=== PATIENT | female | born 1945 | race Caucasian/White ===

== ENCOUNTER → 2017-02-12 | Outpatient (CLI) | payer OTHER ==
[~2017-02-12] MED LIST: ACET-6 PO; AMLO5TAB2 PO; CLOP75TA28 PO; LISI-646 PO; MOME0.05 TOP
[2017-02-12 09:46] LABS: Basophils # (auto) 0.1 uL; Basophils % (auto) 1.1 % (0.0-2.0); Eosinophils # (auto) 0.2 uL; Eosinophils % (auto) 2.8 % (0.0-7.0); Hematocrit 50.8 % (36.0-46.0); Hemoglobin 16.6 g/dL (12.2-16.2); Lymphocytes # (auto) 3.7 uL; Lymphocytes % (auto) 41.5 % (10.0-50.0); Mean Corpuscular Hemoglobin 31.9 pg (28.0-32.0); Mean Corpuscular Hgb Conc. 32.7 g/dL (32.0-36.0); Mean Corpuscular Volume 97.4 fL (80.0-100.0); Mean Platelet Volume 9.5 fL (7.4-10.4); Monocytes # (auto) 0.8 uL; Monocytes % (auto) 9.5 % (0.0-12.0); Neutrophils % (auto) 45.1 % (37.0-80.0); Platelet Count (auto) 279 10^3/uL (140-450); Red Cell Distribution Width 13.1 % (11.6-16.0); White Blood Cell 8.9 10^3/uL (4.4-10.8)
[2017-02-12 09:52] LABS: Albumin 4.2 g/dL (3.4-5.0); Bilirubin, Total 0.5 mg/dL (0.2-1.0); Calcium 9.3 mg/dL (8.5-10.1); Potassium 4.3 mmol/L (3.5-5.1); Total Protein 8.4 g/dL (6.4-8.2)
== END | disposition home or self-care (01) ==
LOC: LAB 08:31
PROVIDERS: ATTEND Internal Medicine
DX: E78.2 Mixed hyperlipidemia (principal); I10 Essential (primary) hypertension; N39.0 Urinary tract infection, site not specified; E55.9 Vitamin D deficiency, unspecified
CPT/HCPCS: 36415; 80053; 80061; 82306; 84443; 85025

== ENCOUNTER → 2018-05-15 | Outpatient (CLI) | payer OTHER ==
[~2018-05-15] MED LIST changes: -ACET-6 PO; -MOME0.05 TOP
[2018-05-15 10:08] LABS: Basophils # (auto) 0.1 uL; Basophils % (auto) 1.1 % (0.0-2.0); Eosinophils # (auto) 0.2 uL; Lymphocytes # (auto) 4.3 uL; Nucleated Red Blood Cells % 0.1 %
[2018-05-15 10:10] LABS: Hematocrit 53.4 % (36.0-46.0); Hemoglobin 17.9 g/dL (12.2-16.2); Lymphocytes % (auto) 46.3 % (10.0-50.0); Mean Corpuscular Hemoglobin 32.6 pg (28.0-32.0); Mean Corpuscular Hgb Conc. 33.4 g/dL (32.0-36.0); Mean Corpuscular Volume 97.4 fL (80.0-100.0); Monocytes # (auto) 0.9 uL; Neutrophils # (auto) 3.7 uL; Neutrophils % (auto) 40.6 % (37.0-80.0); Platelet Count (auto) 257 10^3/uL (140-450); Red Blood Cells 5.48 10^6/uL (4.0-5.20); Red Cell Distribution Width 13.9 % (11.8-14.3); White Blood Cell 9.2 10^3/uL (4.4-10.8)
[2018-05-15 10:37] LABS: Albumin 4.3 g/dL (3.4-5.0); BUN/Creatinine Ratio 12.4; Bilirubin, Total 0.5 mg/dL (0.2-1.0); Calcium 9.2 mg/dL (8.5-10.1); Potassium 4.5 mmol/L (3.5-5.1); Total Protein 8.5 g/dL (6.4-8.2)
== END | disposition home or self-care (01) ==
LOC: LAB 09:50
PROVIDERS: ATTEND Physician Assistant
DX: I10 Essential (primary) hypertension (principal); I65.21 Occlusion and stenosis of right carotid artery; E78.2 Mixed hyperlipidemia; E55.9 Vitamin D deficiency, unspecified; Z79.899 Other long term (current) drug therapy
CPT/HCPCS: 36415; 80053; 80061; 82306; 85025

== ENCOUNTER → 2018-11-05 | Outpatient (CLI) | payer OTHER ==
[~2018-11-05] MED LIST changes: +AMLO5TAB13 PO; -AMLO5TAB2 PO
== END | disposition home or self-care (01) ==
LOC: LAB 11:57
PROVIDERS: ATTEND Physician Assistant
DX: C44.92 Squamous cell carcinoma of skin, unspecified (principal)

== ENCOUNTER → 2018-12-03 | Outpatient (CLI) | payer OTHER ==
[2018-12-03 09:05] LABS: Basophils # (auto) 0.1 uL; Eosinophils # (auto) 0.2 uL; Lymphocytes # (auto) 3.9 uL; Neutrophils # (auto) 5.3 uL; Nucleated Red Blood Cells % 0.2 %; White Blood Cell 10.2 10^3/uL (4.4-10.8)
[2018-12-03 09:06] LABS: Basophils % (auto) 1.1 % (0.0-2.0); Eosinophils % (auto) 1.8 % (0.0-7.0); Hemoglobin 18.9 g/dL (12.2-16.2); Lymphocytes % (auto) 38.3 % (10.0-50.0); Mean Corpuscular Hemoglobin 32.9 pg (28.0-32.0); Mean Corpuscular Hgb Conc. 34.4 g/dL (32.0-36.0); Mean Corpuscular Volume 95.5 fL (80.0-100.0); Monocytes # (auto) 0.7 uL; Neutrophils % (auto) 51.8 % (37.0-80.0); Platelet Count (auto) 267 10^3/uL (140-450); Red Blood Cells 5.76 10^6/uL (4.0-5.20); Red Cell Distribution Width 13.8 % (11.8-14.3)
[2018-12-03 09:53] LABS: Albumin 4.7 g/dL (3.4-5.0); Anion Gap 6 (5-15); Aspartate Aminotransferase 27 U/L (15-37); Calcium 9.6 mg/dL (8.5-10.1); Carbon Dioxide 27 mmol/L (21-32); Chloride 105 mmol/L (98-107); Potassium 4.7 mmol/L (3.5-5.1); Sodium 138 mmol/L (136-145)
[2018-12-03 09:59] LABS: Alanine Aminotransferase 43 U/L (13-56); Alkaline Phosphatase 87 U/L (45-117); BUN/Creatinine Ratio 19.5; Bilirubin, Total 0.3 mg/dL (0.2-1.0); Blood Urea Nitrogen 16 mg/dL (7-18); CRP High Sensitivity 0.13 mg/dL (< 0.3); Cholesterol 216 mg/dL (< 200); Free T4 (Free Thyroxine) 1.11 ng/dL (0.89-1.76); GFR African American > 60 mL/min; GFR Non-African American > 60 mL/min; Glucose 126 mg/dL (74-106); HDL Cholesterol 61 mg/dL (40-59); LDL Cholesterol 126 mg/dL (< 100); T3 Total 1.13 ng/mL (0.60-1.81); Total Protein 9.1 g/dL (6.4-8.2); Triglycerides 175 mg/dL (< 150)
== END | disposition home or self-care (01) ==
LOC: LAB 08:29
PROVIDERS: ATTEND Internal Medicine
DX: I10 Essential (primary) hypertension (principal); E78.2 Mixed hyperlipidemia; E55.9 Vitamin D deficiency, unspecified; E78.1 Pure hyperglyceridemia
CPT/HCPCS: 36415; 80053; 80061; 82306; 82607; 83036; 84439; 84443; 84480; 85025; 86141

== ENCOUNTER → 2019-01-01 | Outpatient (CLI) | payer OTHER | END | disposition home or self-care (01) | LOC: XY 07:59 | PROVIDERS: ATTEND Internal Medicine | DX: I65.23 Occlusion and stenosis of bilateral carotid arteries (principal); I77.1 Stricture of artery | CPT/HCPCS: 93886; 93925 ==

== ENCOUNTER → 2019-01-08 | Outpatient (CLI) | payer OTHER | END | disposition home or self-care (01) | LOC: XY 09:56 | PROVIDERS: ATTEND Internal Medicine | DX: I10 Essential (primary) hypertension (principal) | CPT/HCPCS: 93306 ==

== ENCOUNTER → 2019-02-27 | Outpatient (CLI) | payer OTHER ==
[~2019-02-27] MED LIST changes: +ROSU20TA14 PO
[2019-02-27 11:12] LABS: Basophils # (auto) 0.1 uL; Hemoglobin 17.8 g/dL (12.2-16.2)
[2019-02-27 11:14] LABS: Basophils % (auto) 0.8 % (0.0-2.0); Eosinophils # (auto) 0.2 uL; Eosinophils % (auto) 2.4 % (0.0-7.0); Hematocrit 54.4 % (36.0-46.0); Lymphocytes # (auto) 4.3 uL; Lymphocytes % (auto) 44.1 % (10.0-50.0); Mean Corpuscular Hemoglobin 31.9 pg (28.0-32.0); Mean Corpuscular Hgb Conc. 32.8 g/dL (32.0-36.0); Mean Corpuscular Volume 97.2 fL (80.0-100.0); Monocytes # (auto) 0.8 uL; Monocytes % (auto) 8.1 % (0.0-12.0); Neutrophils # (auto) 4.3 uL; Neutrophils % (auto) 44.6 % (37.0-80.0); Platelet Count (auto) 229 10^3/uL (140-450); Red Cell Distribution Width 14.2 % (11.8-14.3); White Blood Cell 9.7 10^3/uL (4.4-10.8)
[2019-02-27 11:26] LABS: INR 1.07 (0.9-1.15); Partial Thromboplastin Time 33.4 sec (23.78-33.04); Prothrombin Time 11.4 sec (9.27-12.13)
[2019-02-27 11:34] LABS: Potassium 4.6 mmol/L (3.5-5.1)
[2019-02-27 11:37] LABS: Albumin 4.7 g/dL (3.4-5.0); Calcium 9.6 mg/dL (8.5-10.1)
[2019-02-27 11:42] LABS: BUN/Creatinine Ratio 14.9; Bilirubin, Total 0.3 mg/dL (0.2-1.0); Total Protein 8.4 g/dL (6.4-8.2)
== END | disposition home or self-care (01) ==
LOC: LAB 10:52
PROVIDERS: ATTEND Internal Medicine
DX: Z01.812 Encounter for preprocedural laboratory examination (principal); I10 Essential (primary) hypertension
CPT/HCPCS: 36415; 80053; 85025; 85610; 85730

== ENCOUNTER 2019-04-17 08:46 | Inpatient (IN) | payer OTHER ==
[2019-04-15 09:53] LABS: Basophils # (auto) 0.1 uL; Eosinophils # (auto) 0.3 uL; Eosinophils % (auto) 2.6 % (0.0-7.0); Hematocrit 50.8 % (36.0-46.0); Hemoglobin 16.9 g/dL (12.2-16.2); Lymphocytes % (auto) 40.6 % (10.0-50.0); Mean Corpuscular Hemoglobin 32.6 pg (28.0-32.0); Mean Corpuscular Hgb Conc. 33.4 g/dL (32.0-36.0); Mean Corpuscular Volume 97.8 fL (80.0-100.0); Monocytes # (auto) 0.8 uL; Monocytes % (auto) 8.3 % (0.0-12.0); Neutrophils # (auto) 4.6 uL; Neutrophils % (auto) 47.5 % (37.0-80.0); Nucleated Red Blood Cells % 0.1 %; Platelet Count (auto) 221 10^3/uL (140-450); Red Cell Distribution Width 14.2 % (11.8-14.3); White Blood Cell 9.7 10^3/uL (4.4-10.8)
[2019-04-15 10:05] LABS: INR 0.98 (0.9-1.15); Partial Thromboplastin Time 29.6 sec (23.64-32.05)
[2019-04-15 10:20] LABS: Albumin 4.2 g/dL (3.4-5.0); Calcium 9.4 mg/dL (8.5-10.1); Potassium 4.4 mmol/L (3.5-5.1)
[2019-04-15 10:23] LABS: BUN/Creatinine Ratio 26.7; Bilirubin, Total 0.3 mg/dL (0.2-1.0); Total Protein 8.3 g/dL (6.4-8.2)
[~2019-04-17] VITALS: Ht 167.6 cm; Wt 62.8 kg
[~2019-04-17 08:46] MED LIST changes: -AMLO5TAB13 PO; +AMLO5TAB15 PO; +ASPI-404 PO
[2019-04-17] MEDS ORDERED: IOHEXOL 350 MG/ML 100ML IJ ONE ×3 (09:49→11:51)
[2019-04-17] MEDS ORDERED: LIDOCAINE 2%HCL (LOCAL ANESTH.) INJ 20ML MDV ONE (09:49)
[2019-04-17] MEDS ORDERED: fentaNYL CITRATE 100 MCG/2 ML VL ONE (09:51)
[2019-04-17] MEDS ORDERED: ANGIOMAX 250 MG VIAL IV ONE ×2 (09:51→12:24)
[2019-04-17] MEDS ORDERED: SODIUM CHL 0.9% 50 ML ONE ×2 (09:51→12:24)
[2019-04-17] MEDS ORDERED: MIDAZOLAM HCL 1MG/1ML-2 ML VIAL ONE (09:51)
[2019-04-17] MEDS ORDERED: VERAPAMIL 2.5MG/ML INJ 2ML VIAL IV ONE ×2 (11:14→11:27)
[2019-04-17] MEDS ORDERED: ACETAMINOPHEN 500 MG TAB PO PRN (13:30)
[2019-04-17] MEDS ORDERED: NITROGLYCERIN 0.4 MG SL TAB SL PRN (13:30)
[2019-04-17] MEDS ORDERED: ONDANSETRON HCL 4 MG/2 ML VIAL IV PRN (13:30)
[2019-04-17] MEDS ORDERED: MORPHINE SULF INJ 2 MG/ML SYRINGE 1ML IV PRN (13:30)
--- NOTE | 2019-04-17 14:30 | NUR ---
PT ADMITTED TO FLOOR VIA GURNEY FROM P[facility]PERATOR. PT ORIENTED TO UNIT AND CALL LIGHT. PT DENIES PAIN AT THIS TIME. LEFT GROIN INCISION IS CLEAN, DRY, AND INTACT. SLIGHT ECCHYMOSIS NOTED AT SITE. SITE IS SOFT AND PALPABLE. BILATERAL PEDAL PULSES PRESENT, PLUS 2 AND REGULAR. VITALS: 140/67, HR 83, 02 92, RR 18, T 98.6.
[2019-04-17] MEDS: SODIUM CHLOR 0.9% PF (SALINE LOCK) 10ML VIAL/SYR IV SCH ×2 (15:34→22:12)
[2019-04-17 17:34] VITALS: BP 118/54
[2019-04-17 22:00] VITALS: BP 153/108
[2019-04-17] MEDS: HYDROcodone-ACET 5/325MG TAB PO PRN (22:14)
[2019-04-18] MEDS: HYDROcodone-ACET 5/325MG TAB PO PRN ×2 (02:54→12:20)
[2019-04-18 04:49] VITALS: BP 103/55
[2019-04-18] MEDS: SODIUM CHLOR 0.9% PF (SALINE LOCK) 10ML VIAL/SYR IV SCH ×2 (05:50→13:33)
--- NOTE | 2019-04-18 07:20 | NUR ---
Opening Shift Note Assumed care of patient, awake and alert. No S/S of distress/SOB or pain. Instructed on POC and to call for assist PRN, will continue to monitor for changes Q1hr and PRN. Ecchymosis noted around left groin.
[2019-04-18 08:00] VITALS: BP 101/37
[2019-04-18 09:00] VITALS: BP 101/37
[2019-04-18] MEDS ORDERED: ASPirin-EC 81 mg tab PO SCH (10:00)
[2019-04-18] MEDS ORDERED: LISINOPRIL 20 MG TAB PO SCH (10:00)
[2019-04-18] MEDS ORDERED: amLODIPine BESYLATE 5 MG TAB PO SCH (10:00)
[2019-04-18] MEDS ORDERED: CLOPIDOGREL BISULFATE 75 MG TAB PO SCH (10:00)
--- NOTE | 2019-04-18 10:50 | NUR ---
MD Irma SEBASTIAN network professional for Dr. Juan cifuentes regarding plan of care.
--- NOTE | 2019-04-18 11:30 | NUR ---
Spoke with Dr. Dutch Mays with him for DC
[2019-04-18 13:21] VITALS: BP 107/51
--- NOTE | 2019-04-18 14:45 | NUR ---
Received call from Dr. Juan SEBATSIAN reported patient can be discharged.
--- NOTE | 2019-04-18 15:58 | NUR ---
Discharge from Med Surg Discharge instructions given as ordered. Encourage to follow up with PMD as instructed. All questions and concerns addressed. Patient verbalized understanding. IV removed with catheter intact, pressure dressing applied. Patient taken to vehicle via wheelchair with all personal belongings, accompanied by staff and family member. No distress noted at time of departure.
== END 2019-04-18 15:56 | disposition home or self-care (01) | DRG 272 ==
LOC: CATH 08:46 → WEST WING 14:40
PROVIDERS: ADMIT Internal Medicine; ATTEND Internal Medicine
PROC: 047C3DZ Dilation of Right Common Iliac Artery with Intraluminal Device, Percutaneous Approach (ICD-10-PCS; principal; 2019-04-17)
PROC: 04CK3ZZ Extirpation of Matter from Right Femoral Artery, Percutaneous Approach (ICD-10-PCS; 2019-04-17)
PROC: 047K3Z1 Dilation of Right Femoral Artery using Drug-Coated Balloon, Percutaneous Approach (ICD-10-PCS; 2019-04-17)
PROC: 047M3Z1 Dilation of Right Popliteal Artery using Drug-Coated Balloon, Percutaneous Approach (ICD-10-PCS; 2019-04-17)
PROC: 047R3Z1 Dilation of Right Posterior Tibial Artery using Drug-Coated Balloon, Percutaneous Approach (ICD-10-PCS; 2019-04-17)
PROC: 04CM3ZZ Extirpation of Matter from Right Popliteal Artery, Percutaneous Approach (ICD-10-PCS; 2019-04-17)
PROC: 04CR3ZZ Extirpation of Matter from Right Posterior Tibial Artery, Percutaneous Approach (ICD-10-PCS; 2019-04-17)
PROC: B41G1ZZ Fluoroscopy of Left Lower Extremity Arteries using Low Osmolar Contrast (ICD-10-PCS; 2019-04-17)
PROC: B41F1ZZ Fluoroscopy of Right Lower Extremity Arteries using Low Osmolar Contrast (ICD-10-PCS; 2019-04-17)
DX: I70.201 Unspecified atherosclerosis of native arteries of extremities, right leg (principal); I10 Essential (primary) hypertension; E78.5 Hyperlipidemia, unspecified; F17.210 Nicotine dependence, cigarettes, uncomplicated; Z82.0 Family history of epilepsy and other diseases of the nervous system; Z82.3 Family history of stroke; Z82.49 Family history of ischemic heart disease and other diseases of the circulatory system; Z83.3 Family history of diabetes mellitus; Z90.710 Acquired absence of both cervix and uterus; Z98.61 Coronary angioplasty status
CPT/HCPCS: 36415; 37221; 37224; 37229; 75716; 80053; 82565; 85025; 85610; 85730; 99152; C1725; G0378; J2250

== ENCOUNTER → 2019-12-29 | Outpatient (CLI) | payer OTHER ==
[2019-12-29 09:39] LABS: Basophils # (auto) 0.1 uL; Eosinophils # (auto) 0.2 uL; Hemoglobin 17.8 g/dL (12.2-16.2); Monocytes # (auto) 0.8 uL; Monocytes % (auto) 14.6 % (0.0-12.0); White Blood Cell 5.7 10^3/uL (4.4-10.8)
[2019-12-29 09:41] LABS: Basophils % (auto) 1.1 % (0.0-2.0); Eosinophils % (auto) 3.6 % (0.0-7.0); Hematocrit 53.5 % (36.0-46.0); Lymphocytes # (auto) 2.2 uL; Lymphocytes % (auto) 37.7 % (10.0-50.0); Mean Corpuscular Hemoglobin 31.4 pg (28.0-32.0); Mean Corpuscular Hgb Conc. 33.2 g/dL (32.0-36.0); Mean Corpuscular Volume 94.7 fL (80.0-100.0); Neutrophils # (auto) 2.5 uL; Nucleated Red Blood Cells % 0.3 %; Platelet Count (auto) 164 10^3/uL (140-450); Red Blood Cells 5.65 10^6/uL (4.0-5.20); Red Cell Distribution Width 14.9 % (11.8-14.3)
[2019-12-29 09:56] LABS: Potassium 4.5 mmol/L (3.5-5.1)
[2019-12-29 10:07] LABS: Albumin 3.7 g/dL (3.4-5.0); Bilirubin, Total 0.3 mg/dL (0.2-1.0); Calcium 8.6 mg/dL (8.5-10.1); Total Protein 7.7 g/dL (6.4-8.2)
== END | disposition home or self-care (01) ==
LOC: LAB 08:31
PROVIDERS: ATTEND Physician Assistant
DX: J44.9 Chronic obstructive pulmonary disease, unspecified (principal); E78.5 Hyperlipidemia, unspecified; E78.1 Pure hyperglyceridemia; I73.9 Peripheral vascular disease, unspecified; I10 Essential (primary) hypertension
CPT/HCPCS: 36415; 80053; 80061; 85025

== ENCOUNTER → 2020-09-29 | Outpatient (CLI) | payer OTHER ==
[~2020-09-29] MED LIST changes: -ASPI-404 PO; +ASPI-543 PO
== END | disposition home or self-care (01) ==
LOC: XY 16:05
PROVIDERS: ATTEND Internal Medicine
DX: I73.9 Peripheral vascular disease, unspecified (principal)
CPT/HCPCS: 93925

== ENCOUNTER → 2021-02-20 | Outpatient (CLI) | payer OTHER ==
[~2021-02-20] MED LIST changes: +AMLO-489 PO; -AMLO5TAB15 PO
[2021-02-20 09:11] LABS: Basophils # (auto) 0.1 10 ^3/uL (0-0.2); Eosinophils # (auto) 0.4 10 ^3/uL (0-0.8); Lymphocytes # (auto) 3.5 10 ^3/uL (0.4-5.4); Monocytes # (auto) 0.8 10 ^3/uL (0-1.3); Neutrophils # (auto) 3.7 10 ^3/uL (1.6-8.6)
[2021-02-20 09:12] LABS: Basophils % (auto) 1.4 % (0.0-2.0); Eosinophils % (auto) 4.7 % (0.0-7.0); Hematocrit 52.5 % (36.0-46.0); Hemoglobin 17.9 g/dL (12.2-16.2); Lymphocytes % (auto) 41.1 % (10.0-50.0); Mean Corpuscular Hemoglobin 32.8 pg (28.0-32.0); Mean Corpuscular Hgb Conc. 34.2 g/dL (32.0-36.0); Mean Corpuscular Volume 95.9 fL (80.0-100.0); Monocytes % (auto) 9.6 % (0.0-12.0); Neutrophils % (auto) 43.2 % (37.0-80.0); Nucleated Red Blood Cells % 0.1 %; Platelet Count (auto) 192 10^3/uL (140-450); Red Blood Cells 5.47 10^6/uL (4.0-5.20); Red Cell Distribution Width 13.7 % (11.8-14.3); White Blood Cell 8.6 10^3/uL (4.4-10.8)
[2021-02-20 09:52] LABS: Potassium 4.2 mmol/L (3.5-5.1)
[2021-02-20 10:19] LABS: BUN/Creatinine Ratio 32.1; Bilirubin, Total 0.4 mg/dL (0.2-1.0); Calcium 10.2 mg/dL (8.5-10.1); Total Protein 7.6 g/dL (6.4-8.2)
== END | disposition home or self-care (01) ==
LOC: LAB 07:50
PROVIDERS: ATTEND Physician Assistant
DX: I10 Essential (primary) hypertension (principal); E78.5 Hyperlipidemia, unspecified; E78.1 Pure hyperglyceridemia; I73.9 Peripheral vascular disease, unspecified; D45 Polycythemia vera
CPT/HCPCS: 36415; 80053; 80061; 85025

== ENCOUNTER → 2022-02-12 | Outpatient (CLI) | payer OTHER ==
[~2022-02-12] MED LIST changes: -LISI-646 PO; +LISI20TA28 PO
[2022-02-12 09:34] LABS: Basophils # (auto) 0.1 10 ^3/uL (0-0.2); Eosinophils # (auto) 0.4 10 ^3/uL (0-0.8); Eosinophils % (auto) 4.9 % (0.0-7.0); Hematocrit 45.6 % (36.0-46.0); Hemoglobin 15.6 g/dL (12.2-16.2); Lymphocytes # (auto) 4.3 10 ^3/uL (0.4-5.4); Lymphocytes % (auto) 46.9 % (10.0-50.0); Mean Corpuscular Hemoglobin 31.8 pg (28.0-32.0); Mean Corpuscular Hgb Conc. 34.3 g/dL (32.0-36.0); Mean Corpuscular Volume 92.7 fL (80.0-100.0); Monocytes # (auto) 0.9 10 ^3/uL (0-1.3); Monocytes % (auto) 9.8 % (0.0-12.0); Neutrophils # (auto) 3.4 10 ^3/uL (1.6-8.6); Neutrophils % (auto) 37.4 % (37.0-80.0); Nucleated Red Blood Cells % 0.1 %; Red Blood Cells 4.91 10^6/uL (4.0-5.20); Red Cell Distribution Width 13.6 % (11.8-14.3); White Blood Cell 9.1 10^3/uL (4.4-10.8)
[2022-02-12 10:06] LABS: Potassium 4.2 mmol/L (3.5-5.1)
[2022-02-12 10:16] LABS: Albumin 3.9 g/dL (3.4-5.0); BUN/Creatinine Ratio 21.9; Bilirubin, Total 0.2 mg/dL (0.2-1.0); Total Protein 7.7 g/dL (6.4-8.2)
== END | disposition home or self-care (01) ==
LOC: LAB 09:08
PROVIDERS: ATTEND Nurse Practitioner Family
DX: Z00.00 Encounter for general adult medical examination without abnormal findings (principal); J44.9 Chronic obstructive pulmonary disease, unspecified; E78.5 Hyperlipidemia, unspecified; I10 Essential (primary) hypertension; D45 Polycythemia vera
CPT/HCPCS: 36415; 80053; 80061; 82306; 85025

== ENCOUNTER → 2022-03-05 | Outpatient (CLI) | payer OTHER ==
[2022-03-05 10:30] LABS: Albumin 4.1 g/dL (3.4-5.0); Calcium 9.5 mg/dL (8.5-10.1); Potassium 5.5 mmol/L (3.5-5.1)
[2022-03-05 10:34] LABS: BUN/Creatinine Ratio 12.6; Bilirubin, Total 0.3 mg/dL (0.2-1.0)
== END | disposition home or self-care (01) ==
LOC: LAB 09:08
PROVIDERS: ATTEND Nurse Practitioner Family
DX: N18.32 Chronic kidney disease, stage 3b (principal)
CPT/HCPCS: 36415; 80053

== ENCOUNTER → 2022-04-30 | Outpatient (CLI) | payer OTHER ==
[2022-04-30 09:14] LABS: Basophils # (auto) 0.1 10 ^3/uL (0-0.2); Basophils % (auto) 1.3 % (0.0-2.0); Eosinophils # (auto) 0.3 10 ^3/uL (0-0.8); Eosinophils % (auto) 3.6 % (0.0-7.0); Hematocrit 49.4 % (36.0-46.0); Lymphocytes # (auto) 3.4 10 ^3/uL (0.4-5.4); Lymphocytes % (auto) 35.5 % (10.0-50.0); Mean Corpuscular Hemoglobin 32.2 pg (28.0-32.0); Mean Corpuscular Hgb Conc. 34.4 g/dL (32.0-36.0); Mean Corpuscular Volume 93.8 fL (80.0-100.0); Monocytes # (auto) 0.9 10 ^3/uL (0-1.3); Monocytes % (auto) 9.7 % (0.0-12.0); Neutrophils # (auto) 4.7 10 ^3/uL (1.6-8.6); Neutrophils % (auto) 49.9 % (37.0-80.0); Nucleated Red Blood Cells % 0.1 %; Red Blood Cells 5.27 10^6/uL (4.0-5.20); Red Cell Distribution Width 14.5 % (11.8-14.3); White Blood Cell 9.5 10^3/uL (4.4-10.8)
[2022-04-30 09:28] LABS: Urine Bacteria MOD /hpf (None Seen); Urine Blood Negative /uL (Negative); Urine Mucus FEW (None Seen); Urine Specific Gravity 1.013 (1.001-1.035); Urine WBC 18 /hpf (0 - 5)
[2022-04-30 09:55] LABS: Albumin 4.3 g/dL (3.4-5.0); Calcium 8.9 mg/dL (8.5-10.1); Potassium 3.7 mmol/L (3.5-5.1)
[2022-04-30 09:59] LABS: BUN/Creatinine Ratio 15.8; Bilirubin, Total 0.4 mg/dL (0.2-1.0); Protein, Urine 14.8 mg/dL (0.0-11.9); Total Protein 8.3 g/dL (6.4-8.2)
== END | disposition home or self-care (01) ==
LOC: LAB 08:57
PROVIDERS: ATTEND Internal Medicine Nephrology
DX: I10 Essential (primary) hypertension (principal)
CPT/HCPCS: 36415; 80053; 81001; 82570; 83036; 84156; 85025

== ENCOUNTER → 2023-02-25 | Outpatient (CLI) | payer OTHER ==
[2023-02-25 08:27] LABS: Basophils # (auto) 0.1 10 ^3/uL (0-0.2); Basophils % (auto) 0.9 % (0.0-2.0); Hemoglobin 19.4 g/dL (12.2-16.2); White Blood Cell 7.2 10^3/uL (4.4-10.8)
[2023-02-25 08:28] LABS: Eosinophils # (auto) 0.3 10 ^3/uL (0-0.8); Eosinophils % (auto) 3.8 % (0.0-7.0); Lymphocytes # (auto) 2.7 10 ^3/uL (0.4-5.4); Lymphocytes % (auto) 36.9 % (10.0-50.0); Mean Corpuscular Hemoglobin 32.1 pg (28.0-32.0); Mean Corpuscular Hgb Conc. 34.6 g/dL (32.0-36.0); Mean Corpuscular Volume 92.8 fL (80.0-100.0); Monocytes # (auto) 0.7 10 ^3/uL (0-1.3); Monocytes % (auto) 10.1 % (0.0-12.0); Neutrophils # (auto) 3.5 10 ^3/uL (1.6-8.6); Neutrophils % (auto) 48.3 % (37.0-80.0); Nucleated Red Blood Cells % 0.4 %; Red Blood Cells 6.03 10^6/uL (4.0-5.20); Red Cell Distribution Width 14.4 % (11.8-14.3)
[2023-02-25 09:38] LABS: Bilirubin, Total 0.7 mg/dL (0.2-1.0); Calcium 9.5 mg/dL (8.5-10.1); Total Protein 8.4 g/dL (6.4-8.2)
== END | disposition home or self-care (01) ==
LOC: LAB 08:04
PROVIDERS: ATTEND Nurse Practitioner Family
DX: I12.9 Hypertensive chronic kidney disease with stage 1 through stage 4 chronic kidney disease, or unspecified chronic kidney disease (principal); E11.22 Type 2 diabetes mellitus with diabetic chronic kidney disease; N18.9 Chronic kidney disease, unspecified; E55.9 Vitamin D deficiency, unspecified; J44.9 Chronic obstructive pulmonary disease, unspecified
CPT/HCPCS: 36415; 80053; 80061; 82043; 82306; 83036; 84439; 84443; 85025

== ENCOUNTER 2025-01-13 17:06 | Inpatient (IN) | payer OTHER ==
[2025-01-13] VITALS (8 sets, daily range): BP systolic 117–119; BP diastolic 57–99; PULSE 94–101; RESP 18–22; TEMP 98.1–98.3; O2SAT 86–93
[~2025-01-13] VITALS: Ht 167.6 cm; Wt 55.6 kg
[~2025-01-13 17:06] MED LIST changes: -AMLO-489 PO; +AMLO1TAB22 PO; -LISI20TA28 PO; +LISI20TA56 PO
--- NOTE | 2025-01-13 17:42 | DVHHPRES ---
History of Present Illness Resident Creating Document: CHRISTOPHER HERRERA RESIDENT History of Present Illness Kaylie Mao is a 79-year-old female patient with past medical history of COPD not on home oxygen, solitary pulmonary nodules, left PAD status post PTCA of left superficial femoral artery and popliteal artery. placed by Dr. Martinez 2019, hypertension, diabetes mellitus type 2, internal and external hemorrhoids, colonic polyp, diverticulosis who was sent to the ER from [facility] with a chief complaint of shortness of breaths and generalized weakness for 1 day. She lives with her son who is the caregiver. Per son who is present at bedside, patient developed generalized weakness and shortness of breaths on waking up and she could not transfer herself from the bed to wheelchair. Patient uses albuterol and Breztri inhaler but did not increase the consumption recently, she has chronic cough but the cough did not worsened recently. She smokes half a pack a day for the past 50 years, quit 1 week back. No recent immobilization/hospitalization or surgery history. She denies chest pain, palpitations, nausea, vomiting, diaphoresis, back pain, constipation or diarrhea. Vitals on arrival were pulse 99, blood pressure 123/60 mmHg, saturating 89% on 9 L Oxymizer Past medical/surgical history: see above Home medications: Aspirin 81 mg, atorvastatin 20 mg HS, albuterol inhaler,breztri inhaler, amlodipine PCP: Dr. Ng Wood Bucker: Dr. Martinez, but patient does not follow up with the him anymore Allergic history: Denies Social history: Lives with son, has a daughter in [place], smokes half a pack a day for more than 50 years, quit 1 week back, denies drinking or illicit drug use. Patient seen and examined at the bedside. Reports feeling fine. ABG completed on 7 L Oxymizer shows PO2 57, pH and pCO2 WNL. CT angio and lower extremity Doppler ordered. Past Medical History COPD not on home oxygen, solitary pulmonary nodules, left PAD status post PTCA of left superficial femoral artery and popliteal artery. placed by Dr. Martinez 2019, hypertension, diabetes mellitus type 2, internal and external hemorrhoids, colonic polyp, diverticulosis Past Surgical History left PAD status post PTCA of left superficial femoral artery and popliteal artery Smoke: <1 pack per day ALCOHOL: none Drugs: None Lives: with Family Review of Systems Constitutional: Yes: Weakness Respiratory: Cough, Shortness of breath, SOB with excertion Allergies: Coded Allergies: NO KNOWN ALLERGIES (Unverified , 04/15/19) Exam Exam Elderly female patient lying comfortably in bed, in no acute distress, she is well conversational General: Cachectic-appearing, afebrile, palor, mucosae are moist Cardiovascular: Tachycardic but regular S1 and S2. No murmurs, gallops or rubs. No JVD elevation. No pedal edema Respiratory: Bilateral crackles heard on auscultation, right more than left, saturating 89 on 9 L Oxymizer Abdomen: Soft, nontender, nondistended, normoactive bowel sounds, no rebound tenderness, no organomegaly, no masses Genitourinary: Deferred MSK/skin: Mobilizes 4 limbs. Skin is dry and warm Neurological: No motor, no sensitive deficits, normal speech. Pupils are isocoric and reactive. Psych/Mental Status: A/Ox4 Assessment/Plan Assessment/Plan Acute on chronic COPD exacerbation Sepsis secondary to Pneumonia, Gram-positive and negative Acute hypoxic respiratory failure secondary to above Solitary pulmonary nodules Rule out pulmonary embolism Ordered blood culture, sputum culture with induction Patient is saturating 89 % on 9 L Oxymizer (goal saturation 88-92%) Started IV NS, IV ceftriaxone and IV azithromycin 3/5 Lactic acid pending Follow up with CT angio, lower extremity Doppler CT chest 2023 showed Stable bilateral pulmonary nodules measuring up to 7mm. Likely new onset heart failure-NYHA class 4 NSTEMI, type 1 versus type 2 Bilateral PAD status post PTCA of bilateral superficial femoral artery and popliteal artery. by Dr. Martinez 2018 Hypertension Troponin 405, BNP 307 EKG ordered, Echocardiogram pending Cardiology consulted Continue home medication aspirin 81 mg daily and atorvastatin 40 mg HS Holding off antihypertensives at this moment Secondary erythropoiesis, likely secondary to COPD Secondary hypercoagulable state Thrombocytopenia Monitor Type 2 diabetes mellitus-hemoglobin A1c pending On mild ISS History of Colonic polyps Diverticulosis Internal external hemorrhoids Monitor H&H Hyponatremia Hypokalemia Supplemented Nicotine dependence Counseled regarding cessation for more than 28 minute Lovenox 40 mg sc daily Cardiac diet Follow up with CT angio, lower extremity Doppler Plan discussed with patient, son present at the bedside in which all questions have been answered Goals of care discussed with patient for more than 20 minutes, full code status Case discussed with Dr. Chavez Plan discussed with: Patient, Son (At the bedside) My Orders Orders - CHRISTOPHER HERRERA Procedure Category Date Status Time Admit ADMIT 01/13/25 Transmitted 17:38 Chest Xray 1 View XY 01/13/25 Logged 17:38 Troponin-I Hs LAB 01/13/25 Transmitted 17:38 B-Type Natriuretic LAB 01/13/25 Transmitted Peptide 17:[address] 01/13/25 Logged 17:38 Drug Screen LAB 01/13/25 Transmitted 17:38 Magnesium LAB 01/13/25 Transmitted 17:38 Thyroid Stimulating LAB 01/13/25 Transmitted Hormone 17:38 Urinalysis LAB 01/13/25 Transmitted 17:38 Complete Blood Count LAB 01/13/25 Transmitted 17:41 Comprehensive LAB 01/13/25 Transmitted Metabolic Panel 17:41 Date of Service: Jan 13, 2025 Billing Provider: JUSTINE CHAVEZ MD Common Visit Codes: [id number] INP/OBS CARE (HIGH) CHRISTOPHER HERRERA RESIDENT Jan 13, 2025 17:42 JUSTINE CHAVEZ MD Jan 14, 2025 17:51
[2025-01-13] MEDS ORDERED: IPRATROPIUM BROM 0.5 MG/2.5ML INH SOL NEB PRN (17:45)
[2025-01-13] MEDS ORDERED: HYDROcodone-ACET 5/325MG TAB PO PRN (17:45)
[2025-01-13] MEDS ORDERED: DEXTROSE (50%) 50ML SYRG IV PRN (17:45)
[2025-01-13] MEDS ORDERED: ALBUTEROL SULF 2.5 MG/0.5ML(0.5%) NEB SOLN NEB SCH (18:00)
[2025-01-13] MEDS ORDERED: ALBU108A5 IN (18:20)
[2025-01-13] MEDS ORDERED: BUDE1AER6 IN (18:20)
[2025-01-13] MEDS ORDERED: HYDR12.59 PO (18:20)
[2025-01-13 18:22] LABS: Basophils # (auto) 0 10 ^3/uL (0-0.2); Eosinophils # (auto) 0 10 ^3/uL (0-0.8); Hemoglobin 18.2 g/dL (12.2-16.2)
[2025-01-13 18:24] LABS: Basophils % (auto) 0.1 % (0.0-2.0); Hematocrit 52.4 % (36.0-46.0); Lymphocytes # (auto) 0.7 10 ^3/uL (0.4-5.4); Lymphocytes % (auto) 6.3 % (10.0-50.0); Mean Corpuscular Hgb Conc. 34.8 g/dL (32.0-36.0); Mean Corpuscular Volume 97.7 fL (80.0-100.0); Monocytes # (auto) 0.6 10 ^3/uL (0-1.3); Monocytes % (auto) 5.4 % (0.0-12.0); Neutrophils # (auto) 9.6 10 ^3/uL (1.6-8.6); Neutrophils % (auto) 88.2 % (37.0-80.0); Nucleated Red Blood Cells % 0.1 %; Platelet Count (auto) 136 10^3/uL (140-450); Red Blood Cells 5.36 10^6/uL (4.0-5.20); Red Cell Distribution Width 14.5 % (11.8-14.3); White Blood Cell 10.9 10^3/uL (4.4-10.8)
[2025-01-13 18:42] LABS: Alanine Aminotransferase 27 U/L (7-40); Alkaline Phosphatase 53 U/L (46-116); Anion Gap 10 (5-15); BUN/Creatinine Ratio 26.3 (10.0-20.0); Calcium 9.4 mg/dL (8.7-10.4); Carbon Dioxide 27 mmol/L (20-31)
[2025-01-13 18:43] LABS: Albumin 4.5 g/dL (3.2-4.8); Aspartate Aminotransferase 34 U/L (13-40); Bilirubin, Total 0.5 mg/dL (0.2-1.0)
[2025-01-13 18:48] LABS: Blood Urea Nitrogen 25 mg/dL (9-23); Chloride 91 mmol/L (98-107); Glucose 189 mg/dL (74-106); Potassium 3.3 mmol/L (3.5-5.1); Sodium 128 mmol/L (136-145)
[2025-01-13 19:21] LABS: Base Excess 1.2 mmol/L (-2.0-3.0)
[2025-01-13 19:26] LABS: Urine Bacteria MANY /hpf (None Seen); Urine Blood TRACE /uL (Negative); Urine Clarity Clear (Clear); Urine Color Yellow (Yellow); Urine Mucus FEW (None Seen); Urine Protein, UAD 1+ (Negative); Urine Specific Gravity 1.018 (1.001-1.035); Urine Squamous Epithelial Cell FEW /hpf (<5); Urine Urobilinogen Normal (Negative); Urine WBC 6 /HPF (0-5); Urine pH 5.5 (5.0-9.0)
[2025-01-13 19:37] LABS: Opiate Scree,Urine Neg (NEGATIVE); Phencyclidine Screen, Urine Neg (NEGATIVE)
[2025-01-13 19:39] LABS: Amphetamine Screen, Urine Neg (NEGATIVE); Barbiturate Scree,Urine Neg (NEGATIVE); Benzodiazephine Screen, Urine Neg (NEGATIVE); Cannabinoid Screen, Urine Neg (NEGATIVE); Cocaine Screen, Urine Neg (NEGATIVE)
[2025-01-13] MEDS: ALBUTEROL SULF 2.5 MG/0.5ML(0.5%) NEB SOLN NEB SCH (19:53)
[2025-01-13] MEDS: IPRATROPIUM BROM 0.5 MG/2.5ML INH SOL NEB SCH (19:53)
[2025-01-13 19:56] LABS: INR 1.13 (0.9-1.15); Partial Thromboplastin Time 32.1 SEC (24.5-34.5); Prothrombin Time 11.8 sec (9.3-11.8)
--- NOTE | 2025-01-13 20:35 | DVH ---
Bilateral lower extremity venous duplex Clinical History: DVT Comparison: None Technique: Duplex Doppler evaluation of the deep venous systems of both lower extremities from the common femora l veins to the popliteal veins including color Doppler and spectral/pulsed waveform analysis was perf ormed. Findings: RIGHT SIDE: The common femoral vein demonstrates appropriate compressibility and waveform variability. There is compressibility/patency of the great saphenous vein at the proximal thigh. The femoral vein demonstrates appropriate compressibility and waveform variability. The deep femoral vein demonstrates appropriate compressibility and waveform variability. The popliteal vein demonstrates appropriate compressibility and waveform variability. There is normal compressibility at the tibioperoneal trunk. LEFT SIDE: The common femoral vein demonstrates appropriate compressibility and waveform variability. There is compressibility/patency of the great saphenous vein at the proximal thigh. The femoral vein demonstrates appropriate compressibility and waveform variability. The deep femoral vein demonstrates appropriate compressibility and waveform variability. The popliteal vein demonstrates appropriate compressibility and waveform variability. There is normal compressibility at the tibioperoneal trunk. Impression: No right or left femoropopliteal venous thrombosis.
[2025-01-13] MEDS: AZITHROMYCIN 500MG/ 250ML 250 ML IV ONE (21:16)
[2025-01-13] MEDS: SODIUM CHLORIDE 0.9% 1,000 ML IV ONE (21:33)
[2025-01-13] MEDS: cefTRIAXone 1GM/50ML D5W 50 ML IV ONE (21:33)
[2025-01-13] MEDS: POTASSIUM CHL 20MEQ/100ML 100 ML IV SCH (21:53)
[2025-01-13] MEDS: MAGNESIUM SULFATE 1GM/100ML 100 ML IV ONE (22:51)
[2025-01-13] MEDS: ATORVASTATIN 20 MG TAB PO SCH (22:57)
[2025-01-13] MEDS: ENOXAPARIN SOD 40 MG/0.4 ML SYRINGE SC ONE (22:57)
[2025-01-13] MEDS: ACCU-CHEK COMFORT CURVE STRIP VI SCH (22:58)
[2025-01-13] MEDS: ASPirin-EC 81 mg tab PO ONE (23:28)
[2025-01-13] MEDS: InsuLIN REG 1unit/0.01ml Soln (100units/ml) SC SCH (23:46)
[2025-01-14] VITALS (27 sets, daily range): BP systolic 104–124; BP diastolic 43–61; PULSE 71–109; RESP 15–23; TEMP 98–99.5; O2SAT 83–97
[2025-01-14 06:58] LABS: Potassium 3.6 mmol/L (3.5-5.1)
[2025-01-14 06:59] LABS: Anion Gap 6 (5-15); Calcium 9.1 mg/dL (8.7-10.4); Carbon Dioxide 29 mmol/L (20-31)
[2025-01-14 07:00] LABS: Chloride 97 mmol/L (98-107); Sodium 132 mmol/L (136-145)
[2025-01-14 07:04] LABS: BUN/Creatinine Ratio 25.3 (10.0-20.0); Blood Urea Nitrogen 21 mg/dL (9-23)
[2025-01-14 07:08] LABS: Glucose 142 mg/dL (74-106)
[2025-01-14 07:17] LABS: Basophils # (auto) 0 10 ^3/uL (0-0.2); Eosinophils # (auto) 0 10 ^3/uL (0-0.8); Monocytes # (auto) 1.2 10 ^3/uL (0-1.3); Neutrophils # (auto) 10.2 10 ^3/uL (1.6-8.6); Platelet Count (auto) 141 10^3/uL (140-450); Red Blood Cells 5.08 10^6/uL (4.0-5.20)
[2025-01-14 07:19] LABS: Basophils % (auto) 0.2 % (0.0-2.0); Hematocrit 49.7 % (36.0-46.0); Hemoglobin 17.3 g/dL (12.2-16.2); Lymphocytes # (auto) 0.8 10 ^3/uL (0.4-5.4); Lymphocytes % (auto) 6.9 % (10.0-50.0); Mean Corpuscular Hgb Conc. 34.8 g/dL (32.0-36.0); Mean Corpuscular Volume 97.8 fL (80.0-100.0); Monocytes % (auto) 9.6 % (0.0-12.0); Neutrophils % (auto) 83.3 % (37.0-80.0); Nucleated Red Blood Cells % 0.2 %; Red Cell Distribution Width 14.5 % (11.8-14.3); White Blood Cell 12.2 10^3/uL (4.4-10.8)
--- NOTE | 2025-01-14 08:38 | ECG ---
[facility] Test Date: 2025-01-13 Test Time: 19:06:47 Pat Name: REBEL CHADWICK Department: Respiratoy Room: 0263D Gender: F [employer]otive [employer] Specialist: KDLVN : [id number] Requested By: CHRISTOPHER HERRERA Order Number: [id number] Reading MD: Evelio Martinez Measurements Intervals Purchase Rate: 96 P: 79 NV: 120 QRS: 58 QRSD: 115 T: 78 QT: 377 QTc: 477 Interpretive Statements Sinus rhythm Biatrial enlargement Nonspecific intraventricular conduction delay Low voltage, extremity leads ST depr, consider ischemia, inferior leads Minimal ST elevation, anterior leads Electronically Signed On 01-15-2025 13:38:07 PST by Evelio Martinez Please click the below link to view image of tracing.
[2025-01-14 09:02] LABS: Free T4 (Free Thyroxine) 1.02 ng/dL (0.89-1.76)
[2025-01-14 09:03] LABS: T3 Total 0.64 ng/mL (0.60-1.81)
--- NOTE | 2025-01-14 09:04 | DVH ---
CT CT ANGIO CHEST CONTRAST INDICATION: R/O PE EXAM DATE: 01/14/2025 08:19 AM COMPARISON: None RADIATION DOSE: CTDIvol: 20.7 mGy, DLP: 728.08 mGy*cm PROCEDURE: Helical CT angiographic images were obtained of the chest with intravenous contrast. Sagi ttal and coronal reconstructions as well as MIPS are provided. Maximum intensity projections performe d (MIPs) were performed for CTA. ADDITIONAL IMAGES / REFORMATS: None All CT scans at this medical facility are performed using dose modulation techniques as appropriate t o a performed exam including the following: Automated exposure control was utilized; adjustment of th e MA and/or KV according to patient size; and use of iterative reconstruction technique. FINDINGS: Bones: Scattered degenerative changes are noted in the visualized osseous structures. Visualized Abdomen: Normal. Chest Wall: Normal. Soft tissues: Normal. Mediastinum: Normal. Heart: Normal. Vessels: No filling defects in the visualized pulmonary arteries including the segmental and subsegme ntal pulmonary arteries. Lymph Nodes: Prominent mediastinal and right perihilar lymph nodes. Pleura: Normal. Airways: Normal. Lung: Multifocal and bibasilar consolidation is most likely atelectasis. Other: None IMPRESSION: No pulmonary embolism in the visualized pulmonary arteries including the segmental and subsegmental p ulmonary arteries. Multifocal and bibasilar consolidation is most likely atelectasis.
--- NOTE | 2025-01-14 09:24 | DVHPNRES ---
Progress Note Objective vital signs Vital Sign Date Time Temp Pulse Resp B/P (MAP) Pulse Ox O2 Delivery O2 Flow Rate FiO2 01/14/25 09:00 98.4 96 20 117/50 (72) 90 98.4 01/14/25 06:53 Oxymizer 10 N/A Total Intake and Output 01/13/25 01/13/25 01/14/25 15:00 23:00 07:00 Intake Total 470 ml 890 ml Output Total 550 ml Balance 470 ml 340 ml medications Current Medications Medications Dose Ordered Sig/Jake Route Start Time Stop Time Status Last Admin Dose Admin Ceftriaxone Sodium 50 ml @ 100 mls/hr DAILY@09 IV 01/14/25 09:00 Azithromycin 250 ml @ 125 mls/hr DAILY IV 01/14/25 10:00 Acetaminophen 500 mg Q4HPRN PRN PO 01/13/25 17:45 Acetaminophen/ Hydrocodone Bitart 1 tab Q4HPRN PRN PO 01/13/25 17:45 Diagnostic Test (Pha) 1 strip IQ4HR 01/13/25 20:00 01/14/25 04:38 1 STRIP Insulin Human Regular IQ4HR SC 01/13/25 20:00 01/14/25 04:38 3 UNITS Dextrose 50 ml UD PRN IV 01/13/25 17:45 Albuterol 1.25 mg Q4HR NEB 01/13/25 18:00 01/14/25 06:50 1.25 MG Ipratropium [place] 0.5 mg Q4HR NEB 01/13/25 18:00 01/14/25 06:50 0.5 MG Aspirin 81 mg DAILY PO 01/14/25 10:00 Atorvastatin Calcium 40 mg HS PO 01/13/25 22:00 01/13/25 22:57 40 MG Enoxaparin Sodium 40 mg DAILY SC 01/14/25 10:00 laboratory and microbiology Laboratory Tests 01/14/25 05:11 Test 01/14/25 05:11 Range/Units Serum Glucose 142 H 74-106 mg/dL My Orders My Orders Orders - CHRISTOPHER HERRERA RESIDENT Procedure Category Date Status Time Admit ADMIT 01/13/25 Transmitted 17:38 Respiratory Culture PAM 01/13/25 Uncollected W/ Gs 17:41 Ceftriaxone 1gm/50ml PHA 01/14/25 In Process D5w (Rocephin) 09:00 Azithromycin 500mg/ PHA 01/14/25 In Process 250ml (Zithromax 50 10:00 Mrsa Screen PAM 01/13/25 In Process 17:43 Acetaminophen Tab Or PHA 01/13/25 In Process Cap (Tylenol Tablet 17:45 Hydrocodone-Acet PHA 01/13/25 In Process 5/325mg Tab ([place] 17:45 Glucose Blood PHA 01/13/25 In Process (Accu-Chek Comfort 20:00 Insulin R (Human) PHA 01/13/25 In Process (Insulin R) 20:00 Dextrose 50% Syringe PHA 01/13/25 In Process 17:45 Albuterol Medneb PHA 01/13/25 In Process (Ventolin Medneb) 18:00 Ipratropium Medneb PHA 01/13/25 In Process (Atrovent Medneb) 18:00 Blood Culture PAM 01/13/25 In Process 17:46 Cardiac DIET 01/13/25 Transmitted Diet-2gna,Lofat,Lochol Dinner Abg W/ Co-Ox RT 01/13/25 Logged 19:03 Covid19 Antigen Serena LAB 01/13/25 Logged Chief Guard ORDERS 01/13/25 Transmitted 19:08 Transfer Orders XFER 01/13/25 Transmitted 19:20 Bilat Lower Dvt US 01/13/25 Resulted 19:25 Aspirin Enteric PHA 01/14/25 In Process Coated Tablet 10:00 Atorvastatin (Lipitor) PHA 01/13/25 In Process 22:00 Enoxaparin Sodium PHA 01/14/25 In Process (Lovenox) 10:00 * Cardiology Consult CONS 01/13/25 Transmitted 19:54 * Wound Consult CONS 01/13/25 Transmitted * Dietary Consult CONS 01/13/25 Transmitted 19:57 Code Status CODE 01/13/25 Transmitted 19:59 Rapid Influenza A&B LAB 01/14/25 Logged 07:20 Abg W/ Co-Ox RT 01/14/25 Logged 07:20 Communication Order ORDERS 01/14/25 Transmitted 07:[address] 01/14/25 Resulted Contrast 07:00 CHRISTOPHER HERRERA RESIDENT Jan 14, 2025 09:24
[2025-01-14 09:52] LABS: Base Excess 4.6 mmol/L (-2.0-3.0)
[2025-01-14] MEDS: POTASSIUM EFFERVESENT TAB 25 MEQ PO ONE (09:57)
[2025-01-14] MEDS: ENOXAPARIN SOD 40 MG/0.4 ML SYRINGE SC SCH (09:58)
[2025-01-14] MEDS: ASPirin-EC 81 mg tab PO SCH (09:58)
[2025-01-14] MEDS: cefTRIAXone 1GM/50ML D5W 50 ML IV SCH (09:58)
[2025-01-14] MEDS: AZITHROMYCIN 500MG/ 250ML 250 ML IV SCH (10:00)
[2025-01-14] MEDS: InsuLIN REG 1unit/0.01ml Soln (100units/ml) SC SCH (12:00)
--- NOTE | 2025-01-14 12:03 | DVHPN2 ---
Subjective Patient is seen and examined at bedside, patient is currently on 10 L nasal Oxymizer. Patient's son also present at bedside. Patient has a significant smoking history for over 60 years. Patient reports she smoked on average half a pack a day. Patient's son also present at bedside. We will start Solu-Medrol and Lasix echocardiogram. No chest pain at this time. Discussed goals of care patient would like to be DNR DNI. Changes from previous H/P or p: No Changes Respiratory: Cough, Shortness of breath, SOB with excertion Objective Vitals Vital Signs Date Time Temp Pulse Resp B/P (MAP) Pulse Ox O2 Delivery O2 Flow Rate FiO2 01/14/25 10:23 94 20 90 01/14/25 09:00 98.4 117/50 (72) 98.4 01/14/25 06:53 Oxymizer 10 N/A Intake/Output Intake and Output 01/14/25 07:00 Intake Total 1360 ml Output Total 550 ml Balance 810 ml Intake Oral 760 ml IV Total 600 ml Output Urine Total 550 ml Exam Gen: in bed mild distress Cvs: N S1/S2, RRR Resp: Diminished b/l Abd: Soft, NT [place]: AAO x 4 Medications Current Medications Medications Dose Ordered Sig/Jake Route Start Time Stop Time Status Last Admin Dose Admin Ceftriaxone Sodium 50 ml @ 100 mls/hr DAILY@09 IV 01/14/25 09:00 01/14/25 09:58 100 MLS/HR Azithromycin 250 ml @ 125 mls/hr DAILY IV 01/14/25 10:00 01/14/25 10:00 125 MLS/HR Acetaminophen 500 mg Q4HPRN PRN PO 01/13/25 17:45 Acetaminophen/ Hydrocodone Bitart 1 tab Q4HPRN PRN PO 01/13/25 17:45 Diagnostic Test (Pha) 1 strip IQ4HR 01/13/25 20:00 01/14/25 04:38 1 STRIP Insulin Human Regular IQ4HR SC 01/13/25 20:00 01/14/25 04:38 3 UNITS Dextrose 50 ml UD PRN IV 01/13/25 17:45 Albuterol 1.25 mg Q4HR NEB 01/13/25 18:00 01/14/25 10:12 1.25 MG Ipratropium [place] 0.5 mg Q4HR NEB 01/13/25 18:00 01/14/25 10:12 0.5 MG Aspirin 81 mg DAILY PO 01/14/25 10:00 01/14/25 09:58 81 MG Atorvastatin Calcium 40 mg HS PO 01/13/25 22:00 01/13/25 22:57 40 MG Enoxaparin Sodium 40 mg DAILY SC 01/14/25 10:00 01/14/25 09:58 40 MG Laboratory Results Laboratory Tests 01/14/25 05:11 Chemistry Test 01/13/25 17:56 01/14/25 05:11 Albumin 4.5 g/dL (3.2-4.8) Calcium Level 9.4 mg/dL (8.7-10.4) 9.1 mg/dL (8.7-10.4) Magnesium Level 1.8 mg/dL (1.6-2.6) Total Protein 7.0 g/dL (5.7-8.2) Coagulation Test 01/13/25 17:56 Prothrombin Time 11.8 sec (9.3-11.8) Prothrombin Time INR 1.13 (0.9-1.15) Activated Partial Thromboplast Time 32.1 SEC (24.5-34.5) D-Dimer, Quantitative 0.71 mg/L FEU (0.0-0.49) H Cardiac Markers Test 01/13/25 17:56 B-Type Natriuretic Peptide 307.09 pg/mL (0-100) LFT Test 01/13/25 17:56 Alanine Aminotransferase (ALT) 27 U/L (7-40) Alkaline Phosphatase 53 U/L (46-116) Aspartate Amino Transferase (AST) 34 U/L (13-40) Total Bilirubin 0.5 mg/dL (0.2-1.0) HgA1c, TSH Test 01/13/25 17:56 Thyroid Stimulating Hormone (TSH) 0.51 uIU/mL (0.55-4.78) L Urinalysis Test 01/13/25 18:45 Urine Color Yellow (Yellow) Urine Clarity Clear (Clear) Urine pH 5.5 (5.0-9.0) Urine Specific [place] 1.018 (1.001-1.035) Urine Protein 1+ (Negative) H Urine Ketones Trace (Negative) Urine Blood Trace /uL (Negative) H Urine Nitrite Negative (Negative) Urine Bilirubin Negative (Negative) Urine Urobilinogen Normal mg/dL (Negative) Urine Leukocyte Esterase Trace /uL (Negative) Urine RBC 1 /hpf (0 - 4) Urine Microscopic WBC 6 /HPF (0-5) H Urine Squamous Epithelial Cells Few /hpf (<5) Urine Bacteria Many /hpf (None Seen) H Urine Mucus Few (None Seen) Urine Glucose Normal mg/dL (Normal) Blood Gas Results Test 01/13/25 19:12 01/14/25 09:43 Arterial Blood pH 7.436 (7.350-7.450) 7.433 (7.350-7.450) FiO2 % 58.0 21.0 Assessment/Plan Assessment/Plan Acute on chronic COPD exacerbation- Solumedrol Sepsis secondary to Pneumonia, Gram-positive and negative- Abx, sputum cultures Acute hypoxic respiratory failure secondary to above- Titrate oxygen down Solitary pulmonary nodules- Outpatient followup NSTEMI-II- Cardio Cx Goals of care- DNR/DNI Critical care time 90 mins Plan discussed with: Patient, Son My Orders Orders - JUSTINE MILES MD Procedure Category Date Status Time Sputum Induction RT 01/13/25 Logged 18:38 Respiratory Culture PAM 01/13/25 Logged W/ Gs 18:38 Hemoglobin A1c LAB 01/14/25 Transmitted 11:55 Methylprednisolone PHA 01/14/25 Transmitted Sod Succ (Solu Medrol 14:00 Furosemide Injection PHA 01/14/25 Transmitted (Lasix Injection) 12:00 Furosemide Injection PHA 01/14/25 Transmitted (Lasix Injection) 18:00 Cefepime 1 Gm PHA 01/14/25 Transmitted 14:00 Incentive Spirometry ORDERS 01/14/25 Transmitted Q 1hr 11:55 Code Status CODE 01/14/25 Transmitted 11:55 DNR VLADIMIR 01/14/25 Transmitted 11:55 Basic Metabolic Panel LAB 01/15/25 Verified 04:00 Complete Blood Count LAB 01/15/25 Verified 04:00 B-Type Natriuretic LAB 01/15/25 Verified Peptide 04:00 Magnesium LAB 01/15/25 Verified 04:00 Thyroid Stimulating LAB 01/15/25 Verified Hormone 04:00 Date of Service: Jan 14, 2025 Billing Provider: JUSTINE MILES MD Common Visit Codes: [id number] CARE 30-74 MIN, [id number] CARE-EACH +30MIN JUSTINE MILES MD Jan 14, 2025 12:03
--- NOTE | 2025-01-14 12:36 | DVHINCON2 ---
Date Seen: Jan 14, 2025 Referring Physician MD Kathy Reason for Consultation NSTEMI History of Present Illness This is a 79-year-old female patient who presents to the emergency room with chief complaint of worsening shortness of breath for one day. The patient's family called emergency medical services and the patient was initially taken to [facility] and was then transferred to this facility due to insurance reasons. Cardiology is now being consulted at this time for elevated troponin level. The patient denies any chest pain. Initial twelve lead electrocardiogram done at this facility reveals normal sinus rhythm with ST segment depression seen to inferior leads. Initial troponin level of 405ng/L with flat trend thereafter. Significant past medical history includes hypertension, dyslipidemia, peripheral arterial disease status post PTCA and stenting to right and left lower extremity (On Plavix and ASA), COPD, type 2 diabetes mellitus, and tobacco use. The patient denies following up with a roguer in the outpatient setting. Past Medical History Past medical history reviewed. No other significant than mentioned above. Past Surgical History JUV[employer] LIAISON and angioplasty/stenting of the left SFA and popliteal artery on 03/04/2019 Successful arthrectomy of entire superficial femoral artery, popliteal and tibioperoneal trunk. Angioplasty and stenting of the iliac artery on the right side on 04/17/2019 Family History: Alcoholism G8 SISTER, Onset:15's - 20 Cancer G8 MOTHER, Onset:50's - 60 Chronic obstructive pulmonary disease Family history: Cardiovascular disease G8 FATHER, Onset:60 years & older G8 BROTHER G8 SISTER Family history: Diabetes mellitus G8 FATHER, Onset:60 years & older G8 BROTHER, Onset:50's - 60 G8 SISTER, Onset:30's - 40 Family history: Hypertension G8 FATHER, Onset:50's - 60 Seizure disorder (situation) G8 SISTER, Onset:30's - 40 Stroke G8 FATHER, Onset:60 years & older Family History Family history reviewed. Social History Patient has a 30 pack-year history, quit smoking last week Denies any alcohol use Denies any illicit drug use Allergies: Coded Allergies: NO KNOWN ALLERGIES (Unverified , 04/15/19) Home Meds Reported Medications Kapixbjier-Ccnevjqveeogsj-Btck (Breztri Aerosphere 160-9-4.8 Mcg/Act) 1 Aer Aer, 1 AER IN BID, AER 01/13/25 Albuterol Sulfate (Albuterol Sulfate Hfa) 108 Mcg/Act Aer, 90 MCG IN QIDPRN, AER 01/13/25 Hydrochlorothiazide (Hydrochlorothiazide) 12.5 Mg Cap, 12.5 MG PO DAILY for 30 Days, MG 01/13/25 Aspirin (Aspir-Low) 81 Mg Tab, 81 MG PO DAILY for 30 Days, MG 04/15/19 Clopidogrel Bisulfate (Plavix) 75 Mg Tab, 1 TAB PO DAILY, #90 TAB 1 Refill 07/01/15 Amlodipine Besylate (Amlodipine Besylate) 5 Mg Tab, 10 MG PO DAILY for 30 Days, MG 07/01/15 Discontinued Reported Medications Rosuvastatin Calcium (Crestor) 20 Mg Tab, 1 TAB PO DAILY, #30 TAB 5 Refills 02/27/19 Lisinopril (Lisinopril) 20 Mg Tab, 1 TAB PO DAILY, #30 TAB 5 Refills 07/01/15 Home Meds Home medications reviewed. Current Medications Current Medications Medications (Trade) Dose Ordered Sig/Jake Route PRN Reason Start Time Stop Time Status Last Admin Ceftriaxone Sodium 50 ml @ 100 mls/hr DAILY@09 IV 01/14/25 09:00 01/14/25 12:00 DC 01/14/25 09:58 Azithromycin 250 ml @ 125 mls/hr DAILY IV 01/14/25 10:00 01/14/25 10:00 Albuterol (Ventolin Medneb) 1.25 mg Q4HR NEB 01/13/25 18:00 01/13/25 17:48 DC Ipratropium [place] (Atrovent Medneb) 0.5 mg Q4HPRN PRN NEB SHORTNESS OF BREATH 01/13/25 17:45 01/13/25 17:48 DC Acetaminophen (Tylenol Tablet Or Capsule) 500 mg Q4HPRN PRN PO MILD PAIN (1-3 PAIN SCALE) 01/13/25 17:45 Acetaminophen/ Hydrocodone Bitart ([place] 5/325MG Tab) 1 tab Q4HPRN PRN PO MODERATE PAIN (4-6 PAIN SCALE) 01/13/25 17:45 Acetaminophen/ Hydrocodone Bitart ([place] 5/325MG Tab) 1 tab Q4HPRN PRN PO SEVERE PAIN (7-10 PAIN SCALE) 01/13/25 17:45 01/13/25 19:22 DC Diagnostic Test (Pha) (Accu-Chek Comfort Curve T) 1 strip IQ4HR 01/13/25 20:00 01/14/25 12:05 DC 01/14/25 04:38 Insulin Human Regular (InsuLIN R) IQ4HR SC 01/13/25 20:00 01/14/25 12:05 DC 01/14/25 04:38 Dextrose 50 ml UD PRN IV Blood Sugar LESS THAN 60 01/13/25 17:45 Albuterol (Ventolin Medneb) 1.25 mg Q4HR NEB 01/13/25 18:00 01/14/25 10:12 Ipratropium [place] (Atrovent Medneb) 0.5 mg Q4HR NEB 01/13/25 18:00 01/14/25 10:12 Potassium Chloride 100 ml @ 50 mls/hr Q2H IV 01/13/25 19:15 01/13/25 23:14 DC 01/13/25 23:29 Aspirin (Ecotrin Enteric Coated Tablet) 81 mg DAILY PO 01/14/25 10:00 01/14/25 09:58 Atorvastatin Calcium (Lipitor) 40 mg HS PO 01/13/25 22:00 01/13/25 22:57 Enoxaparin Sodium (Lovenox) 40 mg DAILY SC 01/14/25 10:00 01/14/25 09:58 Methylprednisolone Sodium Succinate (Solu Medrol) 40 mg Q8HR IV 01/14/25 14:00 Furosemide (Lasix Injection) 20 mg BIDD IV 01/14/25 18:00 Cefepime HCl 50 ml @ 12.5 mls/hr Q8HR IV 01/14/25 14:00 UNV Diagnostic Test (Pha) (Accu-Chek Comfort Curve T) 1 strip ACHS 01/14/25 17:00 Insulin Human Regular (InsuLIN R) ACHS SC 01/14/25 17:00 Review of Systems Constitutional: No symptom reported Ears, Nose, & Throat: No symptom reported Eyes: No symptom reported Neurological: No symptoms reported Pulmonary/Respiratory: Shortness of breath Cardiovascular: No symptom reported Gastrointestinal: No symptom reported Genitourinary: No symptom reported Musculoskeletal: No symptom reported Skin: No symptom reported Psychiatric: No symptom reported Endocrine: No symptom reported Hematologic/Lymphatic: No symptom reported Vital Signs Vital Signs Date Time Temp Pulse Resp B/P (MAP) Pulse Ox O2 Delivery O2 Flow Rate FiO2 01/14/25 10:23 94 20 90 01/14/25 09:00 98.4 117/50 (72) 98.4 01/14/25 06:53 Oxymizer 10 N/A Physical Exam General Appearance: Cooperative. Well-developed. Well-nourished. No acute distress. Pulmonary/Respiratory: Clear, bilateral breaths sounds. Cardiovascular/Chest: Regular rate and rhythm. Peripheral Pulses: 2+ Radial (R). 2+ Radial (L). 2+ Pedal (R). 2+ Pedal (L) Abdominal Exam: Normal bowel sounds. Ankle Exam: Negative ankle edema Lower extremities: Negative lower extremity edema Neuro/Mental Status: A/OX4, coherent. Thoughts/Psych: Normal thought pattern. Appropriate mood and affect. Good judgment and insight. Appearance: No acute distress. Skin Exam: Normal inspection. Normal color. Warm and dry. Labs/Diagnostic Data Labs Test 01/14/25 11:57 01/14/25 09:43 01/14/25 05:11 01/13/25 21:55 Range/Units POC Glucose 187 H 70-106 mg/dl Blood Gas Specimen Type Arterial Blood Gas Sample Site Left brachial Blood Gas Patient Temperature 37.0 Arterial Blood Date Drawn Arterial Blood pH 7.433 7.350-7.450 Arterial Blood Partial Pressure CO2 45.7 H 32.0-45.0 mmHg Arterial Blood Partial Pressure O2 < 36.5 *L 83.0-108.0 mmHg Arterial Blood HCO3 29.9 H 21.0-28.0 mmol/L Arterial Blood Oxygen Saturation 64.9 *L 94.0-98.0 % Arterial Blood Base Excess 4.6 H -2.0-3.0 mmol/L Arterial Blood Oxyhemoglobin 64.0 L 94.0-98.0 % Arterial Blood Carboxyhemoglobin 1.1 0.5-1.5 % Arterial Blood Methemoglobin 0.3 0.0-1.5 % Timothy Test N/a Blood Gas Total Hemoglobin 17.90 H 12.0-16.0 g/dL Blood Gas Modality Room air FiO2 % 21.0 Blood Gas Critical Value Read Back Yes Blood Gas Notified Whom denice Galdamez md. Blood Gas Notified Time [id number] Blood Gas Notified By ananya Gutiérrez rt. White Blood Count 12.2 H 4.4-10.8 10^3/uL Red Blood Count 5.08 4.0-5.20 10^6/uL Hemoglobin 17.3 H 12.2-16.2 g/dL Hematocrit 49.7 H 36.0-46.0 % Mean Corpuscular Volume 97.8 80.0-100.0 fL Mean Corpuscular Hemoglobin 34.0 H 28.0-32.0 pg Mean Corpuscular Hemoglobin Concent 34.8 32.0-36.0 g/dL Red Cell Distribution Width 14.5 H 11.8-14.3 % Platelet Count 141 140-450 10^3/uL Mean Platelet Volume 8.5 6.9-10.8 fL Neutrophils (%) (Auto) 83.3 H 37.0-80.0 % Lymphocytes (%) (Auto) 6.9 L 10.0-50.0 % Monocytes (%) (Auto) 9.6 0.0-12.0 % Eosinophils (%) (Auto) 0.0 0.0-7.0 % Basophils (%) (Auto) 0.2 0.0-2.0 % Neutrophils # (Auto) 10.2 H 1.6-8.6 10 ^3/uL Lymphocytes # (Auto) 0.8 0.4-5.4 10 ^3/uL Monocytes # (Auto) 1.2 0-1.3 10 ^3/uL Eosinophils # (Auto) 0 0-0.8 10 ^3/uL Basophils # (Auto) 0 0-0.2 10 ^3/uL Nucleated Red Blood Cells 0.2 % Sodium Level 132 L 136-145 mmol/L Potassium Level 3.6 3.5-5.1 mmol/L Chloride Level 97 L 98-107 mmol/L Carbon Dioxide Level 29 20-31 mmol/L Anion Gap 6 5-15 Blood Urea Nitrogen 21 9-23 mg/dL Creatinine 0.83 0.550-1.02 mg/dL Glomerular Filtration Rate Calc 72 >90 mL/min BUN/Creatinine Ratio 25.3 H 10.0-20.0 Serum Glucose 142 H 74-106 mg/dL Hemoglobin A1c 6.3 H <5.7 % A1C Calcium Level 9.1 8.7-10.4 mg/dL Free Thyroxine (T4) Calculated 1.02 0.89-1.76 ng/dL Total Triiodothyronine (TT3) 0.64 0.60-1.81 ng/mL Troponin I High Sensitivity 350 *H </=34 ng/L Test 01/13/25 19:12 01/13/25 18:45 01/13/25 18:35 01/13/25 17:56 Range/Units Blood Gas Liter Flow 7.00 Urine Color Yellow Yellow Urine Clarity Clear Clear Urine pH 5.5 5.0-9.0 Urine Specific [place] 1.018 1.001-1.035 Urine Protein 1+ H Negative Urine Ketones Trace Negative Urine Blood Trace H Negative /uL Urine Nitrite Negative Negative Urine Bilirubin Negative Negative Urine Urobilinogen Normal Negative mg/dL Urine Leukocyte Esterase Trace Negative /uL Urine RBC 1 0 - 4 /hpf Urine Microscopic WBC 6 H 0-5 /HPF Urine Squamous Epithelial Cells Few <5 /hpf Urine Bacteria Many H None Seen /hpf Urine Mucus Few None Seen Urine Glucose Normal Normal mg/dL Urine Opiates Screen Neg NEGATIVE Urine Fentanyl Screen Neg NEGATIVE Urine Barbiturates Screen Neg NEGATIVE Urine Phencyclidine Screen Neg NEGATIVE Urine Amphetamines Screen Neg NEGATIVE Urine Benzodiazepines Screen Neg NEGATIVE Urine Cocaine Screen Neg NEGATIVE Urine Cannabinoids Screen Neg NEGATIVE Lactic Acid Level 1.5 0.4-2.0 mmol/L Prothrombin Time 11.8 9.3-11.8 sec Prothrombin Time INR 1.13 0.9-1.15 Activated Partial Thromboplast Time 32.1 24.5-34.5 SEC D-Dimer, Quantitative 0.71 H 0.0-0.49 mg/L FEU Magnesium Level 1.8 1.6-2.6 mg/dL Total Bilirubin 0.5 0.2-1.0 mg/dL Aspartate Amino Transferase (AST) 34 13-40 U/L Alanine Aminotransferase (ALT) 27 7-40 U/L Alkaline Phosphatase 53 46-116 U/L B-Type Natriuretic Peptide 307.09 0-100 pg/mL Total Protein 7.0 5.7-8.2 g/dL Albumin 4.5 3.2-4.8 g/dL Thyroid Stimulating Hormone (TSH) 0.51 L 0.55-4.78 uIU/mL Assessment NSTEMI, rule out coronary artery disease Hypertension Dyslipidemia Peripheral arterial disease status post PTCA X2 JONES to R&L lower extremities (on Plavix and ASA) COPD with exacerbation Acute hypoxic respiratory failure secondary to pneumonia Type 2 diabetes mellitus Tobacco use Plan/Recommendation We will continue with the following plan/recommendations (Dr. Contreras): Patient seen and examined at bedside with . Transthoracic echocardiogram reveals an EF of 55%. Given the patient's elevated troponin level, comorbidities, and twelve lead electrocardiogram changes, the patient may benefit from a coronary angiogram with left heart catheterization. At this time, there is no urgent need for the patient to undergo the procedure. The patient is on high oxygen requirement. We will consider taking the patient for coronary angiogram with improvement in respiratory status. Initially, the patient was on 10 L Oxymizer and within a couple of hours, the patient is now on 15 L non-rebreather. Plan discussed with the patient and her son who was at bedside. Patient and son are agreeable for the plan. We will tentatively schedule the patient for coronary angiogram on 01/18/25 with improvement in respiratory status and with hemodynamic stability. Continue with dual antiplatelet therapy and lipid-lowering agent. Further recommendations per clinical course and progression. Thank you for allowing us to care for this patient. Please call with any questions or concerns. Critical care time spent: 40 minutes This medical document was created using an electronic medical record system with voice recognition software and computerized dictation system. Although this document has been carefully reviewed, there might still be some phonetic and typographical errors. Occasional wrong-word or ``sound-alike substitutions may have occurred due to the inherent limitations of voice recognition software. These areas are purely typographical due to imperfections of the software pro grams and do not reflect any compromise in the patient's medical care. Please read the chart carefully and recognize, using context, where these substitutions have occurred. Plan discussed with: Patient, Son NYHA Physical activity limitations: NA Date of Service: Jan 14, 2025 Billing Provider: JULIO CESAR GALLEGOS Cardiology Common Codes: [id number] INP/OBS CARE (High) Cardiology Consultation Codes: [id number] CONSULT <45MIN JULIO CESAR GALLEGOS Jan 14, 2025 12:36
--- NOTE | 2025-01-14 13:08 | DVHSR ---
APPROVED REPORT EXAM: Two-dimensional and M-mode echocardiogram with Doppler and color Doppler. Blood Pressure: 109/46 mmHg INDICATION Heart Failure RISK FACTORS Height: 5'6", Weight: 139 DIMENSIONS LVDd4.8 (3.8-5.7cm)LA (2D)4.3 (1.9-4.0cm)Aortic Root1.8 (2.0-3.7cm) LVDs2.7 (2.5-4.0cm)LA (MM) (1.9-4.0cm)Aortic Cusp Exc1.7 (1.5-2.0cm) EF (%) 75.0 (55-70%)Rt. Atrium5.0 (1.9-4.0cm)Asc. Aorta cm Mitral Valve MitralMitral Stenosis E wavem/sMV Mean GR.4mmHg A wavem/sMV Peak GR.9mmHg E/A ratio0.02D MVAcm2 Tricuspid Valve TR Velocity2.96m/s [id number] Other Information Quality : Technically LimitedRhythm : Technically limited study due to body habitus and smoking. Conclusion lvef 55 % byvisual estimate mild LVH normal rv function mild enlarged left atrium enlarged no severe valve abnormalities noted moderate MAC
[2025-01-14] MEDS: methylPREDNISolone SOD SUCC 40 MG/ML VL IV SCH (13:39)
[2025-01-14] MEDS: CEFEPIME 2GM/50ML NS 50 ML IV SCH (13:39)
[2025-01-14] MEDS: FUROSEMIDE 40 MG/4 ML VIAL IV ONE (13:39)
[2025-01-14] MEDS ORDERED: CEFEPIME 1GM/ 50ML 50 ML IV SCH (14:00)
[2025-01-14] MEDS: ACCU-CHEK COMFORT CURVE STRIP VI SCH (17:00)
[2025-01-14 17:06] LABS: Base Excess 5.7 mmol/L (-2.0-3.0)
[2025-01-14] MEDS ORDERED: FUROSEMIDE 20 MG/2 ML VIAL IV SCH (18:00)
[2025-01-14 18:30] LABS: COVID19 ANTIGEN SOFIA FIA NEGATIVE (NEGATIVE)
[2025-01-14] MEDS: BUMETANIDE 2.5mg/10ml (0.25 mg/ml) INJ IV SCH (18:31)
--- NOTE | 2025-01-14 18:37 | DVH ---
INDICATION: sob TECHNIQUE: Frontal view of the chest. COMPARISON: None FINDINGS: . The heart and mediastinal contours are grossly unremarkable. There is no evidence of pleural disea se. The lungs are clear. The bony structures of the chest are intact without fracture. IMPRESSION: 1. No evidence of acute disease.
[2025-01-14 19:01] LABS: Rapid Influenza A Negative (Negative); Rapid Influenza B Negative (Negative)
[2025-01-15] VITALS (63 sets, daily range): BP systolic 106–135; BP diastolic 44–87; PULSE 76–107; RESP 11–28; TEMP 97.9–100.1; O2SAT 86–100
[2025-01-15 00:04] LABS: Base Excess 2.6 mmol/L (-2.0-3.0)
[2025-01-15 05:29] LABS: Basophils # (auto) 0 10 ^3/uL (0-0.2); Basophils % (auto) 0.1 % (0.0-2.0); Eosinophils # (auto) 0 10 ^3/uL (0-0.8); Hemoglobin 18.1 g/dL (12.2-16.2); Mean Corpuscular Hemoglobin 33.7 pg (28.0-32.0); Monocytes # (auto) 0.4 10 ^3/uL (0-1.3); Red Blood Cells 5.37 10^6/uL (4.0-5.20)
[2025-01-15 05:32] LABS: Hematocrit 52.6 % (36.0-46.0); Lymphocytes # (auto) 0.5 10 ^3/uL (0.4-5.4); Lymphocytes % (auto) 6.4 % (10.0-50.0); Mean Corpuscular Hgb Conc. 34.5 g/dL (32.0-36.0); Mean Corpuscular Volume 97.9 fL (80.0-100.0); Monocytes % (auto) 5.3 % (0.0-12.0); Neutrophils % (auto) 88.2 % (37.0-80.0); Nucleated Red Blood Cells % 0.2 %; Platelet Count (auto) 155 10^3/uL (140-450); Red Cell Distribution Width 14.6 % (11.8-14.3); White Blood Cell 7.9 10^3/uL (4.4-10.8)
[2025-01-15 05:46] LABS: Anion Gap 6 (5-15); Chloride 100 mmol/L (98-107); Potassium 3.8 mmol/L (3.5-5.1); Sodium 139 mmol/L (136-145)
[2025-01-15 05:47] LABS: Calcium 9.4 mg/dL (8.7-10.4)
[2025-01-15 05:50] LABS: Carbon Dioxide 33 mmol/L (20-31)
[2025-01-15 05:52] LABS: BUN/Creatinine Ratio 29.3 (10.0-20.0)
[2025-01-15 06:02] LABS: Blood Urea Nitrogen 24 mg/dL (9-23); Glucose 166 mg/dL (74-106)
[2025-01-15 06:23] LABS: Urine Bacteria None Seen /hpf (None Seen)
[2025-01-15 06:38] LABS: Urine Blood TRACE /uL (Negative); Urine Clarity Clear (Clear); Urine Color Light-Yellow (Yellow); Urine Protein, UAD TRACE (Negative); Urine Specific Gravity 1.016 (1.001-1.035); Urine Squamous Epithelial Cell FEW /hpf (<5); Urine Urobilinogen Normal (Negative); Urine WBC 3 /HPF (0-5)
[2025-01-15] MEDS: CLOPIDOGREL BISULFATE 75 MG TAB PO SCH (09:46)
--- NOTE | 2025-01-15 13:11 | DVHPN2 ---
Subjective Patient is seen and examined at bedside, patient is currently on 40L 65% Oxygen in the NEVIN. Son at bedside. Cont present tx. Encouraged Incentive Spirometer Changes from previous H/P or p: No Changes Respiratory: Shortness of breath Objective Vitals Vital Signs Date Time Temp Pulse Resp B/P (MAP) Pulse Ox O2 Delivery O2 Flow Rate FiO2 01/15/25 12:09 14 100 Hi-Flow Heated NC+ 40 65 65 01/15/25 12:00 97 01/15/25 11:00 126/50 (75) 01/15/25 04:00 98.3 98.3 Intake/Output Intake and Output 01/15/25 07:00 Intake Total 1905.0 ml Output Total 3000 ml Balance -1095.0 ml Intake Oral 1500 ml IV Total 405.0 ml Output Urine Total 3000 ml Exam Gen: in bed mild distress Cvs: N S1/S2, RRR Resp: Diminished b/l Abd: Soft, NT Planner Intern: AAO x 4 Medications Current Medications Medications Dose Ordered Sig/Jake Route Start Time Stop Time Status Last Admin Dose Admin Azithromycin 250 ml @ 125 mls/hr DAILY IV 01/14/25 10:00 01/15/25 09:51 125 MLS/HR Acetaminophen 500 mg Q4HPRN PRN PO 01/13/25 17:45 Acetaminophen/ Hydrocodone Bitart 1 tab Q4HPRN PRN PO 01/13/25 17:45 Dextrose 50 ml UD PRN IV 01/13/25 17:45 Albuterol 1.25 mg Q4HR NEB 01/13/25 18:00 01/15/25 09:16 1.25 MG Ipratropium [place] 0.5 mg Q4HR NEB 01/13/25 18:00 01/15/25 09:16 0.5 MG Aspirin 81 mg DAILY PO 01/14/25 10:00 01/15/25 09:47 81 MG Atorvastatin Calcium 40 mg HS PO 01/13/25 22:00 01/14/25 21:40 40 MG Enoxaparin Sodium 40 mg DAILY SC 01/14/25 10:00 01/15/25 09:48 40 MG Methylprednisolone Sodium Succinate 40 mg Q8HR IV 01/14/25 14:00 01/15/25 05:51 40 MG Cefepime HCl 50 ml @ 12.5 mls/hr Q8HR IV 01/14/25 14:00 UNV Diagnostic Test (Pha) 1 strip ACHS 01/14/25 17:00 01/15/25 11:57 1 STRIP Insulin Human Regular ACHS SC 01/14/25 12:00 01/15/25 11:58 6 UNITS Cefepime HCl 50 ml @ 12.5 mls/hr Q12HR IV 01/14/25 12:58 01/15/25 09:51 12.5 MLS/HR Clopidogrel Bisulfate 75 mg DAILY PO 01/15/25 10:00 01/15/25 09:46 75 MG Bumetanide 2.5 mg BIDD IV 01/14/25 18:00 01/15/25 05:52 2.5 MG Laboratory Results Laboratory Tests 01/15/25 04:45 Chemistry Test 01/15/25 04:45 Calcium Level 9.4 mg/dL (8.7-10.4) Magnesium Level 2.0 mg/dL (1.6-2.6) Cardiac Markers Test 01/15/25 04:45 B-Type Natriuretic Peptide 198.55 pg/mL (0-100) HgA1c, TSH Test 01/15/25 04:45 Thyroid Stimulating Hormone (TSH) 0.47 uIU/mL (0.55-4.78) L Urinalysis Test 01/13/25 18:45 01/15/25 06:11 Urine Mucus Few (None Seen) Urine Color Light-yellow (Yellow) Urine Clarity Clear (Clear) Urine pH 6.0 (5.0-9.0) Urine Specific [place] 1.016 (1.001-1.035) Urine Protein Trace (Negative) H Urine Ketones Negative (Negative) Urine Blood Trace /uL (Negative) H Urine Nitrite Negative (Negative) Urine Bilirubin Negative (Negative) Urine Urobilinogen Normal mg/dL (Negative) Urine Leukocyte Esterase Negative /uL (Negative) Urine RBC 2 /hpf (0 - 4) Urine Microscopic WBC 3 /HPF (0-5) Urine Squamous Epithelial Cells Few /hpf (<5) Urine Bacteria None seen /hpf (None Seen) Urine Glucose Normal mg/dL (Normal) Blood Gas Results Test 01/14/25 16:58 01/14/25 23:57 Arterial Blood pH 7.393 (7.350-7.450) 7.425 (7.350-7.450) FiO2 % 100.0 60.0 Microbiology Microbiology Date/Time Source Procedure Growth Status 01/13/25 18:45 Nose MRSA Screen - Final Complete 01/13/25 18:35 Blood Blood Culture - Preliminary NO GROWTH AFTER 24 HOURS OF INCUBATION. Resulted Assessment/Plan Assessment/Plan Acute on chronic COPD exacerbation- Solumedrol Sepsis secondary to Pneumonia, Gram-positive and negative- Abx, sputum cultures Acute hypoxic respiratory failure secondary to above- Titrate oxygen down Solitary pulmonary nodules- Outpatient followup NSTEMI-II- Cardio Cx Goals of care- DNR/DNI Critical care time 62 mins Plan discussed with: Patient, Son My Orders Orders - JUSTINE MILES MD Procedure Category Date Status Time Chest Portable XY 01/14/25 Resulted 16:45 Abg W/ Co-Ox RT 01/14/25 Logged 16:45 Bumetanide Injection PHA 01/14/25 In Process (Bumex Injection) 18:00 Transfer Orders XFER 01/14/25 Transmitted 18:09 Date of Service: Jan 15, 2025 Billing Provider: JUSTINE MILES MD Common Visit Codes: [id number] CARE 30-74 MIN JUSTINE MILES MD Jan 15, 2025 13:11
--- NOTE | 2025-01-15 15:05 | DVHPN2 ---
Progress Note Objective vital signs Vital Sign Date Time Temp Pulse Resp B/P (MAP) Pulse Ox O2 Delivery O2 Flow Rate FiO2 01/15/25 14:41 95 18 91 40.0 60 01/15/25 14:15 01/15/25 14:09 Hi-Flow Heated NC+ 01/15/25 12:00 97.9 97.9 Total Intake and Output 01/14/25 01/14/25 01/15/25 15:00 23:00 07:00 Intake Total 300 ml 767.5 ml 837.5 ml Output Total 2000 ml 1000 ml Balance 300 ml -1232.5 ml -162.5 ml medications Current Medications Medications Dose Ordered Sig/Jake Route Start Time Stop Time Status Last Admin Dose Admin Azithromycin 250 ml @ 125 mls/hr DAILY IV 01/14/25 10:00 01/15/25 09:51 125 MLS/HR Acetaminophen 500 mg Q4HPRN PRN PO 01/13/25 17:45 Acetaminophen/ Hydrocodone Bitart 1 tab Q4HPRN PRN PO 01/13/25 17:45 Dextrose 50 ml UD PRN IV 01/13/25 17:45 Albuterol 1.25 mg Q4HR NEB 01/13/25 18:00 01/15/25 14:41 1.25 MG Ipratropium [place] 0.5 mg Q4HR NEB 01/13/25 18:00 01/15/25 14:40 0.5 MG Aspirin 81 mg DAILY PO 01/14/25 10:00 01/15/25 09:47 81 MG Atorvastatin Calcium 40 mg HS PO 01/13/25 22:00 01/14/25 21:40 40 MG Enoxaparin Sodium 40 mg DAILY SC 01/14/25 10:00 01/15/25 09:48 40 MG Methylprednisolone Sodium Succinate 40 mg Q8HR IV 01/14/25 14:00 01/15/25 13:39 40 MG Cefepime HCl 50 ml @ 12.5 mls/hr Q8HR IV 01/14/25 14:00 UNV Diagnostic Test (Pha) 1 strip ACHS 01/14/25 17:00 01/15/25 11:57 1 STRIP Insulin Human Regular ACHS SC 01/14/25 12:00 01/15/25 11:58 6 UNITS Cefepime HCl 50 ml @ 12.5 mls/hr Q12HR IV 01/14/25 12:58 01/15/25 09:51 12.5 MLS/HR Clopidogrel Bisulfate 75 mg DAILY PO 01/15/25 10:00 01/15/25 09:46 75 MG Bumetanide 2.5 mg BIDD IV 01/14/25 18:00 01/15/25 05:52 2.5 MG Pantoprazole Sodium 40 mg DAILY@0600 PO 01/16/25 06:00 laboratory and microbiology Laboratory Tests 01/15/25 04:45 Test 01/15/25 04:45 Range/Units Serum Glucose 166 H 74-106 mg/dL Microbiology Date/Time Source Procedure Growth Status 01/13/25 18:45 Nose MRSA Screen - Final Complete 01/13/25 18:35 Blood Blood Culture - Preliminary NO GROWTH AFTER 24 HOURS OF INCUBATION. Resulted Dietary Evaluation Review Comments: Recommend CCHO-60 with 2 GNa Low fat Low Cholesterol Cardiac diet. Expected Outcomes/Goals: Tight DM control, Wt management DAMARIS JESSICA MD Jan 15, 2025 15:05
[2025-01-15] MEDS: PANTOPRAZOLE 40 MG TAB PO ONE (17:15)
[2025-01-16] VITALS (72 sets, daily range): BP systolic 79–140; BP diastolic 43–58; PULSE 73–112; RESP 12–32; TEMP 97.8–98.3; O2SAT 82–100
[2025-01-16] MEDS: PANTOPRAZOLE 40 MG TAB PO SCH (05:15)
[2025-01-16 05:41] LABS: Basophils # (auto) 0 10 ^3/uL (0-0.2); Eosinophils # (auto) 0 10 ^3/uL (0-0.8); Hemoglobin 18.7 g/dL (12.2-16.2); Lymphocytes # (auto) 0.8 10 ^3/uL (0.4-5.4); Lymphocytes % (auto) 8.4 % (10.0-50.0); Mean Corpuscular Hemoglobin 32.8 pg (28.0-32.0); Mean Corpuscular Hgb Conc. 33.2 g/dL (32.0-36.0); Mean Corpuscular Volume 98.8 fL (80.0-100.0); Monocytes # (auto) 0.6 10 ^3/uL (0-1.3); Monocytes % (auto) 6.6 % (0.0-12.0); Nucleated Red Blood Cells % 0.1 %; Platelet Count (auto) 169 10^3/uL (140-450); Red Blood Cells 5.69 10^6/uL (4.0-5.20); Red Cell Distribution Width 14.3 % (11.8-14.3); White Blood Cell 9.4 10^3/uL (4.4-10.8)
[2025-01-16 05:44] LABS: Hematocrit 56.3 % (36.0-46.0)
[2025-01-16 06:07] LABS: Anion Gap 7 (5-15); Calcium 9.3 mg/dL (8.7-10.4)
[2025-01-16 06:12] LABS: BUN/Creatinine Ratio 26.9 (10.0-20.0)
[2025-01-16 06:29] LABS: Blood Urea Nitrogen 25 mg/dL (9-23); Carbon Dioxide 32 mmol/L (20-31); Chloride 96 mmol/L (98-107); Glucose 201 mg/dL (74-106); Potassium 3.5 mmol/L (3.5-5.1); Sodium 135 mmol/L (136-145)
[2025-01-16] MEDS: IOHEXOL 350 MG/ML 100ML IJ ONE ×2 (12:09)
[2025-01-16] MEDS ORDERED: DEXTROSE (50%) 50ML SYRG IV PRN (12:15)
--- NOTE | 2025-01-16 14:45 | DVHPN2 ---
Progress Note Date Seen: Jan 16, 2025 Medical Necessity Reason Pt with a Central, PICC or Fol: No Subjective Other Systems: on high flow o2 Objective vital signs Vital Sign Date Time Temp Pulse Resp B/P (MAP) Pulse Ox O2 Delivery O2 Flow Rate FiO2 01/16/25 12:45 98 22 89 01/16/25 12:00 98.3 98.3 01/16/25 12:00 Hi-Flow Heated NC+ 40 55 55 Total Intake and Output 01/15/25 01/15/25 01/16/25 15:00 23:00 07:00 Intake Total 1540.0 ml 662.5 ml 837.5 ml Output Total 1950 ml 850 ml Balance 1540.0 ml -1287.5 ml -12.5 ml medications Current Medications Medications Dose Ordered Sig/Jake Route Start Time Stop Time Status Last Admin Dose Admin Azithromycin 250 ml @ 125 mls/hr DAILY IV 01/14/25 10:00 01/16/25 08:59 125 MLS/HR Acetaminophen 500 mg Q4HPRN PRN PO 01/13/25 17:45 Acetaminophen/ Hydrocodone Bitart 1 tab Q4HPRN PRN PO 01/13/25 17:45 Albuterol 1.25 mg Q4HR NEB 01/13/25 18:00 01/16/25 10:05 1.25 MG Ipratropium [place] 0.5 mg Q4HR NEB 01/13/25 18:00 01/16/25 10:06 0.5 MG Aspirin 81 mg DAILY PO 01/14/25 10:00 01/16/25 08:59 81 MG Atorvastatin Calcium 40 mg HS PO 01/13/25 22:00 01/15/25 21:59 40 MG Enoxaparin Sodium 40 mg DAILY SC 01/14/25 10:00 01/16/25 08:58 40 MG Methylprednisolone Sodium Succinate 40 mg Q8HR IV 01/14/25 14:00 01/16/25 13:09 40 MG Cefepime HCl 50 ml @ 12.5 mls/hr Q8HR IV 01/14/25 14:00 UNV Cefepime HCl 50 ml @ 12.5 mls/hr Q12HR IV 01/14/25 12:58 01/16/25 09:00 12.5 MLS/HR Clopidogrel Bisulfate 75 mg DAILY PO 01/15/25 10:00 01/16/25 08:59 75 MG Bumetanide 2.5 mg BIDD IV 01/14/25 18:00 01/16/25 05:15 2.5 MG Pantoprazole Sodium 40 mg DAILY@0600 PO 01/16/25 06:00 01/16/25 05:15 40 MG Diagnostic Test (Pha) 1 strip IQ4HR 01/16/25 16:00 Insulin Human Regular IQ4HR SC 01/16/25 16:00 Dextrose 50 ml UD PRN IV 01/16/25 12:15 Insulin Glargine 15 units DAILY@1000 SC 01/17/25 10:00 Examination: GENERAL:Abnormal, HEENT:Abnormal, LUNGS:Abnormal, CVS:Abnormal, ABDOMEN:Abnormal laboratory and microbiology Laboratory Tests 01/16/25 05:00 Test 01/16/25 05:00 Range/Units Serum Glucose 201 H 74-106 mg/dL Microbiology Date/Time Source Procedure Growth Status 01/13/25 18:45 Nose MRSA Screen - Final Complete 01/13/25 18:35 Blood Blood Culture - Preliminary NO GROWTH AFTER 48 HOURS OF INCUBATION. 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 Expected Outcomes/Goals: Tight DM control, Wt management Date of Service: Jan 16, 2025 Billing Provider: DAMARIS JESSICA MD Common Visit Codes: NOT BILLABLE DAMARIS JESSICA MD Jan 16, 2025 14:45
--- NOTE | 2025-01-16 15:08 | DVH ---
INDICATION: fu TECHNIQUE: Frontal view of the chest. COMPARISON: XY CHEST PORTABLE on DOS: 01/14/25 FINDINGS: . The heart and mediastinal contours are grossly unremarkable. There is no evidence of pleural disea se. The lungs are clear. The bony structures of the chest are intact without fracture. IMPRESSION: Mild pulmonary edema.
[2025-01-16] MEDS: ACCU-CHEK COMFORT CURVE STRIP VI SCH (16:41)
[2025-01-16] MEDS: InsuLIN REG 1unit/0.01ml Soln (100units/ml) SC SCH (16:44)
--- NOTE | 2025-01-16 17:13 | DVHPN2 ---
Subjective Feels better Reviewed: Care Plan, H&P, Labs, Medications, Previous Orders, Radiology, Other (Consultants) Changes from previous H/P or p: No Changes Respiratory: Shortness of breath Objective Vitals Vital Signs Date Time Temp Pulse Resp B/P (MAP) Pulse Ox O2 Delivery O2 Flow Rate FiO2 01/16/25 16:46 97.9 97.9 01/16/25 16:15 89 19 90 01/16/25 16:00 Hi-Flow Heated NC+ 40 55 55 Intake/Output Intake and Output 01/16/25 06:59 Intake Total 3040.0 ml Output Total 2800 ml Balance 240.0 ml Intake Oral 1690 ml IV Total 1350.0 ml Output Urine Total 2800 ml # Bowel Movements 1 General Appearance: Alert, Oriented X3, Cooperative, No acute distress (With some tachypnea) HEENT: Atraumatic Lungs: Other (Crackles bilateral lungs with decreased air entry) Cardiovascular: Regular rate (Borderline tachycardia) Abdomen: Normal bowel sounds, Soft, No tenderness Extremities: No edema Medications Current Medications Medications Dose Ordered Sig/Jake Route Start Time Stop Time Status Last Admin Dose Admin Azithromycin 250 ml @ 125 mls/hr DAILY IV 01/14/25 10:00 01/16/25 08:59 125 MLS/HR Acetaminophen 500 mg Q4HPRN PRN PO 01/13/25 17:45 Acetaminophen/ Hydrocodone Bitart 1 tab Q4HPRN PRN PO 01/13/25 17:45 Albuterol 1.25 mg Q4HR NEB 01/13/25 18:00 01/16/25 14:42 1.25 MG Ipratropium [place] 0.5 mg Q4HR NEB 01/13/25 18:00 01/16/25 14:42 0.5 MG Aspirin 81 mg DAILY PO 01/14/25 10:00 01/16/25 08:59 81 MG Atorvastatin Calcium 40 mg HS PO 01/13/25 22:00 01/15/25 21:59 40 MG Enoxaparin Sodium 40 mg DAILY SC 01/14/25 10:00 01/16/25 08:58 40 MG Methylprednisolone Sodium Succinate 40 mg Q8HR IV 01/14/25 14:00 01/16/25 13:09 40 MG Cefepime HCl 50 ml @ 12.5 mls/hr Q8HR IV 01/14/25 14:00 UNV Cefepime HCl 50 ml @ 12.5 mls/hr Q12HR IV 01/14/25 12:58 01/16/25 09:00 12.5 MLS/HR Clopidogrel Bisulfate 75 mg DAILY PO 01/15/25 10:00 01/16/25 08:59 75 MG Bumetanide 2.5 mg BIDD IV 01/14/25 18:00 01/16/25 05:15 2.5 MG Pantoprazole Sodium 40 mg DAILY@0600 PO 01/16/25 06:00 01/16/25 05:15 40 MG Diagnostic Test (Pha) 1 strip IQ4HR 01/16/25 16:00 01/16/25 16:41 1 STRIP Insulin Human Regular IQ4HR SC 01/16/25 16:00 01/16/25 16:44 4 UNITS Dextrose 50 ml UD PRN IV 01/16/25 12:15 Insulin Glargine 15 units DAILY@1000 SC 01/17/25 10:00 Laboratory Results Laboratory Tests 01/16/25 05:00 Chemistry Test 01/16/25 05:00 Calcium Level 9.3 mg/dL (8.7-10.4) Cardiac Markers Test 01/16/25 05:00 B-Type Natriuretic Peptide 214.60 pg/mL (0-100) Urinalysis Test 01/13/25 18:45 01/15/25 06:11 Urine Mucus Few (None Seen) Urine Color Light-yellow (Yellow) Urine Clarity Clear (Clear) Urine pH 6.0 (5.0-9.0) Urine Specific [place] 1.016 (1.001-1.035) Urine Protein Trace (Negative) H Urine Ketones Negative (Negative) Urine Blood Trace /uL (Negative) H Urine Nitrite Negative (Negative) Urine Bilirubin Negative (Negative) Urine Urobilinogen Normal mg/dL (Negative) Urine Leukocyte Esterase Negative /uL (Negative) Urine RBC 2 /hpf (0 - 4) Urine Microscopic WBC 3 /HPF (0-5) Urine Squamous Epithelial Cells Few /hpf (<5) Urine Bacteria None seen /hpf (None Seen) Urine Glucose Normal mg/dL (Normal) Microbiology Microbiology Date/Time Source Procedure Growth Status 01/13/25 18:45 Nose MRSA Screen - Final Complete 01/13/25 18:35 Blood Blood Culture - Preliminary NO GROWTH AFTER 48 HOURS OF INCUBATION. Resulted Assessment/Plan Assessment/Plan COPD exacerbation acute on chronic respiratory failure with pneumonia sepsis Non-STEMI / heart failure Disease Peripheral artery disease Diabetes/uncontrolled with hyperglycemia Dyslipidemia Plan: Continue current plan of care. Chest x-ray Start insulin Lantus because of the hyperglycemia Canceled left heart catheterization due to the lung condition and poor prognosis. Further plan per orders. Total critical care time 40 minutes Plan discussed with: Patient, Son My Orders Orders - TOMÁS RODAS MD Procedure Category Date Status Time Glucose Blood PHA 01/16/25 In Process (Accu-Chek Comfort 16:00 Insulin R (Human) PHA 01/16/25 In Process (Insulin R) 16:00 Dextrose 50% Syringe PHA 01/16/25 In Process 12:15 Insulin Lantus PHA 01/17/25 In Process (Glargine) (Lantus) 10:00 Chest Portable XY 01/16/25 Resulted 13:47 Date of Service: Jan 16, 2025 Billing Provider: TOMÁS RODAS MD Common Visit Codes: [id number] CARE 30-74 MIN TOMÁS RODAS MD Jan 16, 2025 17:13
--- NOTE | 2025-01-16 21:36 | DVHINCON2 ---
Date of service: Jan 16, [address] Austin Galdamez Reason for Consultation Acute hypoxic respiratory failure, COPD exacerbation. History of Present Illness COVERING ICU/NEVIN A 79-year-old woman with past medical history of COPD, pulmonary nodule, left PAD s/p PTCA of left SFA and popliteal artery, hypertension, DM type 2, hemorrhoids, colonic polyp and diverticulosis who presented to ED on 01/13/25 from [facility] with a chief complaint of shortness of breath and generalized weakness for 1 day. Patient lives with her son, who is the caregiver. Per son, patient developed generalized weakness and shortness of breath on waking up and she could not transfer herself from the bed to wheelchair. Patient uses albuterol and Breztri inhaler, but no increased use recently. She has chronic cough, but the cough has not worsened recently. Vitals on arrival were pulse 99, blood pressure 123/60 mmHg, saturating 89% on 9 L Oxymizer. Patient was admitted for further care, and pulmonary consultation is requested for evaluation and management of acute hypoxic respiratory failure and COPD exacerbation. Review of Systems: 14-point review of systems negative unless otherwise noted above. Past Medical History: COPD not on home oxygen, solitary pulmonary nodules, left PAD status post PTCA of left superficial femoral artery and popliteal artery by Dr. Martinez in 2019, h ypertension, diabetes mellitus type 2, internal and external hemorrhoids, colonic polyp, diverticulosis Past Surgical History: Left PAD, status post PTCA of left superficial femoral artery and popliteal artery. Medications: Reviewed. Allergies: No known drug allergies. Family History: Alcoholism Cancer Chronic obstructive pulmonary disease Cardiovascular disease Diabetes mellitus Hypertension Seizure disorder Stroke. Social History: Former smoker. Smoked half pack a day for the past 50 years, quit 1 week ago. No alcohol or illicit drug use. Family History: Alcoholism G8 SISTER, Onset:15's - 20 Cancer G8 MOTHER, Onset:50's - 60 Chronic obstructive pulmonary disease Family history: Cardiovascular disease G8 FATHER, Onset:60 years & older G8 BROTHER G8 SISTER Family history: Diabetes mellitus G8 FATHER, Onset:60 years & older G8 BROTHER, Onset:50's - 60 G8 SISTER, Onset:30's - 40 Family history: Hypertension G8 FATHER, Onset:50's - 60 Seizure disorder (situation) G8 SISTER, Onset:30's - 40 Stroke G8 FATHER, Onset:60 years & older Allergies: Coded Allergies: NO KNOWN ALLERGIES (Unverified , 04/15/19) Home Meds Reported Medications Vwwbbvorwm-Kwynplwmdbpjwp-Bags (Breztri Aerosphere 160-9-4.8 Mcg/Act) 1 Aer Aer, 1 AER IN BID, AER 01/13/25 Albuterol Sulfate (Albuterol Sulfate Hfa) 108 Mcg/Act Aer, 90 MCG IN QIDPRN, AER 01/13/25 Hydrochlorothiazide (Hydrochlorothiazide) 12.5 Mg Cap, 12.5 MG PO DAILY for 30 Days, MG 01/13/25 Aspirin (Aspir-Low) 81 Mg Tab, 81 MG PO DAILY for 30 Days, MG 04/15/19 Clopidogrel Bisulfate (Plavix) 75 Mg Tab, 1 TAB PO DAILY, #90 TAB 1 Refill 07/01/15 Amlodipine Besylate (Amlodipine Besylate) 5 Mg Tab, 10 MG PO DAILY for 30 Days, MG 07/01/15 Discontinued Reported Medications Rosuvastatin Calcium (Crestor) 20 Mg Tab, 1 TAB PO DAILY, #30 TAB 5 Refills 02/27/19 Lisinopril (Lisinopril) 20 Mg Tab, 1 TAB PO DAILY, #30 TAB 5 Refills 07/01/15 Current Medications Current Medications Medications (Trade) Dose Ordered Sig/Jake Route PRN Reason Start Time Stop Time Status Last Admin Pantoprazole Sodium (Protonix Tablet) 40 mg DAILY@0600 PO 01/16/25 06:00 01/16/25 05:15 Diagnostic Test (Pha) (Accu-Chek Comfort Curve T) 1 strip IQ4HR 01/16/25 16:00 01/16/25 20:34 Insulin Human Regular (InsuLIN R) IQ4HR SC 01/16/25 16:00 01/16/25 20:31 Dextrose 50 ml UD PRN IV Blood Sugar LESS THAN 60 01/16/25 12:15 Insulin Glargine (Lantus) 15 units DAILY@1000 SC 01/17/25 10:00 Vital Signs Vital Signs Date Time Temp Pulse Resp B/P (MAP) Pulse Ox O2 Delivery O2 Flow Rate FiO2 01/16/25 19:45 84 16 88 01/16/25 18:20 40.0 55 01/16/25 18:00 Hi-Flow Heated NC+ 01/16/25 16:46 97.9 97.9 Physical Exam Gen.: Patient lying in bed in no apparent distress. On supplemental oxygen. Head: Normocephalic, atraumatic. Eyes: EOMI/PERRLA. Ears: Normal hearing. Normal anatomy. Neck/trachea: Trachea midline, supple. Nose: Normal external anatomy. Mouth: Moist mucous membranes. Chest: Decreased air entry bilaterally. No wheezing or rhonchi. Cardiovascular: Positive S1, positive S2. Regular rate and rhythm. Abdomen: Positive bowel sounds in all 4 quadrants. Soft, non-tender, non- distended. : Deferred. Rectal: Deferred. Skin: Warm, dry. Intact. Extremities: 2+ radial pulses bilaterally. No lower extremity edema. Neuro: Awake, alert, oriented x3. No gross motor or sensory deficits. Cranial nerves II through XII intact. Gait not assessed. Labs/Diagnostic Data Labs Test 01/16/25 20:04 01/16/25 05:00 01/15/25 06:11 01/15/25 04:45 Range/Units POC Glucose 384 H 70-106 mg/dl White Blood Count 9.4 4.4-10.8 10^3/uL Red Blood Count 5.69 H 4.0-5.20 10^6/uL Hemoglobin 18.7 H 12.2-16.2 g/dL Hematocrit 56.3 H 36.0-46.0 % Mean Corpuscular Volume 98.8 80.0-100.0 fL Mean Corpuscular Hemoglobin 32.8 H 28.0-32.0 pg Mean Corpuscular Hemoglobin Concent 33.2 32.0-36.0 g/dL Red Cell Distribution Width 14.3 11.8-14.3 % Platelet Count 169 140-450 10^3/uL Mean Platelet Volume 8.5 6.9-10.8 fL Neutrophils (%) (Auto) 85.0 H 37.0-80.0 % Lymphocytes (%) (Auto) 8.4 L 10.0-50.0 % Monocytes (%) (Auto) 6.6 0.0-12.0 % Eosinophils (%) (Auto) 0.0 0.0-7.0 % Basophils (%) (Auto) 0.0 0.0-2.0 % Neutrophils # (Auto) 8.0 1.6-8.6 10 ^3/uL Lymphocytes # (Auto) 0.8 0.4-5.4 10 ^3/uL Monocytes # (Auto) 0.6 0-1.3 10 ^3/uL Eosinophils # (Auto) 0 0-0.8 10 ^3/uL Basophils # (Auto) 0 0-0.2 10 ^3/uL Nucleated Red Blood Cells 0.1 % Sodium Level 135 L 136-145 mmol/L Potassium Level 3.5 3.5-5.1 mmol/L Chloride Level 96 L 98-107 mmol/L Carbon Dioxide Level 32 H 20-31 mmol/L Anion Gap 7 5-15 Blood Urea Nitrogen 25 H 9-23 mg/dL Creatinine 0.93 0.550-1.02 mg/dL Glomerular Filtration Rate Calc 63 >90 mL/min BUN/Creatinine Ratio 26.9 H 10.0-20.0 Serum Glucose 201 H 74-106 mg/dL Calcium Level 9.3 8.7-10.4 mg/dL B-Type Natriuretic Peptide 214.60 0-100 pg/mL Urine Color Light-yellow Yellow Urine Clarity Clear Clear Urine pH 6.0 5.0-9.0 Urine Specific [place] 1.016 1.001-1.035 Urine Protein Trace H Negative Urine Ketones Negative Negative Urine Blood Trace H Negative /uL Urine Nitrite Negative Negative Urine Bilirubin Negative Negative Urine Urobilinogen Normal Negative mg/dL Urine Leukocyte Esterase Negative Negative /uL Urine RBC 2 0 - 4 /hpf Urine Microscopic WBC 3 0-5 /HPF Urine Squamous Epithelial Cells Few <5 /hpf Urine Bacteria None seen None Seen /hpf Urine Glucose Normal Normal mg/dL Magnesium Level 2.0 1.6-2.6 mg/dL Thyroid Stimulating Hormone (TSH) 0.47 L 0.55-4.78 uIU/mL Test 01/14/25 23:57 01/14/25 15:55 01/14/25 05:11 01/13/25 21:55 Range/Units Blood Gas Specimen Type Arterial Blood Gas Sample Site Right radial Blood Gas Patient Temperature 37.0 Arterial Blood Date Drawn [id number] Arterial Blood pH 7.425 7.350-7.450 Arterial Blood Partial Pressure CO2 42.7 32.0-45.0 mmHg Arterial Blood Partial Pressure O2 70.5 L 83.0-108.0 mmHg Arterial Blood HCO3 27.4 21.0-28.0 mmol/L Arterial Blood Oxygen Saturation 94.0 94.0-98.0 % Arterial Blood Base Excess 2.6 -2.0-3.0 mmol/L Arterial Blood Oxyhemoglobin 93.2 L 94.0-98.0 % Arterial Blood Carboxyhemoglobin 0.3 L 0.5-1.5 % Arterial Blood Methemoglobin 0.5 0.0-1.5 % Timothy Test Yes Blood Gas Total Hemoglobin 18.30 *H 12.0-16.0 g/dL Blood Gas Liter Flow 40.00 Blood Gas Modality High flow FiO2 % 60.0 Blood Gas Critical Value Read Back Yes Blood Gas Notified Whom Esise light md Blood Gas Notified Time [id number] Blood Gas Notified By Pearl carrera rrt Influenza Type A Antigen Negative Negative Influenza Type B Antigen Negative Negative SARS-CoV-2 Antigen (Rapid) Negative NEGATIVE Hemoglobin A1c 6.3 H <5.7 % A1C Free Thyroxine (T4) Calculated 1.02 0.89-1.76 ng/dL Total Triiodothyronine (TT3) 0.64 0.60-1.81 ng/mL Troponin I High Sensitivity 350 *H </=34 ng/L Test 01/13/25 18:45 01/13/25 18:35 01/13/25 17:56 Range/Units Urine Mucus Few None Seen Urine Opiates Screen Neg NEGATIVE Urine Fentanyl Screen Neg NEGATIVE Urine Barbiturates Screen Neg NEGATIVE Urine Phencyclidine Screen Neg NEGATIVE Urine Amphetamines Screen Neg NEGATIVE Urine Benzodiazepines Screen Neg NEGATIVE Urine Cocaine Screen Neg NEGATIVE Urine Cannabinoids Screen Neg NEGATIVE Lactic Acid Level 1.5 0.4-2.0 mmol/L Prothrombin Time 11.8 9.3-11.8 sec Prothrombin Time INR 1.13 0.9-1.15 Activated Partial Thromboplast Time 32.1 24.5-34.5 SEC D-Dimer, Quantitative 0.71 H 0.0-0.49 mg/L FEU Total Bilirubin 0.5 0.2-1.0 mg/dL Aspartate Amino Transferase (AST) 34 13-40 U/L Alanine Aminotransferase (ALT) 27 7-40 U/L Alkaline Phosphatase 53 46-116 U/L Total Protein 7.0 5.7-8.2 g/dL Albumin 4.5 3.2-4.8 g/dL Microbiology Date/Time Source Procedure Growth Status 01/13/25 18:45 Nose MRSA Screen - Final Complete 01/13/25 18:35 Blood Blood Culture - Preliminary NO GROWTH AFTER 72 HOURS OF INCUBATION. Resulted Assessment Impression: Acute hypoxic respiratory failure Dependence on supplemental oxygen Acute exacerbation of COPD CHF exacerbation Nicotine dependence (0.5 PPD x50 years, quit 1 week ago) Plan: On high flow supplemental oxygen at 40 LPM, FiO2 55% Titrate to keep O2 sats above 92%. Taper FiO2 as tolerated. CXR reviewed, demonstrates hyperinflation. Continue bronchodilators. Continue antibiotics Continue steroids Incentive spirometry Awaiting cardiac catheterization Follow up Cardiology recs. Diurese as tolerated w/ Bumex Monitor renal function. Monitor electrolytes. Supplement as necessary. Monitor ins and outs. DVT prophylaxis. Prognosis: Poor given patient's multiple co-morbidities. Rest of plan per hospitalist and other consultants. A total of 76 minutes of clinical care time was spent reviewing the patient record, examining the patient, making a diagnostic and therapeutic plan, discussing this plan with the medical personnel, following up on diagnostic studies and following the patient for clinical stability excluding any and all procedures. At least 50% of this time was spent in direct, [id number] contact. Thank you, Dr. Galdamez, for allowing me to participate in this patient's care. Further recommendations will depend on the patient's clinical course. Please do not hesitate to contact me if you have any questions or concerns. This medical document was created using an electronic medical record system with [employer] dictation system. Although these documentations are being carefully reviewed, there may still be some phonetic and typographical changes. The errors are purely typographical, due to imperfection on the software program, and do not reflect any compromise in the patient's medical care. Plan discussed with: Patient, Other (RN/Dr. Galdamez) BETINA RUBIO MD Jan 16, 2025 21:36
[2025-01-17] VITALS (42 sets, daily range): BP systolic 117–149; BP diastolic 45–115; PULSE 75–103; RESP 13–30; TEMP 97.6–98.4; O2SAT 84–97
[2025-01-17 05:44] LABS: Basophils # (auto) 0 10 ^3/uL (0-0.2); Eosinophils # (auto) 0 10 ^3/uL (0-0.8); Hemoglobin 19.7 g/dL (12.2-16.2); Mean Corpuscular Hemoglobin 33.6 pg (28.0-32.0); Mean Corpuscular Hgb Conc. 34.6 g/dL (32.0-36.0); Mean Corpuscular Volume 97.1 fL (80.0-100.0); Monocytes % (auto) 9.6 % (0.0-12.0); Neutrophils # (auto) 8.1 10 ^3/uL (1.6-8.6); Neutrophils % (auto) 80.4 % (37.0-80.0); Nucleated Red Blood Cells % 0.1 %; Platelet Count (auto) 192 10^3/uL (140-450); Red Blood Cells 5.87 10^6/uL (4.0-5.20); Red Cell Distribution Width 14.3 % (11.8-14.3); White Blood Cell 10.1 10^3/uL (4.4-10.8)
[2025-01-17 06:19] LABS: Albumin 4.2 g/dL (3.2-4.8); Alkaline Phosphatase 55 U/L (46-116); Anion Gap 9 (5-15); BUN/Creatinine Ratio 33.7 (10.0-20.0); Sodium 136 mmol/L (136-145); Total Protein 6.8 g/dL (5.7-8.2)
[2025-01-17 06:20] LABS: Bilirubin, Total 0.8 mg/dL (0.2-1.0)
--- NOTE | 2025-01-17 06:25 | DVH ---
CHEST RADIOGRAPH Indication: fu Technique: Single frontal view of the chest was obtained Comparison: XY CHEST PORTABLE on DOS: 01/16/25, XY CHEST PORTABLE on DOS: 01/14/25 IMPRESSION: Heart appears normal in size. The lungs appear clear without focal airspace opacity, effusion, or pn eumothorax
[2025-01-17 06:34] LABS: Potassium 3.3 mmol/L (3.5-5.1)
[2025-01-17 06:35] LABS: Alanine Aminotransferase 162 U/L (7-40); Aspartate Aminotransferase 98 U/L (13-40); Blood Urea Nitrogen 30 mg/dL (9-23); Carbon Dioxide 38 mmol/L (20-31); Chloride 89 mmol/L (98-107); Glucose 187 mg/dL (74-106)
[2025-01-17] MEDS: INSULIN LANTUS (GLARGINE) 1 /0.01ml (100units/ml) SC SCH (08:21)
--- NOTE | 2025-01-17 09:43 | DVHPN2 ---
Progress Note Date Seen: Jan 17, 2025 Medical Necessity Reason Pt with a Central, PICC or Fol: No Subjective Patient reports: Feels better Other Systems: sinus tach with arrhythmia on tele K is 3.3 given orders to replete Objective vital signs Vital Sign Date Time Temp Pulse Resp B/P (MAP) Pulse Ox O2 Delivery O2 Flow Rate FiO2 01/17/25 09:00 98 16 85 01/17/25 08:00 97.8 97.8 01/17/25 07:47 Hi-Flow Heated NC+ 40 50 50 Total Intake and Output 01/16/25 01/16/25 01/17/25 15:00 23:00 07:00 Intake Total 647.5 ml 462.5 ml 317.5 ml Output Total 2750 ml 1500 ml Balance 647.5 ml -2287.5 ml -1182.5 ml medications Current Medications Medications Dose Ordered Sig/Jake Route Start Time Stop Time Status Last Admin Dose Admin Azithromycin 250 ml @ 125 mls/hr DAILY IV 01/14/25 10:00 01/17/25 08:20 125 MLS/HR Acetaminophen 500 mg Q4HPRN PRN PO 01/13/25 17:45 Acetaminophen/ Hydrocodone Bitart 1 tab Q4HPRN PRN PO 01/13/25 17:45 Albuterol 1.25 mg Q4HR NEB 01/13/25 18:00 01/17/25 06:20 1.25 MG Ipratropium [place] 0.5 mg Q4HR NEB 01/13/25 18:00 01/17/25 06:20 0.5 MG Aspirin 81 mg DAILY PO 01/14/25 10:00 01/17/25 08:20 81 MG Atorvastatin Calcium 40 mg HS PO 01/13/25 22:00 01/16/25 21:57 40 MG Enoxaparin Sodium 40 mg DAILY SC 01/14/25 10:00 01/17/25 08:21 40 MG Methylprednisolone Sodium Succinate 40 mg Q8HR IV 01/14/25 14:00 01/17/25 05:20 40 MG Cefepime HCl 50 ml @ 12.5 mls/hr Q8HR IV 01/14/25 14:00 UNV Cefepime HCl 50 ml @ 12.5 mls/hr Q12HR IV 01/14/25 12:58 01/17/25 08:21 12.5 MLS/HR Clopidogrel Bisulfate 75 mg DAILY PO 01/15/25 10:00 01/17/25 08:20 75 MG Bumetanide 2.5 mg BIDD IV 01/14/25 18:00 01/17/25 05:21 2.5 MG Pantoprazole Sodium 40 mg DAILY@0600 PO 01/16/25 06:00 01/17/25 05:20 40 MG Diagnostic Test (Pha) 1 strip IQ4HR 01/16/25 16:00 01/17/25 08:20 1 STRIP Insulin Human Regular IQ4HR SC 01/16/25 16:00 01/17/25 08:22 8 UNITS Dextrose 50 ml UD PRN IV 01/16/25 12:15 Insulin Glargine 15 units DAILY@1000 SC 01/17/25 10:00 01/17/25 08:21 15 UNITS Examination: GENERAL:Abnormal, HEENT:Abnormal, LUNGS:Abnormal, CVS:Abnormal, ABDOMEN:Abnormal laboratory and microbiology Laboratory Tests 01/17/25 05:05 Test 01/17/25 05:05 Range/Units Serum Glucose 187 H 74-106 mg/dL Microbiology Date/Time Source Procedure Growth Status 01/13/25 18:45 Nose MRSA Screen - Final Complete 01/13/25 18:35 Blood Blood Culture - Preliminary NO GROWTH AFTER 72 HOURS OF INCUBATION. 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 Expected Outcomes/Goals: Tight DM control, Wt management Date of Service: Jan 17, 2025 Billing Provider: DAMARIS JESSICA MD Common Visit Codes: NOT BILLABLE DAMARIS JESSICA MD Jan 17, 2025 09:43
[2025-01-17] MEDS: POTASSIUM EFFERVESENT TAB 25 MEQ PO ONE (10:39)
[2025-01-17] MEDS: ACETAMINOPHEN 500 MG TAB or CAP PO PRN (13:18)
--- NOTE | 2025-01-17 14:32 | DVHPN2 ---
Subjective Feels okay Reviewed: Care Plan, H&P, Labs, Medications, Previous Orders, Radiology, Other (Consultants) Changes from previous H/P or p: No Changes Respiratory: Shortness of breath Objective Vitals Vital Signs Date Time Temp Pulse Resp B/P (MAP) Pulse Ox O2 Delivery O2 Flow Rate FiO2 01/17/25 14:10 92 22 92 40.0 50 01/17/25 13:31 Hi-Flow Heated NC+ 01/17/25 12:00 97.9 134/64 (87) 97.9 Intake/Output Intake and Output 01/17/25 07:00 Intake Total 1427.5 ml Output Total 4250 ml Balance -2822.5 ml Intake Oral 1090 ml IV Total 337.5 ml Output Urine Total 4250 ml # Bowel Movements 3 General Appearance: Alert, Oriented X3, Cooperative, No acute distress (With some tachypnea) HEENT: Atraumatic Lungs: Other (Crackles bilateral lungs with decreased air entry) Cardiovascular: Regular rate (Borderline tachycardia) Abdomen: Normal bowel sounds, Soft, No tenderness Extremities: No edema Medications Current Medications Medications Dose Ordered Sig/Jake Route Start Time Stop Time Status Last Admin Dose Admin Azithromycin 250 ml @ 125 mls/hr DAILY IV 01/14/25 10:00 01/17/25 08:20 125 MLS/HR Acetaminophen 500 mg Q4HPRN PRN PO 01/13/25 17:45 01/17/25 13:18 500 MG Acetaminophen/ Hydrocodone Bitart 1 tab Q4HPRN PRN PO 01/13/25 17:45 Albuterol 1.25 mg Q4HR NEB 01/13/25 18:00 01/17/25 14:10 1.25 MG Ipratropium [place] 0.5 mg Q4HR NEB 01/13/25 18:00 01/17/25 14:10 0.5 MG Aspirin 81 mg DAILY PO 01/14/25 10:00 01/17/25 08:20 81 MG Atorvastatin Calcium 40 mg HS PO 01/13/25 22:00 01/16/25 21:57 40 MG Enoxaparin Sodium 40 mg DAILY SC 01/14/25 10:00 01/17/25 08:21 40 MG Methylprednisolone Sodium Succinate 40 mg Q8HR IV 01/14/25 14:00 01/17/25 13:15 40 MG Cefepime HCl 50 ml @ 12.5 mls/hr Q8HR IV 01/14/25 14:00 UNV Cefepime HCl 50 ml @ 12.5 mls/hr Q12HR IV 01/14/25 12:58 01/17/25 08:21 12.5 MLS/HR Clopidogrel Bisulfate 75 mg DAILY PO 01/15/25 10:00 01/17/25 08:20 75 MG Bumetanide 2.5 mg BIDD IV 01/14/25 18:00 01/17/25 05:21 2.5 MG Pantoprazole Sodium 40 mg DAILY@0600 PO 01/16/25 06:00 01/17/25 05:20 40 MG Diagnostic Test (Pha) 1 strip IQ4HR 01/16/25 16:00 01/17/25 12:15 1 STRIP Insulin Human Regular IQ4HR SC 01/16/25 16:00 01/17/25 12:16 10 UNITS Dextrose 50 ml UD PRN IV 01/16/25 12:15 Insulin Glargine 15 units DAILY@1000 SC 01/17/25 10:00 01/17/25 08:21 15 UNITS Laboratory Results Laboratory Tests 01/17/25 05:05 Chemistry Test 01/17/25 05:05 Albumin 4.2 g/dL (3.2-4.8) Calcium Level 10.0 mg/dL (8.7-10.4) Total Protein 6.8 g/dL (5.7-8.2) Cardiac Markers Test 01/17/25 05:05 B-Type Natriuretic Peptide 168.24 pg/mL (0-100) LFT Test 01/17/25 05:05 Alanine Aminotransferase (ALT) 162 U/L (7-40) H Alkaline Phosphatase 55 U/L (46-116) Aspartate Amino Transferase (AST) 98 U/L (13-40) H Total Bilirubin 0.8 mg/dL (0.2-1.0) Urinalysis Test 01/13/25 18:45 01/15/25 06:11 Urine Mucus Few (None Seen) Urine Color Light-yellow (Yellow) Urine Clarity Clear (Clear) Urine pH 6.0 (5.0-9.0) Urine Specific [place] 1.016 (1.001-1.035) Urine Protein Trace (Negative) H Urine Ketones Negative (Negative) Urine Blood Trace /uL (Negative) H Urine Nitrite Negative (Negative) Urine Bilirubin Negative (Negative) Urine Urobilinogen Normal mg/dL (Negative) Urine Leukocyte Esterase Negative /uL (Negative) Urine RBC 2 /hpf (0 - 4) Urine Microscopic WBC 3 /HPF (0-5) Urine Squamous Epithelial Cells Few /hpf (<5) Urine Bacteria None seen /hpf (None Seen) Urine Glucose Normal mg/dL (Normal) Microbiology Microbiology Date/Time Source Procedure Growth Status 01/13/25 18:45 Nose MRSA Screen - Final Complete 01/13/25 18:35 Blood Blood Culture - Preliminary NO GROWTH AFTER 72 HOURS OF INCUBATION. Resulted Assessment/Plan Assessment/Plan COPD exacerbation acute on chronic respiratory failure with pneumonia sepsis Non-STEMI / heart failure Disease Peripheral artery disease Diabetes/uncontrolled with hyperglycemia Dyslipidemia Elevated liver function tests Plan: . Acetaminophen and atorvastatin because of the elevated liver function tests. Mild overall improvement. Continue with current regimen. Further plan per orders Plan discussed with: Patient My Orders Orders - TOMÁS RODAS MD Procedure Category Date Status Time Chest Portable XY 01/17/25 Resulted 06:00 Potassium Effervesent PHA 01/18/25 Verified Tab (Klor-Con/Ef) 10:00 Date of Service: Jan 17, 2025 Billing Provider: TOMÁS RODAS MD Common Visit Codes: [id number] INP/OBS CARE(HIGH) TOMÁS RODAS MD Jan 17, 2025 14:32
--- NOTE | 2025-01-17 23:38 | DVHPN2 ---
Progress Note - Dictate Date Seen: Jan 17, 2025 Medical Necessity Reason Pt with a Central, PICC or Fol: Yes The following are medically ne: Hughes Catheter Reason for hughes catheter: Strict I&O Subjective Patient seen and examined at bedside. Remains on supplemental oxygen Overnight events reviewed. vital signs Vital Sign Date Time Temp Pulse Resp B/P (MAP) Pulse Ox O2 Delivery O2 Flow Rate FiO2 01/17/25 22:02 86 17 97 40.0 50 01/17/25 22:00 Hi-Flow Heated NC+ 01/17/25 20:00 97.6 117/45 (69) 97.6 Total Intake and Output 01/16/25 01/16/25 01/17/25 15:00 23:00 07:00 Intake Total 647.5 ml 462.5 ml 317.5 ml Output Total 2750 ml 1500 ml Balance 647.5 ml -2287.5 ml -1182.5 ml medications Current Medications Medications Dose Ordered Sig/Jake Route Start Time Stop Time Status Last Admin Dose Admin Azithromycin 250 ml @ 125 mls/hr DAILY IV 01/14/25 10:00 01/17/25 08:20 125 MLS/HR Acetaminophen/ Hydrocodone Bitart 1 tab Q4HPRN PRN PO 01/13/25 17:45 Albuterol 1.25 mg Q4HR NEB 01/13/25 18:00 01/17/25 22:05 1.25 MG Ipratropium [place] 0.5 mg Q4HR NEB 01/13/25 18:00 01/17/25 22:05 0.5 MG Aspirin 81 mg DAILY PO 01/14/25 10:00 01/17/25 08:20 81 MG Enoxaparin Sodium 40 mg DAILY SC 01/14/25 10:00 01/17/25 08:21 40 MG Methylprednisolone Sodium Succinate 40 mg Q8HR IV 01/14/25 14:00 01/17/25 21:47 40 MG Cefepime HCl 50 ml @ 12.5 mls/hr Q8HR IV 01/14/25 14:00 UNV Cefepime HCl 50 ml @ 12.5 mls/hr Q12HR IV 01/14/25 12:58 01/17/25 21:47 12.5 MLS/HR Clopidogrel Bisulfate 75 mg DAILY PO 01/15/25 10:00 01/17/25 08:20 75 MG Bumetanide 2.5 mg BIDD IV 01/14/25 18:00 01/17/25 17:41 2.5 MG Pantoprazole Sodium 40 mg DAILY@0600 PO 01/16/25 06:00 01/17/25 05:20 40 MG Diagnostic Test (Pha) 1 strip IQ4HR 01/16/25 16:00 01/17/25 19:49 1 STRIP Insulin Human Regular IQ4HR SC 01/16/25 16:00 01/17/25 19:48 8 UNITS Dextrose 50 ml UD PRN IV 01/16/25 12:15 Insulin Glargine 15 units DAILY@1000 SC 01/17/25 10:00 01/17/25 08:21 15 UNITS Potassium Bicarbonate 25 meq DAILY PO 01/18/25 10:00 objective Gen.: Patient lying in bed in no apparent distress. On supplemental oxygen. Head: Normocephalic, atraumatic. Eyes: EOMI/PERRLA. Ears: Normal hearing. Normal anatomy. Neck/trachea: Trachea midline, supple. Nose: Normal external anatomy. Mouth: Moist mucous membranes. Chest: Decreased air entry bilaterally. No wheezing or rhonchi. Cardiovascular: Positive S1, positive S2. Regular rate and rhythm. Abdomen: Positive bowel sounds in all 4 quadrants. Soft, non-tender, non- distended. : Deferred. Rectal: Deferred. Skin: Warm, dry. Intact. Extremities: 2+ radial pulses bilaterally. No lower extremity edema. Neuro: Awake, alert, oriented x3. No gross motor or sensory deficits. Cranial nerves II through XII intact. Gait not assessed. laboratory and microbiology Laboratory Tests 01/17/25 05:05 Test 01/17/25 05:05 Range/Units Serum Glucose 187 H 74-106 mg/dL Assessment/Plan Impression: Acute hypoxic respiratory failure Dependence on supplemental oxygen Acute exacerbation of COPD CHF exacerbation Nicotine dependence (0.5 PPD x50 years, quit 1 week ago) Events: On high flow supplemental oxygen at 40 LPM, FiO2 50% Taper FiO2 as tolerated CXR reviewed, lungs appear clear without focal airspace opacity, effusion, or pneumothorax Continue bronchodilators Continue IV steroids Continue antibiotics Diurese as tolerated w/ Bumex Monitor renal function. Monitor electrolytes. Supplement as necessary. Cardiology recs appreciated. Labs and imaging reviewed. Rest of plan as noted below. Plan: Continue supplemental oxygen Titrate to keep O2 sats above 92%. Continue bronchodilators. Continue antibiotics Continue steroids Incentive spirometry Diurese as tolerated w/ Bumex Monitor renal function. Monitor electrolytes. Supplement as necessary. Monitor ins and outs. DVT prophylaxis. Prognosis: Poor given patient's multiple co-morbidities. Rest of plan per hospitalist and other consultants. A total of 51 minutes of clinical care time was spent reviewing the patient record, examining the patient, making a diagnostic and therapeutic plan, discussing this plan with the medical personnel, following up on diagnostic studies and following the patient for clinical stability excluding any and all procedures. At least 50% of this time was spent in direct, [id number] contact. Thank you, Dr. Galdamez, for allowing me to participate in this patient's care. Further recommendations will depend on the patient's clinical course. Please do not hesitate to contact me if you have any questions or concerns. This medical document was created using an electronic medical record system with [employer] dictation system. Although these documentations are being carefully reviewed, there may still be some phonetic and typographical changes. The errors are purely typographical, due to imperfection on the software program, and do not reflect any compromise in the patient's medical care. Dietary Evaluation Review Comments: Recommend CCHO-60 with 2 GNa Low fat Low Cholesterol Cardiac diet. Expected Outcomes/Goals: Tight DM control, Wt management Plan discussed with: Patient, Other (SULEIMAN Vásquez) BETINA RUBIO MD Jan 17, 2025 23:38
[2025-01-18] VITALS (31 sets, daily range): BP systolic 115–142; BP diastolic 47–115; PULSE 73–100; RESP 16–43; TEMP 97.3–98.2; O2SAT 91–99
[2025-01-18 05:46] LABS: Basophils # (auto) 0 10 ^3/uL (0-0.2); Eosinophils # (auto) 0 10 ^3/uL (0-0.8); Eosinophils % (auto) 0.1 % (0.0-7.0)
[2025-01-18 05:49] LABS: Basophils % (auto) 0.1 % (0.0-2.0); Hemoglobin 19.8 g/dL (12.2-16.2); Lymphocytes # (auto) 1.2 10 ^3/uL (0.4-5.4); Lymphocytes % (auto) 9.7 % (10.0-50.0); Mean Corpuscular Hemoglobin 32.6 pg (28.0-32.0); Mean Corpuscular Hgb Conc. 33.6 g/dL (32.0-36.0); Mean Corpuscular Volume 97.2 fL (80.0-100.0); Neutrophils # (auto) 9.9 10 ^3/uL (1.6-8.6); Neutrophils % (auto) 82.1 % (37.0-80.0); Nucleated Red Blood Cells % 0.2 %; Platelet Count (auto) 189 10^3/uL (140-450); Red Blood Cells 6.08 10^6/uL (4.0-5.20); Red Cell Distribution Width 14.6 % (11.8-14.3)
[2025-01-18 05:50] LABS: Hematocrit 59.1 % (36.0-46.0)
--- NOTE | 2025-01-18 06:10 | DVH ---
EXAM: XR Chest, 1 View CLINICAL INDICATION: RESPIRATORY FAILURE TECHNIQUE: Frontal view of the chest. COMPARISON: XY CHEST PORTABLE on DOS: 01/17/25, XY CHEST PORTABLE on DOS: 01/16/25, XY CHEST PORTABLE o n DOS: 01/14/25 FINDINGS: LUNGS AND PLEURAL SPACES: Mild pulmonary congestion. No consolidation. No pneumothorax. HEART: Unremarkable. No cardiomegaly. MEDIASTINUM: Unremarkable. Normal mediastinal contour. BONES/JOINTS: Unremarkable. No acute fracture. OTHER FINDINGS: . IMPRESSION: Mild pulmonary congestion.
[2025-01-18 06:12] LABS: Albumin 4.2 g/dL (3.2-4.8); Alkaline Phosphatase 56 U/L (46-116); Anion Gap 7 (5-15); BUN/Creatinine Ratio 26.9 (10.0-20.0); Bilirubin, Total 0.9 mg/dL (0.2-1.0); Calcium 9.6 mg/dL (8.7-10.4); Potassium 3.6 mmol/L (3.5-5.1); Total Protein 6.7 g/dL (5.7-8.2)
[2025-01-18 06:16] LABS: Alanine Aminotransferase 149 U/L (7-40); Aspartate Aminotransferase 62 U/L (13-40); Blood Urea Nitrogen 28 mg/dL (9-23); Carbon Dioxide 37 mmol/L (20-31); Chloride 90 mmol/L (98-107); Glucose 208 mg/dL (74-106); Sodium 134 mmol/L (136-145)
[2025-01-18 06:58] LABS: Magnesium 1.8 mg/dL (1.6-2.6)
[2025-01-18] MEDS: POTASSIUM EFFERVESENT TAB 25 MEQ PO SCH (08:01)
--- NOTE | 2025-01-18 17:37 | DVHPNRES ---
Progress Note Date Seen: Jan 18, 2025 Resident Creating Document: SHEA SCHMITZ RESIDENT Medical Necessity Reason Pt with a Central, PICC or Fol: Yes The following are medically ne: Hughes Catheter Reason for hughes catheter: Strict I&O Subjective Review of Systems Patient was seen and examined at bedside. Son was bedside. She stated feeling better than admission. She remained on high-flow oxygen at 50% FiO2 and 40 L. We are going to titrate down the oxygen. Goal is to be between 88-92%. Objective vital signs Vital Sign Date Time Temp Pulse Resp B/P (MAP) Pulse Ox O2 Delivery O2 Flow Rate FiO2 01/18/25 16:00 97.8 89 29 142/58 (86) 95 97.8 01/18/25 15:32 Oxymizer 7 N/A Total Intake and Output 01/17/25 01/17/25 01/18/25 15:00 23:00 07:00 Intake Total 525.0 ml 325.0 ml Output Total 1600 ml 1525 ml Balance -1075.0 ml -1200.0 ml medications Current Medications Medications Dose Ordered Sig/Jake Route Start Time Stop Time Status Last Admin Dose Admin Azithromycin 250 ml @ 125 mls/hr DAILY IV 01/14/25 10:00 01/18/25 09:08 125 MLS/HR Acetaminophen/ Hydrocodone Bitart 1 tab Q4HPRN PRN PO 01/13/25 17:45 Albuterol 1.25 mg Q4HR NEB 01/13/25 18:00 01/18/25 13:39 1.25 MG Ipratropium [place] 0.5 mg Q4HR NEB 01/13/25 18:00 01/18/25 13:39 0.5 MG Aspirin 81 mg DAILY PO 01/14/25 10:00 01/18/25 08:00 81 MG Enoxaparin Sodium 40 mg DAILY SC 01/14/25 10:00 01/18/25 08:01 40 MG Methylprednisolone Sodium Succinate 40 mg Q8HR IV 01/14/25 14:00 01/18/25 13:37 40 MG Cefepime HCl 50 ml @ 12.5 mls/hr Q8HR IV 01/14/25 14:00 UNV Cefepime HCl 50 ml @ 12.5 mls/hr Q12HR IV 01/14/25 12:58 01/18/25 08:00 12.5 MLS/HR Clopidogrel Bisulfate 75 mg DAILY PO 01/15/25 10:00 01/18/25 08:00 75 MG Pantoprazole Sodium 40 mg DAILY@0600 PO 01/16/25 06:00 01/18/25 05:28 40 MG Diagnostic Test (Pha) 1 strip IQ4HR 01/16/25 16:00 01/18/25 15:42 1 STRIP Insulin Human Regular IQ4HR SC 01/16/25 16:00 01/18/25 15:46 6 UNITS Dextrose 50 ml UD PRN IV 01/16/25 12:15 Insulin Glargine 15 units DAILY@1000 SC 01/17/25 10:00 01/18/25 08:08 15 UNITS Potassium Bicarbonate 25 meq DAILY PO 01/18/25 10:00 01/18/25 08:01 25 MEQ Bumetanide 2 mg DAILY IV 01/19/25 10:00 Examination General: Awake, alert, comfortable appearing, in no acute distress. HEENT: Head is normocephalic and atraumatic. Pupils are equal, round, and reactive to light. Extraocular muscles are intact. No nasal discharge. No facial trauma. Intraoral exam shows moist mucous membranes with no tonsillar enlargement or exudate. Neck: Supple with no cervical lymphadenopathy No meningismus. No goiter. Heart: Regular rate without murmur, rub, or gallop. Lungs: Diminished breath sounds, mild bilateral crackles Abdomen: No external sign of injury. Bowel sounds are present. Abdomen is soft, nontender. No rebound, no guarding, no rigidity. There are no palpable masses. There is no flank pain on exam. Extremities: Strong peripheral pulses. There is no clubbing, no cyanosis, and no edema. Skin: No rash. Neurologic: Cranial nerves II-XII intact without motor, sensory, or cerebellar deficit, no asterixis. laboratory and microbiology Laboratory Tests 01/18/25 05:17 Test 01/18/25 05:17 Range/Units Serum Glucose 208 H 74-106 mg/dL Microbiology Date/Time Source Procedure Growth Status 01/13/25 18:45 Nose MRSA Screen - Final Complete 01/13/25 18:35 Blood Blood Culture - Preliminary NO GROWTH AFTER 72 HOURS OF INCUBATION. Resulted Labs and/or images reviewed: Labs reviewed by me, Image(s) reviewed by me Problem List/Assessment/Plan Problem List/Assessment/Plan COPD exacerbation Acute hypoxic hypercapnic respiratory failure Sepsis due to pneumonia, Gram-positive versus Gram-negative NSTEMI likely type 2 due to above Peripheral artery disease Diabetes mellitus type 2; uncontrolled with hyperglycemia Dyslipidemia Transaminitis Plan: Maintain oxygen saturation between 88-92%, came down to Oxymizer; was on high- flow nasal cannula Bumex 2 mg IV q.d. Continued DAPT Continue broad-spectrum antibiotics with cefepime and azithromycin Continue DuoNebs q.4 Solu-Medrol 40 mg IV t.i.d. 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 Muñoz Plan discussed with: Patient, Son, Other (RN) My Orders My Orders Orders - SHEA SCHMITZ RESIDENT Procedure Category Date Status Time Bumetanide Injection PHA 01/19/25 In Process (Bumex Injection) 10:00 Dietary Evaluation Review Comments: Recommend CCHO-60 with 2 GNa Low fat Low Cholesterol Cardiac diet. Expected Outcomes/Goals: Tight DM control, Wt management Addendum Addendum Addendum I was physically present for the angela portions of the service provided to patient by THE RESIDENT. I have reviewed the documentation, discussed the case with resident and agree with the resident's documentation except as noted. Also the patient's clinical case was discussed with the patient's nurse. This medical document was created using an electronic medical record system with computerized dictation system. Although this document has been carefully reviewed, there might still be some phonetic and typographical errors. These areas are purely typographical due to imperfections of the software programs, and do not reflect any compromise in the patient's medical care. Late signature. Date of Service: Jan 18, 2025 Billing Provider: JIGAR MUÑOZ MD Common Visit Codes: [id number] CARE 30-74 MIN (99 minutes), [id number] CARE-EACH +30MIN Secondary Visit Codes: [id number] CARE PLAN 30 MINUTES (22 minutes) SHEA SCHMITZ RESIDENT Jan 18, 2025 17:37 JIGAR MUÑOZ MD Jan 19, 2025 08:02
[2025-01-19] VITALS (59 sets, daily range): BP systolic 105–146; BP diastolic 43–70; PULSE 60–102; RESP 14–42; TEMP 97–98.5; O2SAT 87–100
[2025-01-19 05:40] LABS: Albumin 4.1 g/dL (3.2-4.8); Alkaline Phosphatase 53 U/L (46-116); Anion Gap 9 (5-15); Aspartate Aminotransferase 40 U/L (13-40); BUN/Creatinine Ratio 37.3 (10.0-20.0); Bilirubin, Total 1.1 mg/dL (0.2-1.0); Magnesium 2.1 mg/dL (1.6-2.6); Potassium 3.7 mmol/L (3.5-5.1); Total Protein 6.7 g/dL (5.7-8.2)
[2025-01-19 05:42] LABS: Alanine Aminotransferase 116 U/L (7-40); Blood Urea Nitrogen 28 mg/dL (9-23); Carbon Dioxide 33 mmol/L (20-31); Chloride 88 mmol/L (98-107); Glucose 163 mg/dL (74-106); Sodium 130 mmol/L (136-145)
[2025-01-19 07:20] LABS: Basophils # (auto) 0 10 ^3/uL (0-0.2); Basophils % (auto) 0.1 % (0.0-2.0); Eosinophils # (auto) 0 10 ^3/uL (0-0.8); Eosinophils % (auto) 0.1 % (0.0-7.0); Monocytes # (auto) 1.2 10 ^3/uL (0-1.3); Red Cell Distribution Width 14.2 % (11.8-14.3)
[2025-01-19 07:22] LABS: Hemoglobin 19.8 g/dL (12.2-16.2); Lymphocytes # (auto) 0.7 10 ^3/uL (0.4-5.4); Lymphocytes % (auto) 4.7 % (10.0-50.0); Mean Corpuscular Hemoglobin 33.3 pg (28.0-32.0); Mean Corpuscular Hgb Conc. 34.2 g/dL (32.0-36.0); Mean Corpuscular Volume 97.3 fL (80.0-100.0); Monocytes % (auto) 7.8 % (0.0-12.0); Neutrophils # (auto) 13.9 10 ^3/uL (1.6-8.6); Neutrophils % (auto) 87.3 % (37.0-80.0); Nucleated Red Blood Cells % 0.1 %; Platelet Count (auto) 201 10^3/uL (140-450); Red Blood Cells 5.93 10^6/uL (4.0-5.20); White Blood Cell 15.9 10^3/uL (4.4-10.8)
[2025-01-19 07:34] LABS: Hematocrit 57.7 % (36.0-46.0)
[2025-01-19] MEDS: BUMETANIDE 2.5mg/10ml (0.25 mg/ml) INJ IV SCH (10:57)
--- NOTE | 2025-01-19 11:28 | DVHPNRES ---
Progress Note Date Seen: Jan 19, 2025 Resident Creating Document: SHEA SCHMITZ RESIDENT Medical Necessity Reason Pt with a Central, PICC or Fol: Yes The following are medically ne: Hughes Catheter Reason for hughes catheter: Strict I&O Subjective Review of Systems Patient was seen and examined at bedside. Son was bedside. She stated feeling better than admission. 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 We are going to titrate down the oxygen. Goal is to be between 88-92%. Objective vital signs Vital Sign Date Time Temp Pulse Resp B/P (MAP) Pulse Ox O2 Delivery O2 Flow Rate FiO2 01/19/25 10:57 124/45 01/19/25 10:13 90 Oxymizer 10 N/A 01/19/25 09:43 95 20 01/19/25 04:30 98.2 98.2 Total Intake and Output 01/18/25 01/18/25 01/19/25 15:00 23:00 07:00 Intake Total 287.5 ml 400 ml 250 ml Output Total 1675 ml 650 ml Balance 287.5 ml -1275 ml -400 ml medications Current Medications Medications Dose Ordered Sig/Jake Route Start Time Stop Time Status Last Admin Dose Admin Azithromycin 250 ml @ 125 mls/hr DAILY IV 01/14/25 10:00 01/19/25 10:58 125 MLS/HR Acetaminophen/ Hydrocodone Bitart 1 tab Q4HPRN PRN PO 01/13/25 17:45 Albuterol 1.25 mg Q4HR NEB 01/13/25 18:00 01/19/25 09:37 1.25 MG Ipratropium [place] 0.5 mg Q4HR NEB 01/13/25 18:00 01/19/25 09:37 0.5 MG Aspirin 81 mg DAILY PO 01/14/25 10:00 01/19/25 10:58 81 MG Enoxaparin Sodium 40 mg DAILY SC 01/14/25 10:00 01/19/25 10:59 40 MG Methylprednisolone Sodium Succinate 40 mg Q8HR IV 01/14/25 14:00 01/19/25 06:00 40 MG Cefepime HCl 50 ml @ 12.5 mls/hr Q8HR IV 01/14/25 14:00 UNV Cefepime HCl 50 ml @ 12.5 mls/hr Q12HR IV 01/14/25 12:58 01/19/25 10:57 12.5 MLS/HR Clopidogrel Bisulfate 75 mg DAILY PO 01/15/25 10:00 01/19/25 10:59 75 MG Pantoprazole Sodium 40 mg DAILY@0600 PO 01/16/25 06:00 01/19/25 06:00 40 MG Diagnostic Test (Pha) 1 strip IQ4HR 01/16/25 16:00 01/19/25 08:00 1 STRIP Insulin Human Regular IQ4HR SC 01/16/25 16:00 01/19/25 10:02 3 UNITS Dextrose 50 ml UD PRN IV 01/16/25 12:15 Insulin Glargine 15 units DAILY@1000 SC 01/17/25 10:00 01/19/25 10:03 15 UNITS Potassium Bicarbonate 25 meq DAILY PO 01/18/25 10:00 01/19/25 10:59 25 MEQ Bumetanide 2 mg DAILY IV 01/19/25 10:00 01/19/25 10:57 2 MG Examination General: Awake, alert, comfortable appearing, in no acute distress. HEENT: Head is normocephalic and atraumatic. Pupils are equal, round, and reactive to light. Extraocular muscles are intact. No nasal discharge. No facial trauma. Intraoral exam shows moist mucous membranes with no tonsillar enlargement or exudate. Neck: Supple with no cervical lymphadenopathy No meningismus. No goiter. Heart: Regular rate without murmur, rub, or gallop. Lungs: Diminished breath sounds, mild bilateral crackles, scattered wheezing Abdomen: No external sign of injury. Bowel sounds are present. Abdomen is soft, nontender. No rebound, no guarding, no rigidity. There are no palpable masses. There is no flank pain on exam. Extremities: Strong peripheral pulses. There is no clubbing, no cyanosis, and no edema. Skin: No rash. Neurologic: Cranial nerves II-XII intact without motor, sensory, or cerebellar deficit, no asterixis. laboratory and microbiology Laboratory Tests 01/19/25 05:09 Test 01/19/25 05:09 Range/Units Serum Glucose 163 H 74-106 mg/dL Microbiology Date/Time Source Procedure Growth Status 01/13/25 18:45 Nose MRSA Screen - Final Complete 01/13/25 18:35 Blood Blood Culture - Final NO GROWTH AFTER 5 DAYS OF INCUBATION. Complete Labs and/or images reviewed: Labs reviewed by me, Image(s) reviewed by me Problem List/Assessment/Plan Problem List/Assessment/Plan COPD exacerbation acute hypoxic respiratory failure Pulmonary hypertension, likely class 3 Secondary erythrocytosis Sepsis due to pneumonia, Gram-positive versus Gram-negative NSTEMI likely type 2 due to above Peripheral artery disease Diabetes/uncontrolled with hyperglycemia Dyslipidemia Transaminitis Contraction metabolic alkalosis Plan: Maintain oxygen saturation between 88-92%, came down to Oxymizer Bumex 2 mg IV q.d. Diamox 500mg iv once and K+ rider due to contraction alkalosis Continued DAPT Discontinue broad-spectrum antibiotics with cefepime (04/17) and azithromycin(completed) Start Zosyn IV Continue DuoNebs q.4 Solu-Medrol 40 mg IV t.i.d. Metal Burnisher following Started revatio 20mg po tid serial phlebotomy due to secondary erythrocytosis PT request Case was discussed with Dr. Chavez Plan discussed with: Patient, Son, Other (RN) My Orders My Orders Orders - SHEA SCHMITZ RESIDENT Procedure Category Date Status Time Bumetanide Injection PHA 01/19/25 In Process (Bumex Injection) 10:00 Cardiac DIET 01/19/25 Transmitted Diet-2gna,Lofat,Lochol Lunch Chest Portable XY 01/19/25 Taken 10:51 Dietary Evaluation Review Comments: Recommend CCHO-60 with 2 GNa Low fat Low Cholesterol Cardiac diet. Expected Outcomes/Goals: Tight DM control, Wt management Date of Service: Jan 19, 2025 Billing Provider: JUSTINE CHAVEZ MD Common Visit Codes: [id number] CARE 30-74 MIN SHEA SCHMITZ RESIDENT Jan 19, 2025 11:28 JUSTINE CHAVEZ MD Jan 19, 2025 18:59
--- NOTE | 2025-01-19 12:15 | DVH ---
CHEST RADIOGRAPH Indication: sob Technique: Single frontal view of the chest was obtained COMPARISON: XY CHEST PORTABLE on DOS: 01/18/25, XY CHEST PORTABLE on DOS: 01/17/25, XY CHEST PORTABLE on DOS: 01/16/25, XY CHEST PORTABLE on DOS: 01/14/25 FINDINGS: Lines and Tubes: None Lungs: Mild congestion Pleura: No effusion. No pneumothorax. Cardiomediastinal contours: Unremarkable Bones: Unremarkable IMPRESSION: Unchanged mild pulmonary vascular congestion.
[2025-01-19] MEDS ORDERED: POTASSIUM CHL 20MEQ/100ML 100 ML IV ONE (12:30)
[2025-01-19] MEDS: acetaZOLAMIDE SODIUM 500 MG VL IV ONE (14:51)
[2025-01-19] MEDS: POTASSIUM CHLORIDE 20 MEQ, LIDOCAINE 1% (LOCAL ANESTH.) 2 ML in SODIUM CHL 0.9% 100 ML IV ONE (17:24)
[2025-01-19] MEDS: ACETAMINOPHEN 325 MG TAB PO ONE (17:27)
[2025-01-19] MEDS: SILDENAFIL CITRATE 20 MG TAB PO SCH (21:14)
[2025-01-19] MEDS: PIPERACILLIN-TAZOB 3.375GM 100 ML IV SCH (21:26)
[2025-01-20] VITALS (45 sets, daily range): BP systolic 101–126; BP diastolic 29–57; PULSE 74–107; RESP 14–30; TEMP 96.8–98.3; O2SAT 79–100
[2025-01-20 05:45] LABS: Alkaline Phosphatase 50 U/L (46-116); Anion Gap 9 (5-15); BUN/Creatinine Ratio 39.6 (10.0-20.0); Calcium 9.9 mg/dL (8.7-10.4); Magnesium 2.2 mg/dL (1.6-2.6); Potassium 3.8 mmol/L (3.5-5.1); Total Protein 6.3 g/dL (5.7-8.2)
[2025-01-20 05:46] LABS: Aspartate Aminotransferase 26 U/L (13-40)
[2025-01-20 05:47] LABS: Bilirubin, Total 1.1 mg/dL (0.2-1.0)
[2025-01-20 06:05] LABS: Carbon Dioxide 34 mmol/L (20-31); Chloride 87 mmol/L (98-107); Sodium 130 mmol/L (136-145)
[2025-01-20 06:06] LABS: Alanine Aminotransferase 92 U/L (7-40); Blood Urea Nitrogen 40 mg/dL (9-23); Glucose 190 mg/dL (74-106)
[2025-01-20 06:25] LABS: Hematocrit 59.1 % (36.0-46.0); Hemoglobin 19.8 g/dL (12.2-16.2); Mean Corpuscular Hemoglobin 32.6 pg (28.0-32.0); Mean Corpuscular Hgb Conc. 33.4 g/dL (32.0-36.0); Mean Corpuscular Volume 97.4 fL (80.0-100.0); Platelet Count (auto) 192 10^3/uL (140-450); Red Blood Cells 6.07 10^6/uL (4.0-5.20); Red Cell Distribution Width 14.3 % (11.8-14.3); White Blood Cell 13.8 10^3/uL (4.4-10.8)
[2025-01-20 06:27] LABS: Band Neutrophils % (manual) 0; Basophils % (manual) 0 (0.0-2.0); Eosinophils % (manual) 0 (0-7); Myelocytes % 0; Promyelocytes % 0; Reactive Lymphocytes 0
[2025-01-20 06:45] LABS: Platelet Estimate Adequate
--- NOTE | 2025-01-20 07:49 | DVHPNRES ---
Progress Note Date Seen: Jan 20, 2025 Resident Creating Document: SHEA SCHMITZ RESIDENT Medical Necessity Reason Pt with a Central, PICC or Fol: Yes The following are medically ne: Hughes Catheter Reason for hughes catheter: Strict I&O Subjective Review of Systems Patient was seen and examined at bedside. Son was bedside. She stated feeling better than admission. She is currently on simple mask at 6 L. Goal is to be between 88-92%. High-resolution CT scan chest for today. Started on sildenafil 20 mg p.o. t.i.d. Objective vital signs Vital Sign Date Time Temp Pulse Resp B/P (MAP) Pulse Ox O2 Delivery O2 Flow Rate FiO2 01/20/25 06:46 93 16 100 01/20/25 06:36 Mask 6.0 01/20/25 06:36 50 01/20/25 04:00 97.5 117/46 (69) 97.5 Total Intake and Output 01/19/25 01/19/25 01/20/25 15:00 23:00 07:00 Intake Total 360 ml 1095 ml 225 ml Output Total 1825 ml 550 ml Balance 360 ml -730 ml -325 ml medications Current Medications Medications Dose Ordered Sig/Jake Route Start Time Stop Time Status Last Admin Dose Admin Acetaminophen/ Hydrocodone Bitart 1 tab Q4HPRN PRN PO 01/13/25 17:45 Albuterol 1.25 mg Q4HR NEB 01/13/25 18:00 01/20/25 06:36 1.25 MG Ipratropium [place] 0.5 mg Q4HR NEB 01/13/25 18:00 01/20/25 06:36 0.5 MG Aspirin 81 mg DAILY PO 01/14/25 10:00 01/19/25 10:58 81 MG Enoxaparin Sodium 40 mg DAILY SC 01/14/25 10:00 01/19/25 10:59 40 MG Methylprednisolone Sodium Succinate 40 mg Q8HR IV 01/14/25 14:00 01/20/25 05:51 40 MG Cefepime HCl 50 ml @ 12.5 mls/hr Q8HR IV 01/14/25 14:00 UNV Clopidogrel Bisulfate 75 mg DAILY PO 01/15/25 10:00 01/19/25 10:59 75 MG Pantoprazole Sodium 40 mg DAILY@0600 PO 01/16/25 06:00 01/20/25 05:52 40 MG Diagnostic Test (Pha) 1 strip IQ4HR 01/16/25 16:00 01/20/25 04:47 1 STRIP Insulin Human Regular IQ4HR SC 01/16/25 16:00 01/20/25 04:58 3 UNITS Dextrose 50 ml UD PRN IV 01/16/25 12:15 Potassium Bicarbonate 25 meq DAILY PO 01/18/25 10:00 01/19/25 10:59 25 MEQ Bumetanide 2 mg DAILY IV 01/19/25 10:00 01/19/25 10:57 2 MG Acetaminophen 650 mg Q8HP PRN PO 01/19/25 15:15 Sildenafil Citrate 20 mg TID@08,14,20 PO 01/19/25 20:00 01/19/25 21:14 20 MG Piperacillin Sod/ Tazobactam Sod 100 ml @ 25 mls/hr Q8HR IV 01/19/25 22:00 01/20/25 05:47 25 MLS/HR Insulin Glargine 20 units DAILY@1000 SC 01/20/25 10:00 Examination General: Awake, alert, comfortable appearing, in no acute distress. HEENT: Head is normocephalic and atraumatic. Pupils are equal, round, and reactive to light. Extraocular muscles are intact. No nasal discharge. No facial trauma. Intraoral exam shows moist mucous membranes with no tonsillar enlargement or exudate. Neck: Supple with no cervical lymphadenopathy No meningismus. No goiter. Heart: Regular rate without murmur, rub, or gallop. Lungs: Diminished breath sounds, mild bilateral crackles, scattered wheezing Abdomen: No external sign of injury. Bowel sounds are present. Abdomen is soft, nontender. No rebound, no guarding, no rigidity. There are no palpable masses. There is no flank pain on exam. Extremities: Strong peripheral pulses. There is no clubbing, no cyanosis, and no edema. Skin: No rash. Neurologic: Cranial nerves II-XII intact without motor, sensory, or cerebellar deficit, no asterixis. laboratory and microbiology Laboratory Tests 01/20/25 04:55 Test 01/20/25 04:55 Range/Units Serum Glucose 190 H 74-106 mg/dL Microbiology Date/Time Source Procedure Growth Status 01/13/25 18:45 Nose MRSA Screen - Final Complete 01/13/25 18:35 Blood Blood Culture - Final NO GROWTH AFTER 5 DAYS OF INCUBATION. Complete Labs and/or images reviewed: Labs reviewed by me, Image(s) reviewed by me Problem List/Assessment/Plan Problem List/Assessment/Plan COPD exacerbation acute hypoxic respiratory failure Pulmonary hypertension, likely class 3 Secondary erythrocytosis Sepsis due to pneumonia, Gram-positive versus Gram-negative NSTEMI likely type 2 due to above Peripheral artery disease Diabetes/uncontrolled with hyperglycemia Dyslipidemia Transaminitis Contraction metabolic alkalosis Plan: Maintain oxygen saturation between 88-92%, came down to simple mask Pending high-resolution CT chest Bumex 2 mg IV q.d. Continued DAPT Continue Zosyn IV (11/17) Continue DuoNebs q.4 Solu-Medrol 40 mg IV t.i.d. 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 Chavez Plan discussed with: Patient, Son, Other (RN) My Orders My Orders Orders - SHEA SCHMITZ RESIDENT Procedure Category Date Status Time Cardiac DIET 01/19/25 Transmitted Diet-2gna,Lofat,Lochol Lunch Chest Portable XY 01/19/25 Resulted 10:51 Abg W/ Co-Ox RT 01/19/25 Logged 11:23 Acetaminophen Tablet PHA 01/19/25 In Process (Tylenol Tablet) 15:15 Sildenafil Citrate PHA 01/19/25 In Process (Revatio) 20:00 Piperacillin-Tazob PHA 01/19/25 In Process 3.375gm (Zosyn 3.375g 22:00 Therapeutic ORDERS 01/19/25 Transmitted Phlebotomy Dv 15:55 Insulin Lantus PHA 01/20/25 In Process (Glargine) (Lantus) 10:00 Pt Request For Service PT 01/19/25 Logged 18:38 Hi-Resolution Chest Ct CT 01/20/25 Logged 06:50 Dietary Evaluation Review Comments: Recommend CCHO-60 with 2 GNa Low fat Low Cholesterol Cardiac diet. Expected Outcomes/Goals: Tight DM control, Wt management Date of Service: Jan 20, 2025 Billing Provider: JUSTINE CHAVEZ MD Common Visit Codes: [id number] CARE 30-74 MIN SHEA SCHMITZ RESIDENT Jan 20, 2025 07:49 JUSTINE CHAVEZ MD Jan 20, 2025 17:51
[2025-01-20] MEDS: INSULIN LANTUS (GLARGINE) 1 /0.01ml (100units/ml) SC SCH (09:56)
[2025-01-20 11:17] LABS: % Iron Saturation 77.5 % (15-50)
[2025-01-20] MEDS ORDERED: DEXTROSE (50%) 50ML SYRG IV PRN (11:30)
[2025-01-20] MEDS: InsuLIN REG 1unit/0.01ml Soln (100units/ml) SC ONE (11:30)
[2025-01-20] MEDS: InsuLIN REG 1unit/0.01ml Soln (100units/ml) ONE (11:56)
[2025-01-20] MEDS: ACCU-CHEK COMFORT CURVE STRIP VI SCH (12:00)
[2025-01-20] MEDS: InsuLIN REG 1unit/0.01ml Soln (100units/ml) SC SCH (12:00)
[2025-01-20 12:01] LABS: Lymphocytes % (manual) 11 (10.0-50.0); Metamyelocytes % 3; Monocytes % (manual) 10 (0-12)
[2025-01-20] MEDS: SALINE 0.65 % NASAL SPRAY 45ML BOTTLE EACHNOSTRI SCH ×2 (13:03→18:00)
[2025-01-20] MEDS: SALINE 0.65 % NASAL SPRAY 45ML BOTTLE EACHNOSTRI ONE (15:40)
--- NOTE | 2025-01-20 17:12 | DVH ---
EXAM: CT HI-RESOLUTION CHEST CT History: sob, r/o ILD Comparison Study: None available TECHNIQUE: Multidetector CT of the chest was performed. Imaging was performed without IV contrast dur ing full inhalation and exhalation. Axial, coronal, and sagittal multiplanar reformats were obtained from the axial data set by the technologist. Radiation Dose : CTDI vol 7.45 mGy, DLP 466.33 mGy*cm. Findings: Lungs: Mild upper lobe predominant centrilobular emphysema. No evidence of fibrotic changes. Dependen t atelectasis. Pleura: Unremarkable Heart/Great vessels: No cardiomegaly or pericardial effusion. Severe coronary atherosclerosis versus stents. Mediastinum: Unremarkable Soft tissues/Bones: Mild multilevel degenerative changes of the thoracic spine. The partially visualized upper abdomen is within normal limits. Impression: 1. Mild upper lobe predominant centrilobular emphysema with dependent atelectasis. 2. No fibrotic changes.
--- NOTE | 2025-01-20 17:24 | ECG ---
[facility] Test Date: 2025-01-13 Test Time: 19:05:49 Pat Name: REBEL CHADWICK Department: Respiratoy Room: 0263D A Gender: F Binder Roller: KDLVN : 1945 Requested By: CHRISTOPHER HERRERA Order Number: [id number] Reading MD: Evelio Martinez Measurements Intervals [place] Rate: 95 P: 73 AK: 137 QRS: 66 QRSD: 94 T: 83 QT: 372 QTc: 468 Interpretive Statements Sinus rhythm Consider right atrial enlargement Low voltage, extremity leads Nonspecific repol abnormality, diffuse leads Baseline wander in lead(s) I Electronically Signed On 01-23-2025 18:09:48 PDT by Evelio Martinez Please click the below link to view image of tracing.
[2025-01-20] MEDS: SODIUM CHLORIDE 0.9% 150 ML IV ONE (18:00)
--- NOTE | 2025-01-20 19:59 | DVHNC2 ---
Other Procedure Procedure Therapeutic phlebotomy Indication Secondary erythrocytosis Anesthetic None Prep Chlorhexidine and alcohol swabs Success No complications noted. Informed consent obtained: Yes Risks, benefits, and alternati: Yes Notes Cleanse the area with antiseptic (e.g., chlorhexidine or alcohol swab). Apply a tourniquet approximately 3-4 inches above the selected site. Inserted a large-bore needle (16 gauge). Connected to a male to male IV tubing, into negative pressure bottle for drainage. Remove the prescribed volume of blood (150 mL]) at a steady pace. Released the tourniquet and remove the needle carefully. Applied firm pressure to the site with sterile gauze for at least 5 minutes. Applied a bandage and instruct the patient to keep the site clean and dry. Provided replacement with 150 mL of normal saline as a bolus. Procedure was supervised by Dr. Quintanilla PGY3 Date of Service: Jan 20, 2025 Billing Provider: JUSTINE MILES MD Common Visit Codes: PROCEDURE ONLY Secondary Visit Codes: [id number] E&M SERVICE SHEA SCHMITZ RESIDENT Jan 20, 2025 19:59 JUSTINE MILES MD Jan 21, 2025 11:24
[2025-01-21] VITALS (34 sets, daily range): BP systolic 98–132; BP diastolic 39–60; PULSE 70–109; RESP 13–32; TEMP 97.4–98.5; O2SAT 85–97
[2025-01-21 05:27] LABS: Hematocrit 57.4 % (36.0-46.0); Mean Corpuscular Hemoglobin 32.3 pg (28.0-32.0); Red Cell Distribution Width 14.1 % (11.8-14.3)
[2025-01-21 05:34] LABS: Mean Corpuscular Hgb Conc. 33.1 g/dL (32.0-36.0); Mean Corpuscular Volume 97.5 fL (80.0-100.0); Platelet Count (auto) 206 10^3/uL (140-450); Red Blood Cells 5.89 10^6/uL (4.0-5.20); White Blood Cell 18.1 10^3/uL (4.4-10.8)
[2025-01-21 05:38] LABS: Anion Gap 7 (5-15)
[2025-01-21 05:39] LABS: Basophils % (manual) 0 (0.0-2.0); Blast Cells 0; Calcium 9.8 mg/dL (8.7-10.4); Eosinophils % (manual) 0 (0-7); Metamyelocytes % 0; Myelocytes % 0; Promyelocytes % 0; Reactive Lymphocytes 0
[2025-01-21 05:44] LABS: BUN/Creatinine Ratio 48.4 (10.0-20.0)
[2025-01-21 05:47] LABS: Blood Urea Nitrogen 45 mg/dL (9-23); Carbon Dioxide 33 mmol/L (20-31); Chloride 90 mmol/L (98-107); Glucose 138 mg/dL (74-106); Potassium 3.5 mmol/L (3.5-5.1); Sodium 130 mmol/L (136-145)
--- NOTE | 2025-01-21 06:43 | DVHPNRES ---
Progress Note Date Seen: Jan 21, 2025 Resident Creating Document: SHEA SCHMITZ RESIDENT Medical Necessity Reason Pt with a Central, PICC or Fol: Yes The following are medically ne: Hughes Catheter Reason for hughes catheter: Strict I&O Subjective Review of Systems Patient was seen and examined at bedside. Son was bedside. She was on simple mask at 6 L/NC 3lts. Goal is to be between 88-92%. However in the evenning patient desaturated after eating, possible aspiration, abg shows metabolic alkalosis with resp alk. she was placed back on high-aamir, she's is improving Objective vital signs Vital Sign Date Time Temp Pulse Resp B/P (MAP) Pulse Ox O2 Delivery O2 Flow Rate FiO2 01/21/25 06:20 85 18 93 01/21/25 06:14 Nasal Cannula* 3 32 01/21/25 00:00 101/39 (59) 01/20/25 20:01 96.8 96.8 Total Intake and Output 01/20/25 01/20/25 01/21/25 15:00 23:00 07:00 Intake Total 700 ml Output Total 1250 ml Balance -550 ml medications Current Medications Medications Dose Ordered Sig/Jake Route Start Time Stop Time Status Last Admin Dose Admin Acetaminophen/ Hydrocodone Bitart 1 tab Q4HPRN PRN PO 01/13/25 17:45 Albuterol 1.25 mg Q4HR NEB 01/13/25 18:00 01/21/25 06:13 1.25 MG Ipratropium [place] 0.5 mg Q4HR NEB 01/13/25 18:00 01/21/25 06:14 0.5 MG Aspirin 81 mg DAILY PO 01/14/25 10:00 01/20/25 09:59 81 MG Enoxaparin Sodium 40 mg DAILY SC 01/14/25 10:00 01/20/25 10:00 40 MG Methylprednisolone Sodium Succinate 40 mg Q8HR IV 01/14/25 14:00 01/20/25 22:01 40 MG Cefepime HCl 50 ml @ 12.5 mls/hr Q8HR IV 01/14/25 14:00 UNV Clopidogrel Bisulfate 75 mg DAILY PO 01/15/25 10:00 01/20/25 10:00 75 MG Pantoprazole Sodium 40 mg DAILY@0600 PO 01/16/25 06:00 01/20/25 05:52 40 MG Potassium Bicarbonate 25 meq DAILY PO 01/18/25 10:00 01/20/25 09:59 25 MEQ Bumetanide 2 mg DAILY IV 01/19/25 10:00 01/20/25 09:58 2 MG Acetaminophen 650 mg Q8HP PRN PO 01/19/25 15:15 Sildenafil Citrate 20 mg TID@08,14,20 PO 01/19/25 20:00 01/20/25 22:01 20 MG Piperacillin Sod/ Tazobactam Sod 100 ml @ 25 mls/hr Q8HR IV 01/19/25 22:00 01/20/25 22:04 25 MLS/HR Insulin Glargine 20 units DAILY@1000 SC 01/20/25 10:00 01/20/25 09:56 20 UNITS Diagnostic Test (Pha) 1 strip IQ4HR 01/20/25 12:00 01/21/25 04:52 1 STRIP Insulin Human Regular IQ4HR SC 01/20/25 12:00 01/21/25 04:51 3 UNITS Dextrose 50 ml UD PRN IV 01/20/25 11:30 Sodium Chloride 1 spr QID EACHNOSTRI 01/20/25 18:00 01/20/25 21:59 1 SPR Examination General: Awake, alert, comfortable appearing, in no acute distress. HEENT: Head is normocephalic and atraumatic. Pupils are equal, round, and reactive to light. Extraocular muscles are intact. No nasal discharge. No facial trauma. Intraoral exam shows moist mucous membranes with no tonsillar enlargement or exudate. Neck: Supple with no cervical lymphadenopathy No meningismus. No goiter. Heart: Regular rate without murmur, rub, or gallop. Lungs: Diminished breath sounds, mild bilateral crackles, scattered wheezing Abdomen: No external sign of injury. Bowel sounds are present. Abdomen is soft, nontender. No rebound, no guarding, no rigidity. There are no palpable masses. There is no flank pain on exam. Extremities: Strong peripheral pulses. There is no clubbing, no cyanosis, and no edema. Skin: No rash. Neurologic: Cranial nerves II-XII intact without motor, sensory, or cerebellar deficit, no asterixis. laboratory and microbiology Laboratory Tests 01/21/25 04:55 Test 01/21/25 04:55 Range/Units Serum Glucose 138 H 74-106 mg/dL Microbiology Date/Time Source Procedure Growth Status 01/13/25 18:45 Nose MRSA Screen - Final Complete 01/13/25 18:35 Blood Blood Culture - Final NO GROWTH AFTER 5 DAYS OF INCUBATION. 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 Continued DAPT Continue Zosyn IV Continue DuoNebs q.4 Budesonide .5mg bid Solu-Medrol 40 mg IV t.i.d. Chief Science Officer following continue Revatio 20mg po tid PT request, up to chair continue incentive spirometry diamox 500mg iv once Case was discussed with Dr. Chavez Plan discussed with: Patient, Other (RN) My Orders My Orders Orders - SHEA SCHMITZ RESIDENT Procedure Category Date Status Time Hi-Resolution Chest Ct CT 01/20/25 Resulted 06:50 Glucose Blood PHA 01/20/25 In Process (Accu-Chek Comfort 12:00 Insulin R (Human) PHA 01/20/25 In Process (Insulin R) 12:00 Dextrose 50% Syringe PHA 01/20/25 In Process 11:30 [place]ine ([place] Nasal PHA 01/20/25 In Process [place]) 18:00 Complete Blood Count LAB 01/21/25 In Process 04:00 Manual Differential LAB 01/21/25 In Process 04:55 Dietary Evaluation Review Comments: Recommend CCHO-60 with 2 GNa Low fat Low Cholesterol Cardiac diet. Expected Outcomes/Goals: Tight DM control, Wt management Date of Service: Jan 21, 2025 Billing Provider: JUSTINE CHAVEZ MD Common Visit Codes: [id number] INP/OBS CARE(HIGH) SHEA SCMHITZ RESIDENT Jan 21, 2025 06:43 JUSTINE CHAVEZ MD Jan 22, 2025 12:01
[2025-01-21 06:47] LABS: Band Neutrophils % (manual) 1; Lymphocytes % (manual) 5 (10.0-50.0); Monocytes % (manual) 12 (0-12)
[2025-01-21 06:48] LABS: Platelet Estimate Adequate
--- NOTE | 2025-01-21 09:43 | CONS ---
Pharmacy Clinical Information: From Heart Failure Fallout Report on CQM Application, Kaylie Mao is a 79 year old female with PMH of COPD, HTN, T2DM, PAD. Her home medications include atorvastatin. Patient was started on atorvastatin 40 mg po qhs while inpatient but then discontinued due to elevated LFTs. Consider resume statin therapy when LFTs normalize. JESSICA LIRA PHARMACIST Jan 21, 2025 09:43
[2025-01-21 17:53] LABS: Base Excess 9.3 mmol/L (-2.0-3.0)
[2025-01-21] MEDS: MAGNESIUM SULFATE 1GM/100ML 100 ML IV ONE (21:05)
--- NOTE | 2025-01-21 21:24 | DVH ---
EXAM: XY CHEST PORTABLE TECHNIQUE: Single frontal chest radiograph CLINICAL HISTORY: sob COMPARISON: XY CHEST PORTABLE on DOS: 01/19/25, XY CHEST PORTABLE on DOS: 01/18/25, XY CHEST PORTABLE o n DOS: 01/17/25 Findings/Impression: Frontal chest radiograph demonstrates no acute osseous or superficial soft tissue abnormalities. The trachea is midline. The cardiac silhouette and mediastinum are within normal limits. No pneumothorax, pleural effusions, or consolidations.
[2025-01-21] MEDS: acetaZOLAMIDE SODIUM 500 MG VL IV ONE (21:31)
[2025-01-21] MEDS: BUDESONIDE (INHALATION) 0.5 MG/2 ML NEB NEB SCH (22:06)
[2025-01-22] VITALS (41 sets, daily range): BP systolic 121–154; BP diastolic 46–68; PULSE 68–95; RESP 10–31; TEMP 97.5–98.5; O2SAT 60–98
[2025-01-22 05:07] LABS: Mean Corpuscular Hemoglobin 32.5 pg (28.0-32.0); Red Cell Distribution Width 13.8 % (11.8-14.3)
[2025-01-22 05:10] LABS: Hematocrit 54.1 % (36.0-46.0); Hemoglobin 18.1 g/dL (12.2-16.2); Mean Corpuscular Hgb Conc. 33.5 g/dL (32.0-36.0); Mean Corpuscular Volume 97.2 fL (80.0-100.0); Platelet Count (auto) 196 10^3/uL (140-450); Red Blood Cells 5.57 10^6/uL (4.0-5.20); White Blood Cell 19.3 10^3/uL (4.4-10.8)
[2025-01-22 05:13] LABS: Band Neutrophils % (manual) 0; Basophils % (manual) 0 (0.0-2.0); Blast Cells 0; Eosinophils % (manual) 0 (0-7); Metamyelocytes % 0; Myelocytes % 0; Promyelocytes % 0; Reactive Lymphocytes 0
[2025-01-22 05:32] LABS: Albumin 3.6 g/dL (3.2-4.8); Alkaline Phosphatase 49 U/L (46-116); Anion Gap 9 (5-15); Aspartate Aminotransferase 32 U/L (13-40); BUN/Creatinine Ratio 43.2 (10.0-20.0); Bilirubin, Total 0.8 mg/dL (0.2-1.0); Calcium 9.4 mg/dL (8.7-10.4); Carbon Dioxide 28 mmol/L (20-31); Magnesium 2.5 mg/dL (1.6-2.6); Total Protein 5.8 g/dL (5.7-8.2)
[2025-01-22 05:34] LABS: Alanine Aminotransferase 81 U/L (7-40); Blood Urea Nitrogen 41 mg/dL (9-23); Chloride 91 mmol/L (98-107); Glucose 149 mg/dL (74-106); Potassium 3.5 mmol/L (3.5-5.1); Sodium 128 mmol/L (136-145)
--- NOTE | 2025-01-22 05:53 | DVH ---
EXAM: XR Chest, 1 View CLINICAL INDICATION: sob TECHNIQUE: Frontal view of the chest. COMPARISON: XY CHEST PORTABLE on DOS: 01/21/25, XY CHEST PORTABLE on DOS: 01/19/25, XY CHEST PORTABLE on DOS: 01/18/25, XY CHEST PORTABLE on DOS: 01/17/25, XY CHEST PORTABLE on DOS: 01/16/25 FINDINGS: LUNGS AND PLEURAL SPACES: Bibasilar atelectasis or pneumonia. No pneumothorax. HEART: Unremarkable. No cardiomegaly. MEDIASTINUM: Unremarkable. Normal mediastinal contour. BONES/JOINTS: Unremarkable. No acute fracture. OTHER FINDINGS: . IMPRESSION: Bibasilar atelectasis or pneumonia.
[2025-01-22] MEDS: ACETAMINOPHEN 325 MG TAB PO PRN (05:58)
[2025-01-22] MEDS: POTASSIUM EFFERVESENT TAB 25 MEQ GT ONE (06:17)
[2025-01-22 06:24] LABS: Lymphocytes % (manual) 10 (10.0-50.0); Monocytes % (manual) 6 (0-12); Platelet Estimate Adequate
--- NOTE | 2025-01-22 06:34 | DVHPNRES ---
Progress Note Date Seen: Jan 22, 2025 Resident Creating Document: SHEA SCHMITZ RESIDENT Medical Necessity Reason Pt with a Central, PICC or Fol: Yes The following are medically ne: Hughes Catheter Reason for hughes catheter: Strict I&O Subjective Review of Systems Patient was seen and examined at bedside. She is on high-flow 55%. She states feeling better than yesterday. CXR shows atelectasis. Goal is to have a saturation of 88-92%. Objective vital signs Vital Sign Date Time Temp Pulse Resp B/P (MAP) Pulse Ox O2 Delivery O2 Flow Rate FiO2 01/22/25 06:29 79 20 95 01/22/25 06:20 55.0 80 01/22/25 05:00 98.2 127/54 (78) 98.2 01/22/25 04:00 Hi-Flow NC Total Intake and Output 01/21/25 01/21/25 01/22/25 15:00 23:00 07:00 Intake Total 100 ml 600 ml 100 ml Output Total 1650 ml Balance 100 ml -1050 ml 100 ml medications Current Medications Medications Dose Ordered Sig/Jake Route Start Time Stop Time Status Last Admin Dose Admin Acetaminophen/ Hydrocodone Bitart 1 tab Q4HPRN PRN PO 01/13/25 17:45 Albuterol 1.25 mg Q4HR NEB 01/13/25 18:00 01/22/25 06:20 1.25 MG Ipratropium [place] 0.5 mg Q4HR NEB 01/13/25 18:00 01/22/25 06:20 0.5 MG Aspirin 81 mg DAILY PO 01/14/25 10:00 01/21/25 10:26 81 MG Enoxaparin Sodium 40 mg DAILY SC 01/14/25 10:00 01/21/25 10:29 40 MG Methylprednisolone Sodium Succinate 40 mg Q8HR IV 01/14/25 14:00 01/22/25 05:26 40 MG Cefepime HCl 50 ml @ 12.5 mls/hr Q8HR IV 01/14/25 14:00 UNV Clopidogrel Bisulfate 75 mg DAILY PO 01/15/25 10:00 01/21/25 10:26 75 MG Pantoprazole Sodium 40 mg DAILY@0600 PO 01/16/25 06:00 01/22/25 05:26 40 MG Potassium Bicarbonate 25 meq DAILY PO 01/18/25 10:00 01/21/25 10:26 25 MEQ Acetaminophen 650 mg Q8HP PRN PO 01/19/25 15:15 01/22/25 05:58 650 MG Sildenafil Citrate 20 mg TID@08,14,20 PO 01/19/25 20:00 01/21/25 21:05 20 MG Piperacillin Sod/ Tazobactam Sod 100 ml @ 25 mls/hr Q8HR IV 01/19/25 22:00 01/22/25 05:26 25 MLS/HR Insulin Glargine 20 units DAILY@1000 SC 01/20/25 10:00 01/21/25 10:32 20 UNITS Diagnostic Test (Pha) 1 strip IQ4HR 01/20/25 12:00 01/22/25 05:25 1 STRIP Insulin Human Regular IQ4HR SC 01/20/25 12:00 01/22/25 05:26 3 UNITS Dextrose 50 ml UD PRN IV 01/20/25 11:30 Sodium Chloride 1 spr QID EACHNOSTRI 01/20/25 18:00 01/22/25 00:32 1 SPR Budesonide 0.5 mg BID NEB 01/21/25 22:00 01/22/25 06:21 0.5 MG Atorvastatin Calcium 40 mg HS PO 01/22/25 22:00 UNV Examination General: Awake, alert, comfortable appearing, in no acute distress. HEENT: Head is normocephalic and atraumatic. Pupils are equal, round, and reactive to light. Extraocular muscles are intact. No nasal discharge. No facial trauma. Intraoral exam shows moist mucous membranes with no tonsillar enlargement or exudate. Neck: Supple with no cervical lymphadenopathy No meningismus. No goiter. Heart: Regular rate without murmur, rub, or gallop. Lungs: Diminished breath sounds, mild bilateral crackles, scattered wheezing Abdomen: No external sign of injury. Bowel sounds are present. Abdomen is soft, nontender. No rebound, no guarding, no rigidity. There are no palpable masses. There is no flank pain on exam. Extremities: Strong peripheral pulses. There is no clubbing, no cyanosis, and no edema. Skin: No rash. Neurologic: Cranial nerves II-XII intact without motor, sensory, or cerebellar deficit, no asterixis. laboratory and microbiology Laboratory Tests 01/22/25 04:44 Test 01/22/25 04:44 Range/Units Serum Glucose 149 H 74-106 mg/dL Microbiology Date/Time Source Procedure Growth Status 01/13/25 18:45 Nose MRSA Screen - Final Complete 01/13/25 18:35 Blood Blood Culture - Final NO GROWTH AFTER 5 DAYS OF INCUBATION. 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 Continued DAPT Continue Zosyn IV Continue DuoNebs q.4 Budesonide .5mg bid Solu-Medrol 40 mg IV t.i.d. continue Revatio 20mg po tid PT request, up to chair tid continue incentive spirometry [id number] Case was discussed with Dr. Chavez Plan discussed with: Patient, Other My Orders My Orders Orders - SHAE SCHMITZ RESIDENT Procedure Category Date Status Time Communication Order ORDERS 01/21/25 Transmitted 13:57 Chest Portable XY 01/21/25 Resulted 17:27 Abg W/ Co-Ox RT 01/21/25 Logged 17:27 Budesonide PHA 01/21/25 In Process (Inhalation) 22:00 Chest Portable XY 01/22/25 Resulted 04:00 Atorvastatin (Lipitor) PHA 01/22/25 Logged 22:00 Dietary Evaluation Review Comments: Recommend CCHO-60 with 2 GNa Low fat Low Cholesterol Cardiac diet. Expected Outcomes/Goals: Tight DM control, Wt management Date of Service: Jan 22, 2025 Billing Provider: JUSTINE CHAVEZ MD Common Visit Codes: [id number] CARE 30-74 MIN SHEA SCHMITZ RESIDENT Jan 22, 2025 06:34 JUSTINE CHAVEZ MD Jan 22, 2025 17:16
[2025-01-22 12:23] LABS: Urine Bacteria None Seen /hpf (None Seen)
[2025-01-22 12:35] LABS: Urine Blood Negative /uL (Negative); Urine Budding Yeast OCCASIONAL /hpf (None Seen); Urine Clarity Clear (Clear); Urine Color Colorless (Yellow); Urine Protein, UAD Negative (Negative); Urine Specific Gravity 1.011 (1.001-1.035); Urine Squamous Epithelial Cell None Seen /hpf (<5); Urine Urobilinogen Normal (Negative); Urine WBC < 1 /HPF (0-5); Urine pH 7.5 (5.0-9.0)
[2025-01-22] MEDS: HYDROcodone-ACET 5/325MG TAB PO PRN (14:37)
[2025-01-22] MEDS: ATORVASTATIN 20 MG TAB PO SCH (20:39)
[2025-01-23] VITALS (38 sets, daily range): BP systolic 105–161; BP diastolic 38–90; PULSE 75–108; RESP 10–27; TEMP 97.6–98.5; O2SAT 83–95
[2025-01-23] MEDS: HYDROcodone-ACET 5/325MG TAB PO ONE (03:18)
[2025-01-23 06:14] LABS: Hematocrit 55.4 % (36.0-46.0); Mean Corpuscular Hemoglobin 33.5 pg (28.0-32.0); Mean Corpuscular Hgb Conc. 34.3 g/dL (32.0-36.0); Mean Corpuscular Volume 97.6 fL (80.0-100.0); Platelet Count (auto) 203 10^3/uL (140-450); Red Blood Cells 5.68 10^6/uL (4.0-5.20); Red Cell Distribution Width 14.2 % (11.8-14.3); White Blood Cell 21.8 10^3/uL (4.4-10.8)
[2025-01-23 06:19] LABS: Basophils % (manual) 0 (0.0-2.0); Blast Cells 0; Eosinophils % (manual) 0 (0-7); Metamyelocytes % 0; Myelocytes % 0; Promyelocytes % 0
[2025-01-23 06:29] LABS: Potassium 4.1 mmol/L (3.5-5.1)
[2025-01-23 06:30] LABS: Anion Gap 5 (5-15); Calcium 9.8 mg/dL (8.7-10.4); Carbon Dioxide 30 mmol/L (20-31)
[2025-01-23 06:35] LABS: BUN/Creatinine Ratio 42.4 (10.0-20.0); Magnesium 2.3 mg/dL (1.6-2.6)
[2025-01-23 06:54] LABS: Blood Urea Nitrogen 28 mg/dL (9-23); Chloride 97 mmol/L (98-107); Glucose 144 mg/dL (74-106); Sodium 132 mmol/L (136-145)
[2025-01-23] MEDS ORDERED: DEXTROSE (50%) 50ML SYRG IV PRN (08:30)
[2025-01-23 09:03] LABS: Band Neutrophils % (manual) 2; Lymphocytes % (manual) 9 (10.0-50.0); Monocytes % (manual) 12 (0-12); Platelet Estimate Adequate; Reactive Lymphocytes 3
[2025-01-23] MEDS: hydroCHLOROthiazide 25 MG TAB PO SCH (10:38)
--- NOTE | 2025-01-23 10:38 | DVHPNRES ---
Progress Note Date Seen: Jan 23, 2025 Resident Creating Document: SHEA SCHMITZ RESIDENT Medical Necessity Reason Pt with a Central, PICC or Fol: Yes The following are medically ne: Hughes Catheter Reason for hughes catheter: Strict I&O Subjective Review of Systems Patient was seen and examined at bedside. She is on high-flow 50%. She states feeling better than yesterday. We will titrate down to simple mask or Oxymizer. Goal is to have a saturation of 88-92%. Objective vital signs Vital Sign Date Time Temp Pulse Resp B/P (MAP) Pulse Ox O2 Delivery O2 Flow Rate FiO2 01/23/25 10:00 89 21 149/38 (75) 88 01/23/25 09:31 50.0 50 01/23/25 08:00 97.6 97.6 01/23/25 06:00 Hi-Flow Heated NC+ Total Intake and Output 01/22/25 01/22/25 01/23/25 15:00 23:00 07:00 Intake Total 12.5 ml 1025 ml 800 ml Output Total 1800 ml 1050 ml Balance 12.5 ml -775 ml -250 ml medications Current Medications Medications Dose Ordered Sig/Jake Route Start Time Stop Time Status Last Admin Dose Admin Albuterol 1.25 mg Q4HR NEB 01/13/25 18:00 01/23/25 09:31 1.25 MG Ipratropium [place] 0.5 mg Q4HR NEB 01/13/25 18:00 01/23/25 09:31 0.5 MG Aspirin 81 mg DAILY PO 01/14/25 10:00 01/22/25 09:38 81 MG Enoxaparin Sodium 40 mg DAILY SC 01/14/25 10:00 01/22/25 09:39 40 MG Cefepime HCl 50 ml @ 12.5 mls/hr Q8HR IV 01/14/25 14:00 UNV Clopidogrel Bisulfate 75 mg DAILY PO 01/15/25 10:00 01/22/25 09:38 75 MG Pantoprazole Sodium 40 mg DAILY@0600 PO 01/16/25 06:00 01/23/25 06:51 40 MG Potassium Bicarbonate 25 meq DAILY PO 01/18/25 10:00 01/22/25 09:38 25 MEQ Acetaminophen 650 mg Q8HP PRN PO 01/19/25 15:15 01/23/25 02:10 650 MG Sildenafil Citrate 20 mg TID@08,14,20 PO 01/19/25 20:00 01/23/25 08:48 20 MG Piperacillin Sod/ Tazobactam Sod 100 ml @ 25 mls/hr Q8HR IV 01/19/25 22:00 01/23/25 06:51 25 MLS/HR Sodium Chloride 1 spr QID EACHNOSTRI 01/20/25 18:00 01/22/25 18:21 1 SPR Budesonide 0.5 mg BID NEB 01/21/25 22:00 01/23/25 05:47 0.5 MG Atorvastatin Calcium 40 mg HS PO 01/22/25 22:00 01/22/25 20:39 40 MG Amlodipine Besylate 10 mg DAILY PO 01/23/25 10:00 Hydrochlorothiazide 12.5 mg DAILY PO 01/23/25 10:00 Insulin Glargine 25 units DAILY@1000 SC 01/23/25 10:00 Methylprednisolone Sodium Succinate 40 mg BID IV 01/23/25 22:00 Diagnostic Test (Pha) 1 strip IQ4HR 01/23/25 12:00 Insulin Human Regular IQ4HR SC 01/23/25 12:00 Dextrose 50 ml UD PRN IV 01/23/25 08:30 Examination General: Awake, alert, comfortable appearing, in no acute distress. HEENT: Head is normocephalic and atraumatic. Pupils are equal, round, and reactive to light. Extraocular muscles are intact. No nasal discharge. No facial trauma. Intraoral exam shows moist mucous membranes with no tonsillar enlargement or exudate. Neck: Supple with no cervical lymphadenopathy No meningismus. No goiter. Heart: Regular rate without murmur, rub, or gallop. Lungs: Diminished breath sounds, mild bilateral crackles, scattered wheezing Abdomen: No external sign of injury. Bowel sounds are present. Abdomen is soft, nontender. No rebound, no guarding, no rigidity. There are no palpable masses. There is no flank pain on exam. Extremities: Strong peripheral pulses. There is no clubbing, no cyanosis, and no edema. Skin: No rash. Neurologic: Cranial nerves II-XII intact without motor, sensory, or cerebellar deficit, no asterixis. laboratory and microbiology Laboratory Tests 01/23/25 05:31 Test 01/23/25 05:31 Range/Units Serum Glucose 144 H 74-106 mg/dL Microbiology Date/Time Source Procedure Growth Status 01/13/25 18:45 Nose MRSA Screen - Final Complete 01/13/25 18:35 Blood Blood Culture - Final NO GROWTH AFTER 5 DAYS OF INCUBATION. 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 continue Revatio 20mg po tid Insulin a.c. hs aggressive Lantus 25 units q.a.m. PT request, up to chair tid continue incentive spirometry [id number] Case was discussed with Dr. Chavez Plan discussed with: Patient, Other (RN) My Orders My Orders Orders - SHEA SCHMITZ Procedure Category Date Status Time Blood Culture PAM 01/22/25 In Process 13:57 Insulin Lantus PHA 01/23/25 In Process (Glargine) (Lantus) 10:00 Methylprednisolone PHA 01/23/25 In Process Sod Succ (Solu Medrol 22:00 Glucose Blood PHA 01/23/25 In Process (Accu-Chek Comfort 12:00 Insulin R (Human) PHA 01/23/25 In Process (Insulin R) 12:00 Dextrose 50% Syringe PHA 01/23/25 In Process 08:30 Complete Blood Count LAB 01/24/25 Verified 04:00 Basic Metabolic Panel LAB 01/24/25 Verified 04:00 Dietary Evaluation Review Comments: Recommend CCHO-60 with 2 GNa Low fat Low Cholesterol Cardiac diet. Expected Outcomes/Goals: Tight DM control, Wt management Date of Service: Jan 23, 2025 Billing Provider: JUSTINE CHAVEZ MD Common Visit Codes: [id number] INP/OBS CARE(HIGH) SHEA SCHMITZ RESIDENT Jan 23, 2025 10:38 JUSTINE CHAVEZ MD Jan 23, 2025 16:56
[2025-01-23] MEDS: amLODIPine BESYLATE 5 MG TAB PO SCH (10:40)
[2025-01-23] MEDS: INSULIN LANTUS (GLARGINE) 1 /0.01ml (100units/ml) SC SCH (12:04)
[2025-01-23] MEDS: ACCU-CHEK COMFORT CURVE STRIP VI SCH (12:05)
[2025-01-23] MEDS: InsuLIN REG 1unit/0.01ml Soln (100units/ml) SC SCH (13:44)
--- NOTE | 2025-01-23 16:16 | DVHPN2 ---
Progress Note - Dictate Date Seen: Jan 23, 2025 Medical Necessity Reason Pt with a Central, PICC or Fol: Yes The following are medically ne: Hughes Catheter Reason for hughes catheter: Strict I&O Subjective *Perl Developer rounds* Patient seen and examined Overnight events reviewed vital signs Vital Sign Date Time Temp Pulse Resp B/P (MAP) Pulse Ox O2 Delivery O2 Flow Rate FiO2 01/23/25 14:11 90 Oxymizer 8 N/A 01/23/25 13:41 105 22 01/23/25 12:00 97.6 145/55 (85) 97.6 Total Intake and Output 01/22/25 01/22/25 01/23/25 15:00 23:00 07:00 Intake Total 12.5 ml 1025 ml 800 ml Output Total 1800 ml 1050 ml Balance 12.5 ml -775 ml -250 ml medications Current Medications Medications Dose Ordered Sig/Jake Route Start Time Stop Time Status Last Admin Dose Admin Albuterol 1.25 mg Q4HR NEB 01/13/25 18:00 01/23/25 13:41 1.25 MG Ipratropium [place] 0.5 mg Q4HR NEB 01/13/25 18:00 01/23/25 13:41 0.5 MG Aspirin 81 mg DAILY PO 01/14/25 10:00 01/23/25 10:35 81 MG Enoxaparin Sodium 40 mg DAILY SC 01/14/25 10:00 01/23/25 10:40 40 MG Cefepime HCl 50 ml @ 12.5 mls/hr Q8HR IV 01/14/25 14:00 UNV Clopidogrel Bisulfate 75 mg DAILY PO 01/15/25 10:00 01/23/25 10:35 75 MG Pantoprazole Sodium 40 mg DAILY@0600 PO 01/16/25 06:00 01/23/25 06:51 40 MG Potassium Bicarbonate 25 meq DAILY PO 01/18/25 10:00 01/23/25 10:40 25 MEQ Acetaminophen 650 mg Q8HP PRN PO 01/19/25 15:15 01/23/25 02:10 650 MG Sildenafil Citrate 20 mg TID@08,14,20 PO 01/19/25 20:00 01/23/25 14:34 20 MG Piperacillin Sod/ Tazobactam Sod 100 ml @ 25 mls/hr Q8HR IV 01/19/25 22:00 01/23/25 14:34 25 MLS/HR Sodium Chloride 1 spr QID EACHNOSTRI 01/20/25 18:00 01/23/25 12:05 1 SPR Budesonide 0.5 mg BID NEB 01/21/25 22:00 01/23/25 05:47 0.5 MG Atorvastatin Calcium 40 mg HS PO 01/22/25 22:00 01/22/25 20:39 40 MG Amlodipine Besylate 10 mg DAILY PO 01/23/25 10:00 01/23/25 10:40 10 MG Hydrochlorothiazide 12.5 mg DAILY PO 01/23/25 10:00 01/23/25 10:38 12.5 MG Insulin Glargine 25 units DAILY@1000 SC 01/23/25 10:00 01/23/25 12:04 25 UNITS Methylprednisolone Sodium Succinate 40 mg BID IV 01/23/25 22:00 Diagnostic Test (Pha) 1 strip IQ4HR 01/23/25 12:00 01/23/25 12:05 1 STRIP Insulin Human Regular IQ4HR SC 01/23/25 12:00 01/23/25 13:44 16 UNITS Dextrose 50 ml UD PRN IV 01/23/25 08:30 laboratory and microbiology Laboratory Tests 01/23/25 05:31 Test 01/23/25 05:31 Range/Units Serum Glucose 144 H 74-106 mg/dL Assessment/Plan Impression Acute hypoxemic respiratory failure Pulmonary hypertension Acute COPD exacerbation Pneumonia Patient seen and examined in NEVIN Events Improving oxygen requirements Previously on high flow, transitioned to 2 liters nasal cannula No distress Labs and imaging reviewed Management Supplemental oxygen Titrate to maintain sats 90% or above Incentive spirometry Prn bipap Continue antibiotics F/u cultures Bronchodilators Monitor renal function Monitor electrolytes Supplement as needed Echo report reviewed F/u cardiology DVT prophylaxis Critical care time 35 minutes Dietary Evaluation Review Comments: Recommend CCHO-60 with 2 GNa Low fat Low Cholesterol Cardiac diet. Expected Outcomes/Goals: Tight DM control, Wt management Plan discussed with: Patient SAUNDRA GUILLAUME MD Jan 23, 2025 16:16
[2025-01-23] MEDS: methylPREDNISolone SOD SUCC 40 MG/ML VL IV SCH (21:01)
[2025-01-24] VITALS (39 sets, daily range): BP systolic 103–134; BP diastolic 42–93; PULSE 77–104; RESP 12–30; TEMP 97.5–98.4; O2SAT 86–96
[2025-01-24 06:14] LABS: Anion Gap 6 (5-15); Calcium 9.6 mg/dL (8.7-10.4); Carbon Dioxide 31 mmol/L (20-31); Potassium 3.9 mmol/L (3.5-5.1)
[2025-01-24 06:20] LABS: BUN/Creatinine Ratio 39.2 (10.0-20.0)
[2025-01-24 06:35] LABS: Blood Urea Nitrogen 31 mg/dL (9-23); Chloride 97 mmol/L (98-107); Glucose 206 mg/dL (74-106); Sodium 134 mmol/L (136-145)
[2025-01-24 06:43] LABS: Hematocrit 53.5 % (36.0-46.0); Hemoglobin 18.1 g/dL (12.2-16.2); Mean Corpuscular Hemoglobin 32.9 pg (28.0-32.0); Mean Corpuscular Hgb Conc. 33.9 g/dL (32.0-36.0); Mean Corpuscular Volume 97.1 fL (80.0-100.0); Platelet Count (auto) 189 10^3/uL (140-450); Red Blood Cells 5.51 10^6/uL (4.0-5.20); Red Cell Distribution Width 14.1 % (11.8-14.3); White Blood Cell 17.8 10^3/uL (4.4-10.8)
[2025-01-24 06:45] LABS: Band Neutrophils % (manual) 0; Basophils % (manual) 0 (0.0-2.0); Blast Cells 0; Eosinophils % (manual) 0 (0-7); Metamyelocytes % 0; Myelocytes % 0; Promyelocytes % 0; Reactive Lymphocytes 0
--- NOTE | 2025-01-24 08:01 | DVHPNRES ---
Progress Note Date Seen: Jan 24, 2025 Resident Creating Document: SHEA SCHMITZ RESIDENT Medical Necessity Reason Pt with a Central, PICC or Fol: Yes The following are medically ne: Hughes Catheter Reason for hughes catheter: Strict I&O Subjective Review of Systems Patient was seen and examined at bedside. She is on high-flow 50%. Respiratory rate is between 15-22. We will try to titrate down to simple mask or Oxymizer. Goal is to have a saturation of 88-92%. On reassessment it was noted that the patient had significant work of breathing, an ABG was ordered, it was started in respiratory alkalosis, hypoxemia, we went up from high-flow to 75% FiO2, patient was then saturating between 88-92%. IV magnesium was also given. Objective vital signs Vital Sign Date Time Temp Pulse Resp B/P (MAP) Pulse Ox O2 Delivery O2 Flow Rate FiO2 01/24/25 07:03 86 14 91 50.0 55 01/24/25 06:00 113/43 (66) 01/24/25 05:45 Hi-Flow Heated NC+ Oxymizer 01/24/25 04:00 97.5 97.5 Total Intake and Output 01/23/25 01/23/25 01/24/25 15:00 23:00 07:00 Intake Total 100 ml 900 ml 700 ml Output Total 950 ml 450 ml Balance 100 ml -50 ml 250 ml medications Current Medications Medications Dose Ordered Sig/Jake Route Start Time Stop Time Status Last Admin Dose Admin Albuterol 1.25 mg Q4HR NEB 01/13/25 18:00 01/24/25 07:03 1.25 MG Ipratropium [place] 0.5 mg Q4HR NEB 01/13/25 18:00 01/24/25 07:03 0.5 MG Aspirin 81 mg DAILY PO 01/14/25 10:00 01/23/25 10:35 81 MG Enoxaparin Sodium 40 mg DAILY SC 01/14/25 10:00 01/23/25 10:40 40 MG Cefepime HCl 50 ml @ 12.5 mls/hr Q8HR IV 01/14/25 14:00 UNV Clopidogrel Bisulfate 75 mg DAILY PO 01/15/25 10:00 01/23/25 10:35 75 MG Pantoprazole Sodium 40 mg DAILY@0600 PO 01/16/25 06:00 01/24/25 05:18 40 MG Potassium Bicarbonate 25 meq DAILY PO 01/18/25 10:00 01/23/25 10:40 25 MEQ Acetaminophen 650 mg Q8HP PRN PO 01/19/25 15:15 01/24/25 05:37 650 MG Sildenafil Citrate 20 mg TID@08,14,20 PO 01/19/25 20:00 01/23/25 21:00 20 MG Piperacillin Sod/ Tazobactam Sod 100 ml @ 25 mls/hr Q8HR IV 01/19/25 22:00 01/24/25 05:18 25 MLS/HR Sodium Chloride 1 spr QID EACHNOSTRI 01/20/25 18:00 01/24/25 05:20 1 SPR Budesonide 0.5 mg BID NEB 01/21/25 22:00 01/24/25 07:03 0.5 MG Atorvastatin Calcium 40 mg HS PO 01/22/25 22:00 01/23/25 21:00 40 MG Amlodipine Besylate 10 mg DAILY PO 01/23/25 10:00 01/23/25 10:40 10 MG Hydrochlorothiazide 12.5 mg DAILY PO 01/23/25 10:00 01/23/25 10:38 12.5 MG Insulin Glargine 25 units DAILY@1000 SC 01/23/25 10:00 01/23/25 12:04 25 UNITS Methylprednisolone Sodium Succinate 40 mg BID IV 01/23/25 22:00 01/23/25 21:01 40 MG Diagnostic Test (Pha) 1 strip IQ4HR 01/23/25 12:00 01/24/25 07:58 1 STRIP Insulin Human Regular IQ4HR SC 01/23/25 12:00 01/24/25 05:19 8 UNITS Dextrose 50 ml UD PRN IV 01/23/25 08:30 Examination General: Awake, alert, moderate distress due to shortness of breath HEENT: Head is normocephalic and atraumatic. Pupils are equal, round, and reactive to light. Extraocular muscles are intact. No nasal discharge. No facial trauma. Intraoral exam shows moist mucous membranes with no tonsillar enlargement or exudate. Neck: Supple with no cervical lymphadenopathy No meningismus. No goiter. Heart: Regular rate without murmur, rub, or gallop. Lungs: Diminished breath sounds, mild bilateral crackles, scattered wheezing Abdomen: No external sign of injury. Bowel sounds are present. Abdomen is soft, nontender. No rebound, no guarding, no rigidity. There are no palpable masses. There is no flank pain on exam. Extremities: Strong peripheral pulses. There is no clubbing, no cyanosis, and no edema. Skin: No rash. Neurologic: Cranial nerves II-XII intact without motor, sensory, or cerebellar deficit, no asterixis. laboratory and microbiology Laboratory Tests 01/24/25 05:14 Test 01/24/25 05:14 Range/Units Serum Glucose 206 H 74-106 mg/dL Microbiology Date/Time Source Procedure Growth Status 01/22/25 14:28 Blood Blood Culture - Preliminary NO GROWTH AFTER 24 HOURS OF INCUBATION. Resulted 01/13/25 18:45 Nose MRSA Screen - Final Complete Labs and/or images reviewed: Labs reviewed by me, Image(s) reviewed by me Problem List/Assessment/Plan Problem List/Assessment/Plan COPD exacerbation acute hypoxic respiratory failure atelectasis Pulmonary hypertension, likely class 3 Secondary erythrocytosis likely due to hypoxia Sepsis due to pneumonia, Gram-positive versus Gram-negative NSTEMI likely type 2 due to above Peripheral artery disease Diabetes/uncontrolled with hyperglycemia Dyslipidemia Transaminitis Contraction metabolic alkalosis Plan: Maintain oxygen saturation between 88-92%, on high-flow, we will try to downgrade to simple mask or Oxymizer high-resolution CT chest shows emphysema, atelectase, no ILD Continued DAPT Continue Zosyn IV Continue DuoNebs q.4 Budesonide .5mg bid Solu-Medrol 40 mg IV b.i.d. continue Revatio 20mg po tid Insulin a.c. hs aggressive Lantus 25 units q.a.m. PT request, up to chair tid continue incentive spirometry [id number] Magnesium 2 g IV once Flonase 100 mcg intranasal once, then 50 mcg intranasal b.i.d. Case was discussed with Dr. Chavez Plan discussed with: Patient, Other (RN) My Orders My Orders Orders - SHEA SCHMITZ RESIDENT Procedure Category Date Status Time Insulin Lantus PHA 01/23/25 In Process (Glargine) (Lantus) 10:00 Methylprednisolone PHA 01/23/25 In Process Sod Succ (Solu Medrol 22:00 Glucose Blood PHA 01/23/25 In Process (Accu-Chek Comfort 12:00 Insulin R (Human) PHA 01/23/25 In Process (Insulin R) 12:00 Dextrose 50% Syringe PHA 01/23/25 In Process 08:30 Complete Blood Count LAB 01/24/25 In Process 04:00 Manual Differential LAB 01/24/25 In Process 05:14 Dietary Evaluation Review Comments: Recommend CCHO-60 with 2 GNa Low fat Low Cholesterol Cardiac diet. Expected Outcomes/Goals: Tight DM control, Wt management Date of Service: Jan 24, 2025 Billing Provider: JUSTINE CHAVEZ MD Common Visit Codes: [id number] CARE 30-74 MIN SHEA SCHMITZ RESIDENT Jan 24, 2025 08:01 JUSTINE CHAVEZ MD Jan 24, 2025 14:48
[2025-01-24 08:38] LABS: Lymphocytes % (manual) 9 (10.0-50.0); Monocytes % (manual) 7 (0-12); Platelet Estimate Adequate
[2025-01-24 09:38] LABS: Base Excess 4.3 mmol/L (-2.0-3.0)
--- NOTE | 2025-01-24 10:13 | DVH ---
XY CHEST PORTABLE, HISTORY: SOB COMPARISON: XY CHEST PORTABLE on DOS: 01/22/25, XY CHEST PORTABLE on DOS: 01/21/25, XY CHEST PORTABLE o n DOS: 01/19/25 XY CHEST PORTABLE on DOS: 01/22/25, XY CHEST PORTABLE on DOS: 01/21/25, XY CHEST PORTABLE on DOS: TECHNICAL DATA: 1 view of the chest was obtained. FINDINGS: Lines and tubes: None Cardiomediastinal silhouette: normal Pulmonary vasculature: normal Lung expansion: normal Lung airspace: normal Lung interstitium: normal Pleura: normal Pneumothorax: no Bones: Unremarkable Other: no IMPRESSION: No acute intrathoracic abnormality.
[2025-01-24] MEDS: MAGNESIUM SULFATE 1GM/100ML 100 ML IV SCH (10:15)
[2025-01-24] MEDS: FLUTICASONE PROP NASAL SPR 0.05 % (50MCG) 16GM EACHNOSTRI ONE (10:24)
[2025-01-24] MEDS: Glucerna Carbsteady SHAKE Stawberry 8oz PO SCH (11:33)
[2025-01-24] MEDS: FUROSEMIDE 40 MG/4 ML VIAL IV ONE (12:35)
--- NOTE | 2025-01-24 13:14 | DVHPN2 ---
Progress Note - Dictate Date Seen: Jan 24, 2025 Medical Necessity Reason Pt with a Central, PICC or Fol: Yes The following are medically ne: Hughes Catheter Reason for hughes catheter: Strict I&O Subjective *Adult Literacy Teacher rounds* Patient seen and examined Overnight events reviewed vital signs Vital Sign Date Time Temp Pulse Resp B/P (MAP) Pulse Ox O2 Delivery O2 Flow Rate FiO2 01/24/25 13:00 101 24 116/45 (68) 87 01/24/25 12:00 98.1 98.1 01/24/25 11:43 Hi-Flow Heated NC+ 55 75 Oxymizer 75 Total Intake and Output 01/23/25 01/23/25 01/24/25 15:00 23:00 07:00 Intake Total 100 ml 900 ml 700 ml Output Total 950 ml 450 ml Balance 100 ml -50 ml 250 ml medications Current Medications Medications Dose Ordered Sig/Jake Route Start Time Stop Time Status Last Admin Dose Admin Albuterol 1.25 mg Q4HR NEB 01/13/25 18:00 01/24/25 09:46 1.25 MG Ipratropium [place] 0.5 mg Q4HR NEB 01/13/25 18:00 01/24/25 07:03 0.5 MG Aspirin 81 mg DAILY PO 01/14/25 10:00 01/24/25 08:13 81 MG Enoxaparin Sodium 40 mg DAILY SC 01/14/25 10:00 01/24/25 08:12 40 MG Cefepime HCl 50 ml @ 12.5 mls/hr Q8HR IV 01/14/25 14:00 UNV Clopidogrel Bisulfate 75 mg DAILY PO 01/15/25 10:00 01/24/25 08:13 75 MG Pantoprazole Sodium 40 mg DAILY@0600 PO 01/16/25 06:00 01/24/25 05:18 40 MG Potassium Bicarbonate 25 meq DAILY PO 01/18/25 10:00 01/24/25 08:12 25 MEQ Acetaminophen 650 mg Q8HP PRN PO 01/19/25 15:15 01/24/25 05:37 650 MG Sildenafil Citrate 20 mg TID@08,14,20 PO 01/19/25 20:00 01/24/25 12:35 20 MG Piperacillin Sod/ Tazobactam Sod 100 ml @ 25 mls/hr Q8HR IV 01/19/25 22:00 01/24/25 12:35 25 MLS/HR Sodium Chloride 1 spr QID EACHNOSTRI 01/20/25 18:00 01/24/25 10:20 1 SPR Budesonide 0.5 mg BID NEB 01/21/25 22:00 01/24/25 07:03 0.5 MG Atorvastatin Calcium 40 mg HS PO 01/22/25 22:00 01/23/25 21:00 40 MG Amlodipine Besylate 10 mg DAILY PO 01/23/25 10:00 01/24/25 08:15 10 MG Hydrochlorothiazide 12.5 mg DAILY PO 01/23/25 10:00 01/24/25 08:15 12.5 MG Insulin Glargine 25 units DAILY@1000 SC 01/23/25 10:00 01/24/25 09:05 25 UNITS Methylprednisolone Sodium Succinate 40 mg BID IV 01/23/25 22:00 01/24/25 08:12 40 MG Diagnostic Test (Pha) 1 strip IQ4HR 01/23/25 12:00 01/24/25 11:39 1 STRIP Insulin Human Regular IQ4HR SC 01/23/25 12:00 01/24/25 11:45 4 UNITS Dextrose 50 ml UD PRN IV 01/23/25 08:30 Fluticasone Propionate 50 mcg Q12HR EACHNOSTRI 01/24/25 22:00 Enteral Nutritional Formula 240 ml TIDWM PO 01/24/25 12:00 01/24/25 11:33 240 ML laboratory and microbiology Laboratory Tests 01/24/25 05:14 Test 01/24/25 05:14 Range/Units Serum Glucose 206 H 74-106 mg/dL Assessment/Plan Impression Acute hypoxemic respiratory failure Pulmonary hypertension Acute COPD exacerbation Pneumonia Patient seen and examined in [facility]EVIN Events on HFO 70% pt desatted this morning CXR hyperinflated lungs congestion will add lasix continue COPD management Management Supplemental oxygen Titrate to maintain sats 90% or above Incentive spirometry Prn bipap Continue antibiotics F/u cultures Bronchodilators Monitor renal function Monitor electrolytes Supplement as needed Echo report reviewed F/u cardiology DVT prophylaxis Critical care time 35 minutes Dietary Evaluation Review Comments: Recommend CCHO-60 with 2 GNa Low fat Low Cholesterol Cardiac diet. Expected Outcomes/Goals: Tight DM control, Wt management Plan discussed with: Other (rn) SAUNDRA GUILLAUME MD Jan 24, 2025 13:14
[2025-01-24] MEDS ORDERED: LIDOCAINE 2% TOPICAL JELLY 5 ML URJT TOP PRN (22:00)
[2025-01-24] MEDS: FLUTICASONE PROP NASAL SPR 0.05 % (50MCG) 16GM EACHNOSTRI SCH (22:00)
[2025-01-24] MEDS: hydrOXYzine 25 MG TAB or CAP PO ONE (22:59)
[2025-01-25] VITALS (71 sets, daily range): BP systolic 60–157; BP diastolic 39–103; PULSE 87–109; RESP 14–30; TEMP 98–99; O2SAT 88–97
[2025-01-25 05:33] LABS: Basophils # (auto) 0 10 ^3/uL (0-0.2); Basophils % (auto) 0.2 % (0.0-2.0); Eosinophils # (auto) 0 10 ^3/uL (0-0.8); Eosinophils % (auto) 0.1 % (0.0-7.0); Lymphocytes # (auto) 0.8 10 ^3/uL (0.4-5.4); Neutrophils # (auto) 17.3 10 ^3/uL (1.6-8.6)
[2025-01-25 05:36] LABS: Hematocrit 52.6 % (36.0-46.0); Lymphocytes % (auto) 4.3 % (10.0-50.0); Mean Corpuscular Hemoglobin 33.4 pg (28.0-32.0); Mean Corpuscular Hgb Conc. 34.3 g/dL (32.0-36.0); Mean Corpuscular Volume 97.5 fL (80.0-100.0); Monocytes # (auto) 1.2 10 ^3/uL (0-1.3); Neutrophils % (auto) 89.4 % (37.0-80.0); Platelet Count (auto) 203 10^3/uL (140-450); Red Blood Cells 5.39 10^6/uL (4.0-5.20); Red Cell Distribution Width 14.3 % (11.8-14.3); White Blood Cell 19.3 10^3/uL (4.4-10.8)
[2025-01-25 05:42] LABS: Potassium 3.5 mmol/L (3.5-5.1)
[2025-01-25 05:43] LABS: Anion Gap 6 (5-15)
[2025-01-25 05:44] LABS: Calcium 9.8 mg/dL (8.7-10.4)
[2025-01-25 05:48] LABS: BUN/Creatinine Ratio 44.8 (10.0-20.0)
[2025-01-25 05:49] LABS: Blood Urea Nitrogen 43 mg/dL (9-23); Carbon Dioxide 33 mmol/L (20-31); Chloride 96 mmol/L (98-107); Glucose 229 mg/dL (74-106); Magnesium 2.6 mg/dL (1.6-2.6); Sodium 135 mmol/L (136-145)
[2025-01-25] MEDS: POTASSIUM CHL 20MEQ/50ML 50 ML IV SCH (06:45)
--- NOTE | 2025-01-25 07:05 | DVHPNRES ---
Progress Note Date Seen: Jan 25, 2025 Resident Creating Document: SHEA SCHMITZ RESIDENT Medical Necessity Reason Pt with a Central, PICC or Fol: Yes The following are medically ne: Hughes Catheter Reason for hughes catheter: Strict I&O Subjective Review of Systems Patient was seen and examined at bedside. She is on bipap 60%. Respiratory rate is between 20-30. Code status is now modified. Patient later decided to be full code. We spoke to her about being intubated so we will perform bronchoscopy, her family and the patient agreed. Patient was successfully intubated, a central line was placed as well as an arterial line without any complication. Objective vital signs Vital Sign Date Time Temp Pulse Resp B/P (MAP) Pulse Ox O2 Delivery O2 Flow Rate FiO2 01/25/25 05:38 104 113/50 94 Facial BiPAP Mask 60 01/25/25 04:00 15 12 01/25/25 01:00 98.0 98.0 Total Intake and Output 01/24/25 01/24/25 01/25/25 15:00 23:00 07:00 Intake Total 75 ml 525 ml 100 ml Output Total 1250 ml Balance 75 ml -725 ml 100 ml medications Current Medications Medications Dose Ordered Sig/Jake Route Start Time Stop Time Status Last Admin Dose Admin Albuterol 1.25 mg Q4HR NEB 01/13/25 18:00 01/25/25 05:38 1.25 MG Ipratropium [place] 0.5 mg Q4HR NEB 01/13/25 18:00 01/25/25 05:38 0.5 MG Aspirin 81 mg DAILY PO 01/14/25 10:00 01/24/25 08:13 81 MG Enoxaparin Sodium 40 mg DAILY SC 01/14/25 10:00 01/24/25 08:12 40 MG Cefepime HCl 50 ml @ 12.5 mls/hr Q8HR IV 01/14/25 14:00 UNV Clopidogrel Bisulfate 75 mg DAILY PO 01/15/25 10:00 01/24/25 08:13 75 MG Pantoprazole Sodium 40 mg DAILY@0600 PO 01/16/25 06:00 01/24/25 05:18 40 MG Potassium Bicarbonate 25 meq DAILY PO 01/18/25 10:00 01/24/25 08:12 25 MEQ Acetaminophen 650 mg Q8HP PRN PO 01/19/25 15:15 01/25/25 03:25 650 MG Sildenafil Citrate 20 mg TID@08,14,20 PO 01/19/25 20:00 01/24/25 22:59 20 MG Piperacillin Sod/ Tazobactam Sod 100 ml @ 25 mls/hr Q8HR IV 01/19/25 22:00 01/25/25 04:37 25 MLS/HR Sodium Chloride 1 spr QID EACHNOSTRI 01/20/25 18:00 01/24/25 15:42 1 SPR Budesonide 0.5 mg BID NEB 01/21/25 22:00 01/25/25 05:38 0.5 MG Atorvastatin Calcium 40 mg HS PO 01/22/25 22:00 01/24/25 22:59 40 MG Amlodipine Besylate 10 mg DAILY PO 01/23/25 10:00 01/24/25 08:15 10 MG Hydrochlorothiazide 12.5 mg DAILY PO 01/23/25 10:00 01/24/25 08:15 12.5 MG Insulin Glargine 25 units DAILY@1000 SC 01/23/25 10:00 01/24/25 09:05 25 UNITS Methylprednisolone Sodium Succinate 40 mg BID IV 01/23/25 22:00 01/24/25 22:58 40 MG Diagnostic Test (Pha) 1 strip IQ4HR 01/23/25 12:00 01/25/25 04:35 1 STRIP Insulin Human Regular IQ4HR SC 01/23/25 12:00 01/25/25 04:35 8 UNITS Dextrose 50 ml UD PRN IV 01/23/25 08:30 Fluticasone Propionate 50 mcg Q12HR EACHNOSTRI 01/24/25 22:00 Enteral Nutritional Formula 240 ml TIDWM PO 01/24/25 12:00 01/24/25 17:31 240 ML Lidocaine HCl 5 ml Q8HPRN PRN TOP 01/24/25 22:00 Potassium Chloride 50 ml @ 25 mls/hr Q2H IV 01/25/25 06:45 01/25/25 10:44 Examination General: Awake, alert, moderate distress due to shortness of breath HEENT: Head is normocephalic and atraumatic. Pupils are equal, round, and reactive to light. Extraocular muscles are intact. No nasal discharge. No facial trauma. Intraoral exam shows moist mucous membranes with no tonsillar enlargement or exudate. Neck: Supple with no cervical lymphadenopathy No meningismus. No goiter. Heart: Regular rate without murmur, rub, or gallop. Lungs: Diminished breath sounds, mild bilateral crackles, scattered wheezing Abdomen: No external sign of injury. Bowel sounds are present. Abdomen is soft, nontender. No rebound, no guarding, no rigidity. There are no palpable masses. There is no flank pain on exam. Extremities: Strong peripheral pulses. There is no clubbing, no cyanosis, and no edema. Skin: No rash. Neurologic: Cranial nerves II-XII intact without motor, sensory, or cerebellar deficit, no asterixis. laboratory and microbiology Laboratory Tests 01/25/25 04:55 Test 01/25/25 04:55 Range/Units Serum Glucose 229 H 74-106 mg/dL Microbiology Date/Time Source Procedure Growth Status 01/22/25 14:28 Blood Blood Culture - Preliminary NO GROWTH AFTER 48 HOURS OF INCUBATION. Resulted 01/13/25 18:45 Nose MRSA Screen - Final Complete Labs and/or images reviewed: Labs reviewed by me, Image(s) reviewed by me Problem List/Assessment/Plan Problem List/Assessment/Plan COPD exacerbation acute hypoxic respiratory failure , on mechanical ventilator atelectasis Pulmonary hypertension, likely class 3 Secondary erythrocytosis likely due to hypoxia Sepsis due to pneumonia, Gram-positive versus Gram-negative NSTEMI likely type 2 due to above Peripheral artery disease Diabetes/uncontrolled with hyperglycemia Dyslipidemia Transaminitis Contraction metabolic alkalosis Plan: On mechanical ventilator. FiO2 60%, tidal volume 400, respiratory rate 22, peep of eight high-resolution CT chest shows emphysema, atelectase, no ILD Continued DAPT Continue Zosyn IV Continue DuoNebs q.4 Budesonide .5mg bid Solu-Medrol 40 mg IV b.i.d. Discontinue Revatio 20mg po tid Insulin a.c. hs aggressive Lantus 25 units q.a.m. Patient has a chronic otoscopy which demonstrated significant mucus plug. Left internal jugular triple-lumen catheter was placed successfully. Left arterial line was placed successfully. Patient was successfully intubated, 4.8 cm from deepika. Cardiology was reconsulted, patient is scheduled to have a left heart catheterization on Saturday. Goals of care were discussed for over 30 mins, full code Case was discussed with Dr. Chavez Plan discussed with: Patient, Other (RN) My Orders My Orders Orders - SHEA SCHMITZ RESIDENT Procedure Category Date Status Time Abg W/ Co-Ox RT 01/24/25 Logged 09:16 Chest Portable XY 01/24/25 Resulted 09:16 Nutritional PHA 01/24/25 In Process Supplements (Glucerna 12:00 Fluticasone Nasal PHA 01/24/25 In Process [place] (Flonase [place]) 22:00 Chest Portable XY 01/25/25 Transmitted 06:58 Dietary Evaluation Review Comments: Recommend CCHO-60 with 2 GNa Low fat Low Cholesterol Cardiac diet. Expected Outcomes/Goals: Tight DM control, Wt management Date of Service: Jan 25, 2025 Billing Provider: JUSTINE CHAVEZ MD Common Visit Codes: [id number] CARE 30-74 MIN SHEA SCHMITZ RESIDENT Jan 25, 2025 07:05 JUSTINE CHAVEZ MD Jan 26, 2025 17:29
[2025-01-25 07:17] LABS: Base Excess 9.1 mmol/L (-2.0-3.0)
[2025-01-25] MEDS: PROPOFOL 100 ML IV SCH (09:15)
[2025-01-25] MEDS: NOREPINEPHRINE 8 MG/250ML KIT 250 ML IV SCH (09:15)
--- NOTE | 2025-01-25 09:49 | DVH ---
CHEST RADIOGRAPH Indication: sob Technique: Single frontal view of the chest was obtained COMPARISON: XY CHEST PORTABLE on DOS: 01/24/25, XY CHEST PORTABLE on DOS: 01/22/25, XY CHEST PORTABLE o n DOS: 01/21/25, XY CHEST PORTABLE on DOS: 01/19/25, XY CHEST PORTABLE on DOS: 01/18/25 FINDINGS: Lines and Tubes: None Lungs: Increased interstitial prominence. Pleura: No effusion. No pneumothorax. Cardiomediastinal contours: Unremarkable Bones: Unremarkable IMPRESSION: Possible pulmonary vascular congestion or viral pneumonia
[2025-01-25 10:08] LABS: INR 1.05 (0.9-1.15); Partial Thromboplastin Time 30.4 SEC (24.5-34.5); Prothrombin Time 11.1 sec (9.3-11.8)
[2025-01-25] MEDS: ROCURONIUM 10MG/ML 10ML VIAL IV ONE (11:02)
--- NOTE | 2025-01-25 11:35 | DVHNC2 ---
BETINA QUINTANILLA RESIDENT 01/25/25 1135: Procedure - Bronchoscopy procedure note: Indications: Atelectasis, Possible mucous plugging. Physician: Dr Mike Quintanilla PGY3 Attending: Dr Ruiz Medicines: See INTELLECTUAL PROPERTY MANAGER notes. Complications: None Procedure: Patient medications and allergies reviewed. The risks and benefits of the procedure and the sedation options and risk were discussed with the patient's healthcare proxy and patient. All questions were answered and informed consent was obtained. Patient identification and proposed procedure were verified prior to the procedure by the physician, and a nurse, and the respiratory therapist in ICU room. The heart rate, respiratory rate, oxygen saturations, blood pressure, adequacy of pulmonary ventilation, and response to care were monitored throughout the procedure. The physical status of the patient was reassessed after the procedure. After obtaining informed consent, the bronchoscope was introduced through the endotracheal tube and advanced into the trachea bronchial tree of both lungs. The procedure was accomplished without difficulty. The patient tolerated the procedure well. Findings: The trachea is in normal caliber. The deepika is sharp. The tracheobronchial tree of the right lung was examined to at least the first subsegmental level. The bronchial mucosa and anatomy in the right lung are normal. There are no endobronchial lesions. There was copious whitish frothy secretions from right main stem bronchus onward throughout R1-R10. The left upper lobe, lingula, and left lower lobe were examined to at least the first subsegmental level. Bronchial mucosa and anatomy in the left upper lobe and lingula are normal. There were no endobronchial lesions. There was copious whitish secretions from left main stem bronchus onward throughout L1-L10. Mucous plugging removed from L1-L10. Lingular Bronchoalveolar lavage (BAL) obtained. Lingular BAL sent for gram stain and culture, viral culture, fungal culture, and AFB smear and culture. There was no active bleeding at the completion of the procedure. Estimated blood loss: Less than 5 mL. Impression: Left upper, lingular and lower lobe atelectasis due to mucous plugging Mucous plugging from L1-L10 Lingular BAL performed Recommendation: Follow-up Lingular BAL results. Procedure codes: 02617, bronchoscopy, rigid and flexible, including fluoroscopic guidance, one performed; with bronchial endobronchial broncho-alveolar lavage, single or multiple sites GAUTAM RUIZ MD 01/31/25 1151: Date of Service: Jan 25, 2025 Billing Provider: GAUTAM RUIZ MD Common Visit Codes: PROCEDURE ONLY Procedure Codes: [id number] BETINA QUINTANILLA Jan 25, 2025 11:35 GAUTAM RUIZ MD Jan 31, 2025 11:51
[2025-01-25] MEDS: InsuLIN REG 1unit/0.01ml Soln (100units/ml) SC SCH (12:00)
--- NOTE | 2025-01-25 13:11 | DVH ---
CHEST RADIOGRAPH Indication: intubation/ cental line placement/ OGT Technique: Single frontal view of the chest was obtained COMPARISON: XY CHEST PORTABLE on DOS: 01/25/25, XY CHEST PORTABLE on DOS: 01/24/25, XY CHEST PORTABLE o n DOS: 01/22/25, XY CHEST PORTABLE on DOS: 01/21/25, XY CHEST PORTABLE on DOS: 01/19/25 FINDINGS: Lines and Tubes: Endotracheal tube, enteric catheter and left central venous catheter in satisfactory position. Lungs: Bibasilar subsegmental atelectasis. Pleura: No effusion. No pneumothorax. Cardiomediastinal contours: Unremarkable Bones: Unremarkable IMPRESSION: Lines and tubes in satisfactory position.
[2025-01-25] MEDS: ETOMIDATE (2MG/ML) 20ML VIAL IV ONE (13:53)
[2025-01-25] MEDS: ACCU-CHEK COMFORT CURVE STRIP VI SCH (13:53)
[2025-01-25] MEDS: fentaNYL Drip 2500mCg/250mlNS 250 ML IV SCH (13:56)
[2025-01-25] MEDS: FUROSEMIDE 40 MG/4 ML VIAL IV SCH (14:05)
--- NOTE | 2025-01-25 14:16 | DVHPN2 ---
Consult Progress Note Date Seen: Jan 25, 2025 Subjective Other Systems: Primary care team requesting follow-up on ischemic work-up Objective vital signs Vital Sign Date Time Temp Pulse Resp B/P (MAP) Pulse Ox O2 Delivery O2 Flow Rate FiO2 01/25/25 14:10 98/40 01/25/25 13:45 99.0 97 18 97 99.0 01/25/25 12:00 100 01/25/25 12:00 Mechanical Ventilator+ 01/25/25 10:00 10 Total Intake and Output 01/24/25 01/24/25 01/25/25 15:00 23:00 07:00 Intake Total 75 ml 525 ml 300 ml Output Total 1250 ml 400 ml Balance 75 ml -725 ml -100 ml medications Current Medications Medications Dose Ordered Sig/Jake Route Start Time Stop Time Status Last Admin Dose Admin Albuterol 1.25 mg Q4HR NEB 01/13/25 18:00 01/25/25 13:40 1.25 MG Ipratropium [place] 0.5 mg Q4HR NEB 01/13/25 18:00 01/25/25 13:40 0.5 MG Aspirin 81 mg DAILY PO 01/14/25 10:00 01/24/25 08:13 81 MG Cefepime HCl 50 ml @ 12.5 mls/hr Q8HR IV 01/14/25 14:00 UNV Clopidogrel Bisulfate 75 mg DAILY PO 01/15/25 10:00 01/24/25 08:13 75 MG Pantoprazole Sodium 40 mg DAILY@0600 PO 01/16/25 06:00 01/24/25 05:18 40 MG Potassium Bicarbonate 25 meq DAILY PO 01/18/25 10:00 01/24/25 08:12 25 MEQ Acetaminophen 650 mg Q8HP PRN PO 01/19/25 15:15 01/25/25 03:25 650 MG Sildenafil Citrate 20 mg TID@08,14,20 PO 01/19/25 20:00 01/25/25 14:05 20 MG Piperacillin Sod/ Tazobactam Sod 100 ml @ 25 mls/hr Q8HR IV 01/19/25 22:00 01/25/25 14:05 25 MLS/HR Sodium Chloride 1 spr QID EACHNOSTRI 01/20/25 18:00 01/24/25 15:42 1 SPR Budesonide 0.5 mg BID NEB 01/21/25 22:00 01/25/25 05:38 0.5 MG Atorvastatin Calcium 40 mg HS PO 01/22/25 22:00 01/24/25 22:59 40 MG Amlodipine Besylate 10 mg DAILY PO 01/23/25 10:00 01/24/25 08:15 10 MG Hydrochlorothiazide 12.5 mg DAILY PO 01/23/25 10:00 01/24/25 08:15 12.5 MG Insulin Glargine 25 units DAILY@1000 SC 01/23/25 10:00 01/25/25 08:32 25 UNITS Methylprednisolone Sodium Succinate 40 mg BID IV 01/23/25 22:00 01/25/25 08:30 40 MG Dextrose 50 ml UD PRN IV 01/23/25 08:30 Fluticasone Propionate 50 mcg Q12HR EACHNOSTRI 01/24/25 22:00 Enteral Nutritional Formula 240 ml TIDWM PO 01/24/25 12:00 01/24/25 17:31 240 ML Lidocaine HCl 5 ml Q8HPRN PRN TOP 01/24/25 22:00 Norepinephrine Bitartrate 250 ml @ 3.75 mls/hr Q24H IV 01/25/25 09:15 01/25/25 14:10 3.75 MLS/HR Propofol 100 ml @ 1.89 mls/hr Q24H IV 01/25/25 09:15 01/25/25 14:09 1.89 MLS/HR Fentanyl Citrate 250 ml @ 2.5 mls/hr Q24H IV 01/25/25 09:15 01/25/25 13:56 2.5 MLS/HR Furosemide 40 mg DAILY IV 01/25/25 10:00 01/25/25 14:05 40 MG Insulin Human Regular Q6HR SC 01/25/25 12:00 Diagnostic Test (Pha) 1 strip Q6HR 01/25/25 12:00 01/25/25 13:53 1 STRIP Examination: GENERAL:Abnormal, LUNGS:Abnormal (Recently endotracheally intubated with 100% FiO2), CVS:Abnormal (Sinus tachycardia), NEURO:Abnormal (Chemically sedated) laboratory and microbiology Laboratory Tests 01/25/25 04:55 Test 01/25/25 04:55 Range/Units Serum Glucose 229 H 74-106 mg/dL Problem List/Assessment/Plan Problem List/Assessment/Plan NSTEMI rule out coronary artery disease Peripheral arterial disease 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 Martinez) Transthoracic echocardiogram revealed an LVEF of 55%. Given the patient's elevated troponin level, comorbidities, twelve-lead electrocardiogram changes, and strong family history for CAD the patient may benefit from a coronary angiogram with left heart catheterization. She is tentatively scheduled for 01/27/[address] Martinez. Plan discussed with son Ian Mao who discussed with eldest sister Connor Melendez. They agreed to proceed with intervention, all questions answered. Continue with dual antiplatelet therapy and lipid-lowering agent. Given Pre-procedural Omar Score High for ALEXANDRO recommend discontinuation of Lasix therapy. Reinitiate DVT/VTE prophylaxis, hold day of procedure. Further recommendations per clinical course and progression. Thank you for allowing us to care for this patient. Please call with any questions or concerns. Critical care time spent: 30 minutes. This medical document was created using an electronic medical record system with voice recognition software and computerized dictation system. Although this document has been carefully reviewed, there might still be some phonetic and typographical errors. Occasional wrong-word or ``sound-alike substitutions may have occurred due to the inherent limitations of voice recognition software. These areas are purely typographical due to imperfections of the software programs and do not reflect any compromise in the patient's medical care. Please read the chart carefully and recognize, using context, where these substitutions have occurred. Plan discussed with: Son, Other Dietary Evaluation Review Comments: Recommend CCHO-60 with 2 GNa Low fat Low Cholesterol Cardiac diet. Expected Outcomes/Goals: Tight DM control, Wt management Date of Service: Jan 25, 2025 Billing Provider: BINA CRAIG Cardiology Common Codes: [id number] CARE 30-74 MIN BINA CRAIG Jan 25, 2025 14:16
[2025-01-25 14:43] LABS: Base Excess 4.4 mmol/L (-2.0-3.0)
[2025-01-25] MEDS ORDERED: POTASSIUM CHL 20MEQ/100ML 100 ML IV SCH (16:15)
[2025-01-25] MEDS: POTASSIUM CHL 20MEQ/100ML 100 ML IV SCH (16:35)
--- NOTE | 2025-01-25 19:06 | DVHNC2 ---
Intubation Indication: Respiratory Insufficiency Prep: Preoxygenation Pretreated with: Analgesia, Sedation Medicated with: Other (Etomidate and rocuronium) Intubation Approach: Orotracheal Intubation size: cm (8) Informed consent obtained: Yes Risks/benefits/alt described: Yes Notes perfored by dr. jett supervised by dr. lara pgy-3 Date of Service: Jan 25, 2025 Billing Provider: JUSTINE MILES MD Common Visit Codes: PROCEDURE ONLY Procedure Codes: [id number] SHEA SCHMITZ RESIDENT Jan 25, 2025 19:06 JUSTINE MILES MD Jan 26, 2025 17:29
--- NOTE | 2025-01-25 19:08 | DVHNC2 ---
Central Line Recorder of insertion practice: Gold Blower (Dr. 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) Room prepared for procedure: Yes Gold Blower performed hand hygien: Yes Maximal sterile barrier precau: Mask/Eye shield, Sterile gown, Cap, Sterlie gloves, Large sterlie drape Skin Preparation: Chlorhexidine gluconate, Providine iodine Skin preparation completely dr: Yes Insertion site: Left, Internal jugular Central line catheter type: [id number] dialysis Number of lumens: 3 Central line exchanged over a: No Antiseptic ointment applied to: Yes Post Assessment: Chest X-Ray, Proper placement, No Pneumothorax Informed consent obtained: Yes Risks/benefits/alt described: Yes Notes supervised by dr. lara pgy-3 Date of Service: Jan 25, 2025 Billing Provider: SHEA SCHMITZ Common Visit Codes: PROCEDURE ONLY Procedure Codes: [id number] NON-TUNNEL CV CATH SHEA SCHMITZ Jan 25, 2025 19:08 JUSTINE MILES MD Jan 26, 2025 17:29
--- NOTE | 2025-01-25 19:09 | DVHNC2 ---
Arterial Puncture Indication: Assess ventilatory status, Assess acid-base status Procedure: Sterile Preparation, Arterial Punct Obtained Location: Left Radial Informed consent obtained: Yes Risks/benefits/alt described: Yes Notes performed by dr. jett supervised by dr. lara pgy-3 Date of Service: Jan 25, 2025 Billing Provider: JUSTINE MILES MD Common Visit Codes: PROCEDURE ONLY Procedure Codes: [id number] LINE SHEA SCHMITZ RESIDENT Jan 25, 2025 19:09 JUSTINE MILES MD Jan 26, 2025 17:30
[2025-01-25 19:10] LABS: Base Excess 5.1 mmol/L (-2.0-3.0)
[2025-01-26] VITALS (108 sets, daily range): BP systolic 58–146; BP diastolic 35–102; PULSE 75–107; RESP 17–24; TEMP 66.9–100; O2SAT 85–100
--- NOTE | 2025-01-26 05:15 | DVH ---
Exam: US US GUIDED VASCULAR ACCESS Date: 01/25/2025 10:53 AM Clinical History: central line placement Comparison: None Findings: Targeted sonographic evaluation of the RIGHT IJ was obtained utilizing grayscale and color Doppler im aging. IMPRESSION: Sonographic assistance for central line placement. Please refer to procedural report for detailed fin dings.
[2025-01-26 05:26] LABS: Red Cell Distribution Width 14.3 % (11.8-14.3)
--- NOTE | 2025-01-26 05:27 | DVH ---
EXAM: XR Chest, 1 View CLINICAL INDICATION: SOB TECHNIQUE: Frontal view of the chest. COMPARISON: XY CHEST PORTABLE on DOS: 01/25/25, XY CHEST PORTABLE on DOS: 01/25/25, XY CHEST PORTABLE on DOS: 01/24/25, XY CHEST PORTABLE on DOS: 01/22/25, XY CHEST PORTABLE on DOS: 01/21/25 FINDINGS: LUNGS AND PLEURAL SPACES: Bibasilar atelectasis or pneumonia. No pneumothorax. HEART: Unremarkable. No cardiomegaly. MEDIASTINUM: Unremarkable. Normal mediastinal contour. BONES/JOINTS: Unremarkable. No acute fracture. TUBES, LINES AND DEVICES: The endotracheal tube (ETT) is in satisfactory position. Left internal j ugular central venous catheter tip in the superior vena cava. Enteric tube tip cannot be seen but is below the diaphragm. OTHER FINDINGS: . IMPRESSION: Bibasilar atelectasis or pneumonia.
[2025-01-26 05:29] LABS: Hematocrit 50.6 % (36.0-46.0); Hemoglobin 17.4 g/dL (12.2-16.2); Mean Corpuscular Hemoglobin 33.5 pg (28.0-32.0); Mean Corpuscular Hgb Conc. 34.4 g/dL (32.0-36.0); Mean Corpuscular Volume 97.7 fL (80.0-100.0); Platelet Count (auto) 252 10^3/uL (140-450); Red Blood Cells 5.18 10^6/uL (4.0-5.20)
[2025-01-26 05:30] LABS: Alkaline Phosphatase 54 U/L (46-116); Anion Gap 7 (5-15); Aspartate Aminotransferase 15 U/L (13-40); BUN/Creatinine Ratio 52.2 (10.0-20.0); Calcium 9.8 mg/dL (8.7-10.4); Carbon Dioxide 31 mmol/L (20-31); Magnesium 2.4 mg/dL (1.6-2.6); Potassium 4.2 mmol/L (3.5-5.1); Sodium 136 mmol/L (136-145); Total Protein 6.2 g/dL (5.7-8.2)
[2025-01-26 05:31] LABS: Bilirubin, Total 0.8 mg/dL (0.2-1.0)
[2025-01-26 05:38] LABS: Alanine Aminotransferase 48 U/L (7-40); Blood Urea Nitrogen 47 mg/dL (9-23); Chloride 98 mmol/L (98-107); Glucose 196 mg/dL (74-106)
[2025-01-26 05:39] LABS: White Blood Cell 34.4 10^3/uL (4.4-10.8)
[2025-01-26 05:40] LABS: Basophils % (manual) 0 (0.0-2.0); Blast Cells 0; Eosinophils % (manual) 0 (0-7); Metamyelocytes % 0; Myelocytes % 0; Promyelocytes % 0; Reactive Lymphocytes 0
[2025-01-26 06:27] LABS: Band Neutrophils % (manual) 2; Lymphocytes % (manual) 3 (10.0-50.0); Monocytes % (manual) 4 (0-12); Platelet Estimate Adequate
[2025-01-26 07:01] LABS: Base Excess 1.4 mmol/L (-2.0-3.0)
--- NOTE | 2025-01-26 07:24 | DVHPNRES ---
Progress Note Date Seen: Jan 26, 2025 Resident Creating Document: SHEA SCHMITZ RESIDENT Medical Necessity Reason Pt with a Central, PICC or Fol: Yes The following are medically ne: Hughes Catheter Reason for hughes catheter: Strict I&O Subjective Review of Systems Patient was seen and examined at bedside. She is on mechanical ventilator, RR 22, TV 400, FIO2 55%, PEEP 5. On fent 100 and prop 25. levo 6. Patient will undergo 2nd bronchoscopy today. Objective vital signs Vital Sign Date Time Temp Pulse Resp B/P (MAP) Pulse Ox O2 Delivery O2 Flow Rate FiO2 01/26/25 06:30 98.8 102 22 115/55 (75) 90 98.8 64/52 (56) 01/26/25 06:30 55 01/26/25 06:00 Mechanical Ventilator+ 01/25/25 19:59 60.0 Total Intake and Output 01/25/25 01/25/25 01/26/25 15:00 23:00 07:00 Intake Total 24.45 ml 431.80 ml 334.90 ml Output Total 350 ml 400 ml Balance 24.45 ml 81.80 ml -65.10 ml medications Current Medications Medications Dose Ordered Sig/Jake Route Start Time Stop Time Status Last Admin Dose Admin Albuterol 1.25 mg Q4HR NEB 01/13/25 18:00 01/26/25 06:47 1.25 MG Ipratropium [place] 0.5 mg Q4HR NEB 01/13/25 18:00 01/26/25 06:47 0.5 MG Aspirin 81 mg DAILY PO 01/14/25 10:00 01/24/25 08:13 81 MG Cefepime HCl 50 ml @ 12.5 mls/hr Q8HR IV 01/14/25 14:00 UNV Clopidogrel Bisulfate 75 mg DAILY PO 01/15/25 10:00 01/24/25 08:13 75 MG Acetaminophen 650 mg Q8HP PRN PO 01/19/25 15:15 01/25/25 03:25 650 MG Piperacillin Sod/ Tazobactam Sod 100 ml @ 25 mls/hr Q8HR IV 01/19/25 22:00 01/26/25 05:48 25 MLS/HR Atorvastatin Calcium 40 mg HS PO 01/22/25 22:00 01/25/25 21:58 40 MG Insulin Glargine 25 units DAILY@1000 SC 01/23/25 10:00 01/25/25 08:32 25 UNITS Dextrose 50 ml UD PRN IV 01/23/25 08:30 Norepinephrine Bitartrate 250 ml @ 3.75 mls/hr Q24H IV 01/25/25 09:15 01/25/25 14:10 3.75 MLS/HR Propofol 100 ml @ 1.89 mls/hr Q24H IV 01/25/25 09:15 01/25/25 20:05 9.45 MLS/HR Fentanyl Citrate 250 ml @ 2.5 mls/hr Q24H IV 01/25/25 09:15 01/25/25 13:56 2.5 MLS/HR Insulin Human Regular Q6HR SC 01/25/25 12:00 01/26/25 05:46 8 UNITS Diagnostic Test (Pha) 1 strip Q6HR 01/25/25 12:00 01/26/25 05:47 1 STRIP Enoxaparin Sodium 40 mg DAILY SC 01/26/25 10:00 Pantoprazole Sodium 40 mg DAILY IV 01/26/25 10:00 Methylprednisolone Sodium Succinate 40 mg DAILY IV 01/26/25 10:00 UNV Examination General: intubated HEENT: Head is normocephalic and atraumatic. Pupils are equal, round, and reactive to light.intubated Neck: Supple with no cervical lymphadenopathy Heart: Regular rate without murmur, rub, or gallop. Lungs: Diminished breath sounds, mild bilateral crackles, scattered wheezing Abdomen: No external sign of injury. Bowel sounds are present. Abdomen is soft, nontender. Extremities: Strong peripheral pulses. There is no clubbing, no cyanosis, and no edema. Skin: No rash. Neurologic: sedated laboratory and microbiology Laboratory Tests 01/26/25 04:37 Test 01/26/25 04:37 Range/Units Serum Glucose 196 H 74-106 mg/dL Microbiology Date/Time Source Procedure Growth Status 01/25/25 11:28 Lung Pending Resulted 01/25/25 11:28 Lung Pending Resulted 01/25/25 11:28 Lung Pending Resulted 01/25/25 11:28 Lung Pending Resulted 01/25/25 11:28 Lung - Final See Separate Report... Resulted 01/22/25 14:28 Blood Blood Culture - Preliminary NO GROWTH AFTER 72 HOURS OF INCUBATION. Resulted Labs and/or images reviewed: Labs reviewed by me, Image(s) reviewed by me Problem List/Assessment/Plan Problem List/Assessment/Plan COPD exacerbation acute hypoxic respiratory failure , on mechanical ventilator mucous plugs atelectasis Pulmonary hypertension, likely class 3 Secondary erythrocytosis likely due to hypoxia Sepsis due to pneumonia, Gram-positive versus Gram-negative NSTEMI likely type 2 due to above Peripheral artery disease Diabetes/uncontrolled with hyperglycemia Dyslipidemia Transaminitis Plan: On mechanical ventilator. FiO2 55%, tidal volume 400, respiratory rate 22, peep of 5 high-resolution CT chest shows emphysema, atelectase, no ILD Continued DAPT Continue Zosyn IV Continue DuoNebs q.4 dc Budesonide .5mg bid Solu-Medrol 40 mg IV qd Insulin a.c. hs aggressive Lantus 25 units q.a.m. Patient has a bronchoscopy which demonstrated significant mucus plug. Patient has a 2nd bronchoscopy today, [id number] amount of mucus plugs were removed, mostly from right side. Cardiology was reconsulted, patient is scheduled to have a left heart catheterization on Saturday. Lines Left internal jugular triple-lumen catheter 01/25/25 Left arterial line 01/25/25 Intubated 01/25/25 Goals of care were discussed for over 30 mins, full code Case was discussed with Dr. Chavez Plan discussed with: Patient, Other (RN) My Orders My Orders Orders - SHEA SCHMITZ RESIDENT Procedure Category Date Status Time * Picc Line Consult CONS 01/25/25 Transmitted 07:30 Norepinephrine 8 PHA 01/25/25 In Process Mg/250ml Kit 09:15 Propofol (Diprivan) PHA 01/25/25 In Process 09:15 Fentanyl Drip PHA 01/25/25 In Process 2500mcg/250mlns 09:15 Code Status CODE 01/25/25 Transmitted 10:28 Insulin R (Human) PHA 01/25/25 In Process (Insulin R) 12:00 Glucose Blood PHA 01/25/25 In Process (Accu-Chek Comfort 12:00 Us Guided Vascular US 01/25/25 Resulted Access 10:47 Chest Portable XY 01/25/25 Resulted 12:45 Pantoprazole PHA 01/26/25 In Process (Protonix) 10:00 Ventilator Orders RT 01/25/25 Transmitted 17:00 Abg W/ Co-Ox RT 01/25/25 Logged 18:00 Transfer Orders XFER 01/25/25 Transmitted 18:15 Transfer Orders XFER 01/25/25 Transmitted 18:15 Chest Portable XY 01/26/25 Resulted 04:00 Abg W/ Co-Ox RT 01/26/25 Logged 04:00 Methylprednisolone PHA 01/26/25 Logged Sod Succ (Solu Medrol 10:00 Urine Bacterial PAM 01/26/25 Logged Culture 07:13 Blood Culture PAM 01/26/25 Logged 07:13 Urinalysis LAB 01/26/25 Logged 07:13 Respiratory Culture PAM 01/26/25 Logged W/ Gs 07:13 Lactic Acid W/ Reflex LAB 01/26/25 Logged Order 07:13 Dietary Evaluation Review Comments: Recommend CCHO-60 with 2 GNa Low fat Low Cholesterol Cardiac diet. Expected Outcomes/Goals: Tight DM control, Wt management Date of Service: Jan 26, 2025 Billing Provider: JUSTINE CHAVEZ MD Common Visit Codes: [id number] CARE 30-74 MIN SHEA SCHMITZ RESIDENT Jan 26, 2025 07:24 JUSTINE CHAVEZ MD Jan 26, 2025 17:49
--- NOTE | 2025-01-26 08:44 | DVHPN2 ---
Consult Progress Note Date Seen: Jan 26, 2025 Subjective Other Systems: No overnight cardiac events reported Objective vital signs Vital Sign Date Time Temp Pulse Resp B/P (MAP) Pulse Ox O2 Delivery O2 Flow Rate FiO2 01/26/25 08:00 100.0 102 22 124/55 (78) 91 100.0 125/64 (84) 01/26/25 06:30 55 01/26/25 06:00 Mechanical Ventilator+ 01/25/25 19:59 60.0 Total Intake and Output 01/25/25 01/25/25 01/26/25 15:00 23:00 07:00 Intake Total 24.45 ml 431.80 ml 334.90 ml Output Total 350 ml 400 ml Balance 24.45 ml 81.80 ml -65.10 ml medications Current Medications Medications Dose Ordered Sig/Jake Route Start Time Stop Time Status Last Admin Dose Admin Albuterol 1.25 mg Q4HR NEB 01/13/25 18:00 01/26/25 06:47 1.25 MG Ipratropium [place] 0.5 mg Q4HR NEB 01/13/25 18:00 01/26/25 06:47 0.5 MG Aspirin 81 mg DAILY PO 01/14/25 10:00 01/24/25 08:13 81 MG Cefepime HCl 50 ml @ 12.5 mls/hr Q8HR IV 01/14/25 14:00 UNV Clopidogrel Bisulfate 75 mg DAILY PO 01/15/25 10:00 01/24/25 08:13 75 MG Acetaminophen 650 mg Q8HP PRN PO 01/19/25 15:15 01/25/25 03:25 650 MG Piperacillin Sod/ Tazobactam Sod 100 ml @ 25 mls/hr Q8HR IV 01/19/25 22:00 01/26/25 05:48 25 MLS/HR Atorvastatin Calcium 40 mg HS PO 01/22/25 22:00 01/25/25 21:58 40 MG Insulin Glargine 25 units DAILY@1000 SC 01/23/25 10:00 01/25/25 08:32 25 UNITS Dextrose 50 ml UD PRN IV 01/23/25 08:30 Norepinephrine Bitartrate 250 ml @ 3.75 mls/hr Q24H IV 01/25/25 09:15 01/25/25 14:10 3.75 MLS/HR Propofol 100 ml @ 1.89 mls/hr Q24H IV 01/25/25 09:15 01/25/25 20:05 9.45 MLS/HR Fentanyl Citrate 250 ml @ 2.5 mls/hr Q24H IV 01/25/25 09:15 01/25/25 13:56 2.5 MLS/HR Insulin Human Regular Q6HR SC 01/25/25 12:00 01/26/25 05:46 8 UNITS Diagnostic Test (Pha) 1 strip Q6HR 01/25/25 12:00 01/26/25 05:47 1 STRIP Enoxaparin Sodium 40 mg DAILY SC 01/26/25 10:00 Pantoprazole Sodium 40 mg DAILY IV 01/26/25 10:00 Methylprednisolone Sodium Succinate 40 mg DAILY IV 01/26/25 10:00 Examination: GENERAL:Abnormal, LUNGS:Abnormal (Endotracheally intubated 55% FiO2), CVS:Abnormal (On low-dose vasopressor), NEURO:Abnormal (Chemically sedated) laboratory and microbiology Laboratory Tests 01/26/25 04:37 Test 01/26/25 04:37 Range/Units Serum Glucose 196 H 74-106 mg/dL Problem List/Assessment/Plan Problem List/Assessment/Plan NSTEMI rule out coronary artery disease Peripheral arterial disease 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 Martinez) Transthoracic echocardiogram revealed an LVEF of 55%. Given the patient's elevated troponin level, comorbidities, twelve-lead electrocardiogram changes, and strong family history for CAD she is scheduled for a coronary angiogram with left heart catheterization on 01/27/25. Plan discussed with son Ian Mao who discussed with eldest sister Connor Melendez. They agreed to proceed with intervention, all questions answered. Continue dual antiplatelet therapy and lipid-lowering agent. Monitor renal function closely. DVT/VTE prophylaxis, hold day of procedure. Further recommendations per clinical course and progression. Thank you for allowing us to care for this patient. Please call with any questions or concerns. Critical care time spent: 30 minutes. This medical document was created using an electronic medical record system with voice recognition software and computerized dictation system. Although this document has been carefully reviewed, there might still be some phonetic and typographical errors. Occasional wrong-word or ``sound-alike substitutions may have occurred due to the inherent limitations of voice recognition software. These areas are purely typographical due to imperfections of the software programs and do not reflect any compromise in the patient's medical care. Please read the chart carefully and recognize, using context, where these substitutions have occurred. Plan discussed with: Other Dietary Evaluation Review Comments: Recommend CCHO-60 with 2 GNa Low fat Low Cholesterol Cardiac diet. Expected Outcomes/Goals: Tight DM control, Wt management Date of Service: Jan 26, 2025 Billing Provider: BINA CRAIG Cardiology Common Codes: [id number] CARE 30-74 MIN BINA CRAIG Jan 26, 2025 08:44
[2025-01-26] MEDS: methylPREDNISolone SOD SUCC 40 MG/ML VL IV SCH (10:22)
[2025-01-26] MEDS: PANTOPRAZOLE 40 MG/10 ML VIAL INJ IV SCH (10:23)
[2025-01-26] MEDS: ENOXAPARIN SOD 40 MG/0.4 ML SYRINGE SC SCH (10:47)
--- NOTE | 2025-01-26 11:51 | MEDREC ---
COUNT INCLUDES THE [facility] Intervention Section I COUNT INCLUDES THE [facility] Intervention: Review courses of therapy (PLEASE CONSIDER AN ID CONSULT AND ESCALATION OF ANTIBIOTICS FOR MULTIDRUG RESISTANT ORGANISMS) ROEL JOHNSON PHARMACIST Jan 26, 2025 11:51
--- NOTE | 2025-01-26 13:18 | DVHNC2 ---
BETINA QUINTANILLA RESIDENT 01/26/25 1318: Procedure - Bronchoscopy procedure note: Indications: Atelectasis, Possible mucous plugging. Medicines: See CONTACT CENTER AGENT notes. Complications: None Resident: Dr Mike Quintanilla, PGY3 Attending Dr Ruiz Procedure: Patient medications and allergies reviewed. The risks and benefits of the procedure and the sedation options and risk were discussed with the patient's healthcare proxy. All questions were answered and informed consent was obtained. Patient identification and proposed procedure were verified prior to the procedure by the physician, and a nurse, and the respiratory therapist in ICU room. The heart rate, respiratory rate, oxygen saturations, blood pressure, adequacy of pulmonary ventilation, and response to care were monitored throughout the procedure. The physical status of the patient was reassessed after the procedure. After obtaining informed consent, the bronchoscope was introduced through the endotracheal tube and advanced into the trachea bronchial tree of both lungs. The procedure was accomplished without difficulty. The patient tolerated the procedure well. Findings: The trachea is in normal caliber. The deepika is sharp. The tracheobronchial tree of the right lung was examined to at least the first subsegmental level. The bronchial mucosa and anatomy in the right lung are normal. There are no endobronchial lesions. There was copious whitish secretions from right main stem bronchus onward throughout R1-R3. Right middle lobe (RML) Bronchoalveolar lavage (BAL) obtained. RML BAL sent for gram stain and culture. The left upper lobe, lingula, and left lower lobe were examined to at least the first subsegmental level. Bronchial mucosa and anatomy in the left upper lobe and lingula are normal. There were no endobronchial lesions. There was copious whitish secretions from left main stem bronchus onward throughout L4. Mucous plugging removed from L4. There was no active bleeding at the completion of the procedure. Estimated blood loss: Less than 5 mL. Impression: Lingular lobe atelectasis due to mucous plugging Mucous plugging from L4 and R1-R3 RML BAL performed Recommendation: Follow-up RML BAL results. Procedure codes: 88197, bronchoscopy, rigid and flexible, including fluoroscopic guidance, one performed; with bronchial endobronchial broncho-alveolar lavage, single or multiple sites GAUTAM RUIZ MD 01/31/25 1156: Date of Service: Jan 25, 2025 Billing Provider: GAUTAM RUIZ MD Common Visit Codes: PROCEDURE ONLY Procedure Codes: [id number] BETINA QUINTANILLA RESIDENT Jan 26, 2025 13:18 GAUTAM RUIZ MD Jan 31, 2025 11:56
[2025-01-26 13:27] LABS: Urine Bacteria FEW /hpf (None Seen); Urine Blood 2+ /uL (Negative); Urine Budding Yeast MANY /hpf (None Seen); Urine Clarity Clear (Clear); Urine Color Yellow (Yellow); Urine Protein, UAD TRACE (Negative); Urine Specific Gravity 1.035 (1.001-1.035); Urine Squamous Epithelial Cell FEW /hpf (<5); Urine Urobilinogen Normal (Negative); Urine WBC 19 /HPF (0-5); Urine pH 5.5 (5.0-9.0)
[2025-01-26] MEDS: MEROPENEM 1GM IVPB 50 ML IV SCH (15:06)
[2025-01-26] MEDS: NOREPINEPHRINE 8 MG/250ML KIT 250 ML IV SCH (17:45)
--- NOTE | 2025-01-26 20:18 | DVH ---
Bilateral Lower Extremity Arterial Duplex Clinical History: no pedal pulses, h/o pad Comparison: Lower extremity arterial ultrasound 09/29/2020 Technique: Duplex Doppler evaluation including color Doppler and spectral/pulsed waveform analysis of the lower extremity arteries was performed. Findings: RIGHT: Peak systolic velocities are as follows: [employer] 125 cm/s Deep femoral 28 cm/s SFA proximal 52 cm/s SFA mid-portion 81 cm/s SFA distal 54 cm/s Popliteal 56 cm/s Posterior tibial 16 cm/s Dorsalis pedis 32 cm/s The waveforms are biphasic with diastolic flow. LEFT: Peak systolic velocities are as follows: [employer] 131 cm/s Deep femoral 59 cm/s SFA proximal 39 cm/s SFA mid-portion 0 cm/s SFA distal 0 cm/s Popliteal 5 cm/s Posterior tibial 7 cm/s Dorsalis pedis 5 cm/s The waveforms are biphasic in the [employer], deep femoral artery, and proximal SFA. Waveforms are monophasi c in the popliteal artery, posterior tibial artery, and dorsalis pedis artery. Indeterminate structur e anterior to the popliteal vessels with posterior shadowing. IMPRESSION: No appreciable flow within the stent in the mid/distal left superficial femoral artery. There is very minimal flow in the arteries distal to the stent with monophasic waveforms. No evidence of hemodynamically significant stenosis in the right lower extremity. Indeterminate density anterior to the left popliteal vessels, possibly related to previous interventi on. REFERENCE VALUES, [facility] ([facility]) vascular Imaging Lab Criteria: Peak systolic velocity ranges (in cm/sec) are as follows: <150 cm/s - <20 % stenosis 150-200 cm/s - 20-49% stenosis 200-300 cm/s - 50-75% stenosis >300 cm/s -> 75% stenosis Critical Result: Arterial occlusion Findings discussed with SULEIMAN Ferrera at 01/26/2025 08:14 PM, and acknowledged receipt and understandi ng of the findings.
[2025-01-27] VITALS (100 sets, daily range): BP systolic 56–161; BP diastolic 35–99; PULSE 79–114; RESP 17–23; TEMP 97.2–100; O2SAT 91–98
[2025-01-27 05:08] LABS: Basophils # (auto) 0 10 ^3/uL (0-0.2); Basophils % (auto) 0.1 % (0.0-2.0); Eosinophils # (auto) 0.2 10 ^3/uL (0-0.8); Eosinophils % (auto) 1.1 % (0.0-7.0); Hematocrit 50.2 % (36.0-46.0); Hemoglobin 16.6 g/dL (12.2-16.2); Lymphocytes # (auto) 1.7 10 ^3/uL (0.4-5.4); Lymphocytes % (auto) 9.7 % (10.0-50.0); Mean Corpuscular Hemoglobin 32.1 pg (28.0-32.0); Mean Corpuscular Volume 97.3 fL (80.0-100.0); Monocytes # (auto) 1.4 10 ^3/uL (0-1.3); Monocytes % (auto) 7.8 % (0.0-12.0); Neutrophils # (auto) 14.1 10 ^3/uL (1.6-8.6); Neutrophils % (auto) 81.3 % (37.0-80.0); Nucleated Red Blood Cells % 0.1 %; Platelet Count (auto) 167 10^3/uL (140-450); Red Blood Cells 5.16 10^6/uL (4.0-5.20); Red Cell Distribution Width 14.3 % (11.8-14.3); White Blood Cell 17.4 10^3/uL (4.4-10.8)
[2025-01-27 05:17] LABS: Chloride 101 mmol/L (98-107); Potassium 3.6 mmol/L (3.5-5.1); Sodium 138 mmol/L (136-145)
[2025-01-27 05:18] LABS: Anion Gap 6 (5-15); Carbon Dioxide 31 mmol/L (20-31)
--- NOTE | 2025-01-27 05:18 | DVH ---
EXAM: XR Chest, 1 View CLINICAL INDICATION: SOB TECHNIQUE: Frontal view of the chest. COMPARISON: XY CHEST PORTABLE on DOS: 01/26/25, XY CHEST PORTABLE on DOS: 01/25/25, XY CHEST PORTABLE on DOS: 01/25/25, XY CHEST PORTABLE on DOS: 01/24/25, XY CHEST PORTABLE on DOS: 01/22/25 FINDINGS: LUNGS AND PLEURAL SPACES: Right basilar atelectasis or pneumonia, increased since the prior exam. No pneumothorax. HEART: Unremarkable. No cardiomegaly. MEDIASTINUM: Unremarkable. Normal mediastinal contour. BONES/JOINTS: Unremarkable. No acute fracture. TUBES, LINES AND DEVICES: Stable tubes and lines.. OTHER FINDINGS: . IMPRESSION: Increasing right basilar atelectasis or pneumonia.
[2025-01-27 05:19] LABS: Calcium 9.5 mg/dL (8.7-10.4)
[2025-01-27 05:21] LABS: INR 1.03 (0.9-1.15); Partial Thromboplastin Time 29.6 SEC (24.5-34.5); Prothrombin Time 10.9 sec (9.3-11.8)
[2025-01-27 05:23] LABS: Glucose 81 mg/dL (74-106)
[2025-01-27 05:24] LABS: BUN/Creatinine Ratio 77.4 (10.0-20.0)
[2025-01-27 05:46] LABS: Blood Urea Nitrogen 41 mg/dL (9-23)
[2025-01-27 07:32] LABS: Base Excess 5.7 mmol/L (-2.0-3.0)
--- NOTE | 2025-01-27 10:57 | DVHPN2 ---
Consult Progress Note Date Seen: Jan 27, 2025 Subjective Other Systems: Notified of abnormal peripheral arterial duplex findings Objective vital signs Vital Sign Date Time Temp Pulse Resp B/P (MAP) Pulse Ox O2 Delivery O2 Flow Rate FiO2 01/27/25 10:30 99.5 90 18 113/37 (62) 96 211.1 111/78 (89) 01/27/25 10:00 40 01/27/25 10:00 Mechanical Ventilator+ 01/25/25 19:59 60.0 Total Intake and Output 01/26/25 01/26/25 01/27/25 15:00 23:00 07:00 Intake Total 200.60 ml 277.853 ml 247.290 ml Output Total 400 ml 400 ml Balance 200.60 ml -122.147 ml -152.710 ml medications Current Medications Medications Dose Ordered Sig/Jake Route Start Time Stop Time Status Last Admin Dose Admin Albuterol 1.25 mg Q4HR NEB 01/13/25 18:00 01/27/25 09:53 1.25 MG Ipratropium [place] 0.5 mg Q4HR NEB 01/13/25 18:00 01/27/25 09:53 0.5 MG Aspirin 81 mg DAILY PO 01/14/25 10:00 01/27/25 09:16 81 MG Cefepime HCl 50 ml @ 12.5 mls/hr Q8HR IV 01/14/25 14:00 UNV Clopidogrel Bisulfate 75 mg DAILY PO 01/15/25 10:00 01/27/25 09:16 75 MG Acetaminophen 650 mg Q8HP PRN PO 01/19/25 15:15 01/25/25 03:25 650 MG Atorvastatin Calcium 40 mg HS PO 01/22/25 22:00 01/26/25 21:37 40 MG Insulin Glargine 25 units DAILY@1000 SC 01/23/25 10:00 01/26/25 10:42 25 UNITS Dextrose 50 ml UD PRN IV 01/23/25 08:30 Propofol 100 ml @ 1.89 mls/hr Q24H IV 01/25/25 09:15 01/27/25 00:12 9.45 MLS/HR Fentanyl Citrate 250 ml @ 2.5 mls/hr Q24H IV 01/25/25 09:15 01/26/25 10:26 10 MLS/HR Insulin Human Regular Q6HR SC 01/25/25 12:00 01/26/25 13:08 2 UNITS Diagnostic Test (Pha) 1 strip Q6HR 01/25/25 12:00 01/27/25 06:00 1 STRIP Enoxaparin Sodium 40 mg DAILY SC 01/26/25 10:00 01/26/25 10:47 40 MG Pantoprazole Sodium 40 mg DAILY IV 01/26/25 10:00 01/27/25 09:16 40 MG Methylprednisolone Sodium Succinate 40 mg DAILY IV 01/26/25 10:00 01/27/25 09:16 40 MG Meropenem 50 ml @ 17 mls/hr Q8HR IV 01/26/25 14:00 01/27/25 06:00 17 MLS/HR Norepinephrine Bitartrate 250 ml @ 0.938 mls/ hr Q24H IV 01/26/25 17:45 Examination: GENERAL:Abnormal, LUNGS:Abnormal (Endotracheally intubated), CVS:Normal (NSR), NEURO:Abnormal (Chemically sedated) laboratory and microbiology Laboratory Tests 01/27/25 04:31 Test 01/27/25 04:31 Range/Units Serum Glucose 81 74-106 mg/dL Problem List/Assessment/Plan Problem List/Assessment/Plan NSTEMI rule out coronary artery disease Progressive peripheral arterial disease status post BLE DRAFTER ELECTROMECHANICAL X2 JONES (on Plavix and ASA) COPD with exacerbation with acute hypoxic respiratory failure & pneumonia Pertinent family history for coronary artery disease Hypertension Dyslipidemia Type 2 diabetes mellitus Tobacco use Plan/Recommendation (Dr. Martinez) Transthoracic echocardiogram revealed an LVEF of 55%. Given the patient's elevated troponin level, comorbidities, twelve-lead electrocardiogram changes, and strong family history for CAD the patient is scheduled for a coronary angiogram with left heart catheterization on 01/27/25. She is also tentatively scheduled for a peripheral angiogram given latest findings indicating no appreciable flow within the stent in the mid/distal left SFA. Plan discussed with son Ian Mao and daughter Connor Melendez. They agreed to proceed with both interventions, all questions answered. Continue with dual- antiplatelet therapy and lipid-lowering agent. Reinitiate DVT/VTE prophylaxis post-procedure. Further recommendations per clinical course and progression. Thank you for allowing us to care for this patient. Please call with any questions or concerns. Critical care time spent: 30 minutes. This medical document was created using an electronic medical record system with voice recognition software and computerized dictation system. Although this document has been carefully reviewed, there might still be some phonetic and typographical errors. Occasional wrong-word or ``sound-alike substitutions may have occurred due to the inherent limitations of voice recognition software. These areas are purely typographical due to imperfections of the software programs and do not reflect any compromise in the patient's medical care. Please read the chart carefully and recognize, using context, where these substitutions have occurred. Plan discussed with: Daughter, Son, Other Dietary Evaluation Review Comments: Recommend CCHO-60 with 2 GNa Low fat Low Cholesterol Cardiac diet. Expected Outcomes/Goals: Tight DM control, Wt management Date of Service: Jan 27, 2025 Billing Provider: BINA CRAIG Cardiology Common Codes: 52788-[id number] CARE 30-74 MIN Peripheral Add ons: [id number] AND ANGIOPLASTY BINA CRAIG Jan 27, 2025 10:57
[2025-01-27] MEDS: MICAFUNGIN SODIUM 100 MG in SODIUM CHL 0.9% 100 ML IV ONE (12:12)
[2025-01-27] MEDS: IODIXANOL 320MG/ML 100ML BTL IV ONE (12:39)
[2025-01-27] MEDS: HEPARIN IN NS 1000Units/500mL 1,500 ML ONE (12:41)
--- NOTE | 2025-01-27 13:29 | DVHPNRES ---
Progress Note Date Seen: Jan 27, 2025 Resident Creating Document: SHEA SCHMITZ RESIDENT Medical Necessity Reason Pt with a Central, PICC or Fol: Yes The following are medically ne: Hughes Catheter Reason for hughes catheter: Strict I&O Subjective Review of Systems Patient was seen and examined at bedside. She is on mechanical ventilator, RR 18, TV 400, FIO2 35%, PEEP 5. On fent 100 and prop 25. levo 6. Patient will undergo LHC and bilateral lower leg angiogram today Objective vital signs Vital Sign Date Time Temp Pulse Resp B/P (MAP) Pulse Ox O2 Delivery O2 Flow Rate FiO2 01/27/25 13:15 98.4 97 20 127/44 (71) 94 209.1 135/80 (98) 01/27/25 12:12 35 01/27/25 12:00 Mechanical Ventilator+ 01/25/25 19:59 60.0 Total Intake and Output 01/26/25 01/26/25 01/27/25 15:00 23:00 07:00 Intake Total 200.60 ml 277.853 ml 247.290 ml Output Total 400 ml 400 ml Balance 200.60 ml -122.147 ml -152.710 ml medications Current Medications Medications Dose Ordered Sig/Jake Route Start Time Stop Time Status Last Admin Dose Admin Albuterol 1.25 mg Q4HR NEB 01/13/25 18:00 01/27/25 09:53 1.25 MG Ipratropium [place] 0.5 mg Q4HR NEB 01/13/25 18:00 01/27/25 09:53 0.5 MG Aspirin 81 mg DAILY PO 01/14/25 10:00 01/27/25 09:16 81 MG Cefepime HCl 50 ml @ 12.5 mls/hr Q8HR IV 01/14/25 14:00 UNV Clopidogrel Bisulfate 75 mg DAILY PO 01/15/25 10:00 01/27/25 09:16 75 MG Acetaminophen 650 mg Q8HP PRN PO 01/19/25 15:15 01/25/25 03:25 650 MG Atorvastatin Calcium 40 mg HS PO 01/22/25 22:00 01/26/25 21:37 40 MG Insulin Glargine 25 units DAILY@1000 SC 01/23/25 10:00 01/26/25 10:42 25 UNITS Dextrose 50 ml UD PRN IV 01/23/25 08:30 Propofol 100 ml @ 1.89 mls/hr Q24H IV 01/25/25 09:15 01/27/25 11:11 9.45 MLS/HR Fentanyl Citrate 250 ml @ 2.5 mls/hr Q24H IV 01/25/25 09:15 01/26/25 10:26 10 MLS/HR Insulin Human Regular Q6HR SC 01/25/25 12:00 01/26/25 13:08 2 UNITS Diagnostic Test (Pha) 1 strip Q6HR 01/25/25 12:00 01/27/25 11:39 1 STRIP Enoxaparin Sodium 40 mg DAILY SC 01/26/25 10:00 01/26/25 10:47 40 MG Pantoprazole Sodium 40 mg DAILY IV 01/26/25 10:00 01/27/25 09:16 40 MG Methylprednisolone Sodium Succinate 40 mg DAILY IV 01/26/25 10:00 01/27/25 09:16 40 MG Meropenem 50 ml @ 17 mls/hr Q8HR IV 01/26/25 14:00 01/27/25 06:00 17 MLS/HR Norepinephrine Bitartrate 250 ml @ 0.938 mls/ hr Q24H IV 01/26/25 17:45 Voriconazole / Dextrose 250 ml @ 125 mls/hr Q12H IV 01/27/25 13:30 01/28/25 03:29 UNV Voriconazole / Dextrose 250 ml @ 125 mls/hr Q12H IV 01/28/25 13:30 UNV Examination General: intubated HEENT: Head is normocephalic and atraumatic. Pupils are equal, round, and reactive to light.intubated Neck: Supple with no cervical lymphadenopathy Heart: Regular rate without murmur, rub, or gallop. Lungs: Diminished breath sounds, mild bilateral crackles, scattered wheezing Abdomen: No external sign of injury. Bowel sounds are present. Abdomen is soft, nontender. Extremities: Strong peripheral pulses. There is no clubbing, no cyanosis, and no edema. Skin: No rash. Neurologic: sedated laboratory and microbiology Laboratory Tests 01/27/25 04:31 Test 01/27/25 04:31 Range/Units Serum Glucose 81 74-106 mg/dL Microbiology Date/Time Source Procedure Growth Status 01/26/25 13:11 Voided Urine Urine Culture - Preliminary Resulted 01/26/25 08:12 Blood Blood Culture - Preliminary NO GROWTH AFTER 24 HOURS OF INCUBATION. Resulted 01/25/25 11:28 Lung Pending Resulted 01/25/25 11:28 Lung Pending Resulted 01/25/25 11:28 Lung Pending Resulted 01/25/25 11:28 Lung Pending Resulted 01/25/25 11:28 Lung - Final See Separate Report... 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 FiO2 35%, tidal volume 400, respiratory rate 18, peep of 5 high-resolution CT chest shows emphysema, atelectase, no ILD Continued DAPT Continue Merrem IV Voriconazol IV, will transition to PO once she tolerates Continue DuoNebs q.4 Solu-Medrol 40 mg IV qd Insulin a.c. hs aggressive Lantus 25 units q.a.m. Cardiology was reconsulted, patient is scheduled to have a left heart catheterization and bilateral leg angio today Lines Left internal jugular triple-lumen catheter 01/25/25 Left arterial line 01/25/25 Intubated 01/25/25 Goals of care were discussed for over 30 mins, full code Case was discussed with Dr. Chavez Plan discussed with: Patient, Other (RN) My Orders My Orders Orders - SHEA SCHMITZ RESIDENT Procedure Category Date Status Time Chest Portable XY 01/27/25 Resulted 04:00 Abg W/ Co-Ox RT 01/27/25 Logged 04:00 Bilat Low Ext Art US 01/26/25 Resulted Duplex 16:45 Norepinephrine 8 PHA 01/26/25 In Process Mg/250ml Kit 17:45 Communication Order ORDERS 01/26/25 Transmitted 17:36 Ventilator Orders RT 01/27/25 Transmitted 07:40 Consult CONS 01/27/25 Transmitted Vascular/Endovascular 08:25 Voriconazole Inj PHA 01/27/25 Logged (Vfend Inj) 13:30 Voriconazole Inj PHA 01/28/25 Logged (Vfend Inj) 13:30 Dietary Evaluation Review Comments: Recommend CCHO-60 with 2 GNa Low fat Low Cholesterol Cardiac diet. Expected Outcomes/Goals: Tight DM control, Wt management Date of Service: Jan 27, 2025 Billing Provider: JUSTINE CHAVEZ MD Common Visit Codes: [id number] CARE 30-74 MIN SHEA SCHMITZ RESIDENT Jan 27, 2025 13:29 JUSTINE CHAVEZ MD Jan 27, 2025 17:31
[2025-01-27] MEDS ORDERED: VORICONAZOLE INJ 0 MG in D5W 5% 250 ML IV SCH (13:30)
[2025-01-27] MEDS: LIDOCAINE 2%HCL (LOCAL ANESTH.) INJ 20ML MDV ONE (13:51)
[2025-01-27] MEDS: SODIUM CHL 0.9% 50 ML ONE (13:51)
[2025-01-27] MEDS: ANGIOMAX 250 MG VIAL IV ONE (13:51)
--- NOTE | 2025-01-27 18:49 | DVHOP2 ---
Operative Report - 2 Report Details Date: 01/27/25 Preop Diagnosis: CAD. Postop Diagnosis: Coronary artery disease involving the circumflex RCA and LAD. PTCA stenting of the circumflex. Intravascular FFR performed with a catheterization works program to the RCA. Surgeon: Alvarez Martinez MD Anesthesiologist: Conscious sedation Anesthesia: General, Mac, Local ( Conscious sedation was administered. I oversaw The administration of medication and monitored the patient throughout the entirety of the procedure.) Consent: The patient was informed of the risks and benefits of the procedure. These include but are not limited to complications of anesthesia, postoperative infection, incomplete relief of symptoms, recurrence of symptoms, damage to blood vessels, nerves and tendons, deep venous thrombosis, pulmonary embolism and possible need for repeat surgery in the future. 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 Mild coronary artery disease of the RCA. Moderate coronary artery disease of the LAD. Indications for Surgery: Non ST-elevation AL. Name of Procedure Performed Left heart catheterization bilateral cine coronary angiography. Left ventriculography. PTCA and stenting of the circumflex coronary artery. Fractional flow reserve evaluation of the RCA. Procedure Details Procedure Details: Prior local anesthesia with 2% lidocaine to the right groin and full informed consent obtained patient was prepped and draped in the usual fashion followed by placement of a six Irish sheath into the right femoral artery through which six Irish Kandi catheters were used to cannulate both right and left coronary ostia and a six Irish pigtail catheter was used for ventriculography. A 3-0 [address] guide was in place for angioplasty. peripheral angiography was also performed via the arterial sheath in the right femoral artery and contralaterally of the left femoral via a rim catheter with digital subtraction angiography of the left distal extremity. Hemodynamics: Aortic blood pressure was 110/70 end-diastolic pressure was 18 without gradient across the aortic valve on pullback. Coronary anatomy: RCA is a large vessel it has a proximal to mid stenosis. FFR reveal a 0.96 value that was not indicative of severe CAD. The PDA and posterolateral branches are rather smaller vessels the crux has a mild 20-30% lesion. Distal RCA posterolateral and PDA are otherwise unremarkable. Not amenable to angioplasty. The left anterior descending coronary artery has a small stenosis considered to be 20-30%. This is prior to the bifurcation of the diagonal. The circumflex itself has a proximal to mid lesion of about 80-90%. There is a subsequent dilatation of the circumflex proper consistent with aneurysmal dilatation. Posterolateral branches are free of significant disease. Ventriculography in the POWELL projection shows an EF of 60%. Angioplasty was then performed for which a Guidezilla was used in place in the ostium of the circumflex. We then placed a two five balloon for pre dilatation of the pre-existing lesion. We then placed a three 5 x 12 mm stent into the circumflex. There was excellent antegrade flow without thrombus formation under dissection. Subsequent to performing the angioplasty we then proceeded as mentioned above to perform angiography of the lower extremities. Through the existing arterial sheath we injected contrast and found mild pl aquing of the common femoral and superficial femoral artery however patent to the level of the popliteal and tibioperoneal trunk. The anterior tibial artery as diminished flow. There appears to be single-vessel runoff to the right foot via the anterior tibial. There is suggestion of lesions at the level of the distal tibioperoneal trunk in the right lower extremity. We then placed a rim catheter over the horn into the contralateral iliac and place the catheter in the femoral artery On the left side. Angiographic evaluation reveals a complete chronic total occlusion of the common femoral artery just before the origin of the profunda. There appears to be reconstitution of flow distally. This was noted with digital subtraction angiography as we noted retrograde filling of the popliteal into the distal superficial femoral artery and antegrade into the tibioperoneal trunk peroneal and anterior tibial artery. Impression coronary artery disease involving severe circumflex lesion treated with angioplasty and stenting. Successful evaluation of the left ventricle right and left coronary arteries. These arteries had lesions not amenable to angioplasty/not requiring revascularization. Normal left ventricular function. Normal ejection fraction. EF of 65%. Mildly elevated left ventricular end-diastolic pressure. Peripheral vascular disease involving the left superficial femoral artery occluded proximally with reconstitution of flow in the distal popliteal with good antegrade flow. Limited collateral flow noted. Occluded peroneal and posterior tibial artery of the right lower extremity with patent superficial femoral artery and popliteal as well as tibioperoneal trunk. Single-vessel runoff to the right lower extremity. Recommendations continue with dual antiplatelet therapy. Patient will have a staged procedure to the left lower extremity 2-3 days. Condition Guarded Disposition Still a Patient Date of Service: Jan 27, 2025 Billing Provider: ALVAREZ MARTINEZ Sr., MD Cardiology Common Codes: [id number] INP/OBS CARE (High) Cardiology Procedure Codes: 79911-[id number] FOR STEMI W/STENT ( coronary angiography. PTCA and stenting of the circumflex. Fractional flow reserve evaluation of the RCA. Peripheral vascular disease with the evaluation of bilateral lower extremities as delineated above.), [id number] HEART CATH W/INTRA INJ ALVAREZ MARTINEZ Sr., MD Jan 27, 2025 18:49
[2025-01-27] MEDS ORDERED: Jevity 1.2 Cal/Fiber 1 Liter GT SCH (19:30)
[2025-01-27] MEDS: VORICONAZOLE IV SCH (21:00)
[2025-01-27] MEDS: D5W 5% IV SCH (21:00)
[2025-01-28] VITALS (116 sets, daily range): BP systolic 81–171; BP diastolic 42–95; PULSE 71–114; RESP 10–28; TEMP 84.4–100.2; O2SAT 93–100
[2025-01-28 04:55] LABS: Basophils # (auto) 0 10 ^3/uL (0-0.2); Basophils % (auto) 0.3 % (0.0-2.0); Eosinophils # (auto) 0.2 10 ^3/uL (0-0.8); Eosinophils % (auto) 1.6 % (0.0-7.0); Hematocrit 44.5 % (36.0-46.0); Hemoglobin 14.6 g/dL (12.2-16.2); Lymphocytes # (auto) 1.3 10 ^3/uL (0.4-5.4); Lymphocytes % (auto) 8.5 % (10.0-50.0); Mean Corpuscular Hemoglobin 32.6 pg (28.0-32.0); Mean Corpuscular Hgb Conc. 32.9 g/dL (32.0-36.0); Mean Corpuscular Volume 99.2 fL (80.0-100.0); Monocytes # (auto) 1.2 10 ^3/uL (0-1.3); Monocytes % (auto) 7.8 % (0.0-12.0); Neutrophils # (auto) 12.5 10 ^3/uL (1.6-8.6); Neutrophils % (auto) 81.8 % (37.0-80.0); Nucleated Red Blood Cells % 0.2 %; Platelet Count (auto) 240 10^3/uL (140-450); Red Blood Cells 4.49 10^6/uL (4.0-5.20); Red Cell Distribution Width 14.7 % (11.8-14.3); White Blood Cell 15.3 10^3/uL (4.4-10.8)
--- NOTE | 2025-01-28 05:15 | DVH ---
EXAM: XR Chest, 1 View CLINICAL INDICATION: sob TECHNIQUE: Frontal view of the chest. COMPARISON: XY CHEST PORTABLE on DOS: 01/27/25, XY CHEST PORTABLE on DOS: 01/26/25, XY CHEST PORTABLE on DOS: 01/25/25, XY CHEST PORTABLE on DOS: 01/25/25, XY CHEST PORTABLE on DOS: 01/24/25 FINDINGS: LUNGS AND PLEURAL SPACES: Bibasilar atelectasis or pneumonia, decreased from the prior exam. No pn eumothorax. HEART: Unremarkable. No cardiomegaly. MEDIASTINUM: Unremarkable. Normal mediastinal contour. BONES/JOINTS: Unremarkable. No acute fracture. TUBES, LINES AND DEVICES: The endotracheal tube (ETT) is in satisfactory position. Left internal j ugular central venous catheter tip in the superior vena cava. OTHER FINDINGS: . IMPRESSION: Bibasilar atelectasis or pneumonia, decreased from the prior exam.
--- NOTE | 2025-01-28 06:33 | DVHPNRES ---
Progress Note Date Seen: Jan 28, 2025 Resident Creating Document: SHEA SCHMITZ RESIDENT Medical Necessity Reason Pt with a Central, PICC or Fol: Yes The following are medically ne: Hughes Catheter Reason for hughes catheter: Strict I&O Subjective Review of Systems Patient was seen and examined at bedside. She is on mechanical ventilator, RR 18, TV 400, FIO2 35%, PEEP 5. On fent 100 and prop 25. levo 6. Sedation vacation today, cpap trial unsuccessful NIF-12, RSBI 105, RR 31. Objective vital signs Vital Sign Date Time Temp Pulse Resp B/P (MAP) Pulse Ox O2 Delivery O2 Flow Rate FiO2 01/28/25 06:15 97.9 74 18 112/52 (72) 97 208.2 121/69 (86) 01/28/25 06:00 Mechanical Ventilator+ 35 35 Total Intake and Output 01/27/25 01/27/25 01/28/25 14:59 22:59 06:59 Intake Total 296.60 ml 255.538 ml 477.166 ml Output Total 450 ml 400 ml Balance 296.60 ml -194.462 ml 77.166 ml medications Current Medications Medications Dose Ordered Sig/Jake Route Start Time Stop Time Status Last Admin Dose Admin Albuterol 1.25 mg Q4HR NEB 01/13/25 18:00 01/28/25 06:19 1.25 MG Ipratropium [place] 0.5 mg Q4HR NEB 01/13/25 18:00 01/28/25 06:18 0.5 MG Aspirin 81 mg DAILY PO 01/14/25 10:00 01/27/25 09:16 81 MG Cefepime HCl 50 ml @ 12.5 mls/hr Q8HR IV 01/14/25 14:00 UNV Clopidogrel Bisulfate 75 mg DAILY PO 01/15/25 10:00 01/27/25 09:16 75 MG Acetaminophen 650 mg Q8HP PRN PO 01/19/25 15:15 01/25/25 03:25 650 MG Atorvastatin Calcium 40 mg HS PO 01/22/25 22:00 01/27/25 22:08 40 MG Insulin Glargine 25 units DAILY@1000 SC 01/23/25 10:00 01/26/25 10:42 25 UNITS Dextrose 50 ml UD PRN IV 01/23/25 08:30 Propofol 100 ml @ 1.89 mls/hr Q24H IV 01/25/25 09:15 01/27/25 17:41 9.45 MLS/HR Fentanyl Citrate 250 ml @ 2.5 mls/hr Q24H IV 01/25/25 09:15 01/26/25 10:26 10 MLS/HR Insulin Human Regular Q6HR SC 01/25/25 12:00 01/27/25 23:46 2 UNITS Diagnostic Test (Pha) 1 strip Q6HR 01/25/25 12:00 01/28/25 05:34 1 STRIP Enoxaparin Sodium 40 mg DAILY SC 01/26/25 10:00 01/26/25 10:47 40 MG Pantoprazole Sodium 40 mg DAILY IV 01/26/25 10:00 01/27/25 09:16 40 MG Methylprednisolone Sodium Succinate 40 mg DAILY IV 01/26/25 10:00 01/27/25 09:16 40 MG Meropenem 50 ml @ 17 mls/hr Q8HR IV 01/26/25 14:00 01/28/25 05:34 17 MLS/HR Norepinephrine Bitartrate 250 ml @ 0.938 mls/ hr Q24H IV 01/26/25 17:45 Voriconazole / Dextrose 250 ml @ 125 mls/hr Q12H IV 01/27/25 13:30 01/28/25 03:29 UNV Voriconazole 250 mg/Dextrose 275 ml @ 137.5 mls/ hr Q12H IV 01/27/25 21:00 01/27/25 21:00 137.5 MLS/HR Enteral Nutritional Formula 1,000 ml 30ML/HR GT 01/27/25 19:30 Examination General: intubated HEENT: Head is normocephalic and atraumatic. Pupils are equal, round, and reactive to light.intubated Neck: Supple with no cervical lymphadenopathy Heart: Regular rate without murmur, rub, or gallop. Lungs: Diminished breath sounds, mild bilateral crackles, scattered wheezing Abdomen: No external sign of injury. Bowel sounds are present. Abdomen is soft, nontender. Extremities: Strong peripheral pulses. There is no clubbing, no cyanosis, and no edema. Skin: No rash. Neurologic: sedated laboratory and microbiology Laboratory Tests 01/28/25 04:34 Test 01/28/25 04:34 Range/Units Serum Glucose Pending Microbiology Date/Time Source Procedure Growth Status 01/26/25 13:11 Voided Urine Urine Culture - Preliminary Resulted 01/26/25 11:30 Sputum Gram Stain Pending Resulted 01/26/25 11:30 Sputum Respiratory Culture - Preliminary Resulted 01/26/25 08:12 Blood Blood Culture - Preliminary NO GROWTH AFTER 24 HOURS OF INCUBATION. Resulted 01/25/25 11:28 Lung Pending Resulted 01/25/25 11:28 Lung Pending Resulted 01/25/25 11:28 Lung Pending Resulted 01/25/25 11:28 Lung Pending Resulted 01/25/25 11:28 Lung - Final See Separate Report... 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 FiO2 35%, tidal volume 400, respiratory rate 18, peep of 5 high-resolution CT chest shows emphysema, atelectase, no ILD Continued DAPT Staph. haemolyticus growing in sputum Continue Zyvox IV Aspergilus species growing in sputum Voriconazol IV, will transition to PO once she tolerates Continue DuoNebs q.4 Solu-Medrol 40 mg IV qd Insulin a.c. hs aggressive Lantus 25 units q.a.m. Cardiology was reconsulted, patient had a left heart catheterization and bilateral leg angio today. A stent was placed in circumflex. 2nd procedure to be performed in lower extremety in 2-3 days. Failed cpap trial, patient will undergo lower extremity angiogram tomorrow. Lines Left internal jugular triple-lumen catheter 01/25/25 Left arterial line 01/25/25 Intubated 01/25/25 Goals of care were discussed for over 30 mins, full code Case was discussed with Dr. Chavez critical care time 45 mins Plan discussed with: Son, Other (RN) My Orders My Orders Orders - SHEA SCHMITZ RESIDENT Procedure Category Date Status Time Ventilator Orders RT 01/27/25 Transmitted 07:40 Chest Portable XY 01/28/25 Resulted 04:00 Abg W/ Co-Ox RT 01/28/25 Logged 04:00 Nutritional PHA 01/27/25 In Process Supplements (Jevity 19:30 Voriconazole Inj PHA 01/27/25 In Process (Vfend Inj) 21:00 Dietary Evaluation Review Comments: Recommend CCHO-60 with 2 GNa Low fat Low Cholesterol Cardiac diet. Expected Outcomes/Goals: Tight DM control, Wt management Date of Service: Jan 28, 2025 Billing Provider: JUSTINE CHAVEZ MD Common Visit Codes: [id number] CARE 30-74 MIN SHEA SCHMITZ RESIDENT Jan 28, 2025 06:32 JUSTINE CHAVEZ MD Jan 29, 2025 12:42
--- NOTE | 2025-01-28 08:03 | DVHPN2 ---
Consult Progress Note Date Seen: Jan 28, 2025 Subjective Other Systems: No overnight cardiac events reported Objective vital signs Vital Sign Date Time Temp Pulse Resp B/P (MAP) Pulse Ox O2 Delivery O2 Flow Rate FiO2 01/28/25 07:54 35 01/28/25 07:54 18 94 Mechanical Ventilator+ 01/28/25 07:48 78 119/52 (74) 01/28/25 06:30 97.9 208.2 Total Intake and Output 01/27/25 01/27/25 01/28/25 15:00 23:00 07:00 Intake Total 279.60 ml 533.038 ml 180.216 ml Output Total 450 ml 400 ml Balance 279.60 ml 83.038 ml -219.784 ml medications Current Medications Medications Dose Ordered Sig/Jake Route Start Time Stop Time Status Last Admin Dose Admin Albuterol 1.25 mg Q4HR NEB 01/13/25 18:00 01/28/25 06:19 1.25 MG Ipratropium [place] 0.5 mg Q4HR NEB 01/13/25 18:00 01/28/25 06:18 0.5 MG Aspirin 81 mg DAILY PO 01/14/25 10:00 01/27/25 09:16 81 MG Cefepime HCl 50 ml @ 12.5 mls/hr Q8HR IV 01/14/25 14:00 UNV Clopidogrel Bisulfate 75 mg DAILY PO 01/15/25 10:00 01/27/25 09:16 75 MG Acetaminophen 650 mg Q8HP PRN PO 01/19/25 15:15 01/25/25 03:25 650 MG Atorvastatin Calcium 40 mg HS PO 01/22/25 22:00 01/27/25 22:08 40 MG Insulin Glargine 25 units DAILY@1000 SC 01/23/25 10:00 01/26/25 10:42 25 UNITS Dextrose 50 ml UD PRN IV 01/23/25 08:30 Propofol 100 ml @ 1.89 mls/hr Q24H IV 01/25/25 09:15 01/27/25 17:41 9.45 MLS/HR Fentanyl Citrate 250 ml @ 2.5 mls/hr Q24H IV 01/25/25 09:15 01/26/25 10:26 10 MLS/HR Insulin Human Regular Q6HR SC 01/25/25 12:00 01/27/25 23:46 2 UNITS Diagnostic Test (Pha) 1 strip Q6HR 01/25/25 12:00 01/28/25 05:34 1 STRIP Enoxaparin Sodium 40 mg DAILY SC 01/26/25 10:00 01/26/25 10:47 40 MG Pantoprazole Sodium 40 mg DAILY IV 01/26/25 10:00 01/27/25 09:16 40 MG Methylprednisolone Sodium Succinate 40 mg DAILY IV 01/26/25 10:00 01/27/25 09:16 40 MG Meropenem 50 ml @ 17 mls/hr Q8HR IV 01/26/25 14:00 01/28/25 05:34 17 MLS/HR Norepinephrine Bitartrate 250 ml @ 0.938 mls/ hr Q24H IV 01/26/25 17:45 Voriconazole / Dextrose 250 ml @ 125 mls/hr Q12H IV 01/27/25 13:30 01/28/25 03:29 UNV Voriconazole 250 mg/Dextrose 275 ml @ 137.5 mls/ hr Q12H IV 01/27/25 21:00 01/27/25 21:00 137.5 MLS/HR Enteral Nutritional Formula 1,000 ml 30ML/HR GT 01/27/25 19:30 Examination: LUNGS:Abnormal (Endotracheally intubated 30% FiO2), CVS:Normal (NSR), MSK:Abnormal (LLE pedal pulse unpalpable), NEURO:Abnormal laboratory and microbiology Laboratory Tests 01/28/25 04:34 Test 01/28/25 04:34 Range/Units Serum Glucose Pending Problem List/Assessment/Plan Problem List/Assessment/Plan Non ST-elevation myocardial infarction Coronary artery disease status post PTCA of the LCx x 1 JONES (01/27/25) Progressive peripheral arterial disease status 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 Martinez) Transthoracic echocardiogram revealed an LVEF of 55%. Scheduled for a peripheral angiogram given latest findings indicating no appreciable flow within the stent in the mid/distal left SFA on 01/29/25. Plan discussed with son Ian Mao and daughter Connor Melendez. Continue with dual-antiplatelet therapy and lipid-lowering agent. DVT/VTE prophylaxis, hold day of procedure. Further recommendations per clinical course and progression. Thank you for allowing us to care for this patient. Please call with any questions or concerns. Critical care time spent: 30 minutes. This medical document was created using an electronic medical record system with voice recognition software and computerized dictation system. Although this document has been carefully reviewed, there might still be some phonetic and typographical errors. Occasional wrong-word or ``sound-alike substitutions may have occurred due to the inherent limitations of voice recognition software. These areas are purely typographical due to imperfections of the software programs and do not reflect any compromise in the patient's medical care. Please read the chart carefully and recognize, using context, where these substitutions have occurred. Plan discussed with: Other Dietary Evaluation Review Comments: Recommend CCHO-60 with 2 GNa Low fat Low Cholesterol Cardiac diet. Expected Outcomes/Goals: Tight DM control, Wt management Date of Service: Jan 28, 2025 Billing Provider: BINA CRAIG Cardiology Common Codes: [id number] CARE 30-74 MIN BINA CRAIG Jan 28, 2025 08:03
[2025-01-28 08:42] LABS: Alanine Aminotransferase 32 U/L (7-40); Albumin 3.5 g/dL (3.2-4.8); Alkaline Phosphatase 49 U/L (46-116); Anion Gap 4 (5-15); Aspartate Aminotransferase 24 U/L (13-40); BUN/Creatinine Ratio 63.3 (10.0-20.0); Calcium 9.2 mg/dL (8.7-10.4); Carbon Dioxide 31 mmol/L (20-31); Chloride 101 mmol/L (98-107); Magnesium 2.1 mg/dL (1.6-2.6); Potassium 3.7 mmol/L (3.5-5.1); Sodium 136 mmol/L (136-145); Total Protein 5.7 g/dL (5.7-8.2)
[2025-01-28 08:43] LABS: Bilirubin, Total 0.6 mg/dL (0.2-1.0)
[2025-01-28 08:45] LABS: Blood Urea Nitrogen 31 mg/dL (9-23); Glucose 107 mg/dL (74-106)
[2025-01-28] MEDS ORDERED: MICAFUNGIN SODIUM 100 MG in SODIUM CHL 0.9% 100 ML IV SCH (10:00)
[2025-01-28] MEDS ORDERED: ARTIFICIAL TEARS 15ml LEFTEYE PRN (10:45)
[2025-01-28 16:43] LABS: Base Excess 5.2 mmol/L (-2.0-3.0)
[2025-01-28] MEDS: LINEZOLID 600MG/300ML 300 ML IV SCH (22:17)
[2025-01-29] VITALS (86 sets, daily range): BP systolic 88–152; BP diastolic 37–69; PULSE 70–102; RESP 13–29; TEMP 97.3–99.2; O2SAT 88–100
[2025-01-29 05:17] LABS: Basophils # (auto) 0 10 ^3/uL (0-0.2); Basophils % (auto) 0.1 % (0.0-2.0); Eosinophils # (auto) 0 10 ^3/uL (0-0.8); Eosinophils % (auto) 0.2 % (0.0-7.0); Hematocrit 44.8 % (36.0-46.0); Hemoglobin 15.2 g/dL (12.2-16.2); Lymphocytes # (auto) 0.9 10 ^3/uL (0.4-5.4); Lymphocytes % (auto) 7.4 % (10.0-50.0); Mean Corpuscular Hgb Conc. 33.8 g/dL (32.0-36.0); Mean Corpuscular Volume 97.4 fL (80.0-100.0); Monocytes % (auto) 8.1 % (0.0-12.0); Neutrophils # (auto) 10.7 10 ^3/uL (1.6-8.6); Neutrophils % (auto) 84.2 % (37.0-80.0); Platelet Count (auto) 176 10^3/uL (140-450); Red Cell Distribution Width 14.4 % (11.8-14.3); White Blood Cell 12.7 10^3/uL (4.4-10.8)
[2025-01-29 05:29] LABS: Anion Gap 7 (5-15); Chloride 98 mmol/L (98-107)
[2025-01-29 05:30] LABS: Calcium 9.1 mg/dL (8.7-10.4)
[2025-01-29 05:35] LABS: BUN/Creatinine Ratio 57.8 (10.0-20.0); Blood Urea Nitrogen 26 mg/dL (9-23); Carbon Dioxide 31 mmol/L (20-31); Glucose 119 mg/dL (74-106); Magnesium 2.1 mg/dL (1.6-2.6); Potassium 3.4 mmol/L (3.5-5.1); Sodium 136 mmol/L (136-145)
--- NOTE | 2025-01-29 05:50 | DVH ---
EXAM: XR Chest, 1 View CLINICAL INDICATION: sob TECHNIQUE: Frontal view of the chest. COMPARISON: XY CHEST PORTABLE on DOS: 01/28/25, XY CHEST PORTABLE on DOS: 01/27/25, XY CHEST PORTABLE on DOS: 01/26/25, XY CHEST PORTABLE on DOS: 01/25/25, XY CHEST PORTABLE on DOS: 01/25/25 FINDINGS: LUNGS AND PLEURAL SPACES: Bibasilar atelectasis or pneumonia. No pneumothorax. HEART: Unremarkable. No cardiomegaly. MEDIASTINUM: Unremarkable. Normal mediastinal contour. BONES/JOINTS: Unremarkable. No acute fracture. TUBES, LINES AND DEVICES: Stable tubes and lines. OTHER FINDINGS: No significant change from the prior exam. . IMPRESSION: 1. Bibasilar atelectasis or pneumonia. 2. No significant change from the prior exam.
--- NOTE | 2025-01-29 06:23 | DVHPNRES ---
Progress Note Date Seen: Jan 29, 2025 Resident Creating Document: SHEA SCHMITZ RESIDENT Medical Necessity Reason Pt with a Central, PICC or Fol: Yes The following are medically ne: Hughes Catheter Reason for hughes catheter: Strict I&O Subjective Review of Systems Patient was seen and examined at bedside. She is on mechanical ventilator, RR 18, TV 400, FIO2 35%, PEEP 5. On fent 100 and prop 25. levo 1 Objective vital signs Vital Sign Date Time Temp Pulse Resp B/P (MAP) Pulse Ox O2 Delivery O2 Flow Rate FiO2 01/29/25 06:13 141/63 01/29/25 06:00 81 14 100 01/29/25 06:00 Mechanical Ventilator+ 30 30 01/29/25 04:00 98.5 98.5 Total Intake and Output 01/28/25 01/28/25 01/29/25 15:00 23:00 07:00 Intake Total 350.338 ml 490.84 ml 517.180 ml Output Total 375 ml 550 ml Balance 350.338 ml 115.84 ml -32.820 ml medications Current Medications Medications Dose Ordered Sig/Jake Route Start Time Stop Time Status Last Admin Dose Admin Albuterol 1.25 mg Q4HR NEB 01/13/25 18:00 01/29/25 02:24 1.25 MG Ipratropium [place] 0.5 mg Q4HR NEB 01/13/25 18:00 01/29/25 02:24 0.5 MG Aspirin 81 mg DAILY PO 01/14/25 10:00 01/28/25 08:18 81 MG Cefepime HCl 50 ml @ 12.5 mls/hr Q8HR IV 01/14/25 14:00 UNV Clopidogrel Bisulfate 75 mg DAILY PO 01/15/25 10:00 01/28/25 08:18 75 MG Acetaminophen 650 mg Q8HP PRN PO 01/19/25 15:15 01/25/25 03:25 650 MG Atorvastatin Calcium 40 mg HS PO 01/22/25 22:00 01/28/25 20:56 40 MG Insulin Glargine 25 units DAILY@1000 SC 01/23/25 10:00 01/28/25 08:40 25 UNITS Dextrose 50 ml UD PRN IV 01/23/25 08:30 Propofol 100 ml @ 1.89 mls/hr Q24H IV 01/25/25 09:15 01/29/25 06:13 9.45 MLS/HR Fentanyl Citrate 250 ml @ 2.5 mls/hr Q24H IV 01/25/25 09:15 01/29/25 01:05 12.5 MLS/HR Insulin Human Regular Q6HR SC 01/25/25 12:00 01/29/25 00:03 2 UNITS Diagnostic Test (Pha) 1 strip Q6HR 01/25/25 12:00 01/29/25 05:56 1 STRIP Enoxaparin Sodium 40 mg DAILY SC 01/26/25 10:00 01/28/25 08:17 40 MG Pantoprazole Sodium 40 mg DAILY IV 01/26/25 10:00 01/28/25 08:17 40 MG Methylprednisolone Sodium Succinate 40 mg DAILY IV 01/26/25 10:00 01/28/25 08:17 40 MG Norepinephrine Bitartrate 250 ml @ 0.938 mls/ hr Q24H IV 01/26/25 17:45 Voriconazole / Dextrose 250 ml @ 125 mls/hr Q12H IV 01/27/25 13:30 01/28/25 03:29 UNV Voriconazole 250 mg/Dextrose 275 ml @ 137.5 mls/ hr Q12H IV 01/27/25 21:00 01/28/25 20:56 137.5 MLS/HR Enteral Nutritional Formula 1,000 ml 30ML/HR GT 01/27/25 19:30 Artificial Tears 2 drop Q6HP PRN LEFTEYE 01/28/25 10:45 Hydralazine HCl 10 mg Q6HP PRN IV 01/28/25 10:45 Linezolid 300 ml @ 150 mls/hr Q12HR IV 01/28/25 22:00 01/28/25 22:17 150 MLS/HR Examination General: intubated HEENT: Head is normocephalic and atraumatic. Pupils are equal, round, and reactive to light.intubated Neck: Supple with no cervical lymphadenopathy Heart: Regular rate without murmur, rub, or gallop. Lungs: Diminished breath sounds, mild bilateral crackles, scattered wheezing Abdomen: No external sign of injury. Bowel sounds are present. Abdomen is soft, nontender. Extremities: Strong peripheral pulses. There is no clubbing, no cyanosis, and no edema. Skin: No rash. Neurologic: sedated laboratory and microbiology Laboratory Tests 01/29/25 04:55 Test 01/29/25 04:55 Range/Units Serum Glucose 119 H 74-106 mg/dL Microbiology Date/Time Source Procedure Growth Status 01/26/25 13:11 Voided Urine Urine Culture - Preliminary Presumptive Catherine albicans Resulted 01/26/25 11:30 Sputum Gram Stain - Final Resulted 01/26/25 11:30 Sputum Respiratory Culture - Preliminary Resulted 01/26/25 08:12 Blood Blood Culture - Preliminary NO GROWTH AFTER 48 HOURS OF INCUBATION. Resulted 01/25/25 11:28 Lung Pending Resulted 01/25/25 11:28 Lung Pending Resulted 01/25/25 11:28 Lung Pending Resulted 01/25/25 11:28 Lung Pending Resulted 01/25/25 11:28 Lung - Final See Separate Report... 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 FiO2 30%, tidal volume 400, respiratory rate 18, peep of 5 high-resolution CT chest shows emphysema, atelectase, no ILD Continued DAPT Staph. 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 hs aggressive Lantus 25 units q.a.m. Cardiology was reconsulted, patient had a left heart catheterization and bilateral leg angio today. A stent was placed in circumflex. 2nd procedure to be performed in lower extremety in 2-3 days. Patient will undergo lower extremity angiogram today Lines Left internal jugular triple-lumen catheter 01/25/25 Left arterial line 01/25/25 Intubated 01/25/25 Goals of care were discussed for over 30 mins, full code Case was discussed with Dr. Chavez Plan discussed with: Patient, Other (RN) My Orders My Orders Orders - SHEA SCHMITZ RESIDENT Procedure Category Date Status Time Cpap Trial For Am ORDERS 01/28/25 Transmitted 07:29 Cpap/Sed Vacation Med ORDERS 01/28/25 Transmitted Weaning 07:29 Artificial Tear 15ml PHA 01/28/25 In Process Opthalmic (Tears Na 10:45 Hydralazine Injection PHA 01/28/25 In Process (Apresoline Inject 10:45 Linezolid 600mg/300ml PHA 01/28/25 In Process (Zyvox) 22:00 Chest Portable XY 01/29/25 Resulted 04:00 Abg W/ Co-Ox RT 01/29/25 Logged 04:00 Potassium Chl Ihsan PHA 01/29/25 Transmitted KCL 06:30 Dietary Evaluation Review Comments: Recommend CCHO-60 with 2 GNa Low fat Low Cholesterol Cardiac diet. Expected Outcomes/Goals: Tight DM control, Wt management Date of Service: Jan 29, 2025 Billing Provider: JUSTINE CHAVEZ MD Common Visit Codes: [id number] CARE 30-74 MIN SHEA SCHMITZ RESIDENT Jan 29, 2025 06:23 JUSTINE CHAVEZ MD Jan 29, 2025 18:50
[2025-01-29] MEDS: POTASSIUM CHL 20MEQ/50ML 50 ML IV SCH (06:44)
[2025-01-29 08:58] LABS: Base Excess 4.5 mmol/L (-2.0-3.0)
[2025-01-29] MEDS: HEPARIN IN NS 1000Units/500mL 1,500 ML ONE (13:01)
[2025-01-29] MEDS: IODIXANOL 320MG/ML 100ML BTL IV ONE ×2 (13:01→16:00)
[2025-01-29] MEDS: ANGIOMAX 250 MG VIAL IV ONE ×3 (13:28→17:32)
[2025-01-29] MEDS: SODIUM CHL 0.9% 50 ML ONE ×3 (13:28→17:32)
[2025-01-29] MEDS: LIDOCAINE 2%HCL (LOCAL ANESTH.) INJ 20ML MDV ONE (13:29)
[2025-01-29] MEDS: MIDAZOLAM HCL 2MG/2ML 2ml VIAL (1mg/ml) ONE ×2 (14:10→16:31)
[2025-01-29] MEDS: VERAPAMIL 2.5MG/ML INJ 2ML VIAL IV ONE (15:25)
[2025-01-29] MEDS: NITROGLYCERIN 5MG/ML 10ML VIAL IV ONE (15:25)
--- NOTE | 2025-01-29 20:23 | DVHOP2 ---
Operative Report - 2 Report Details Date: 01/29/25 Preop Diagnosis: Peripheral vascular disease Postop Diagnosis: Occluded superficial femoral artery. 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 Surgeon: Alvarez Martinez MD Anesthesiologist: Patient on ventilator and sedated. Additional sedation given throughout the procedure. Anesthesia: General, Mac, Local ( Conscious sedation was administered. I oversaw The administration of medication and monitored the patient throughout the entirety of the procedure.) Implant: Medtronic stent placement of superficial femoral artery Consent: The patient was informed of the risks and benefits of the procedure. These include but are not limited to complications of anesthesia, postoperative infection, incomplete relief of symptoms, recurrence of symptoms, damage to blood vessels, nerves and tendons, deep venous thrombosis, pulmonary embolism and possible need for repeat surgery in the future. Complications: No complications Estimated Blood Loss: 5 cc Findings: Occluded superficial femoral artery. Indications for Surgery: Occluded superficial femoral artery. Name of Procedure Performed Angiographic evaluation of left lower extremity. DEVELOPMENTAL SPECIALIST and stenting of the left superficial femoral artery. Thrombectomy of the left superficial femoral artery. Procedure Details Procedure Details: Prior local anesthesia with 2% lidocaine to the right groin and full informed consent obtained patient was prepped and draped in the usual fashion followed by placement of a six [place] sheath into the right femoral artery through which six [place] 45 cm destination sheath was placed over the contralateral iliac and into the origin of the superficial femoral artery. /distal common femoral. Through this peripheral angiography was also performed after placing a rim catheter for positioning of the advantage wire angiography including digital subtraction angiography of the left distal extremity was performed. Angiographic evaluation previously performed revealed a complete chronic total occlusion of the common femoral artery just before the origin of the profunda. There appears to be reconstitution of flow distally. This was noted with digital subtraction angiography as we noted retrograde filling of the popliteal into the distal superficial femoral artery and antegrade into the tibioperoneal trunk peroneal and anterior tibial artery. after placing the destination sheath over the common femoral adjacent to the entry of the superficial femoral artery we used a advantage wire and quick cross catheter to gain entry into the proximal SFA. We were not able to push the Quick Cross catheter through given the size and lack of support for which we then exchanged for a Terumo Navicross. There was a long stented segment in the mid superficial femoral artery that extended into the distal superficial femoral with hardened plaque and thrombus. We were able to obtain access by changing guidewires and with an Asahi Confianza we were able to reach the distal segment of the stented portion however we could not break into the distal plaque. We then used a corsair microcatheter over the Confianza and we were able to break the cap into the true lumen into the tibioperoneal trunk and popliteal artery. We then exchanged the wire for a Viper wire and placed a 1.25 mm orbital atherectomy eusebio from [facility]. We performed orbital atherectomy from proximal to distal and obtained a channel through which we then placed a 4 mm x 80 mm chocolate balloon. This atherotomy balloon was then used to dilate from distal to proximal. The intima was notably irregular and several collapsing segments were noted from the popliteal to the origin of the SFA. We then placed a four by 100 mm ranger drug-eluting balloon and dilated after placing the balloon in its distal segment encompassing part of the tibioperoneal trunk beyond the popliteal artery. The luminal irregularities resolved to a signi ficant degree. We then placed a 2nd ranger 200 by 6 mm into the proximal and mid SFA with the appropriate dilatation. This improved the flow remarkably well however there was a residual significant lesion with atherosclerotic debris within the lumen at the mid SFA approximately 25-30 mm from the origin of the stent. We then had to perform thrombectomy with a CAT six penumbra device. We removed a significant amount of thrombus and debris. Post dilating with a 7 mm balloon improved however there was a significant residual defect. We then took a 7 mm x 200 mm ranger in the proximal SFA from the ostia to the mid SFA. This improved the proximal portion without a need for stenting however there was notable debris and recoil within the mid SFA at the previously noted stented segment. We then placed a six by 40 mm Medtronic stent which was self expanding. We post dilated with a 7 mm balloon. There was notable improvement in flow. No thrombus was noted. There was a residual lesion proximal to where the in stented segment was treated this was a proximally 20-30% residual. We noticed good flow Through to the mid calf. there was flow through the anterior tibial and peroneal arteries. The posterior tibial seemed occluded. Impression: Successful aperture of chronic total occlusion in proximal SFA. Aperture of popliteal and tibioperoneal trunk. AtherotomyAs well as orbital atherectomy of the proximal mid and distal SFA and popliteal artery. Thrombectomy of the SFA popliteal and tibioperoneal trunks. Drug-eluting balloon treatment of the popliteal and superficial femoral artery. Successful stenting of the mid SFA. Recommendations continue with antiplatelet therapy. We will add low-dose anticoagulation to help prevent thrombosis. Condition Guarded Disposition Still a Patient Date of Service: Jan 29, 2025 Billing Provider: ALVAREZ MARTINEZ Sr., MD Cardiology Common Codes: [id number] INP/OBS CARE (High) Peripheral Procedures Codes: 73978-[id number] W/TRANS ANGPLASTY, 34585- ANGIOPLASTY W/IN SAME VESSEL, 83277-WHOJA PLACMNT W/ANGIOPLASTY, 22742-PRVOIA TIBIAL PERONEAL ART, [id number]-EMPQN ATHERECTOMY ANGIO, 22624-OXAGDQBOFPX RAD SUP/INTERP Peripheral Add ons: 87731-WAGSQY TIBIAL/PERON ARTERY, 17941-HEEDINTTJDJ AND ANGIOPLASTY, 14156-JALJZGR STENT W/ANGPLASTY, 86548-WMGVO PLMNT ARECTMY/ANGPLSTY ALVAREZ MARTINEZ Sr., MD Jan 29, 2025 20:23
[2025-01-29] MEDS: Glucerna 1.2 Cal 1Liter BOTTLE GT SCH (22:11)
[2025-01-30] VITALS (89 sets, daily range): BP systolic 102–163; BP diastolic 43–95; PULSE 79–109; RESP 11–27; TEMP 97.8–99.7; O2SAT 87–96
[2025-01-30 05:42] LABS: Basophils # (auto) 0 10 ^3/uL (0-0.2); Basophils % (auto) 0.1 % (0.0-2.0); Eosinophils # (auto) 0 10 ^3/uL (0-0.8); Hematocrit 43.2 % (36.0-46.0); Hemoglobin 14.3 g/dL (12.2-16.2); Lymphocytes # (auto) 0.9 10 ^3/uL (0.4-5.4); Lymphocytes % (auto) 7.3 % (10.0-50.0); Mean Corpuscular Hemoglobin 32.5 pg (28.0-32.0); Mean Corpuscular Hgb Conc. 33.1 g/dL (32.0-36.0); Mean Corpuscular Volume 98.1 fL (80.0-100.0); Monocytes % (auto) 8.3 % (0.0-12.0); Neutrophils # (auto) 10.4 10 ^3/uL (1.6-8.6); Neutrophils % (auto) 84.3 % (37.0-80.0); Platelet Count (auto) 162 10^3/uL (140-450); Red Blood Cells 4.41 10^6/uL (4.0-5.20); Red Cell Distribution Width 13.9 % (11.8-14.3); White Blood Cell 12.3 10^3/uL (4.4-10.8)
[2025-01-30 05:47] LABS: Anion Gap 6 (5-15); Calcium 8.9 mg/dL (8.7-10.4); Carbon Dioxide 30 mmol/L (20-31); Chloride 100 mmol/L (98-107); Potassium 3.9 mmol/L (3.5-5.1)
[2025-01-30 05:53] LABS: Glucose 124 mg/dL (74-106); Magnesium 1.9 mg/dL (1.6-2.6); Sodium 136 mmol/L (136-145)
--- NOTE | 2025-01-30 06:24 | DVH ---
CHEST RADIOGRAPH Indication: sob Technique: Single frontal view of the chest was obtained COMPARISON: XY CHEST PORTABLE on DOS: 01/29/25, XY CHEST PORTABLE on DOS: 01/28/25, XY CHEST PORTABLE o n DOS: 01/27/25, XY CHEST PORTABLE on DOS: 01/26/25, XY CHEST PORTABLE on DOS: 01/25/25 FINDINGS: Lines and Tubes: Lines and tubes are unchanged. Lungs: Persistent patchy bibasilar pulmonary airspace disease. Pleura: No effusion. No pneumothorax. Cardiomediastinal contours: Unremarkable Bones: Unremarkable IMPRESSION: 1. No evidence of significant interval change. Stable persistent bibasilar pulmonary airspace diseas e.
[2025-01-30 06:34] LABS: Base Excess 6.2 mmol/L (-2.0-3.0)
[2025-01-30 06:43] LABS: BUN/Creatinine Ratio 44.7 (10.0-20.0); Blood Urea Nitrogen 21 mg/dL (9-23)
[2025-01-30 09:18] LABS: Base Excess 1.6 mmol/L (-2.0-3.0)
--- NOTE | 2025-01-30 17:35 | DVHPN2 ---
Consult Progress Note Date Seen: Jan 30, 2025 Subjective Other Systems: Denies any active cardiac symptoms Objective vital signs Vital Sign Date Time Temp Pulse Resp B/P (MAP) Pulse Ox O2 Delivery O2 Flow Rate FiO2 01/30/25 16:45 95 20 147/62 (90) 90 01/30/25 16:00 98.4 98.4 01/30/25 15:33 Hi-Flow Heated NC+ 50 50 50 Total Intake and Output 01/29/25 01/29/25 01/30/25 15:00 23:00 07:00 Intake Total 805.60 ml 643.10 ml 288.96 ml Output Total 800 ml 450 ml Balance 805.60 ml -156.90 ml -161.04 ml medications Current Medications Medications Dose Ordered Sig/Jake Route Start Time Stop Time Status Last Admin Dose Admin Albuterol 1.25 mg Q4HR NEB 01/13/25 18:00 01/30/25 14:47 1.25 MG Ipratropium [place] 0.5 mg Q4HR NEB 01/13/25 18:00 01/30/25 14:47 0.5 MG Aspirin 81 mg DAILY PO 01/14/25 10:00 01/30/25 07:28 81 MG Cefepime HCl 50 ml @ 12.5 mls/hr Q8HR IV 01/14/25 14:00 UNV Clopidogrel Bisulfate 75 mg DAILY PO 01/15/25 10:00 01/30/25 07:28 75 MG Acetaminophen 650 mg Q8HP PRN PO 01/19/25 15:15 01/25/25 03:25 650 MG Atorvastatin Calcium 40 mg HS PO 01/22/25 22:00 01/29/25 21:37 40 MG Insulin Glargine 25 units DAILY@1000 SC 01/23/25 10:00 01/30/25 08:53 25 UNITS Dextrose 50 ml UD PRN IV 01/23/25 08:30 Propofol 100 ml @ 1.89 mls/hr Q24H IV 01/25/25 09:15 01/29/25 18:13 9.45 MLS/HR Fentanyl Citrate 250 ml @ 2.5 mls/hr Q24H IV 01/25/25 09:15 01/29/25 21:38 10 MLS/HR Insulin Human Regular Q6HR SC 01/25/25 12:00 01/30/25 05:44 2 UNITS Diagnostic Test (Pha) 1 strip Q6HR 01/25/25 12:00 01/30/25 16:27 1 STRIP Enoxaparin Sodium 40 mg DAILY SC 01/26/25 10:00 01/30/25 07:27 40 MG Pantoprazole Sodium 40 mg DAILY IV 01/26/25 10:00 01/30/25 07:26 40 MG Methylprednisolone Sodium Succinate 40 mg DAILY IV 01/26/25 10:00 01/30/25 07:26 40 MG Norepinephrine Bitartrate 250 ml @ 0.938 mls/ hr Q24H IV 01/26/25 17:45 Voriconazole / Dextrose 250 ml @ 125 mls/hr Q12H IV 01/27/25 13:30 01/28/25 03:29 UNV Voriconazole 250 mg/Dextrose 275 ml @ 137.5 mls/ hr Q12H IV 01/27/25 21:00 01/30/25 07:29 137.5 MLS/HR Artificial Tears 2 drop Q6HP PRN LEFTEYE 01/28/25 10:45 Hydralazine HCl 10 mg Q6HP PRN IV 01/28/25 10:45 Linezolid 300 ml @ 150 mls/hr Q12HR IV 01/28/25 22:00 01/30/25 07:28 150 MLS/HR Enteral Nutritional Formula 1,000 ml 30ML/HR GT 01/29/25 13:00 01/29/25 22:11 1,000 ML Examination: GENERAL:Abnormal (Chronically ill), LUNGS:Abnormal (On high flow O2), CVS:Normal (NSR), NEURO:Normal laboratory and microbiology Laboratory Tests 01/30/25 04:56 Test 01/30/25 04:56 Range/Units Serum Glucose 124 H 74-106 mg/dL Problem List/Assessment/Plan Problem List/Assessment/Plan Non ST-elevation myocardial infarction Coronary artery disease status post PTCA of the LCx x 1 JONES (01/27/25) Progressive peripheral arterial disease status post BLE [employer] X2 JONES status post [employer] of the left SFA/popliteal artery (01/29/25) COPD with exacerbation with acute hypoxic respiratory failure & pneumonia Pertinent family history for coronary artery disease Hypertension Dyslipidemia Type 2 diabetes mellitus Tobacco use Plan/Recommendation (Dr. Martinez) Transthoracic echocardiogram revealed an LVEF of 55%. The patient underwent successful PTCA of the LCX including 1DES and successful aperture of chronic total occlusion of the left SFA/popliteal artery. Recommendations for medical management include Plavix therapy, low-dose Xarelto b.i.d., and lipid lowering agent. Patient is to follow up in the outpatient setting with cardiology within 3-4 weeks post discharge. Continue pulmonology recommendations. Consider podiatry evaluation for toenail trimming. There is no further cardiac workup indicated at this time. Kindly call if in need to re-consult. Thank you for allowing us to participate in this patient's care. Critical care time spent: 30 minutes. This medical document was created using an electronic medical record system with voice recognition software and computerized dictation system. Although this document has been carefully reviewed, there might still be some phonetic and typographical errors. Occasional wrong-word or ``sound-alike substitutions may have occurred due to the inherent limitations of voice recognition software. These areas are purely typographical due to imperfections of the software programs and do not reflect any compromise in the patient's medical care. Please read the chart carefully and recognize, using context, where these substitutions have occurred. Plan discussed with: Patient, Other Dietary Evaluation Review Comments: Recommend CCHO-60 with 2 GNa Low fat Low Cholesterol Cardiac diet. Expected Outcomes/Goals: Tight DM control, Wt management Date of Service: Jan 30, 2025 Billing Provider: BINA CRAIG Cardiology Common Codes: [id number] CARE 30-74 MIN BINA CRAIG Jan 30, 2025 17:35
--- NOTE | 2025-01-30 20:22 | DVHPN2 ---
Progress Note - Dictate Date Seen: Jan 30, 2025 Medical Necessity Reason Pt with a Central, PICC or Fol: Yes The following are medically ne: Hughes Catheter Reason for hughes catheter: Strict I&O Subjective Patient seen and examined at bedside. S/p extubation, on supplemental oxygen Overnight events reviewed. vital signs Vital Sign Date Time Temp Pulse Resp B/P (MAP) Pulse Ox O2 Delivery O2 Flow Rate FiO2 01/30/25 20:00 94 22 94 Hi-Flow Heated NC+ 50 50 50 01/30/25 18:30 156/57 (90) 01/30/25 16:00 98.4 98.4 Total Intake and Output 01/29/25 01/29/25 01/30/25 15:00 23:00 07:00 Intake Total 805.60 ml 643.10 ml 288.96 ml Output Total 800 ml 450 ml Balance 805.60 ml -156.90 ml -161.04 ml medications Current Medications Medications Dose Ordered Sig/Jake Route Start Time Stop Time Status Last Admin Dose Admin Albuterol 1.25 mg Q4HR NEB 01/13/25 18:00 01/30/25 18:22 1.25 MG Ipratropium [place] 0.5 mg Q4HR NEB 01/13/25 18:00 01/30/25 18:22 0.5 MG Cefepime HCl 50 ml @ 12.5 mls/hr Q8HR IV 01/14/25 14:00 UNV Clopidogrel Bisulfate 75 mg DAILY PO 01/15/25 10:00 01/30/25 07:28 75 MG Acetaminophen 650 mg Q8HP PRN PO 01/19/25 15:15 01/25/25 03:25 650 MG Atorvastatin Calcium 40 mg HS PO 01/22/25 22:00 01/29/25 21:37 40 MG Insulin Glargine 25 units DAILY@1000 SC 01/23/25 10:00 01/30/25 08:53 25 UNITS Dextrose 50 ml UD PRN IV 01/23/25 08:30 Insulin Human Regular Q6HR SC 01/25/25 12:00 01/30/25 05:44 2 UNITS Diagnostic Test (Pha) 1 strip Q6HR 01/25/25 12:00 01/30/25 16:27 1 STRIP Pantoprazole Sodium 40 mg DAILY IV 01/26/25 10:00 01/30/25 07:26 40 MG Methylprednisolone Sodium Succinate 40 mg DAILY IV 01/26/25 10:00 01/30/25 07:26 40 MG Voriconazole / Dextrose 250 ml @ 125 mls/hr Q12H IV 01/27/25 13:30 01/28/25 03:29 UNV Voriconazole 250 mg/Dextrose 275 ml @ 137.5 mls/ hr Q12H IV 01/27/25 21:00 01/30/25 07:29 137.5 MLS/HR Artificial Tears 2 drop Q6HP PRN LEFTEYE 01/28/25 10:45 Hydralazine HCl 10 mg Q6HP PRN IV 01/28/25 10:45 Linezolid 300 ml @ 150 mls/hr Q12HR IV 01/28/25 22:00 01/30/25 07:28 150 MLS/HR Enteral Nutritional Formula 1,000 ml 30ML/HR GT 01/29/25 13:00 01/29/25 22:11 1,000 ML Rivaroxaban 2.5 mg BID PO 01/30/25 22:00 objective Gen.: Patient lying in bed in no apparent distress. On supplemental oxygen. Head: Normocephalic, atraumatic. Eyes: EOMI/PERRLA. Ears: Normal hearing. Normal anatomy. Neck/trachea: Trachea midline, supple. Nose: Normal external anatomy. Mouth: Moist mucous membranes. Chest: Decreased air entry bilaterally. No wheezing or rhonchi. Cardiovascular: Positive S1, positive S2. Regular rate and rhythm. Abdomen: Positive bowel sounds in all 4 quadrants. Soft, non-tender, non- distended. : Deferred. Rectal: Deferred. Skin: Warm, dry. Intact. Extremities: 2+ radial pulses bilaterally. No lower extremity edema. Neuro: Awake, alert, oriented x3. No gross motor or sensory deficits. Cranial nerves II through XII intact. Gait not assessed. laboratory and microbiology Laboratory Tests 01/30/25 04:56 Test 01/30/25 04:56 Range/Units Serum Glucose 124 H 74-106 mg/dL Assessment/Plan Impression: Acute hypoxic respiratory failure Acute on chronic hypercarbic respiratory failure On mechanical ventilator Multifocal pneumonia Mucous plugging Atelectasis Acute exacerbation of COPD CHF exacerbation Nicotine dependence (0.5 PPD x50 years - quit 1 wk prior to admission) Events: CPAP with PS 8, PEEP of 5 Patient tolerated CPAP and was extubated uneventfully today Placed on high flow supplemental oxygen at 50 LPM, FiO2 60% Taper O2 as tolerated Continue bronchodilators Continue IV steroids Continue antibiotics Swallow eval. Labs and imaging reviewed. Rest of plan as noted below. Plan: S/p extubation Continue high flow supplemental oxygen Taper O2 as tolerated Titrate to keep O2 sats between 88-94%. Continue bronchodilators. Continue antibiotics Continue steroids Incentive spirometry Monitor renal function. Monitor electrolytes. Supplement as necessary. Monitor ins and outs. DVT prophylaxis. Prognosis: Poor given patient's multiple co-morbidities. Rest of plan per hospitalist and other consultants. A total of 51 minutes of clinical care time was spent reviewing the patient record, examining the patient, making a diagnostic and therapeutic plan, discussing this plan with the medical personnel, following up on diagnostic studies and following the patient for clinical stability excluding any and all procedures. At least 50% of this time was spent in direct, [id number] contact. Thank you, Dr. Galdamez, for allowing me to participate in this patient's care. Further recommendations will depend on the patient's clinical course. Please do not hesitate to contact me if you have any questions or concerns. This medical document was created using an electronic medical record system with [employer] dictation system. Although these documentations are being carefully reviewed, there may still be some phonetic and typographical changes. The errors are purely typographical, due to imperfection on the software program, and do not reflect any compromise in the patient's medical care. Dietary Evaluation Review Comments: Recommend CCHO-60 with 2 GNa Low fat Low Cholesterol Cardiac diet. Expected Outcomes/Goals: Tight DM control, Wt management Plan discussed with: Patient, Other (SULEIMAN Moreira) BETINA RUBIO MD Jan 30, 2025 20:22
[2025-01-30] MEDS: RIVAROXABAN 2.5 MG TAB PO SCH (22:00)
[2025-01-31] VITALS (66 sets, daily range): BP systolic 110–168; BP diastolic 53–90; PULSE 73–101; RESP 12–32; TEMP 97.1–98.8; O2SAT 86–95
[2025-01-31 05:33] LABS: Basophils # (auto) 0 10 ^3/uL (0-0.2); Basophils % (auto) 0.1 % (0.0-2.0); Eosinophils # (auto) 0 10 ^3/uL (0-0.8); Eosinophils % (auto) 0.2 % (0.0-7.0); Hematocrit 45.2 % (36.0-46.0); Hemoglobin 15.1 g/dL (12.2-16.2); Lymphocytes # (auto) 1.3 10 ^3/uL (0.4-5.4); Lymphocytes % (auto) 10.1 % (10.0-50.0); Mean Corpuscular Hemoglobin 32.3 pg (28.0-32.0); Mean Corpuscular Hgb Conc. 33.4 g/dL (32.0-36.0); Mean Corpuscular Volume 96.6 fL (80.0-100.0); Monocytes # (auto) 1.1 10 ^3/uL (0-1.3); Monocytes % (auto) 8.4 % (0.0-12.0); Neutrophils # (auto) 10.3 10 ^3/uL (1.6-8.6); Neutrophils % (auto) 81.2 % (37.0-80.0); Nucleated Red Blood Cells % 0.1 %; Platelet Count (auto) 155 10^3/uL (140-450); Red Blood Cells 4.68 10^6/uL (4.0-5.20); Red Cell Distribution Width 14.4 % (11.8-14.3); White Blood Cell 12.6 10^3/uL (4.4-10.8)
[2025-01-31 05:42] LABS: Alanine Aminotransferase 38 U/L (7-40); Albumin 3.4 g/dL (3.2-4.8); Alkaline Phosphatase 58 U/L (46-116); Anion Gap 9 (5-15); Blood Urea Nitrogen 13 mg/dL (9-23); Calcium 8.9 mg/dL (8.7-10.4); Chloride 100 mmol/L (98-107); Magnesium 1.9 mg/dL (1.6-2.6); Sodium 141 mmol/L (136-145)
[2025-01-31 05:43] LABS: Bilirubin, Total 0.7 mg/dL (0.2-1.0)
[2025-01-31 05:50] LABS: Aspartate Aminotransferase 51 U/L (13-40); Carbon Dioxide 32 mmol/L (20-31); Glucose 60 mg/dL (74-106); Potassium 3.4 mmol/L (3.5-5.1); Total Protein 5.5 g/dL (5.7-8.2)
[2025-01-31] MEDS ORDERED: POTASSIUM CHL 20MEQ/100ML 100 ML IV SCH (06:45)
[2025-01-31] MEDS: POTASSIUM CHL 20MEQ/50ML 50 ML IV SCH (07:32)
--- NOTE | 2025-01-31 13:45 | DVHPN2 ---
Reviewed: Care Plan, H&P, Labs, Medications, Previous Orders, Radiology, Other (Consultants) Changes from previous H/P or p: No Changes General: Per HPI Respiratory: Shortness of breath Objective Vitals Vital Signs Date Time Temp Pulse Resp B/P (MAP) Pulse Ox O2 Delivery O2 Flow Rate FiO2 01/31/25 12:00 98.7 88 21 131/60 (83) 91 98.7 01/31/25 12:00 Hi-Flow Heated NC+ 50 50 50 Intake/Output Intake and Output 01/31/25 07:00 Intake Total 2350 ml Output Total 4900 ml Balance -2550 ml Intake Oral 1200 ml IV Total 1150 ml Output Urine Total 4900 ml General Appearance: Alert, Oriented X3, Cooperative, No acute distress (With some tachypnea) HEENT: Atraumatic Lungs: Other (Crackles bilateral lungs with decreased air entry) Cardiovascular: Regular rate (Borderline tachycardia) Abdomen: Normal bowel sounds, Soft, No tenderness Extremities: No edema Medications Current Medications Medications Dose Ordered Sig/Jake Route Start Time Stop Time Status Last Admin Dose Admin Albuterol 1.25 mg Q4HR NEB 01/13/25 18:00 01/31/25 09:54 1.25 MG Ipratropium [place] 0.5 mg Q4HR NEB 01/13/25 18:00 01/31/25 09:54 0.5 MG Cefepime HCl 50 ml @ 12.5 mls/hr Q8HR IV 01/14/25 14:00 UNV Clopidogrel Bisulfate 75 mg DAILY PO 01/15/25 10:00 01/31/25 09:23 75 MG Acetaminophen 650 mg Q8HP PRN PO 01/19/25 15:15 01/31/25 09:41 650 MG Atorvastatin Calcium 40 mg HS PO 01/22/25 22:00 01/30/25 21:52 40 MG Insulin Glargine 25 units DAILY@1000 SC 01/23/25 10:00 01/31/25 09:33 25 UNITS Dextrose 50 ml UD PRN IV 01/23/25 08:30 Insulin Human Regular Q6HR SC 01/25/25 12:00 01/31/25 11:22 8 UNITS Diagnostic Test (Pha) 1 strip Q6HR 01/25/25 12:00 01/31/25 12:13 1 STRIP Pantoprazole Sodium 40 mg DAILY IV 01/26/25 10:00 01/31/25 09:23 40 MG Methylprednisolone Sodium Succinate 40 mg DAILY IV 01/26/25 10:00 01/31/25 09:23 40 MG Voriconazole / Dextrose 250 ml @ 125 mls/hr Q12H IV 01/27/25 13:30 01/28/25 03:29 UNV Voriconazole 250 mg/Dextrose 275 ml @ 137.5 mls/ hr Q12H IV 01/27/25 21:00 01/31/25 09:22 137.5 MLS/HR Artificial Tears 2 drop Q6HP PRN LEFTEYE 01/28/25 10:45 Hydralazine HCl 10 mg Q6HP PRN IV 01/28/25 10:45 Linezolid 300 ml @ 150 mls/hr Q12HR IV 01/28/25 22:00 01/31/25 09:23 150 MLS/HR Enteral Nutritional Formula 1,000 ml 30ML/HR GT 01/29/25 13:00 01/29/25 22:11 1,000 ML Rivaroxaban 2.5 mg BID PO 01/30/25 22:00 01/31/25 09:24 2.5 MG Laboratory Results Laboratory Tests 01/31/25 04:51 Chemistry Test 01/31/25 04:51 Albumin 3.4 g/dL (3.2-4.8) Calcium Level 8.9 mg/dL (8.7-10.4) Magnesium Level 1.9 mg/dL (1.6-2.6) Total Protein 5.5 g/dL (5.7-8.2) L LFT Test 01/31/25 04:51 Alanine Aminotransferase (ALT) 38 U/L (7-40) Alkaline Phosphatase 58 U/L (46-116) Aspartate Amino Transferase (AST) 51 U/L (13-40) H Total Bilirubin 0.7 mg/dL (0.2-1.0) Urinalysis Test 01/13/25 18:45 01/26/25 13:11 Urine Mucus Few (None Seen) Urine Color Yellow (Yellow) Urine Clarity Clear (Clear) Urine pH 5.5 (5.0-9.0) Urine Specific [place] 1.035 (1.001-1.035) Urine Protein Trace (Negative) H Urine Ketones Negative (Negative) Urine Blood 2+ /uL (Negative) H Urine Nitrite Negative (Negative) Urine Bilirubin Negative (Negative) Urine Urobilinogen Normal mg/dL (Negative) Urine Leukocyte Esterase 1+ /uL (Negative) Urine RBC 176 /hpf (0 - 4) Urine Microscopic WBC 19 /HPF (0-5) H Urine Squamous Epithelial Cells Few /hpf (<5) Urine Bacteria Few /hpf (None Seen) H Urine Yeast (Budding) Many /hpf (None Seen) Urine Glucose Normal mg/dL (Normal) Microbiology Microbiology Date/Time Source Procedure Growth Status 01/26/25 13:11 Voided Urine Urine Culture - Final Presumptive Catherine albicans Complete 01/26/25 11:30 Sputum Gram Stain - Final Resulted 01/26/25 11:30 Sputum Respiratory Culture - Preliminary Resulted 01/26/25 08:12 Blood Blood Culture - Final NO GROWTH AFTER 5 DAYS OF INCUBATION. Complete 01/25/25 11:28 Lung - Final Resulted 01/25/25 11:28 Lung - Final Resulted 01/25/25 11:28 Lung Pending Resulted 01/25/25 11:28 Lung Pending Resulted 01/25/25 11:28 Lung - Final See Separate Report... 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 FiO2 30%, tidal volume 400, respiratory rate 18, peep of 5 (extubated on 01/30/25) high-resolution CT chest shows emphysema, atelectase, no ILD Continued DAPT Staph. 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 hs aggressive Lantus 25 units q.a.m. Cardiology was reconsulted, patient had a left heart catheterization and bilateral leg angio today. A stent was placed in circumflex. 2nd procedure to be performed in lower extremety in 2-3 days. Patient will undergo lower extremity angiogram 01/29/25 01/30/25: pt extubated in AM. encourage PO intake once pt passes bedside swallow evaluation, then encourage more mobility Plan discussed with: Patient My Orders Orders - BENJAMIN AGUIRRE DO Procedure Category Date Status Time Soft Diet DIET 01/31/25 Transmitted Breakfast Date of Service: Jan 30, 2025 Billing Provider: BENJAMIN AGUIRRE DO Common Visit Codes: [id number] INP/OBS CARE(HIGH) BENJAMIN AGUIRRE DO Jan 31, 2025 13:45
--- NOTE | 2025-01-31 18:32 | DVHPN2 ---
Reviewed: Care Plan, H&P, Labs, Medications, Previous Orders, Radiology, Other (Consultants) Changes from previous H/P or p: No Changes General: Per HPI Respiratory: Shortness of breath Objective Vitals Vital Signs Date Time Temp Pulse Resp B/P (MAP) Pulse Ox O2 Delivery O2 Flow Rate FiO2 01/31/25 18:17 90 18 92 01/31/25 18:00 136/60 (85) 01/31/25 18:00 Hi-Flow Heated NC+ 50 50 50 01/31/25 16:00 98.7 98.7 Intake/Output Intake and Output 01/31/25 07:00 Intake Total 2350 ml Output Total 4900 ml Balance -2550 ml Intake Oral 1200 ml IV Total 1150 ml Output Urine Total 4900 ml General Appearance: Alert, Oriented X3, Cooperative, No acute distress (With some tachypnea) HEENT: Atraumatic Lungs: Other (Crackles bilateral lungs with decreased air entry) Cardiovascular: Regular rate (Borderline tachycardia) Abdomen: Normal bowel sounds, Soft, No tenderness Extremities: No edema Medications Current Medications Medications Dose Ordered Sig/Jake Route Start Time Stop Time Status Last Admin Dose Admin Albuterol 1.25 mg Q4HR NEB 01/13/25 18:00 01/31/25 18:16 1.25 MG Ipratropium [place] 0.5 mg Q4HR NEB 01/13/25 18:00 01/31/25 18:16 0.5 MG Cefepime HCl 50 ml @ 12.5 mls/hr Q8HR IV 01/14/25 14:00 UNV Clopidogrel Bisulfate 75 mg DAILY PO 01/15/25 10:00 01/31/25 09:23 75 MG Acetaminophen 650 mg Q8HP PRN PO 01/19/25 15:15 01/31/25 14:40 650 MG Atorvastatin Calcium 40 mg HS PO 01/22/25 22:00 01/30/25 21:52 40 MG Insulin Glargine 25 units DAILY@1000 SC 01/23/25 10:00 01/31/25 09:33 25 UNITS Dextrose 50 ml UD PRN IV 01/23/25 08:30 Insulin Human Regular Q6HR SC 01/25/25 12:00 01/31/25 11:22 8 UNITS Diagnostic Test (Pha) 1 strip Q6HR 01/25/25 12:00 01/31/25 17:44 1 STRIP Pantoprazole Sodium 40 mg DAILY IV 01/26/25 10:00 01/31/25 09:23 40 MG Methylprednisolone Sodium Succinate 40 mg DAILY IV 01/26/25 10:00 01/31/25 09:23 40 MG Voriconazole / Dextrose 250 ml @ 125 mls/hr Q12H IV 01/27/25 13:30 01/28/25 03:29 UNV Voriconazole 250 mg/Dextrose 275 ml @ 137.5 mls/ hr Q12H IV 01/27/25 21:00 01/31/25 09:22 137.5 MLS/HR Artificial Tears 2 drop Q6HP PRN LEFTEYE 01/28/25 10:45 Hydralazine HCl 10 mg Q6HP PRN IV 01/28/25 10:45 Linezolid 300 ml @ 150 mls/hr Q12HR IV 01/28/25 22:00 01/31/25 09:23 150 MLS/HR Enteral Nutritional Formula 1,000 ml 30ML/HR GT 01/29/25 13:00 01/29/25 22:11 1,000 ML Rivaroxaban 2.5 mg BID PO 01/30/25 22:00 01/31/25 09:24 2.5 MG Laboratory Results Laboratory Tests 01/31/25 04:51 Chemistry Test 01/31/25 04:51 Albumin 3.4 g/dL (3.2-4.8) Calcium Level 8.9 mg/dL (8.7-10.4) Magnesium Level 1.9 mg/dL (1.6-2.6) Total Protein 5.5 g/dL (5.7-8.2) L LFT Test 01/31/25 04:51 Alanine Aminotransferase (ALT) 38 U/L (7-40) Alkaline Phosphatase 58 U/L (46-116) Aspartate Amino Transferase (AST) 51 U/L (13-40) H Total Bilirubin 0.7 mg/dL (0.2-1.0) Urinalysis Test 01/13/25 18:45 01/26/25 13:11 Urine Mucus Few (None Seen) Urine Color Yellow (Yellow) Urine Clarity Clear (Clear) Urine pH 5.5 (5.0-9.0) Urine Specific [place] 1.035 (1.001-1.035) Urine Protein Trace (Negative) H Urine Ketones Negative (Negative) Urine Blood 2+ /uL (Negative) H Urine Nitrite Negative (Negative) Urine Bilirubin Negative (Negative) Urine Urobilinogen Normal mg/dL (Negative) Urine Leukocyte Esterase 1+ /uL (Negative) Urine RBC 176 /hpf (0 - 4) Urine Microscopic WBC 19 /HPF (0-5) H Urine Squamous Epithelial Cells Few /hpf (<5) Urine Bacteria Few /hpf (None Seen) H Urine Yeast (Budding) Many /hpf (None Seen) Urine Glucose Normal mg/dL (Normal) Microbiology Microbiology Date/Time Source Procedure Growth Status 01/26/25 13:11 Voided Urine Urine Culture - Final Presumptive Catherine albicans Complete 01/26/25 11:30 Sputum Gram Stain - Final Resulted 01/26/25 11:30 Sputum Respiratory Culture - Preliminary Resulted 01/26/25 08:12 Blood Blood Culture - Final NO GROWTH AFTER 5 DAYS OF INCUBATION. Complete 01/25/25 11:28 Lung - Final Resulted 01/25/25 11:28 Lung - Final Resulted 01/25/25 11:28 Lung Pending Resulted 01/25/25 11:28 Lung Pending Resulted 01/25/25 11:28 Lung - Final See Separate Report... 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 FiO2 30%, tidal volume 400, respiratory rate 18, peep of 5 (extubated on 01/30/25) high-resolution CT chest shows emphysema, atelectase, no ILD Continued DAPT Staph. 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 hs aggressive Lantus 25 units q.a.m. Cardiology was reconsulted, patient had a left heart catheterization and bilateral leg angio today. A stent was placed in circumflex. 2nd procedure to be performed in lower extremety in 2-3 days. Patient will undergo lower extremity angiogram 01/29/25 01/30/25: pt extubated in AM. encourage PO intake once pt passes bedside swallow evaluation, then encourage more mobility 01/31/2025: pt is still on high-flow and labile, thus remains under critical care goal is wean down on supplemental O2 flow, then PT/OT evaluation Plan discussed with: Patient Date of Service: Jan 31, 2025 Billing Provider: BENJAMIN AGUIRRE DO Common Visit Codes: [id number] CARE 30-74 MIN BENJAMIN AGUIRRE DO Jan 31, 2025 18:32
--- NOTE | 2025-01-31 23:17 | DVHPN2 ---
Progress Note - Dictate Date Seen: Jan 31, 2025 Medical Necessity Reason Pt with a Central, PICC or Fol: Yes The following are medically ne: Hughes Catheter Reason for hughes catheter: Strict I&O Subjective Patient seen and examined at bedside. Remains on supplemental oxygen Overnight events reviewed. vital signs Vital Sign Date Time Temp Pulse Resp B/P (MAP) Pulse Ox O2 Delivery O2 Flow Rate FiO2 01/31/25 22:26 92 18 92 01/31/25 22:13 50.0 50 01/31/25 22:10 Nasal Cannula 01/31/25 22:00 154/74 (100) 01/31/25 20:00 98.2 98.2 Total Intake and Output 01/30/25 01/30/25 01/31/25 15:00 23:00 07:00 Intake Total 575 ml 845 ml 930 ml Output Total 2050 ml 2850 ml Balance 575 ml -1205 ml -1920 ml medications Current Medications Medications Dose Ordered Sig/Jake Route Start Time Stop Time Status Last Admin Dose Admin Albuterol 1.25 mg Q4HR NEB 01/13/25 18:00 01/31/25 22:09 1.25 MG Ipratropium [place] 0.5 mg Q4HR NEB 01/13/25 18:00 01/31/25 22:09 0.5 MG Cefepime HCl 50 ml @ 12.5 mls/hr Q8HR IV 01/14/25 14:00 UNV Clopidogrel Bisulfate 75 mg DAILY PO 01/15/25 10:00 01/31/25 09:23 75 MG Acetaminophen 650 mg Q8HP PRN PO 01/19/25 15:15 01/31/25 22:40 650 MG Atorvastatin Calcium 40 mg HS PO 01/22/25 22:00 01/31/25 22:12 40 MG Insulin Glargine 25 units DAILY@1000 SC 01/23/25 10:00 01/31/25 09:33 25 UNITS Dextrose 50 ml UD PRN IV 01/23/25 08:30 Insulin Human Regular Q6HR SC 01/25/25 12:00 01/31/25 11:22 8 UNITS Diagnostic Test (Pha) 1 strip Q6HR 01/25/25 12:00 01/31/25 17:44 1 STRIP Pantoprazole Sodium 40 mg DAILY IV 01/26/25 10:00 01/31/25 09:23 40 MG Methylprednisolone Sodium Succinate 40 mg DAILY IV 01/26/25 10:00 01/31/25 09:23 40 MG Voriconazole / Dextrose 250 ml @ 125 mls/hr Q12H IV 01/27/25 13:30 01/28/25 03:29 UNV Voriconazole 250 mg/Dextrose 275 ml @ 137.5 mls/ hr Q12H IV 01/27/25 21:00 01/31/25 20:59 137.5 MLS/HR Artificial Tears 2 drop Q6HP PRN LEFTEYE 01/28/25 10:45 Hydralazine HCl 10 mg Q6HP PRN IV 01/28/25 10:45 Linezolid 300 ml @ 150 mls/hr Q12HR IV 01/28/25 22:00 01/31/25 22:12 150 MLS/HR Enteral Nutritional Formula 1,000 ml 30ML/HR GT 01/29/25 13:00 01/29/25 22:11 1,000 ML Rivaroxaban 2.5 mg BID PO 01/30/25 22:00 01/31/25 22:11 2.5 MG objective Gen.: Patient lying in bed in no apparent distress. On supplemental oxygen. Head: Normocephalic, atraumatic. Eyes: EOMI/PERRLA. Ears: Normal hearing. Normal anatomy. Neck/trachea: Trachea midline, supple. Nose: Normal external anatomy. Mouth: Moist mucous membranes. Chest: Decreased air entry bilaterally. No wheezing or rhonchi. Cardiovascular: Positive S1, positive S2. Regular rate and rhythm. Abdomen: Positive bowel sounds in all 4 quadrants. Soft, non-tender, non- distended. : Deferred. Rectal: Deferred. Skin: Warm, dry. Intact. Extremities: 2+ radial pulses bilaterally. No lower extremity edema. Neuro: Awake, alert, oriented x3. No gross motor or sensory deficits. Cranial nerves II through XII intact. Gait not assessed. laboratory and microbiology Laboratory Tests 01/31/25 04:51 Test 01/31/25 04:51 Range/Units Serum Glucose 60 L 74-106 mg/dL Assessment/Plan Impression: Acute hypoxic respiratory failure Acute on chronic hypercarbic respiratory failure Multifocal pneumonia Mucous plugging Atelectasis Acute exacerbation of COPD CHF exacerbation Nicotine dependence (0.5 PPD x50 years - quit 1 wk prior to admission) Events: Remains on high flow supplemental oxygen at 50 LPM, FiO2 50% Improved FiO2 requirements Taper O2 as tolerated Continue bronchodilators Continue IV steroids Continue antibiotics Swallow eval. Head of bed elevation Aspiration precautions Labs and imaging reviewed. Rest of plan as noted below. Plan: S/p extubation on 01/30/25. Continue high flow supplemental oxygen Taper O2 as tolerated Titrate to keep O2 sats between 88-94%. Continue bronchodilators. Continue antibiotics Continue steroids Incentive spirometry Monitor renal function. Monitor electrolytes. Supplement as necessary. Monitor ins and outs. DVT prophylaxis. Prognosis: Poor given patient's multiple co-morbidities. Rest of plan per hospitalist and other consultants. A total of 51 minutes of clinical care time was spent reviewing the patient record, examining the patient, making a diagnostic and therapeutic plan, discussing this plan with the medical personnel, following up on diagnostic studies and following the patient for clinical stability excluding any and all procedures. At least 50% of this time was spent in direct, [id number] contact. Thank you, Dr. Galdamez, for allowing me to participate in this patient's care. Further recommendations will depend on the patient's clinical course. Please do not hesitate to contact me if you have any questions or concerns. This medical document was created using an electronic medical record system with [employer] dictation system. Although these documentations are being carefully reviewed, there may still be some phonetic and typographical changes. The errors are purely typographical, due to imperfection on the software program, and do not reflect any compromise in the patient's medical care. Dietary Evaluation Review Comments: Recommend CCHO-60 with 2 GNa Low fat Low Cholesterol Cardiac diet. Expected Outcomes/Goals: Tight DM control, Wt management Plan discussed with: Patient, Other (SULEIMAN Lopez) BETINA RUBIO MD Jan 31, 2025 23:17
[2025-02-01] VITALS (72 sets, daily range): BP systolic 118–182; BP diastolic 44–76; PULSE 71–108; RESP 14–30; TEMP 98.2–99.2; O2SAT 86–97
--- NOTE | 2025-02-01 07:16 | DVHPNRES ---
Progress Note Date Seen: Feb 01, 2025 Resident Creating Document: SHEA SCHMITZ RESIDENT Medical Necessity Reason Pt with a Central, PICC or Fol: Yes The following are medically ne: Hughes Catheter Reason for hughes catheter: Strict I&O Subjective Review of Systems Patient was seen and examined at bedside. She was extubated two days ago, she is currently on high-flow. Objective vital signs Vital Sign Date Time Temp Pulse Resp B/P (MAP) Pulse Ox O2 Delivery O2 Flow Rate FiO2 02/01/25 06:01 88 17 90 70.0 80 02/01/25 06:00 130/76 (94) 02/01/25 06:00 Hi-Flow Heated NC+ 02/01/25 04:00 98.4 98.4 Total Intake and Output 01/31/25 01/31/25 02/01/25 15:00 23:00 07:00 Intake Total 575.0 ml 1275 ml 740 ml Output Total 1650 ml 1250 ml Balance 575.0 ml -375 ml -510 ml medications Current Medications Medications Dose Ordered Sig/Jake Route Start Time Stop Time Status Last Admin Dose Admin Albuterol 1.25 mg Q4HR NEB 01/13/25 18:00 02/01/25 06:00 1.25 MG Ipratropium [place] 0.5 mg Q4HR NEB 01/13/25 18:00 02/01/25 06:00 0.5 MG Cefepime HCl 50 ml @ 12.5 mls/hr Q8HR IV 01/14/25 14:00 UNV Clopidogrel Bisulfate 75 mg DAILY PO 01/15/25 10:00 01/31/25 09:23 75 MG Acetaminophen 650 mg Q8HP PRN PO 01/19/25 15:15 01/31/25 22:40 650 MG Atorvastatin Calcium 40 mg HS PO 01/22/25 22:00 01/31/25 22:12 40 MG Insulin Glargine 25 units DAILY@1000 SC 01/23/25 10:00 01/31/25 09:33 25 UNITS Dextrose 50 ml UD PRN IV 01/23/25 08:30 Insulin Human Regular Q6HR SC 01/25/25 12:00 01/31/25 23:48 8 UNITS Diagnostic Test (Pha) 1 strip Q6HR 01/25/25 12:00 02/01/25 06:05 1 STRIP Pantoprazole Sodium 40 mg DAILY IV 01/26/25 10:00 01/31/25 09:23 40 MG Methylprednisolone Sodium Succinate 40 mg DAILY IV 01/26/25 10:00 01/31/25 09:23 40 MG Voriconazole / Dextrose 250 ml @ 125 mls/hr Q12H IV 01/27/25 13:30 01/28/25 03:29 UNV Voriconazole 250 mg/Dextrose 275 ml @ 137.5 mls/ hr Q12H IV 01/27/25 21:00 01/31/25 20:59 137.5 MLS/HR Artificial Tears 2 drop Q6HP PRN LEFTEYE 01/28/25 10:45 Hydralazine HCl 10 mg Q6HP PRN IV 01/28/25 10:45 Linezolid 300 ml @ 150 mls/hr Q12HR IV 01/28/25 22:00 01/31/25 22:12 150 MLS/HR Enteral Nutritional Formula 1,000 ml 30ML/HR GT 01/29/25 13:00 01/29/25 22:11 1,000 ML Rivaroxaban 2.5 mg BID PO 01/30/25 22:00 01/31/25 22:11 2.5 MG Examination General: Awake, alert, mild distress due to shortness of breath HEENT: Head is normocephalic and atraumatic. Pupils are equal, round, and reactive to light. Extraocular muscles are intact. No nasal discharge. No facial trauma. Intraoral exam shows moist mucous membranes with no tonsillar enlargement or exudate. Neck: Supple with no cervical lymphadenopathy No meningismus. No goiter. Heart: Regular rate without murmur, rub, or gallop. Lungs: Diminished breath sounds, mild bilateral crackles, scattered wheezing Abdomen: No external sign of injury. Bowel sounds are present. Abdomen is soft, nontender. No rebound, no guarding, no rigidity. There are no palpable masses. There is no flank pain on exam. Extremities: Strong peripheral pulses. There is no clubbing, no cyanosis, and no edema. Skin: No rash. Neurologic: Cranial nerves II-XII intact without motor, sensory, or cerebellar deficit, no asterixis. laboratory and microbiology Laboratory Tests 01/31/25 04:51 Test 01/31/25 04:51 Range/Units Serum Glucose 60 L 74-106 mg/dL Microbiology Date/Time Source Procedure Growth Status 01/26/25 13:11 Voided Urine Urine Culture - Final Presumptive Catherine albicans Complete 01/26/25 11:30 Sputum Gram Stain - Final Resulted 01/26/25 11:30 Sputum Respiratory Culture - Preliminary Resulted 01/26/25 08:12 Blood Blood Culture - Final NO GROWTH AFTER 5 DAYS OF INCUBATION. Complete 01/25/25 11:28 Lung - Final Resulted 01/25/25 11:28 Lung - Final Resulted 01/25/25 11:28 Lung Pending Resulted 01/25/25 11:28 Lung Pending Resulted 01/25/25 11:28 Lung - Final See Separate Report... 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 hs aggressive Lantus 25 units q.a.m. Cardiology was reconsulted, patient had a left heart catheterization and peripheral angio. A stent was placed in circumflex. Lines Left internal jugular triple-lumen catheter 01/25/25 Left arterial line 01/25/25 Intubated 01/25/25, extuabted 01/30/25 Goals of care were discussed for over 30 mins, full code Case was discussed with Dr. Chavez Plan discussed with: Patient, Other (RN) My Orders My Orders Orders - FABIAN VASQUEZ,SHEA RESIDENT Procedure Category Date Status Time Basic Metabolic Panel LAB 02/01/25 Logged 06:58 Magnesium LAB 02/01/25 Logged 06:58 Pt Request For Service PT 02/01/25 Logged 06:58 Dietary Evaluation Review Comments: Recommend CCHO-60 with 2 GNa Low fat Low Cholesterol Cardiac diet. Expected Outcomes/Goals: Tight DM control, Wt management Date of Service: Feb 01, 2025 Billing Provider: JUSTINE CHAVEZ MD Common Visit Codes: [id number] INP/OBS CARE(HIGH) SHEA SCHMITZ RESIDENT Feb 01, 2025 07:16 JUSTINE CHAVEZ MD Feb 02, 2025 14:50
[2025-02-01 09:34] LABS: Hematocrit 47.3 % (36.0-46.0); Mean Corpuscular Hemoglobin 32.8 pg (28.0-32.0); Mean Corpuscular Hgb Conc. 33.7 g/dL (32.0-36.0); Mean Corpuscular Volume 97.3 fL (80.0-100.0); Platelet Count (auto) 131 10^3/uL (140-450); Red Blood Cells 4.86 10^6/uL (4.0-5.20); Red Cell Distribution Width 14.6 % (11.8-14.3); White Blood Cell 12.5 10^3/uL (4.4-10.8)
[2025-02-01 09:36] LABS: Basophils % (manual) 0 (0.0-2.0); Blast Cells 0; Metamyelocytes % 0; Myelocytes % 0; Promyelocytes % 0
[2025-02-01 09:37] LABS: Anion Gap 7 (5-15); Carbon Dioxide 31 mmol/L (20-31); Chloride 102 mmol/L (98-107); Potassium 3.6 mmol/L (3.5-5.1); Sodium 140 mmol/L (136-145)
[2025-02-01 09:38] LABS: Calcium 9.1 mg/dL (8.7-10.4)
[2025-02-01 09:43] LABS: BUN/Creatinine Ratio 27.7 (10.0-20.0); Blood Urea Nitrogen 13 mg/dL (9-23); Magnesium 1.8 mg/dL (1.6-2.6)
[2025-02-01 09:45] LABS: Glucose 144 mg/dL (74-106)
[2025-02-01] MEDS: hydrALAZINE HCL 20 MG/ML VL IV PRN (10:13)
[2025-02-01 11:13] LABS: Anisocytosis Slight; Band Neutrophils % (manual) 4; Eosinophils % (manual) 1 (0-7); Lymphocytes % (manual) 13 (10.0-50.0); Monocytes % (manual) 6 (0-12); Platelet Estimate Decreased; Reactive Lymphocytes 1
--- NOTE | 2025-02-01 11:20 | DVH ---
CHEST RADIOGRAPH Indication: sob Technique: Single frontal view of the chest was obtained COMPARISON: XY CHEST PORTABLE on DOS: 01/30/25, XY CHEST PORTABLE on DOS: 01/29/25, XY CHEST PORTABLE o n DOS: 01/28/25, XY CHEST PORTABLE on DOS: 01/27/25, XY CHEST PORTABLE on DOS: 01/26/25 FINDINGS: Lines and Tubes: None Lungs: Bibasilar subsegmental atelectasis. Pleura: No effusion. No pneumothorax. Cardiomediastinal contours: Unremarkable Bones: Unremarkable IMPRESSION: No acute disease.
[2025-02-01] MEDS: POTASSIUM CHL 20 Meq TABLET PO ONE (12:28)
[2025-02-01] MEDS: FLUTICASONE PROP NASAL SPR 0.05 % (50MCG) 16GM EACHNOSTRI ONE (12:28)
[2025-02-01] MEDS: amLODIPine BESYLATE 5 MG TAB PO SCH (12:29)
[2025-02-01] MEDS: THROAT LOZENGES(CEPASTAT) MT PRN (14:02)
[2025-02-01] MEDS: SORE THROAT SPRAY 6OZ BOTTLE MT PRN (17:32)
[2025-02-01] MEDS: MAGNESIUM OXIDE 400 MG TAB PO SCH (21:56)
[2025-02-01] MEDS: FLUTICASONE PROP NASAL SPR 0.05 % (50MCG) 16GM EACHNOSTRI SCH (21:57)
[2025-02-01] MEDS: SALINE 0.65 % NASAL SPRAY 45ML BOTTLE EACHNOSTRI PRN (21:57)
[2025-02-02] VITALS (41 sets, daily range): BP systolic 104–158; BP diastolic 40–83; PULSE 74–109; RESP 18–38; TEMP 98–99.3; O2SAT 88–95
[2025-02-02 05:39] LABS: Basophils # (auto) 0 10 ^3/uL (0-0.2); Basophils % (auto) 0.3 % (0.0-2.0); Eosinophils # (auto) 0 10 ^3/uL (0-0.8); Eosinophils % (auto) 0.3 % (0.0-7.0); Hematocrit 49.1 % (36.0-46.0); Hemoglobin 16.3 g/dL (12.2-16.2); Lymphocytes # (auto) 1.3 10 ^3/uL (0.4-5.4); Lymphocytes % (auto) 13.3 % (10.0-50.0); Mean Corpuscular Hemoglobin 32.2 pg (28.0-32.0); Mean Corpuscular Hgb Conc. 33.2 g/dL (32.0-36.0); Mean Corpuscular Volume 97.1 fL (80.0-100.0); Monocytes # (auto) 0.5 10 ^3/uL (0-1.3); Neutrophils # (auto) 8.1 10 ^3/uL (1.6-8.6); Neutrophils % (auto) 81.1 % (37.0-80.0); Nucleated Red Blood Cells % 0.1 %; Platelet Count (auto) 128 10^3/uL (140-450); Red Blood Cells 5.06 10^6/uL (4.0-5.20); Red Cell Distribution Width 14.4 % (11.8-14.3)
[2025-02-02 05:50] LABS: Anion Gap 5 (5-15); Carbon Dioxide 29 mmol/L (20-31); Chloride 105 mmol/L (98-107); Potassium 3.9 mmol/L (3.5-5.1); Sodium 139 mmol/L (136-145)
[2025-02-02 05:56] LABS: BUN/Creatinine Ratio 38.5 (10.0-20.0); Blood Urea Nitrogen 15 mg/dL (9-23); Magnesium 1.8 mg/dL (1.6-2.6)
[2025-02-02 05:57] LABS: Glucose 71 mg/dL (74-106)
[2025-02-02 06:12] LABS: Calcium 9.2 mg/dL (8.7-10.4)
--- NOTE | 2025-02-02 13:14 | DVHPNRES ---
Progress Note Date Seen: Feb 02, 2025 Resident Creating Document: SHEA SCHMITZ RESIDENT Medical Necessity Reason Pt with a Central, PICC or Fol: Yes The following are medically ne: Hughes Catheter Reason for hughes catheter: Strict I&O Subjective Review of Systems Patient was seen and examined at bedside, she is currently on high-flow. Respiratory rate is fluctuating from 18-30s. Family meeting is to be held today. Objective vital signs Vital Sign Date Time Temp Pulse Resp B/P (MAP) Pulse Ox O2 Delivery O2 Flow Rate FiO2 02/02/25 12:00 38 89 Hi-Flow Heated NC+ 50 60 60 02/02/25 12:00 99.3 98 139/60 (86) 99.3 Total Intake and Output 02/01/25 02/01/25 02/02/25 15:00 23:00 07:00 Intake Total 275.0 ml 500 ml 537.5 ml Output Total 800 ml 950 ml Balance 275.0 ml -300 ml -412.5 ml medications Current Medications Medications Dose Ordered Sig/Jake Route Start Time Stop Time Status Last Admin Dose Admin Albuterol 1.25 mg Q4HR NEB 01/13/25 18:00 02/02/25 10:39 1.25 MG Ipratropium [place] 0.5 mg Q4HR NEB 01/13/25 18:00 02/02/25 10:40 0.5 MG Cefepime HCl 50 ml @ 12.5 mls/hr Q8HR IV 01/14/25 14:00 UNV Clopidogrel Bisulfate 75 mg DAILY PO 01/15/25 10:00 02/02/25 09:31 75 MG Acetaminophen 650 mg Q8HP PRN PO 01/19/25 15:15 02/01/25 17:33 650 MG Atorvastatin Calcium 40 mg HS PO 01/22/25 22:00 02/01/25 21:56 40 MG Dextrose 50 ml UD PRN IV 01/23/25 08:30 Insulin Human Regular Q6HR SC 01/25/25 12:00 02/02/25 00:35 4 UNITS Diagnostic Test (Pha) 1 strip Q6HR 01/25/25 12:00 02/02/25 06:09 1 STRIP Pantoprazole Sodium 40 mg DAILY IV 01/26/25 10:00 02/02/25 09:31 40 MG Methylprednisolone Sodium Succinate 40 mg DAILY IV 01/26/25 10:00 02/02/25 09:31 40 MG Voriconazole / Dextrose 250 ml @ 125 mls/hr Q12H IV 01/27/25 13:30 01/28/25 03:29 UNV Artificial Tears 2 drop Q6HP PRN LEFTEYE 01/28/25 10:45 Hydralazine HCl 10 mg Q6HP PRN IV 01/28/25 10:45 02/01/25 10:13 10 MG Rivaroxaban 2.5 mg BID PO 01/30/25 22:00 02/02/25 09:34 2.5 MG Throat Lozenges 1 telma Q2HP PRN MT 02/01/25 11:45 02/01/25 14:02 1 TELMA Fluticasone Propionate 50 mcg Q12HR EACHNOSTRI 02/01/25 22:00 02/02/25 09:36 50 MCG Sodium Chloride 1 spr QIDP PRN EACHNOSTRI 02/01/25 11:45 02/01/25 21:57 1 SPR Amlodipine Besylate 10 mg DAILY PO 02/01/25 11:58 02/02/25 09:34 10 MG Phenol/Menthol 1 spr Q2HP PRN MT 02/01/25 14:15 02/01/25 17:32 1 SPR Magnesium Oxide 400 mg BID PO 02/01/25 22:00 02/02/25 09:31 400 MG Voriconazole 200 mg BIDAC PO 02/02/25 17:00 Examination General: Awake, alert, mild distress due to shortness of breath HEENT: Head is normocephalic and atraumatic. Pupils are equal, round, and reactive to light. Extraocular muscles are intact. No nasal discharge. No facial trauma. Intraoral exam shows moist mucous membranes with no tonsillar enlargement or exudate. Neck: Supple with no cervical lymphadenopathy No meningismus. No goiter. Heart: Regular rate without murmur, rub, or gallop. Lungs: Diminished breath sounds, mild bilateral crackles, scattered wheezing Abdomen: No external sign of injury. Bowel sounds are present. Abdomen is soft, nontender. No rebound, no guarding, no rigidity. There are no palpable masses. There is no flank pain on exam. Extremities: Strong peripheral pulses. There is no clubbing, no cyanosis, and no edema. Skin: scaly skin, dry skin, poor feet hygiene Neurologic: Cranial nerves II-XII intact without motor, sensory, or cerebellar deficit, no asterixis. laboratory and microbiology Laboratory Tests 02/02/25 05:10 Test 02/02/25 05:10 Range/Units Serum Glucose 71 L 74-106 mg/dL Microbiology Date/Time Source Procedure Growth Status 01/26/25 13:11 Voided Urine Urine Culture - Final Presumptive Cahterine albicans Complete 01/26/25 11:30 Sputum Gram Stain - Final Resulted 01/26/25 11:30 Sputum Respiratory Culture - Preliminary Resulted 01/26/25 08:12 Blood Blood Culture - Final NO GROWTH AFTER 5 DAYS OF INCUBATION. Complete 01/25/25 11:28 Lung - Final Resulted 01/25/25 11:28 Lung - Final Resulted 01/25/25 11:28 Lung Pending Resulted 01/25/25 11:28 Lung Pending Resulted 01/25/25 11:28 Lung - Final See Separate Report... 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 b.i.d., for least 6- 12 more weeks Continue DuoNebs q.4 Solu-Medrol 40 mg IV qd Insulin a.c. hs aggressive Discontinue Lantus 25 units q.a.m. Cardiology was reconsulted, patient had a left heart catheterization and peripheral angio. A stent was placed in circumflex. Lines Left internal jugular triple-lumen catheter 01/25/25 Intubated 01/25/25, extubated 01/30/25 We had a meeting with the son today and we went through patient current status, we disclosed the poor prognosis of the patient, we will have another family meeting tomorrow to decide on hospice care. Goals of care were discussed for over 30 mins, modified code, DNI, may do chest compressions and shock Case was discussed with Dr. Chavez Plan discussed with: Patient, Son, Other (RN) My Orders My Orders Orders - SHEA SCHMITZ RESIDENT Procedure Category Date Status Time Sore Throat Boody PHA 02/01/25 In Process (Chloraseptic) 14:15 *Podiatry Consult CONS 02/01/25 Transmitted Musson(Dvmg) 14:34 Magnesium Oxide PHA 02/01/25 In Process Tablet (Mag-Ox Tablet) 22:00 Voriconazole (Vfend) PHA 02/02/25 In Process 17:00 Dietary Evaluation Review Comments: Recommend CCHO-60 with 2 GNa Low fat Low Cholesterol Cardiac diet. Expected Outcomes/Goals: Tight DM control, Wt management Date of Service: Feb 02, 2025 Billing Provider: JUSTINE CHAVEZ MD Common Visit Codes: [id number] INP/OBS CARE(HIGH) SHEA SCHMITZ RESIDENT Feb 02, 2025 13:14 JUSTINE CHAVEZ MD Feb 02, 2025 16:01
[2025-02-02] MEDS: VORICONAZOLE 50 MG TAB PO SCH (18:00)
[2025-02-03] VITALS (46 sets, daily range): BP systolic 98–160; BP diastolic 36–65; PULSE 73–95; RESP 15–31; TEMP 97.9–99.1; O2SAT 87–99
[2025-02-03 05:40] LABS: Chloride 101 mmol/L (98-107); Potassium 4.1 mmol/L (3.5-5.1)
[2025-02-03 05:41] LABS: Anion Gap 5 (5-15); Carbon Dioxide 29 mmol/L (20-31)
[2025-02-03 05:43] LABS: Sodium 135 mmol/L (136-145)
[2025-02-03 05:47] LABS: BUN/Creatinine Ratio 42.9 (10.0-20.0); Blood Urea Nitrogen 18 mg/dL (9-23); Glucose 78 mg/dL (74-106)
[2025-02-03 06:39] LABS: Basophils # (auto) 0 10 ^3/uL (0-0.2); Basophils % (auto) 0.1 % (0.0-2.0); Eosinophils # (auto) 0 10 ^3/uL (0-0.8); Eosinophils % (auto) 0.4 % (0.0-7.0); Hematocrit 47.7 % (36.0-46.0); Hemoglobin 15.9 g/dL (12.2-16.2); Lymphocytes # (auto) 1.4 10 ^3/uL (0.4-5.4); Lymphocytes % (auto) 14.1 % (10.0-50.0); Mean Corpuscular Hemoglobin 32.2 pg (28.0-32.0); Mean Corpuscular Hgb Conc. 33.3 g/dL (32.0-36.0); Mean Corpuscular Volume 96.7 fL (80.0-100.0); Monocytes # (auto) 0.5 10 ^3/uL (0-1.3); Monocytes % (auto) 4.8 % (0.0-12.0); Neutrophils # (auto) 7.9 10 ^3/uL (1.6-8.6); Neutrophils % (auto) 80.6 % (37.0-80.0); Platelet Count (auto) 112 10^3/uL (140-450); Red Blood Cells 4.93 10^6/uL (4.0-5.20); Red Cell Distribution Width 14.4 % (11.8-14.3); White Blood Cell 9.8 10^3/uL (4.4-10.8)
--- NOTE | 2025-02-03 11:38 | DVHINCON2 ---
Date Seen: Feb 03, 2025 Reason for Consultation Painful nails post thrombectomy History of Present Illness Kaylie Mao is a 79-year-old female patient with past medical history of COPD not on home oxygen, solitary pulmonary nodules, left PAD status post PTCA of left superficial femoral artery and popliteal artery. placed by Dr. Juan James, hypertension, diabetes mellitus type 2, internal and external hemorrhoids, colonic polyp, diverticulosis who was sent to the ER from [facility] with a chief complaint of shortness of breaths and generalized weakness for 1 day. She lives with her son who is the caregiver. Per son who is present at bedside, patient developed generalized weakness and shortness of breaths on waking up and she could not transfer herself from the bed to wheelchair. Patient uses albuterol and Breztri inhaler but did not increase the consumption recently, she has chronic cough but the cough did not worsened re cently. She smokes half a pack a day for the past 50 years, quit 1 week back. No recent immobilization/hospitalization or surgery history. She denies chest pain, palpitations, nausea, vomiting, diaphoresis, back pain, constipation or diarrhea. Past Medical History See H&P Past Surgical History See H&P Family History: Alcoholism G8 SISTER, Onset:15's - 20 Cancer G8 MOTHER, Onset:50's - 60 Chronic obstructive pulmonary disease Family history: Cardiovascular disease G8 FATHER, Onset:60 years & older G8 BROTHER G8 SISTER Family history: Diabetes mellitus G8 FATHER, Onset:60 years & older G8 BROTHER, Onset:50's - 60 G8 SISTER, Onset:30's - 40 Family history: Hypertension G8 FATHER, Onset:50's - 60 Seizure disorder (situation) G8 SISTER, Onset:30's - 40 Stroke G8 FATHER, Onset:60 years & older Allergies: Coded Allergies: NO KNOWN ALLERGIES (Unverified , 04/15/19) Home Meds Reported Medications Hopxcsylvr-Sfpzcbjkihalyx-Mwyo (Breztri Aerosphere 160-9-4.8 Mcg/Act) 1 Aer Aer, 1 AER IN BID, AER 01/13/25 Albuterol Sulfate (Albuterol Sulfate Hfa) 108 Mcg/Act Aer, 90 MCG IN QIDPRN, AER 01/13/25 Hydrochlorothiazide (Hydrochlorothiazide) 12.5 Mg Cap, 12.5 MG PO DAILY for 30 Days, MG 01/13/25 Aspirin (Aspir-Low) 81 Mg Tab, 81 MG PO DAILY for 30 Days, MG 04/15/19 Clopidogrel Bisulfate (Plavix) 75 Mg Tab, 1 TAB PO DAILY, #90 TAB 1 Refill 07/01/15 Amlodipine Besylate (Amlodipine Besylate) 5 Mg Tab, 10 MG PO DAILY for 30 Days, MG 07/01/15 Current Medications Current Medications Medications (Trade) Dose Ordered Sig/Jake Route PRN Reason Start Time Stop Time Status Last Admin Voriconazole (Vfend) 200 mg BIDAC PO 02/02/25 17:00 02/03/25 06:31 Vital Signs Vital Signs Date Time Temp Pulse Resp B/P (MAP) Pulse Ox O2 Delivery O2 Flow Rate FiO2 02/03/25 11:00 89 20 144/48 (80) 90 02/03/25 10:00 Hi-Flow Heated NC+ 50 60 60 02/03/25 08:00 97.9 97.9 Physical Exam DERMATOLOGIC EXAM: - Nails 1-5 of the bilateral foot are thickened, discolored, dystrophic, and tender to palpate with subungual debris - No open lesions or wounds noted bilaterally - No hyperkeratotic lesions noted bilaterally. - Hair loss noted to bilateral feet - Skin is shiny and thin bilateral feet VASCULAR EXAM: - DP and PT pulses are nonpalpable. - FORMULATOR is brisk to all digits. - Feet are cool to touch compared to lower legs bilaterally. - 1+ edema noted to the leg, foot, and ankle bilaterally. - dusky appearance to digits 1 through 5 bilaterally NEUROLOGIC EXAM: - Normal light touch sensation to the superficial peroneal, deep peroneal, sural, saphenous, and tibial nerve branches. - Protective sensation is diminished as tested with a 5.07 10g Carlos-Sergo Monofilament bilaterally. - Vibratory sensation absent to medial 1st MPJ bilaterally MUSCULOSKELETAL EXAM: - No gross deformities - Muscle strength is 5/5 and active motion is pain-free and symmetrical bilaterally - No pain or crepitation with passive range of motion bilaterally to all major pedal joints Labs/Diagnostic Data Labs Test 02/03/25 08:37 02/03/25 04:55 02/01/25 09:18 3/23/25 04:51 Range/Units POC Glucose 167 H 70-106 mg/dl White Blood Count 9.8 4.4-10.8 10^3/uL Red Blood Count 4.93 4.0-5.20 10^6/uL Hemoglobin 15.9 12.2-16.2 g/dL Hematocrit 47.7 H 36.0-46.0 % Mean Corpuscular Volume 96.7 80.0-100.0 fL Mean Corpuscular Hemoglobin 32.2 H 28.0-32.0 pg Mean Corpuscular Hemoglobin Concent 33.3 32.0-36.0 g/dL Red Cell Distribution Width 14.4 H 11.8-14.3 % Platelet Count 112 L 140-450 10^3/uL Mean Platelet Volume 9.2 6.9-10.8 fL Neutrophils (%) (Auto) 80.6 H 37.0-80.0 % Lymphocytes (%) (Auto) 14.1 10.0-50.0 % Monocytes (%) (Auto) 4.8 0.0-12.0 % Eosinophils (%) (Auto) 0.4 0.0-7.0 % Basophils (%) (Auto) 0.1 0.0-2.0 % Neutrophils # (Auto) 7.9 1.6-8.6 10 ^3/uL Lymphocytes # (Auto) 1.4 0.4-5.4 10 ^3/uL Monocytes # (Auto) 0.5 0-1.3 10 ^3/uL Eosinophils # (Auto) 0 0-0.8 10 ^3/uL Basophils # (Auto) 0 0-0.2 10 ^3/uL Nucleated Red Blood Cells 0.0 % Sodium Level 135 L 136-145 mmol/L Potassium Level 4.1 3.5-5.1 mmol/L Chloride Level 101 98-107 mmol/L Carbon Dioxide Level 29 20-31 mmol/L Anion Gap 5 5-15 Blood Urea Nitrogen 18 9-23 mg/dL Creatinine 0.42 L 0.550-1.02 mg/dL Glomerular Filtration Rate Calc 100 >90 mL/min BUN/Creatinine Ratio 42.9 H 10.0-20.0 Serum Glucose 78 74-106 mg/dL Calcium Level 9.0 8.7-10.4 mg/dL Magnesium Level 2.0 1.6-2.6 mg/dL Differential Total Cells Counted 100.0 100 Neutrophils % (Manual) 75 37.0-80.0 Band Neutrophils % (Manual) 4 Lymphocytes % (Manual) 13 10.0-50.0 Monocytes % (Manual) 6 0-12 Eosinophils % (Manual) 1 0-7 Basophils % (Manual) 0 0.0-2.0 Metamyelocytes % (manual) 0 Myelocytes % (Manual) 0 Promyelocytes % (Manual) 0 Blast Cells % (Manual) 0 Reactive Lymphocytes 1 Platelet Estimate Decreased Anisocytosis (manual) Slight Total Bilirubin 0.7 0.2-1.0 mg/dL Aspartate Amino Transferase (AST) 51 H 13-40 U/L Alanine Aminotransferase (ALT) 38 7-40 U/L Alkaline Phosphatase 58 46-116 U/L Total Protein 5.5 L 5.7-8.2 g/dL Albumin 3.4 3.2-4.8 g/dL Test 01/30/25 09:07 01/30/25 06:26 01/27/25 14:30 01/27/25 04:31 Range/Units Blood Gas Specimen Type Arterial Blood Gas Sample Site Left brachial Blood Gas Patient Temperature 37.0 Arterial Blood Date Drawn [id number] Arterial Blood pH 7.533 H 7.350-7.450 Arterial Blood Partial Pressure CO2 27.8 L 32.0-45.0 mmHg Arterial Blood Partial Pressure O2 63.0 L 83.0-108.0 mmHg Arterial Blood HCO3 22.9 21.0-28.0 mmol/L Arterial Blood Oxygen Saturation 92.7 L 94.0-98.0 % Arterial Blood Base Excess 1.6 -2.0-3.0 mmol/L Arterial Blood Oxyhemoglobin 91.8 L 94.0-98.0 % Arterial Blood Carboxyhemoglobin 0.6 0.5-1.5 % Arterial Blood Methemoglobin 0.4 0.0-1.5 % Timothy Test N/a Blood Gas Total Hemoglobin 15.40 12.0-16.0 g/dL Blood Gas Modality Vent - cpap FiO2 % 35.0 Blood Gas Pressure Support 8 Blood Gas PEEP or CPAP 5.0 Blood Gas Set Respiration Rate 18.0 Blood Gas Tidal Volume 450.0 Blood Gas Critical Value Read Back Yes Blood Gas Notified Whom tori Robison md Blood Gas Notified Time [id number] Blood Gas Notified By Water Resources Project Manager johnna stevenson Miscellaneous Referred Test (Rm Tmp Sent to [facility] Prothrombin Time 10.9 9.3-11.8 sec Prothrombin Time INR 1.03 0.9-1.15 Activated Partial Thromboplast Time 29.6 24.5-34.5 SEC Test 01/26/25 13:11 01/26/25 08:12 01/25/25 05:51 01/24/25 09:33 Range/Units Urine Color Yellow Yellow Urine Clarity Clear Clear Urine pH 5.5 5.0-9.0 Urine Specific [place] 1.035 1.001-1.035 Urine Protein Trace H Negative Urine Ketones Negative Negative Urine Blood 2+ H Negative /uL Urine Nitrite Negative Negative Urine Bilirubin Negative Negative Urine Urobilinogen Normal Negative mg/dL Urine Leukocyte Esterase 1+ Negative /uL Urine RBC 176 0 - 4 /hpf Urine Microscopic WBC 19 H 0-5 /HPF Urine Squamous Epithelial Cells Few <5 /hpf Urine Bacteria Few H None Seen /hpf Urine Yeast (Budding) Many None Seen /hpf Urine Glucose Normal Normal mg/dL Lactic Acid Level 1.2 0.4-2.0 mmol/L Blood Gas Spontaneous Rate 20 Blood Gas Spontaneous Tidal Volume 532 Blood Gas EPAP 7 Blood Gas IPAP 12 Blood Gas Liter Flow 55.00 Test 01/22/25 04:44 01/20/25 04:55 01/15/25 04:45 01/14/25 15:55 Range/Units B-Type Natriuretic Peptide 85.65 0-100 pg/mL Smudge Cells /100 WBC Clumped Platelets None Iron Level 203 H 50-170 ug/dL Total Iron Binding Capacity 262 250-425 ug/dL Percent Iron Saturation 77.5 H 15-50 % Ferritin 198.9 10-291 ng/mL Thyroid Stimulating Hormone (TSH) 0.47 L 0.55-4.78 uIU/mL Influenza Type A Antigen Negative Negative Influenza Type B Antigen Negative Negative SARS-CoV-2 Antigen (Rapid) Negative NEGATIVE Test 01/14/25 05:11 01/13/25 21:55 01/13/25 18:45 01/13/25 17:56 Range/Units Hemoglobin A1c 6.3 H <5.7 % A1C Free Thyroxine (T4) Calculated 1.02 0.89-1.76 ng/dL Total Triiodothyronine (TT3) 0.64 0.60-1.81 ng/mL Troponin I High Sensitivity 350 *H </=34 ng/L Urine Mucus Few None Seen Urine Opiates Screen Neg NEGATIVE Urine Fentanyl Screen Neg NEGATIVE Urine Barbiturates Screen Neg NEGATIVE Urine Phencyclidine Screen Neg NEGATIVE Urine Amphetamines Screen Neg NEGATIVE Urine Benzodiazepines Screen Neg NEGATIVE Urine Cocaine Screen Neg NEGATIVE Urine Cannabinoids Screen Neg NEGATIVE D-Dimer, Quantitative 0.71 H 0.0-0.49 mg/L FEU Microbiology Date/Time Source Procedure Growth Status 01/26/25 13:11 Voided Urine Urine Culture - Final Presumptive Catherine albicans Complete 01/26/25 11:30 Sputum Gram Stain - Final Resulted 01/26/25 11:30 Sputum Respiratory Culture - Preliminary Resulted 01/26/25 08:12 Blood Blood Culture - Final NO GROWTH AFTER 5 DAYS OF INCUBATION. Complete 01/25/25 11:28 Lung - Final Resulted 01/25/25 11:28 Lung - Final Resulted 01/25/25 11:28 Lung Pending Resulted 01/25/25 11:28 Lung Pending Resulted 01/25/25 11:28 Lung - Final See Separate Report... Resulted Problems(with codes): (1) SEPTICEMIA NOS (2) HYPOSMOLALITY (3) OSTEOMYELITIS NOS-ANKLE (4) CELLULITIS OF FOOT (5) SEPSIS (6) ULCER OF OTHER PART OF FOOT (7) PERIPH VASCULAR DIS NOS (8) TOBACCO USE DISORDER (9) HYPERTENSION NOS (10) HYPOPOTASSEMIA Plan/Recommendation ASSESSMENT: Patient is a 79-year-old seen on the floor for dusky digits and painful nails PLAN: - The patients chart was reviewed, clinical findings were discussed with the patient, the etiologies of the conditions were discussed in detail, and a treatment plan was agreed to at this time, with both oral and written instructions provided. - After verbal consent was obtained, all nails of the bilateral foot (>5 nails in total) were trimmed in length and debrided of thickness with a nail nipper and rotary bur. - Discussed the importance of checking their feet for blisters, cuts or sores, redness, or swelling. Tell your doctor right away if you find something wrong - discussed that we will wait to see if the days demarcate before doing anything definitive - continue to monitor - can follow up as an outpatient for continued foot care All questions were answered and concerns addressed to the patient's satisfaction. The patient was given the phone number to the clinic and was told how to make contact with the clinic should any concerns or questions arise. Patient understands that if any questions or concerns arise prior to the next appointment, we should be contacted immediately. FOLLOW-UP: Patient will follow up with me in 2-3 months for continued nail care Plan discussed with: Patient Date of Service: Feb 03, 2025 Billing Provider: MAX JEFFREY DPM Common Visit Codes: CONSULT ONLY Consultation Codes: [id number] CONSULT <80MIN MAX JEFFREY DPM Feb 03, 2025 11:38
[2025-02-03] MEDS: FUROSEMIDE 40 MG/4 ML VIAL IV ONE (12:36)
[2025-02-03] MEDS ORDERED: DEXTROSE (50%) 50ML SYRG IV PRN (15:00)
--- NOTE | 2025-02-03 15:05 | DVHPNRES ---
Progress Note Date Seen: Feb 03, 2025 Resident Creating Document: SHEA SCHMITZ RESIDENT Medical Necessity Reason Pt with a Central, PICC or Fol: Yes The following are medically ne: Hughes Catheter Reason for hughes catheter: Strict I&O Subjective Review of Systems Patient was seen and examined at bedside, she is currently on simple mask. Respiratory rate is fluctuating from 18-30s, which worsens when she is eating or speaking. Objective vital signs Vital Sign Date Time Temp Pulse Resp B/P (MAP) Pulse Ox O2 Delivery O2 Flow Rate FiO2 02/03/25 14:56 94 Simple Mask* 10 99 02/03/25 14:56 90 24 02/03/25 14:00 109/48 (68) 02/03/25 12:00 98.3 98.3 Total Intake and Output 02/02/25 02/02/25 02/03/25 15:00 23:00 07:00 Intake Total 275.0 ml 500 ml 600 ml Output Total 1275 ml 550 ml Balance 275.0 ml -775 ml 50 ml medications Current Medications Medications Dose Ordered Sig/Jake Route Start Time Stop Time Status Last Admin Dose Admin Albuterol 1.25 mg Q4HR NEB 01/13/25 18:00 02/03/25 14:56 1.25 MG Ipratropium [place] 0.5 mg Q4HR NEB 01/13/25 18:00 02/03/25 14:56 0.5 MG Cefepime HCl 50 ml @ 12.5 mls/hr Q8HR IV 01/14/25 14:00 UNV Clopidogrel Bisulfate 75 mg DAILY PO 01/15/25 10:00 02/03/25 08:49 75 MG Acetaminophen 650 mg Q8HP PRN PO 01/19/25 15:15 02/02/25 22:02 650 MG Atorvastatin Calcium 40 mg HS PO 01/22/25 22:00 02/02/25 22:02 40 MG Dextrose 50 ml UD PRN IV 01/23/25 08:30 Diagnostic Test (Pha) 1 strip Q6HR 01/25/25 12:00 02/03/25 12:46 1 STRIP Pantoprazole Sodium 40 mg DAILY IV 01/26/25 10:00 02/03/25 08:49 40 MG Methylprednisolone Sodium Succinate 40 mg DAILY IV 01/26/25 10:00 02/03/25 08:49 40 MG Voriconazole / Dextrose 250 ml @ 125 mls/hr Q12H IV 01/27/25 13:30 01/28/25 03:29 UNV Artificial Tears 2 drop Q6HP PRN LEFTEYE 01/28/25 10:45 Hydralazine HCl 10 mg Q6HP PRN IV 01/28/25 10:45 02/01/25 10:13 10 MG Rivaroxaban 2.5 mg BID PO 01/30/25 22:00 02/03/25 08:51 2.5 MG Throat Lozenges 1 telma Q2HP PRN MT 02/01/25 11:45 02/01/25 14:02 1 TELMA Fluticasone Propionate 50 mcg Q12HR EACHNOSTRI 02/01/25 22:00 02/03/25 08:51 50 MCG Sodium Chloride 1 spr QIDP PRN EACHNOSTRI 02/01/25 11:45 02/01/25 21:57 1 SPR Amlodipine Besylate 10 mg DAILY PO 02/01/25 11:58 02/03/25 08:50 10 MG Phenol/Menthol 1 spr Q2HP PRN MT 02/01/25 14:15 02/03/25 08:51 1 SPR Magnesium Oxide 400 mg BID PO 02/01/25 22:00 02/03/25 08:50 400 MG Voriconazole 200 mg BIDAC PO 02/02/25 17:00 02/03/25 06:31 200 MG Diagnostic Test (Pha) 1 strip ACHS 02/03/25 17:00 UNV Insulin Human Regular HS SC 02/03/25 22:00 UNV Insulin Human Regular AC SC 02/03/25 17:00 UNV Dextrose 50 ml UD PRN IV 02/03/25 15:00 UNV Examination General: Awake, alert, mild distress due to shortness of breath HEENT: Head is normocephalic and atraumatic. Pupils are equal, round, and reactive to light. Extraocular muscles are intact. No nasal discharge. No facial trauma. Intraoral exam shows moist mucous membranes with no tonsillar enlargement or exudate. Neck: Supple with no cervical lymphadenopathy No meningismus. No goiter. Heart: Regular rate without murmur, rub, or gallop. Lungs: Diminished breath sounds, scattered crackles, scattered wheezing Abdomen: No external sign of injury. Bowel sounds are present. Abdomen is soft, nontender. No rebound, no guarding, no rigidity. There are no palpable masses. There is no flank pain on exam. Extremities: Strong peripheral pulses. There is no clubbing, no cyanosis, and no edema. Skin: scaly skin, dry skin, poor feet hygiene Neurologic: Cranial nerves II-XII intact without motor, sensory, or cerebellar deficit, no asterixis. laboratory and microbiology Laboratory Tests 02/03/25 04:55 Test 02/03/25 04:55 Range/Units Serum Glucose 78 74-106 mg/dL Microbiology Date/Time Source Procedure Growth Status 01/26/25 13:11 Voided Urine Urine Culture - Final Presumptive Catherine albicans Complete 01/26/25 11:30 Sputum Gram Stain - Final Resulted 01/26/25 11:30 Respiratory Culture - Preliminary Aspergillus fumigatus Resulted 01/26/25 08:12 Blood Blood Culture - Final NO GROWTH AFTER 5 DAYS OF INCUBATION. Complete 01/25/25 11:28 Lung - Final Resulted 01/25/25 11:28 Lung - Final Resulted 01/25/25 11:28 Lung Pending Resulted 01/25/25 11:28 Lung Pending Resulted 01/25/25 11:28 Lung - Final See Separate Report... 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 b.i.d., for least 6-12 more weeks Continue DuoNebs q.4 Solu-Medrol 40 mg IV qd Insulin a.c. hs aggressive Lines Left internal jugular triple-lumen catheter 01/25/25 Intubated 01/25/25, extubated 01/30/25 visitor services assistant consult for hospice at home Goals of care were discussed for over 30 mins, modified code, DNI, may do chest compressions and shock Case was discussed with Dr. Chavez Plan discussed with: Patient, Other (RN) My Orders My Orders Orders - SHEA SCHMITZ RESIDENT Procedure Category Date Status Time * Rib Builder CONS 02/02/25 Transmitted Consult Insulin R (Human) PHA 02/03/25 Logged (Insulin R) 22:00 Insulin R (Human) PHA 02/03/25 Logged (Insulin R) 17:00 Dextrose 50% Syringe PHA 02/03/25 Logged 15:00 Glucose Blood PHA 02/03/25 Verified (Accu-Chek Comfort 17:00 Dietary Evaluation Review Comments: Recommend CCHO-60 with 2 GNa Low fat Low Cholesterol Cardiac diet. Expected Outcomes/Goals: Tight DM control, Wt management Date of Service: Feb 03, 2025 Billing Provider: JUSTINE CHAVEZ MD Common Visit Codes: [id number] INP/OBS CARE(HIGH) SHEA SCHMITZ RESIDENT Feb 03, 2025 15:05 JUSTINE CHAVEZ MD Feb 03, 2025 15:41
[2025-02-03] MEDS: ACCU-CHEK COMFORT CURVE STRIP VI SCH (17:03)
[2025-02-03] MEDS: InsuLIN REG 1unit/0.01ml Soln (100units/ml) SC SCH ×2 (17:10→21:44)
[2025-02-04] VITALS (40 sets, daily range): BP systolic 97–126; BP diastolic 45–76; PULSE 81–103; RESP 18–42; TEMP 98–98.8; O2SAT 91–98
[2025-02-04 05:16] LABS: Anion Gap 4 (5-15); Carbon Dioxide 31 mmol/L (20-31); Chloride 102 mmol/L (98-107); Sodium 137 mmol/L (136-145)
[2025-02-04 05:22] LABS: BUN/Creatinine Ratio 52.3 (10.0-20.0); Blood Urea Nitrogen 23 mg/dL (9-23)
[2025-02-04 05:23] LABS: Calcium 8.7 mg/dL (8.7-10.4); Glucose 116 mg/dL (74-106)
--- NOTE | 2025-02-04 06:40 | DVHPNRES ---
Progress Note Date Seen: Feb 04, 2025 Resident Creating Document: SHEA SCHMITZ RESIDENT Medical Necessity Reason Pt with a Central, PICC or Fol: Yes The following are medically ne: Hughes Catheter Reason for hughes catheter: Strict I&O Subjective Review of Systems Patient was seen and examined at bedside, she is currently on simple mask at 8lts. Respiratory rate is fluctuating from 18-28s, which worsens when she is eating or speaking. Objective vital signs Vital Sign Date Time Temp Pulse Resp B/P (MAP) Pulse Ox O2 Delivery O2 Flow Rate FiO2 02/04/25 05:56 86 20 96 02/04/25 05:50 Mask 8.0 02/04/25 05:50 60 02/04/25 05:00 107/50 (69) 02/04/25 04:00 98.8 98.8 Total Intake and Output 02/03/25 02/03/25 02/04/25 15:00 23:00 07:00 Intake Total 825 ml Output Total 1100 ml Balance -275 ml medications Current Medications Medications Dose Ordered Sig/Jake Route Start Time Stop Time Status Last Admin Dose Admin Albuterol 1.25 mg Q4HR NEB 01/13/25 18:00 02/04/25 05:50 1.25 MG Ipratropium [place] 0.5 mg Q4HR NEB 01/13/25 18:00 02/04/25 05:50 0.5 MG Cefepime HCl 50 ml @ 12.5 mls/hr Q8HR IV 01/14/25 14:00 UNV Clopidogrel Bisulfate 75 mg DAILY PO 01/15/25 10:00 02/03/25 08:49 75 MG Acetaminophen 650 mg Q8HP PRN PO 01/19/25 15:15 02/03/25 16:58 650 MG Atorvastatin Calcium 40 mg HS PO 01/22/25 22:00 02/03/25 21:38 40 MG Pantoprazole Sodium 40 mg DAILY IV 01/26/25 10:00 02/03/25 08:49 40 MG Methylprednisolone Sodium Succinate 40 mg DAILY IV 01/26/25 10:00 02/03/25 08:49 40 MG Voriconazole / Dextrose 250 ml @ 125 mls/hr Q12H IV 01/27/25 13:30 01/28/25 03:29 UNV Artificial Tears 2 drop Q6HP PRN LEFTEYE 01/28/25 10:45 Hydralazine HCl 10 mg Q6HP PRN IV 01/28/25 10:45 02/01/25 10:13 10 MG Rivaroxaban 2.5 mg BID PO 01/30/25 22:00 02/03/25 21:37 2.5 MG Throat Lozenges 1 telma Q2HP PRN MT 02/01/25 11:45 02/01/25 14:02 1 TELMA Fluticasone Propionate 50 mcg Q12HR EACHNOSTRI 02/01/25 22:00 02/03/25 21:38 50 MCG Sodium Chloride 1 spr QIDP PRN EACHNOSTRI 02/01/25 11:45 02/01/25 21:57 1 SPR Amlodipine Besylate 10 mg DAILY PO 02/01/25 11:58 02/03/25 08:50 10 MG Phenol/Menthol 1 spr Q2HP PRN MT 02/01/25 14:15 02/03/25 21:38 1 SPR Magnesium Oxide 400 mg BID PO 02/01/25 22:00 02/03/25 21:37 400 MG Voriconazole 200 mg BIDAC PO 02/02/25 17:00 02/03/25 17:01 200 MG Diagnostic Test (Pha) 1 strip ACHS 02/03/25 17:00 02/03/25 21:38 1 STRIP Insulin Human Regular HS SC 02/03/25 22:00 02/03/25 21:44 6 UNITS Insulin Human Regular AC SC 02/03/25 17:00 02/03/25 17:10 3 UNITS Dextrose 50 ml UD PRN IV 02/03/25 15:00 Examination General: Awake, alert, mild distress due to shortness of breath HEENT: Head is normocephalic and atraumatic. Pupils are equal, round, and reactive to light. Extraocular muscles are intact. Nasal crusting, healing. Neck: Supple with no cervical lymphadenopathy No meningismus. No goiter. Heart: Regular rate without murmur, rub, or gallop. Lungs: Diminished breath sounds, scattered crackles, scattered wheezing Abdomen: No external sign of injury. Bowel sounds are present. Abdomen is soft, nontender. No rebound, no guarding, no rigidity. There are no palpable masses. There is no flank pain on exam. Extremities: Strong peripheral pulses. There is no clubbing, no cyanosis, and no edema. Skin: scaly skin, dry skin, poor feet hygiene Neurologic: Cranial nerves II-XII intact without motor, sensory, or cerebellar deficit, no asterixis. laboratory and microbiology Laboratory Tests 02/04/25 04:44 02/03/25 04:55 Test 02/04/25 04:44 Range/Units Serum Glucose 116 H 74-106 mg/dL Microbiology Date/Time Source Procedure Growth Status 01/26/25 13:11 Voided Urine Urine Culture - Final Presumptive Catherine albicans Complete 01/26/25 11:30 Sputum Gram Stain - Final Resulted 01/26/25 11:30 Respiratory Culture - Preliminary Aspergillus fumigatus Resulted 01/26/25 08:12 Blood Blood Culture - Final NO GROWTH AFTER 5 DAYS OF INCUBATION. Complete 01/25/25 11:28 Lung - Final Resulted 01/25/25 11:28 Lung - Final Resulted 01/25/25 11:28 Lung Pending Resulted 01/25/25 11:28 Lung Pending Resulted 01/25/25 11:28 Lung - Final See Separate Report... 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 b.i.d., for least 6-12 more weeks Continue DuoNebs q.4 Solu-Medrol 40 mg IV qd Insulin a.c. hs moderate Downgrade to telemetry Lines Left internal jugular triple-lumen catheter 01/25/25 Intubated 01/25/25, extubated 3/22/25 environmental services specialist consult for hospice at home Goals of care were discussed for over 30 mins, modified code, DNI, may do chest compressions and shock Case was discussed with Dr. Chavez Plan discussed with: Patient, Son, Other (RN) My Orders My Orders Orders - SHEA SCHMITZ RESIDENT Procedure Category Date Status Time Insulin R (Human) PHA 02/03/25 In Process (Insulin R) 22:00 Insulin R (Human) PHA 02/03/25 In Process (Insulin R) 17:00 Dextrose 50% Syringe PHA 02/03/25 In Process 15:00 Glucose Blood PHA 02/03/25 In Process (Accu-Chek Comfort 17:00 BIPAP RT 02/03/25 Logged 13:30 Dietary Evaluation Review Comments: Recommend CCHO-60 with 2 GNa Low fat Low Cholesterol Cardiac diet. Expected Outcomes/Goals: Tight DM control, Wt management Date of Service: Feb 04, 2025 Billing Provider: JUSTINE CHAVEZ MD Common Visit Codes: [id number] INP/OBS CARE(HIGH) SHEA SCHMITZ RESIDENT Feb 04, 2025 06:40 JUSTINE CHAVEZ MD Feb 05, 2025 11:13
--- NOTE | 2025-02-04 08:50 | DVH ---
EXAM: XY CHEST PORTABLE Indication: sob Technique: Single frontal view of the chest was obtained Comparison: XY CHEST PORTABLE on DOS: 02/01/25, XY CHEST PORTABLE on DOS: 01/30/25, XY CHEST PORTABLE o n DOS: 01/29/25, XY CHEST PORTABLE on DOS: 01/28/25, XY CHEST PORTABLE on DOS: 01/27/25 FINDINGS: Lines and Tubes: Left central venous catheter tip projects over superior vena cava Lungs: No focal consolidation. Pleura: Trace left pleural effusion No pneumothorax. Cardiomediastinal contours: Unremarkable. Atherosclerotic vascular calcifications of the thoracic ao rta are noted. Bones: No acute osseous abnormality. IMPRESSION: Trace left pleural effusion.
[2025-02-04] MEDS: FUROSEMIDE 20 MG/2 ML VIAL IV ONE (18:13)
[2025-02-05] VITALS (23 sets, daily range): BP systolic 106–157; BP diastolic 47–63; PULSE 66–99; RESP 16–25; TEMP 98–99.2; O2SAT 88–98
[2025-02-05 07:02] LABS: Anion Gap 7 (5-15); Carbon Dioxide 30 mmol/L (20-31); Chloride 100 mmol/L (98-107); Potassium 3.9 mmol/L (3.5-5.1); Sodium 137 mmol/L (136-145)
[2025-02-05 07:04] LABS: Calcium 8.7 mg/dL (8.7-10.4)
[2025-02-05 07:08] LABS: BUN/Creatinine Ratio 54.5 (10.0-20.0)
[2025-02-05 07:09] LABS: Blood Urea Nitrogen 24 mg/dL (9-23); Glucose 109 mg/dL (74-106)
[2025-02-05] MEDS: predniSONE 20 MG TAB PO SCH (10:13)
[2025-02-05] MEDS ORDERED: VORI50TA PO (13:44)
--- NOTE | 2025-02-05 21:04 | DVHDSRES ---
Discharge Summary Date of Admission Resident Creating Document: SHEA SCHMITZ RESIDENT Jan 13, 2025 at 17:06 Date of Discharge: Feb 22, 2025 Admitting Diagnosis COPD exacerbation Labs/Diagnostic Data: Laboratory Results Test 02/05/25 11:55 02/05/25 06:35 02/04/25 04:44 02/03/25 04:55 POC Glucose 157 mg/dl (70-106) Sodium Level 137 mmol/L (136-145) Potassium Level 3.9 mmol/L (3.5-5.1) Chloride Level 100 mmol/L (98-107) Carbon Dioxide Level 30 mmol/L (20-31) Anion Gap 7 (5-15) Blood Urea Nitrogen 24 mg/dL (9-23) Creatinine 0.44 mg/dL (0.550-1.02) Glomerular Filtration Rate Calc 99 mL/min (>90) BUN/Creatinine Ratio 54.5 (10.0-20.0) Serum Glucose 109 mg/dL (74-106) Calcium Level 8.7 mg/dL (8.7-10.4) Magnesium Level 2.0 mg/dL (1.6-2.6) B-Type Natriuretic Peptide 129.73 pg/mL (0-100) White Blood Count 9.8 10^3/uL (4.4-10.8) Red Blood Count 4.93 10^6/uL (4.0-5.20) Hemoglobin 15.9 g/dL (12.2-16.2) Hematocrit 47.7 % (36.0-46.0) Mean Corpuscular Volume 96.7 fL (80.0-100.0) Mean Corpuscular Hemoglobin 32.2 pg (28.0-32.0) Mean Corpuscular Hemoglobin Concent 33.3 g/dL (32.0-36.0) Red Cell Distribution Width 14.4 % (11.8-14.3) Platelet Count 112 10^3/uL (140-450) Mean Platelet Volume 9.2 fL (6.9-10.8) Neutrophils (%) (Auto) 80.6 % (37.0-80.0) Lymphocytes (%) (Auto) 14.1 % (10.0-50.0) Monocytes (%) (Auto) 4.8 % (0.0-12.0) Eosinophils (%) (Auto) 0.4 % (0.0-7.0) Basophils (%) (Auto) 0.1 % (0.0-2.0) Neutrophils # (Auto) 7.9 10 ^3/uL (1.6-8.6) Lymphocytes # (Auto) 1.4 10 ^3/uL (0.4-5.4) Monocytes # (Auto) 0.5 10 ^3/uL (0-1.3) Eosinophils # (Auto) 0 10 ^3/uL (0-0.8) Basophils # (Auto) 0 10 ^3/uL (0-0.2) Nucleated Red Blood Cells 0.0 % Test 02/01/25 09:18 01/31/25 04:51 01/30/25 09:07 01/30/25 06:26 Differential Total Cells Counted 100.0 (100) Neutrophils % (Manual) 75 (37.0-80.0) Band Neutrophils % (Manual) 4 Lymphocytes % (Manual) 13 (10.0-50.0) Monocytes % (Manual) 6 (0-12) Eosinophils % (Manual) 1 (0-7) Basophils % (Manual) 0 (0.0-2.0) Metamyelocytes % (manual) 0 Myelocytes % (Manual) 0 Promyelocytes % (Manual) 0 Blast Cells % (Manual) 0 Reactive Lymphocytes 1 Platelet Estimate Decreased Anisocytosis (manual) Slight Total Bilirubin 0.7 mg/dL (0.2-1.0) Aspartate Amino Transferase (AST) 51 U/L (13-40) Alanine Aminotransferase (ALT) 38 U/L (7-40) Alkaline Phosphatase 58 U/L (46-116) Total Protein 5.5 g/dL (5.7-8.2) Albumin 3.4 g/dL (3.2-4.8) Blood Gas Specimen Type Arterial Blood Gas Sample Site Left brachial Blood Gas Patient Temperature 37.0 Arterial Blood Date Drawn [id number] Arterial Blood pH 7.533 (7.350-7.450) Arterial Blood Partial Pressure CO2 27.8 mmHg (32.0-45.0) Arterial Blood Partial Pressure O2 63.0 mmHg (83.0-108.0) Arterial Blood HCO3 22.9 mmol/L (21.0-28.0) Arterial Blood Oxygen Saturation 92.7 % (94.0-98.0) Arterial Blood Base Excess 1.6 mmol/L (-2.0-3.0) Arterial Blood Oxyhemoglobin 91.8 % (94.0-98.0) Arterial Blood Carboxyhemoglobin 0.6 % (0.5-1.5) Arterial Blood Methemoglobin 0.4 % (0.0-1.5) Timothy Test N/a Blood Gas Total Hemoglobin 15.40 g/dL (12.0-16.0) Blood Gas Modality Vent - cpap FiO2 % 35.0 Blood Gas Pressure Support 8 Blood Gas PEEP or CPAP 5.0 Blood Gas Set Respiration Rate 18.0 Blood Gas Tidal Volume 450.0 Blood Gas Critical Value Read Back Yes Blood Gas Notified Whom tori Robison md Blood Gas Notified Time [id number] Blood Gas Notified By [employer] Work Furnace Installer johnna stevenson Test 01/27/25 14:30 01/27/25 04:31 01/26/25 13:11 01/26/25 08:12 Miscellaneous Referred Test (Rm Tmp Sent to [facility] Prothrombin Time 10.9 sec (9.3-11.8) Prothrombin Time INR 1.03 (0.9-1.15) Activated Partial Thromboplast Time 29.6 SEC (24.5-34.5) Urine Color Yellow (Yellow) Urine Clarity Clear (Clear) Urine pH 5.5 (5.0-9.0) Urine Specific [place] 1.035 (1.001-1.035) Urine Protein Trace (Negative) Urine Ketones Negative (Negative) Urine Blood 2+ /uL (Negative) Urine Nitrite Negative (Negative) Urine Bilirubin Negative (Negative) Urine Urobilinogen Normal mg/dL (Negative) Urine Leukocyte Esterase 1+ /uL (Negative) Urine RBC 176 /hpf (0 - 4) Urine Microscopic WBC 19 /HPF (0-5) Urine Squamous Epithelial Cells Few /hpf (<5) Urine Bacteria Few /hpf (None Seen) Urine Yeast (Budding) Many /hpf (None Seen) Urine Glucose Normal mg/dL (Normal) Lactic Acid Level 1.2 mmol/L (0.4-2.0) Test 01/25/25 05:51 01/24/25 09:33 01/20/25 04:55 01/15/25 04:45 Blood Gas Spontaneous Rate 20 Blood Gas Spontaneous Tidal Volume 532 Blood Gas EPAP 7 Blood Gas IPAP 12 Blood Gas Liter Flow 55.00 Smudge Cells /100 WBC Clumped Platelets None Iron Level 203 ug/dL (50-170) Total Iron Binding Capacity 262 ug/dL (250-425) Percent Iron Saturation 77.5 % (15-50) Ferritin 198.9 ng/mL (10-291) Thyroid Stimulating Hormone (TSH) 0.47 uIU/mL (0.55-4.78) Test 01/14/25 15:55 01/14/25 05:11 01/13/25 21:55 01/13/25 18:45 Influenza Type A Antigen Negative (Negative) Influenza Type B Antigen Negative (Negative) SARS-CoV-2 Antigen (Rapid) Negative (NEGATIVE) Hemoglobin A1c 6.3 % A1C (<5.7) Free Thyroxine (T4) Calculated 1.02 ng/dL (0.89-1.76) Total Triiodothyronine (TT3) 0.64 ng/mL (0.60-1.81) Troponin I High Sensitivity 350 ng/L (</=34) Urine Mucus Few (None Seen) Urine Opiates Screen Neg (NEGATIVE) Urine Fentanyl Screen Neg (NEGATIVE) Urine Barbiturates Screen Neg (NEGATIVE) Urine Phencyclidine Screen Neg (NEGATIVE) Urine Amphetamines Screen Neg (NEGATIVE) Urine Benzodiazepines Screen Neg (NEGATIVE) Urine Cocaine Screen Neg (NEGATIVE) Urine Cannabinoids Screen Neg (NEGATIVE) Test 01/13/25 17:56 D-Dimer, Quantitative 0.71 mg/L FEU (0.0-0.49) Other Laboratory Tests 02/05/25 06:35 02/03/25 04:55 Brief Hx & Hospital Course: This is a 79-year-old female patient who was sent to the ER from [facility] with a chief complaint of shortness of breaths and generalized weakness for 1 day. Past Medical History: COPD not on home oxygen, solitary pulmonary nodules, left PAD status post PTCA of left superficial femoral artery and popliteal artery. placed by Dr. Juan James, hypertension, diabetes mellitus type 2, internal and external hemorrhoids, colonic polyp, diverticulosis Past Surgical History: left PAD status post PTCA of left superficial femoral artery and popliteal artery SH: Smoke: <1 pack per day. ALCOHOL: none. Drugs: None. Lives: with Family Home medications: Aspirin 81 mg, atorvastatin 20 mg HS, albuterol inhaler,breztri inhaler, amlodipine She lives with her son who is the caregiver. Per son who is present at bedside, patient developed generalized weakness and shortness of breaths on waking up and she could not transfer herself from the bed to wheelchair. Patient uses albuterol and Breztri inhaler but did not increase the consumption recently, she has chronic cough but the cough did not worsened recently. She smokes half a pack a day for the past 50 years, quit 1 week back. No recent immobilization/hospitalization or surgery history. She denies chest pain, palpitations, nausea, vomiting, diaphoresis, back pain, constipation or diarrhea. Vitals on arrival were pulse 99, blood pressure 123/60 mmHg, saturating 89% on 9 L Oxymizer. Patient has had significant clinical improvement throughout her hospitalization. Patient was given broad-spectrum antibiotics, she was on breathing treatments, patient was also diuresed. Initially patient has had significant respiratory decline, she was on high flow oxygen for awhile. Patient initially was DNR/DNI, however later she was changed to full code. At that time we decided to intubate to do a bronchoscopy in which we found significant mucus plugs, a 2nd bronchoscopy was performed the very next day, again more mucus plugs were taken out. Patient also underwent a left heart catheterization in which a stent was placed on the circumflex artery. Patient did not have any significant elevated pressures so no right heart catheterization was performed. An arterial Doppler also revealed diminished pulses on the left side, it was noted that they stated that she had in that left leg it was thrombosed, a 2nd peripheral angiography was performed to open up the vessel. It was successful. 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 After this patient was weaned down from sedation and we were able to take her off mechanical ventilator. The next couple of days patient slowly improved, we took off the high-flow. Patient was transitioned to voriconazole oral. Patient continued to tolerate appropriately the simple mask on went from 10 L to 6 L. patient states having significant clinical improvement. Patient was also seen by Podiatry due to foot pain and inability to ambulate, they did perform nail trimming. Patient was seen and examined at bedside, she is currently on simple mask at 6lts. Respiratory rate is fluctuating from 18-28s, which worsens when she is eating or speaking. Physical examination as below: General: Awake, alert, mild distress due to shortness of breath HEENT: Head is normocephalic and atraumatic. Pupils are equal, round, and reactive to light. Extraocular muscles are intact. Nasal crusting, healing. Neck: Supple with no cervical lymphadenopathy No meningismus. No goiter. Heart: Regular rate without murmur, rub, or gallop. Lungs: Diminished breath sounds, scattered crackles, scattered wheezing Abdomen: No external sign of injury. Bowel sounds are present. Abdomen is soft, nontender. No rebound, no guarding, no rigidity. There are no palpable masses. There is no flank pain on exam. Extremities: Strong peripheral pulses. There is no clubbing, no cyanosis, and no edema. Skin: scaly skin, dry skin, poor feet hygiene Neurologic: Cranial nerves II-XII intact without motor, sensory, or cerebellar deficit, no asterixis. Patient will be discharge to halfway facility for physical therapy for four weeks, she will continue home medications as prescribed in his spread sheet, she has to continue taking voriconazole 200 mg p.o. b.i.d. for the next 6-12 weeks. She will follow-up with PCP in 1-2 weeks. Patient and laboratory development technician (son,) verbalized understanding and agree with the DC plan, we spent over 30 minutes explaining the plan. Goals of care were discussed for over 30 mins, modified code, DNI, may do chest compressions and shock Case was discussed with Dr. Chavez Consults/Reason for consult Cardiology was consulted due to elevated troponins Podiatry was consulted due to foot pain and inability to ambulate Pulmonology was consulted for bronchoscopy Operations or Procedures Patient: REBEL CHADWICK Acct: [id number] : 1945 Loc: ICU [facility] Age/Sex: 79/F Room: 0263 / Bed: A Attending Phy: SHEA SCHMITZ RESIDENT Operative Report - 2 Report Details Date: 01/29/25 Preop Diagnosis: Peripheral vascular disease Postop Diagnosis: Occluded superficial femoral artery. 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 Surgeon: Alvarez Hartmann MD Anesthesiologist: Patient on ventilator and sedated. Additional sedation given throughout the procedure. Anesthesia: General, Mac, Local ( Conscious sedation was administered. I oversaw The administration of medication and monitored the patient throughout the entirety of the procedure.) Implant: Medtronic stent placement of superficial femoral artery Consent: The patient was informed of the risks and benefits of the procedure. These include but are not limited to complications of anesthesia, postoperative infection, incomplete relief of symptoms, recurrence of symptoms, damage to blood vessels, nerves and tendons, deep venous thrombosis, pulmonary embolism and possible need for repeat surgery in the future. Complications: No complications Estimated Blood Loss: 5 cc Findings: Occluded superficial femoral artery. Indications for Surgery: Occluded superficial femoral artery. Name of Procedure Performed Angiographic evaluation of left lower extremity. FIELD IDENTIFICATION SPECIALIST and stenting of the left superficial femoral artery. Thrombectomy of the left superficial femoral artery. Procedure Details Procedure Details: Prior local anesthesia with 2% lidocaine to the right groin and full informed consent obtained patient was prepped and draped in the usual fashion followed by placement of a six Nigerien sheath into the right femoral artery through which six Nigerien 45 cm destination sheath was placed over the contralateral iliac and into the origin of the superficial femoral artery. /distal common femoral. Through this peripheral angiography was also performed after placing a rim catheter for positioning of the advantage wire angiography including digital subtraction angiography of the left distal extremity was performed. Angiographic evaluation previously performed revealed a complete chronic total occlusion of the common femoral artery just before the origin of the profunda. There appears to be reconstitution of flow distally. This was noted with digital subtraction angiography as we noted retrograde filling of the popliteal into the distal superficial femoral artery and antegrade into the tibioperoneal trunk peroneal and anterior tibial artery. after placing the destination sheath over the common femoral adjacent to the entry of the superficial femoral artery we used a advantage wire and quick cross catheter to gain entry into the proximal SFA. We were not able to push the Quick Cross catheter through given the size and lack of support for which we then exchanged for a Codacy Navicross. There was a long stented segment in the mid superficial femoral artery that extended into the distal superficial femoral with hardened plaque and thrombus. We were able to obtain access by changing guidewires and with an [employer] Confianza we were able to reach the distal segment of the stented portion however we could not break into the distal plaque. We then used a corsair microcatheter over the Confianza and we were able to break the cap into the true lumen into the tibioperoneal trunk and popliteal artery. We then exchanged the wire for a Viper wire and placed a 1.25 mm orbital atherectomy eusebio from [facility]. We performed orbital atherectomy from proximal to distal and obtained a channel through which we then placed a 4 mm x 80 mm chocolate balloon. This atherotomy balloon was then used to dilate from distal to proximal. The intima was notably irregular and several collapsing segments were noted from the popliteal to the origin of the SFA. We then placed a four by 100 mm ranger drug-eluting balloon and dilated after placing the balloon in its distal segment encompassing part of the tibioperoneal trunk beyond the popliteal artery. The luminal irregularities resolved to a significant degree. We then placed a 2nd ranger 200 by 6 mm into the proximal and mid SFA with the appropriate dilatation. This improved the flow remarkably well however there was a residual significant lesion with atherosclerotic debris within the lumen at the mid SFA approximately 25-30 mm from the origin of the stent. We then had to perform thrombectomy with a CAT six penumbra device. We removed a significant amount of thrombus and debris. Post dilating with a 7 mm balloon improved however there was a significant residual defect. We then took a 7 mm x 200 mm ranger in the proximal SFA from the ostia to the mid SFA. This improved the proximal portion without a need for stenting however there was notable debris and recoil within the mid SFA at the previously noted stented segment. We then placed a six by 40 mm Medtronic stent which was self expanding. We post dilated with a 7 mm balloon. There was notable improvement in flow. No thrombus was noted. There was a residual lesion proximal to where the in stented segment was treated this was a proximally 20-30% residual. We noticed good flow Through to the mid calf. there was flow through the anterior tibial and peroneal arteries. The posterior tibial seemed occluded. Impression: Successful aperture of chronic total occlusion in proximal SFA. Aperture of popliteal and tibioperoneal trunk. AtherotomyAs well as orbital atherectomy of the proximal mid and distal SFA and popliteal artery. Thrombectomy of the SFA popliteal and tibioperoneal trunks. Drug-eluting balloon treatment of the popliteal and superficial femoral artery. Successful stenting of the mid SFA. Recommendations continue with antiplatelet therapy. We will add low-dose anticoagulation to help prevent thrombosis. Condition Guarded Disposition 2 Still a Patient Date of Service: Jan 29, 2025 Billing Provider: ALVAREZ HARTMANN Sr., MD Cardiology Common Codes: 77706-ONFDGZB INP/OBS CARE (High) Peripheral Procedures Codes: 08585-[id number] W/TRANS ANGPLASTY, 97400- ANGIOPLASTY W/IN SAME VESSEL, 86075-UVSWI PLACMNT W/ANGIOPLASTY, 22002-VEFZUC TIBIAL PERONEAL ART, [id number] ATHERECTOMY ANGIO, 12710-[id number] RAD SUP/INTERP Peripheral Add ons: 97189-NXFNBO TIBIAL/PERON ARTERY, 00815-QFSWTFFVOLN AND ANGIOPLASTY, 43083-SOJCEXZ STENT W/ANGPLASTY, 44734-RKHVE PLMNT ARECTMY/ANGPLSTY ALVAREZ HARTMANN Sr., MD Jan 29, 2025 20:23 DICTATED BY:ALVAREZ HARTMANN Sr., MD DICTATED DATE/TIME:01/29/252022 ELECTRONICALLY SIGNED BY:ALVAREZ HARTMANN Sr., MD 01/29/252022 ELECTRONICALLY CO-SIGNED BY: Patient: REBEL CHADWICK Acct: [id number] : 1945 Loc: ICU [facility] Age/Sex: 79/F Room: 0263 / Bed: A Attending Phy: SHEA SCHMITZ RESIDENT Operative Report - 2 Report Details Date: 01/27/25 Preop Diagnosis: CAD. Postop Diagnosis: Coronary artery disease involving the circumflex RCA and LAD. PTCA stenting of the circumflex. Intravascular FFR performed with a catheterization works program to the RCA. Surgeon: Alvarez Hartmann MD Anesthesiologist: Conscious sedation Anesthesia: General, Mac, Local ( Conscious sedation was administered. I oversaw The administration of medication and monitored the patient throughout the entirety of the procedure.) Consent: The patient was informed of the risks and benefits of the procedure. These include but are not limited to complications of anesthesia, postoperative infection, incomplete relief of symptoms, recurrence of symptoms, damage to blood vessels, nerves and tendons, deep venous thrombosis, pulmonary embolism and possible need for repeat surgery in the future. 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 Mild coronary artery disease of the RCA. Moderate coronary artery disease of the LAD. Indications for Surgery: Non ST-elevation NV. Name of Procedure Performed Left heart catheterization bilateral cine coronary angiography. Left ventriculography. PTCA and stenting of the circumflex coronary artery. Fractional flow reserve evaluation of the RCA. Procedure Details Procedure Details: Prior local anesthesia with 2% lidocaine to the right groin and full informed consent obtained patient was prepped and draped in the usual fashion followed by placement of a six Nigerien sheath into the right femoral artery through which six Nigerien Kandi catheters were used to cannulate both right and left coronary ostia and a six Nigerien pigtail catheter was used for ventriculography. A 3-0 EBU guide was in place for angioplasty. peripheral angiography was also performed via the arterial sheath in the right femoral artery and contralaterally of the left femoral via a rim catheter with digital subtraction angiography of the left distal extremity. Hemodynamics: Aortic blood pressure was 110/70 end-diastolic pressure was 18 without gradient across the aortic valve on pullback. Coronary anatomy: RCA is a large vessel it has a proximal to mid stenosis. FFR reveal a 0.96 value that was not indicative of severe CAD. The PDA and posterolateral branches are rather smaller vessels the crux has a mild 20-30% lesion. Distal RCA posterolateral and PDA are otherwise unremarkable. Not amenable to angioplasty. The left anterior descending coronary artery has a small stenosis considered to be 20-30%. This is prior to the bifurcation of the diagonal. The circumflex itself has a proximal to mid lesion of about 80-90%. There is a subsequent dilatation of the circumflex proper consistent with aneurysmal dilatation. Posterolateral branches are free of significant disease. Ventriculography in the POWELL projection shows an EF of 60%. Angioplasty was then performed for which a Guidezilla was used in place in the ostium of the circumflex. We then placed a two five balloon for pre dilatation of the pre-existing lesion. We then placed a three 5 x 12 mm stent into the circumflex. There was excellent antegrade flow without thrombus formation under dissection. Subsequent to performing the angioplasty we then proceeded as mentioned above to perform angiography of the lower extremities. Through the existing arterial sheath we injected contrast and found mild plaquing of the common femoral and superficial femoral artery however patent to the level of the popliteal and tibioperoneal trunk. The anterior tibial artery as diminished flow. There appears to be single-vessel runoff to the right foot via the anterior tibial. There is suggestion of lesions at the level of the distal tibioperoneal trunk in the right lower extremity. We then placed a rim catheter over the horn into the contralateral iliac and place the catheter in the femoral artery On the left side. Angiographic evaluation reveals a complete chronic total occlusion of the common femoral artery just before the origin of the profunda. There appears to be reconstitution of flow distally. This was noted with digital subtraction angiography as we noted retrograde filling of the popliteal into the distal superficial femoral artery and antegrade into the tibioperoneal trunk peroneal and anterior tibial artery. Impression coronary artery disease involving severe circumflex lesion treated with angioplasty and stenting. Successful evaluation of the left ventricle right and left coronary arteries. These arteries had lesions not amenable to angioplasty/not requiring revascularization. Normal left ventricular function. Normal ejection fraction. EF of 65%. Mildly elevated left ventricular end-diastolic pressure. Peripheral vascular disease involving the left superficial femoral artery occluded proximally with reconstitution of flow in the distal popliteal with good antegrade flow. Limited collateral flow noted. Occluded peroneal and posterior tibial artery of the right lower extremity with patent superficial femoral artery and popliteal as well as tibioperoneal trunk. Single-vessel runoff to the right lower extremity. Recommendations continue with dual antiplatelet therapy. Patient will have a staged procedure to the left lower extremity 2-3 days. Condition Guarded Disposition 2 Still a Patient Date of Service: Jan 27, 2025 Billing Provider: ALVAREZ HARTMANN Sr., MD Cardiology Common Codes: 17754-WCGMPVT INP/OBS CARE (High) Cardiology Procedure Codes: 15777-IKQG FOR STEMI W/STENT ( coronary angiography. PTCA and stenting of the circumflex. Fractional flow reserve evaluation of the RCA. Peripheral vascular disease with the evaluation of bilateral lower extremities as delineated above.), 96953-JQSF HEART CATH W/INTRA INJ ALVAREZ HARTMANN Sr., MD Jan 27, 2025 18:49 DICTATED BY:ALVAREZ HARTMANN Sr., MD DICTATED DATE/TIME:01/27/251848 ELECTRONICALLY SIGNED BY:ALVAREZ HARTMANN Sr., MD 01/27/251848 ELECTRONICALLY CO-SIGNED BY: [facility] [id number] [place] [id number] Ph: [phone] PATIENT: JODI CHADWICKDONT: [id number] : 1945 LOC: ICU CENTR ROOM/ROOM: 0263-A AGE/SEX: 79/F ADM STATUS: ADM IN ADM DATE: 01/13/25 UNIT: [id number] HEALTH INFORMATION MANAGEMENT PROCEDURE NOTE - [facility] :[id number] Signed ORDERING PHYSICIAN: PROCEDURE(s): ORDER NUMBER(s): , ACCESSION NUMBER(s): JOANNEBETINA 01/25/25 1135: Procedure - Bronchoscopy procedure note: Indications: Atelectasis, Possible mucous plugging. Physician: Dr Mike Rubio PGY3 Attending: Dr Ruiz Medicines: See [employer] notes. Complications: None Procedure: Patient medications and allergies reviewed. The risks and benefits of the procedure and the sedation options and risk were discussed with the patient's healthcare proxy and patient. All questions were answered and informed consent was obtained. Patient identification and proposed procedure were verified prior to the procedure by the physician, and a nurse, and the respiratory therapist in ICU room. The heart rate, respiratory rate, oxygen saturations, blood pressure, adequacy of pulmonary ventilation, and response to care were monitored throughout the procedure. The physical status of the patient was reassessed after the procedure. After obtaining informed consent, the bronchoscope was introduced through the endotracheal tube and advanced into the trachea bronchial tree of both lungs. The procedure was accomplished without difficulty. The patient tolerated the procedure well. Findings: The trachea is in normal caliber. The deepika is sharp. The tracheobronchial tree of the right lung was examined to at least the first subsegmental level. The bronchial mucosa and anatomy in the right lung are normal. There are no endobronchial lesions. There was copious whitish frothy secretions from right main stem bronchus onward throughout R1-R10. The left upper lobe, lingula, and left lower lobe were examined to at least the first subsegmental level. Bronchial mucosa and anatomy in the left upper lobe and lingula are normal. There were no endobronchial lesions. There was copious whitish secretions from left main stem bronchus onward throughout L1-L10. Mucous plugging removed from L1-L10. Lingular Bronchoalveolar lavage (BAL) obtained. Lingular BAL sent for gram stain and culture, viral culture, fungal culture, and AFB smear and culture. There was no active bleeding at the completion of the procedure. Estimated blood loss: Less than 5 mL. Impression: Left upper, lingular and lower lobe atelectasis due to mucous plugging Mucous plugging from L1-L10 Lingular BAL performed Recommendation: Follow-up Lingular BAL results. Procedure codes: 10273, bronchoscopy, rigid and flexible, including fluoroscopic guidance, one performed; with bronchial endobronchial broncho-alveolar lavage, single or multiple sites GAUTAM RUIZ MD 01/31/25 1151: Date of Service: Jan 25, 2025 Billing Provider: GAUTAM RUIZ MD Common Visit Codes: PROCEDURE ONLY Procedure Codes: 49000-[id number] BETINA RUBIO Jan 25, 2025 11:35 GAUTAM RUIZ MD Jan 31, 2025 11:51 DICTATED BY: BETINA RUBIO DICATED DATE/TIME: 01/25/251134 SIGNED BY: BETINA RUBIO <<Signature on File>> SIGNED DATE/TIME: 01/25/25 113 CC: [place] [address] Ph: [phone] PATIENT: TIFFANY CHADWICKCCT: [id number] : 1945 LOC: [facility] AGE/SEX: 79/F ADM STATUS: ADM IN ADM DATE: 01/13/25 UNIT: [id number] HEALTH INFORMATION MANAGEMENT PROCEDURE NOTE - [facility] :[phone] Signed ORDERING PHYSICIAN: PROCEDURE(s): ORDER NUMBER(s): , ACCESSION NUMBER(s): Other Procedure Procedure Therapeutic phlebotomy Indication Secondary erythrocytosis Anesthetic None Prep Chlorhexidine and alcohol swabs Success No complications noted. Informed consent obtained: Yes Risks, benefits, and alternati: Yes Notes Cleanse the area with antiseptic (e.g., chlorhexidine or alcohol swab). Apply a tourniquet approximately 3-4 inches above the selected site. Inserted a large-bore needle (16 gauge). Connected to a male to male IV tubing, into negative pressure bottle for drainage. Remove the prescribed volume of blood (150 mL]) at a steady pace. Released the tourniquet and remove the needle carefully. Applied firm pressure to the site with sterile gauze for at least 5 minutes. Applied a bandage and instruct the patient to keep the site clean and dry. Provided replacement with 150 mL of normal saline as a bolus. Procedure was supervised by Dr. Rubio PGY3 Date of Service: Jan 20, 2025 Billing Provider: JUSTINE CHAVEZ MD Common Visit Codes: PROCEDURE ONLY Secondary Visit Codes: [id number] E&M SERVICE SHEA SCHMITZ Jan 20, 2025 19:59 JUSTINE CHAVEZ MD Jan 21, 2025 11:24 DICTATED BY: SHEA SCHMITZ DICATED DATE/TIME: 01/20/251958 SIGNED BY: SHEA SCHMITZ <<Signature on File>> SIGNED DATE/TIME: 01/20/251958 CC: [place] [address] Ph: [phone] DIAGNOSTIC IMAGING Diagnostic Imaging Report : [id number] Signed PATIENT: TIFFANY CHADWICKCCT: [id number] UNIT: [id number] : 1945 LOC: [facility] ROOM / BED: [facility] / A AGE / SEX: 79 / F ADM STATUS: ADM IN SERVICE 37 ORDERING PHYSICIAN: JUSTINE CHAVEZ MD PROCEDURE(s): ECIDC - ECHO 2D MODE CARDIAC DOP REASON: chf ORDER NUMBER(s): [id number], ACCESSION NUMBER(s): [id number] APPROVED REPORT EXAM: Two-dimensional and M-mode echocardiogram with Doppler and color Doppler. Blood Pressure: 109/46 mmHg INDICATION Heart Failure RISK FACTORS Height: 5'6", Weight: 139 DIMENSIONS LVDd 4.8 (3.8-5.7cm) LA (2D) 4.3 (1.9-4.0cm) Aortic Root 1.8 (2.0- 3.7cm) LVDs 2.7 (2.5-4.0cm) LA (MM) (1.9-4.0cm) Aortic Cusp Exc 1.7 (1.5- 2.0cm) EF (%) 75.0 (55-70%) Rt. Atrium 5.0 (1.9-4.0cm) Asc. Aorta cm Mitral Valve Mitral Mitral Stenosis E wave m/s MV Mean GR. 4mmHg A wave m/s MV Peak GR. 9mmHg E/A ratio 0.0 2D MVA cm2 Tricuspid Valve TR Velocity 2.96m/s RVSP 43mmHg Other Information Quality : Technically Limited Rhythm : Technically limited study due to body habitus and smoking. Conclusion lvef 55 % byvisual estimate mild LVH normal rv function mild enlarged left atrium enlarged no severe valve abnormalities noted moderate MAC SIGNED BY: DAMARIS JESSICA MD SIGNED DATE/TIME: 01/14/25 1308 CC: [place] [address] Ph: [phone] DIAGNOSTIC IMAGING Diagnostic Imaging Report : [id number] Signed PATIENT: TIFFANY CHADWICKCCT: [id number] UNIT: [id number] : 1945 LOC: [facility] ROOM / BED: [facility] / A AGE / SEX: 79 / F ADM STATUS: ADM IN SERVICE 0700 ORDERING PHYSICIAN: CHRISTOPHER HERRERA RESIDENT PROCEDURE(s): CTACH - CT ANGIO CHEST CONTRAST REASON: R/O PE ORDER NUMBER(s): [id number], ACCESSION NUMBER(s): [id number] CT CT ANGIO CHEST CONTRAST INDICATION: R/O PE EXAM DATE: 01/14/2025 08:19 AM COMPARISON: None RADIATION DOSE: CTDIvol: 20.7 mGy, DLP: 728.08 mGy*cm PROCEDURE: Helical CT angiographic images were obtained of the chest with intravenous contrast. Sagittal and coronal reconstructions as well as MIPS are provided. Maximum intensity projections performed (MIPs) were performed for CTA. ADDITIONAL IMAGES / REFORMATS: None All CT scans at this medical facility are performed using dose modulation techniques as appropriate to a performed exam including the following: Automated exposure control was utilized; adjustment of the MA and/or KV according to patient size; and use of iterative reconstruction technique. FINDINGS: Bones: Scattered degenerative changes are noted in the visualized osseous structures. Visualized Abdomen: Normal. Chest Wall: Normal. Soft tissues: Normal. Mediastinum: Normal. Heart: Normal. Vessels: No filling defects in the visualized pulmonary arteries including the segmental and subsegmental pulmonary arteries. Lymph Nodes: Prominent mediastinal and right perihilar lymph nodes. Pleura: Normal. Airways: Normal. Lung: Multifocal and bibasilar consolidation is most likely atelectasis. Other: None IMPRESSION: No pulmonary embolism in the visualized pulmonary arteries including the segmental and subsegmental pulmonary arteries. Multifocal and bibasilar consolidation is most likely atelectasis. ATED BY: WILLIE ASHLEY MD DICTATED DATE/TIME: 01/14/25901 SIGNED BY: WILLIE ASHLEY MD SIGNED DATE/TIME: 01/14/25901 CC: [place] [address] Ph: [phone] DIAGNOSTIC IMAGING Diagnostic Imaging Report : [id number] Signed PATIENT: TIFFANY CHADWICKCCT: [id number] UNIT: [id number] : 1945 LOC: [facility] IN ICU ROOM / [facility]ED: [facility] / A AGE / SEX: 79 / F ADM STATUS: ADM IN SERVICE 9 ORDERING PHYSICIAN: SHEA SCHMITZ RESIDENT PROCEDURE(s): CXRHIRES - HI-RESOLUTION CHEST CT REASON: sob, r/o ILD ORDER NUMBER(s): [id number], ACCESSION NUMBER(s): [id number] EXAM: CT HI-RESOLUTION CHEST CT History: sob, r/o ILD Comparison Study: None available TECHNIQUE: Multidetector CT of the chest was performed. Imaging was performed without IV contrast during full inhalation and exhalation. Axial, coronal, and sagittal multiplanar reformats were obtained from the axial data set by the technologist. Radiation Dose : CTDI vol 7.45 mGy, DLP 466.33 mGy*cm. Findings: Lungs: Mild upper lobe predominant centrilobular emphysema. No evidence of fibrotic changes. Dependent atelectasis. Pleura: Unremarkable Heart/Great vessels: No cardiomegaly or pericardial effusion. Severe coronary atherosclerosis versus stents. Mediastinum: Unremarkable Soft tissues/Bones: Mild multilevel degenerative changes of the thoracic spine. The partially visualized upper abdomen is within normal limits. Impression: 1. Mild upper lobe predominant centrilobular emphysema with dependent atelectasis. 2. No fibrotic changes. ATED BY: ARLETH FOX DO DICTATED DATE/TIME: 01/20/251709 SIGNED BY: ARLETH FOX DO SIGNED DATE/TIME: 01/20/251709 CC: [place] [address] Ph: [phone] DIAGNOSTIC IMAGING Diagnostic Imaging Report : [id number] Signed PATIENT: TIFFANY CHADWICKCCT: [id number] UNIT: [id number] : 1945 LOC: ICU [facility] ROOM / BED: [facility] / A AGE / SEX: 79 / F ADM STATUS: ADM IN SERVICE 44 ORDERING PHYSICIAN: SHEA SCHMITZ RESIDENT PROCEDURE(s): BLEAD - BiLat Low Ext Art Duplex REASON: no pedal pulses, h/o pad ORDER NUMBER(s): [id number], ACCESSION NUMBER(s): [id number] Bilateral Lower Extremity Arterial Duplex Clinical History: no pedal pulses, h/o pad Comparison: Lower extremity arterial ultrasound 09/29/2020 Technique: Duplex Doppler evaluation including color Doppler and spectral/pulsed waveform analysis of the lower extremity arteries was performed. Findings: RIGHT: Peak systolic velocities are as follows: PRODUCTION MACHINIST 125 cm/s Deep femoral 28 cm/s SFA proximal 52 cm/s SFA mid-portion 81 cm/s SFA distal 54 cm/s Popliteal 56 cm/s Posterior tibial 16 cm/s Dorsalis pedis 32 cm/s The waveforms are biphasic with diastolic flow. LEFT: Peak systolic velocities are as follows: PRODUCTION MACHINIST 131 cm/s Deep femoral 59 cm/s SFA proximal 39 cm/s SFA mid-portion 0 cm/s SFA distal 0 cm/s Popliteal 5 cm/s Posterior tibial 7 cm/s Dorsalis pedis 5 cm/s The waveforms are biphasic in the PRODUCTION MACHINIST, deep femoral artery, and proximal SFA. Waveforms are monophasic in the popliteal artery, posterior tibial artery, and dorsalis pedis artery. Indeterminate structure anterior to the popliteal vessels with posterior shadowing. IMPRESSION: No appreciable flow within the stent in the mid/distal left superficial femoral artery. There is very minimal flow in the arteries distal to the stent with monophasic waveforms. No evidence of hemodynamically significant stenosis in the right lower extremity. Indeterminate density anterior to the left popliteal vessels, possibly related to previous intervention. REFERENCE VALUES, [facility] ([facility]) vascular Imaging Lab Criteria: Peak systolic velocity ranges (in cm/sec) are as follows: <150 cm/s - <20 % stenosis 150-200 cm/s - 20-49% stenosis 200-300 cm/s - 50-75% stenosis >300 cm/s -> 75% stenosis Critical Result: Arterial occlusion Findings discussed with SULEIMAN Ferrera at 01/26/2025 08:14 PM, and acknowledged receipt and understanding of the findings. ATED BY: ANJUM ADAMS DO DICTATED DATE/TIME: 01/26/252015 SIGNED BY: ANJUM ADAMS DO SIGNED DATE/TIME: 01/26/252015 CC: [place] [address] Ph: [phone] DIAGNOSTIC IMAGING Diagnostic Imaging Report : [id number] Signed PATIENT: TIFFANY CHADWICKCCT: [id number] UNIT: [id number] : 1945 LOC: ICU [facility] ROOM / BED: [address] [place] [address] AGE / SEX: 79 / F ADM STATUS: ADM IN SERVICE 0639 ORDERING PHYSICIAN: SHEA SCHMITZ RESIDENT PROCEDURE(s): CXRP - CHEST PORTABLE REASON: sob ORDER NUMBER(s): [id number], ACCESSION NUMBER(s): [id number] EXAM: XY CHEST PORTABLE Indication: sob Technique: Single frontal view of the chest was obtained Comparison: XY CHEST PORTABLE on DOS: 02/01/25, XY CHEST PORTABLE on DOS: 01/30/25, XY CHEST PORTABLE on DOS: 01/29/25, XY CHEST PORTABLE on DOS: 01/28/25, XY CHEST PORTABLE on DOS: 01/27/25 FINDINGS: Lines and Tubes: Left central venous catheter tip projects over superior vena cava Lungs: No focal consolidation. Pleura: Trace left pleural effusion No pneumothorax. Cardiomediastinal contours: Unremarkable. Atherosclerotic vascular calcifications of the thoracic aorta are noted. Bones: No acute osseous abnormality. IMPRESSION: Trace left pleural effusion. 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 NSTEMI likely type 2 due to above Peripheral artery disease s/p angiography Diabetes/uncontrolled with hyperglycemia Dyslipidemia Transaminitis Discharge Disposition: Longterm Facility Discharge Instruct/Medications Diet: Cardiac 2g Na,low cholest Activity: No Restrictions, As Tolerated Follow Up/Referral: fu with pcp in 1-2 weeks Medications: continue meds as prescribed in spreadsheet voriconazole 200mg po bid for 6-12 weeks Discharge Statement: "Patient was advised to return to the ER or call 911 if any headaches, dizziness, shortness of breath, chest pain, abdominal pain, bleeding, fevers, or worsening of medical condition. Patient was counseled about treatment plan, medications, possible side effects, patientverbalized understanding. All questions were answered to the best of my ability. This discharge took greater then 30 minutes in planning, reviewing documentation, counseling the patient, and discussing with other team members." ASSESSMENT ASSESSMENT Assessment Pulmonary aspergilosis Date of Service: Feb 05, 2025 Billing Provider: JUSTINE CHAVEZ MD Common Visit Codes: 47745-ELV/OBS DISCH DAY >30min SHEA SCHMITZ Feb 05, 2025 21:04 JUSTINE CHAVEZ MD Feb 07, 2025 09:00
[2025-02-06] VITALS (23 sets, daily range): BP systolic 114–150; BP diastolic 50–78; PULSE 78–96; RESP 16–22; TEMP 97.7–98.6; O2SAT 93–99
[2025-02-06 07:33] LABS: Basophils # (auto) 0 10 ^3/uL (0-0.2); Basophils % (auto) 0.1 % (0.0-2.0); Eosinophils # (auto) 0 10 ^3/uL (0-0.8); Eosinophils % (auto) 0.3 % (0.0-7.0); Hematocrit 42.5 % (36.0-46.0); Hemoglobin 14.8 g/dL (12.2-16.2); Lymphocytes # (auto) 1.3 10 ^3/uL (0.4-5.4); Lymphocytes % (auto) 10.1 % (10.0-50.0); Mean Corpuscular Hemoglobin 33.5 pg (28.0-32.0); Mean Corpuscular Hgb Conc. 34.7 g/dL (32.0-36.0); Mean Corpuscular Volume 96.4 fL (80.0-100.0); Monocytes # (auto) 0.7 10 ^3/uL (0-1.3); Monocytes % (auto) 5.8 % (0.0-12.0); Neutrophils # (auto) 10.6 10 ^3/uL (1.6-8.6); Neutrophils % (auto) 83.7 % (37.0-80.0); Platelet Count (auto) 97 10^3/uL (140-450); Red Blood Cells 4.41 10^6/uL (4.0-5.20); Red Cell Distribution Width 14.1 % (11.8-14.3); White Blood Cell 12.7 10^3/uL (4.4-10.8)
[2025-02-06 07:47] LABS: Chloride 100 mmol/L (98-107); Sodium 138 mmol/L (136-145)
[2025-02-06 07:48] LABS: Anion Gap 8 (5-15); Calcium 8.9 mg/dL (8.7-10.4); Carbon Dioxide 30 mmol/L (20-31)
[2025-02-06 07:53] LABS: BUN/Creatinine Ratio 58.7 (10.0-20.0)
[2025-02-06 07:54] LABS: Blood Urea Nitrogen 27 mg/dL (9-23); Glucose 107 mg/dL (74-106); Magnesium 2.1 mg/dL (1.6-2.6)
[2025-02-06] MEDS: POLYETHYLENE GLYCOL 17 GM PWDR PO PRN (15:46)
--- NOTE | 2025-02-06 16:59 | DVHPNRES ---
Progress Note Date Seen: Feb 06, 2025 Resident Creating Document: JHAJJPRIYA RESIDENT Medical Necessity Reason Pt with a Central, PICC or Fol: Yes The following are medically ne: Hughes Catheter Reason for hughes catheter: Strict I&O Subjective Review of Systems Patient was seen and examined at bedside, she is currently on simple mask at 6lts. no acute complaints patient is complained of constipation Objective vital signs Vital Sign Date Time Temp Pulse Resp B/P (MAP) Pulse Ox O2 Delivery O2 Flow Rate FiO2 02/06/25 15:06 91 22 96 02/06/25 14:59 Mask 6.0 02/06/25 14:59 50 02/06/25 12:50 98.4 114/67 (83) 98.4 Total Intake and Output 02/05/25 02/05/25 02/06/25 15:00 23:00 07:00 Intake Total 300 ml 900 ml Output Total 1500 ml Balance 300 ml -600 ml medications Current Medications Medications Dose Ordered Sig/Jake Route Start Time Stop Time Status Last Admin Dose Admin Albuterol 1.25 mg Q4HR NEB 01/13/25 18:00 02/06/25 15:00 1.25 MG Ipratropium Liberty 0.5 mg Q4HR NEB 01/13/25 18:00 02/06/25 14:59 0.5 MG Cefepime HCl 50 ml @ 12.5 mls/hr Q8HR IV 01/14/25 14:00 UNV Clopidogrel Bisulfate 75 mg DAILY PO 01/15/25 10:00 02/06/25 11:48 75 MG Acetaminophen 650 mg Q8HP PRN PO 01/19/25 15:15 02/06/25 06:15 650 MG Atorvastatin Calcium 40 mg HS PO 01/22/25 22:00 02/05/25 21:38 40 MG Pantoprazole Sodium 40 mg DAILY IV 01/26/25 10:00 02/06/25 09:01 40 MG Voriconazole / Dextrose 250 ml @ 125 mls/hr Q12H IV 01/27/25 13:30 01/28/25 03:29 UNV Artificial Tears 2 drop Q6HP PRN LEFTEYE 01/28/25 10:45 Hydralazine HCl 10 mg Q6HP PRN IV 01/28/25 10:45 02/01/25 10:13 10 MG Rivaroxaban 2.5 mg BID PO 01/30/25 22:00 02/06/25 12:15 2.5 MG Throat Lozenges 1 telma Q2HP PRN MT 02/01/25 11:45 02/01/25 14:02 1 TELMA Sodium Chloride 1 spr QIDP PRN EACHNOSTRI 02/01/25 11:45 02/01/25 21:57 1 SPR Amlodipine Besylate 10 mg DAILY PO 02/01/25 11:58 02/06/25 09:05 10 MG Phenol/Menthol 1 spr Q2HP PRN MT 02/01/25 14:15 02/04/25 22:15 1 SPR Magnesium Oxide 400 mg BID PO 02/01/25 22:00 02/06/25 09:02 400 MG Voriconazole 200 mg BIDAC PO 02/02/25 17:00 02/06/25 06:15 200 MG Diagnostic Test (Pha) 1 strip ACHS 02/03/25 17:00 02/06/25 11:42 1 STRIP Insulin Human Regular HS SC 02/03/25 22:00 02/05/25 21:48 4 UNITS Insulin Human Regular AC SC 02/03/25 17:00 02/06/25 11:49 3 UNITS Dextrose 50 ml UD PRN IV 02/03/25 15:00 Prednisone 40 mg DAILY PO 02/05/25 10:00 02/06/25 09:01 40 MG Polyethylene Glycol 17 gm DAILYPRN PRN PO 02/06/25 14:45 02/06/25 15:46 17 GM Examination General: Awake, alert, mild distress due to shortness of breath HEENT: Head is normocephalic and atraumatic. Pupils are equal, round, and reactive to light. Extraocular muscles are intact. Nasal crusting, healing. Neck: Supple with no cervical lymphadenopathy No meningismus. No goiter. Heart: Regular rate without murmur, rub, or gallop. Lungs: Diminished breath sounds, scattered crackles, scattered wheezing Abdomen: No external sign of injury. Bowel sounds are present. Abdomen is soft, nontender. No rebound, no guarding, no rigidity. There are no palpable masses. There is no flank pain on exam. Extremities: Strong peripheral pulses. There is no clubbing, no cyanosis, and no edema. Skin: scaly skin, dry skin, poor feet hygiene Neurologic: Cranial nerves II-XII intact without motor, sensory, or cerebellar deficit, no asterixis. laboratory and microbiology Laboratory Tests 02/06/25 06:32 Test 02/06/25 06:32 Range/Units Serum Glucose 107 H 74-106 mg/dL Microbiology Date/Time Source Procedure Growth Status 01/26/25 13:11 Voided Urine Urine Culture - Final Presumptive Catherine albicans Complete 01/26/25 11:30 Sputum Gram Stain - Final Resulted 01/26/25 11:30 Respiratory Culture - Preliminary Aspergillus fumigatus Resulted 01/26/25 08:12 Blood Blood Culture - Final NO GROWTH AFTER 5 DAYS OF INCUBATION. Complete 01/25/25 11:28 Lung - Final Resulted 01/25/25 11:28 Lung - Final Resulted 01/25/25 11:28 Lung - Preliminary Resulted 01/25/25 11:28 Lung - Preliminary Resulted 01/25/25 11:28 Lung - Final See Separate Report... 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 b.i.d., for least 6-12 more weeks Continue DuoNebs q.4 Solu-Medrol 40 mg IV qd Insulin a.c. 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 Schultz Plan discussed with: Patient My Orders My Orders Orders - PRIYA GARZA Procedure Category Date Status Time Polyethylene Glycol PHA 02/06/25 In Process 17g Powder (Miralax 14:45 Dietary Evaluation Review Comments: Recommend CCHO-60 with 2 GNa Low fat Low Cholesterol Cardiac diet. Expected Outcomes/Goals: Tight DM control, Wt management Date of Service: Feb 06, 2025 Billing Provider: RON SCHULTZ MD Common Visit Codes: 08739-[id number] INP/OBS CARE(HIGH) PRIYA GARZA RESIDENT Feb 06, 2025 16:59 RON SCHULTZ MD Feb 08, 2025 08:12
--- NOTE | 2025-02-06 18:36 | DVH ---
Date: 02/06/2025 06:16 PM Examination: XY KUB ABDOMEN SINGLE VIEW History: abdominal discomfort, no BM x 4 days Comparison: None TECHNIQUE: Frontal views of the abdomen was obtained. FINDINGS: Gas distended stomach. Stool throughout the colon no findings of obstruction The lung bases are unremarkable. No acute osseous abnormality identified. IMPRESSION: 1. Nonobstructive bowel gas pattern. 2. Stool throughout the colon 3. Gas distended stomach HS:Y
[2025-02-06] MEDS: DOCUSATE SOD 100 MG CAP PO SCH (21:16)
[2025-02-06] MEDS: SENNA 8.6 MG TAB PO SCH (21:16)
[2025-02-07] VITALS (19 sets, daily range): BP systolic 110–120; BP diastolic 43–63; PULSE 75–95; RESP 18–22; TEMP 97.6–98.8; O2SAT 90–98
[2025-02-07 14:35] LABS: Basophils # (auto) 0 10 ^3/uL (0-0.2); Basophils % (auto) 0.1 % (0.0-2.0); Eosinophils # (auto) 0.1 10 ^3/uL (0-0.8); Eosinophils % (auto) 0.9 % (0.0-7.0); Hematocrit 42.3 % (36.0-46.0); Hemoglobin 14.1 g/dL (12.2-16.2); Lymphocytes # (auto) 0.8 10 ^3/uL (0.4-5.4); Lymphocytes % (auto) 5.4 % (10.0-50.0); Mean Corpuscular Hemoglobin 32.2 pg (28.0-32.0); Mean Corpuscular Hgb Conc. 33.4 g/dL (32.0-36.0); Mean Corpuscular Volume 96.2 fL (80.0-100.0); Monocytes # (auto) 0.8 10 ^3/uL (0-1.3); Monocytes % (auto) 5.2 % (0.0-12.0); Neutrophils # (auto) 12.9 10 ^3/uL (1.6-8.6); Neutrophils % (auto) 88.4 % (37.0-80.0); Nucleated Red Blood Cells % 0.1 %; Platelet Count (auto) 101 10^3/uL (140-450); White Blood Cell 14.6 10^3/uL (4.4-10.8)
[2025-02-07 14:39] LABS: Albumin 3.4 g/dL (3.2-4.8); Alkaline Phosphatase 72 U/L (46-116); Anion Gap 7 (5-15); Aspartate Aminotransferase 31 U/L (13-40); BUN/Creatinine Ratio 38.1 (10.0-20.0); Bilirubin, Total 0.9 mg/dL (0.2-1.0); Blood Urea Nitrogen 16 mg/dL (9-23); Carbon Dioxide 29 mmol/L (20-31); Potassium 4.1 mmol/L (3.5-5.1)
[2025-02-07 14:40] LABS: Alanine Aminotransferase 56 U/L (7-40); Calcium 8.6 mg/dL (8.7-10.4); Chloride 94 mmol/L (98-107); Glucose 180 mg/dL (74-106); Sodium 130 mmol/L (136-145); Total Protein 5.5 g/dL (5.7-8.2)
--- NOTE | 2025-02-07 17:11 | DVHPNRES ---
Progress Note Date Seen: Feb 07, 2025 Resident Creating Document: MARZENA STUBBS Medical Necessity Reason Pt with a Central, PICC or Fol: Yes The following are medically ne: Hughes Catheter Reason for hughes catheter: Strict I&O Subjective Review of Systems Abida Mao is a patient currently pending her discharge. As of yesterday, she has not yet been cleared for discharge due to ongoing oxygen requirements. She remains on a simple mask at 6 L/min, with oxygen saturations of 9192%. A trial to decrease to 5 L/min is planned to assess tolerance. 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 Close monitoring of oxygenation will continue, with reassessment early tomorrow morning. Patient reports: No new complaints Changes from previous H/P or p: No Changes Review of Systems: HEENT:Normal, CVS:Normal, RESPIRATORY:Normal, GI:Normal, :Normal, MSK:Normal, NEURO:Normal Objective vital signs Vital Sign Date Time Temp Pulse Resp B/P (MAP) Pulse Ox O2 Delivery O2 Flow Rate FiO2 02/07/25 14:34 76 22 96 02/07/25 14:28 Mask 6.0 02/07/25 14:28 50 02/07/25 13:00 98.0 120/63 (82) 98.0 Total Intake and Output 02/06/25 02/06/25 02/07/25 15:00 23:00 07:00 Intake Total 120 ml 640 ml 100 ml Output Total 225 ml 400 ml 0 ml Balance -105 ml 240 ml 100 ml medications Current Medications Medications Dose Ordered Sig/Jake Route Start Time Stop Time Status Last Admin Dose Admin Albuterol 1.25 mg Q4HR NEB 01/13/25 18:00 02/07/25 14:28 1.25 MG Ipratropium [place] 0.5 mg Q4HR NEB 01/13/25 18:00 02/07/25 14:28 0.5 MG Cefepime HCl 50 ml @ 12.5 mls/hr Q8HR IV 01/14/25 14:00 UNV Clopidogrel Bisulfate 75 mg DAILY PO 01/15/25 10:00 02/07/25 11:09 75 MG Acetaminophen 650 mg Q8HP PRN PO 01/19/25 15:15 02/06/25 18:37 650 MG Atorvastatin Calcium 40 mg HS PO 01/22/25 22:00 02/06/25 21:16 40 MG Pantoprazole Sodium 40 mg DAILY IV 01/26/25 10:00 02/07/25 11:09 40 MG Voriconazole / Dextrose 250 ml @ 125 mls/hr Q12H IV 01/27/25 13:30 01/28/25 03:29 UNV Artificial Tears 2 drop Q6HP PRN LEFTEYE 01/28/25 10:45 Hydralazine HCl 10 mg Q6HP PRN IV 01/28/25 10:45 02/01/25 10:13 10 MG Rivaroxaban 2.5 mg BID PO 01/30/25 22:00 02/07/25 11:09 2.5 MG Throat Lozenges 1 telma Q2HP PRN MT 02/01/25 11:45 02/01/25 14:02 1 TELMA Sodium Chloride 1 spr QIDP PRN EACHNOSTRI 02/01/25 11:45 02/01/25 21:57 1 SPR Amlodipine Besylate 10 mg DAILY PO 02/01/25 11:58 02/07/25 11:10 10 MG Phenol/Menthol 1 spr Q2HP PRN MT 02/01/25 14:15 02/04/25 22:15 1 SPR Magnesium Oxide 400 mg BID PO 02/01/25 22:00 02/07/25 11:09 400 MG Voriconazole 200 mg BIDAC PO 02/02/25 17:00 02/07/25 16:51 200 MG Diagnostic Test (Pha) 1 strip ACHS 02/03/25 17:00 02/07/25 16:51 1 STRIP Insulin Human Regular HS SC 02/03/25 22:00 02/06/25 21:23 3 UNITS Insulin Human Regular AC SC 02/03/25 17:00 02/07/25 17:00 6 UNITS Dextrose 50 ml UD PRN IV 02/03/25 15:00 Prednisone 40 mg DAILY PO 02/05/25 10:00 02/07/25 11:09 40 MG Polyethylene Glycol 17 gm DAILYPRN PRN PO 02/06/25 14:45 02/06/25 15:46 17 GM Docusate Sodium 100 mg BID PO 02/06/25 22:00 02/07/25 11:09 100 MG Sennosides 8.6 mg HS PO 02/06/25 22:00 02/06/25 21:16 8.6 MG Examination: GENERAL:Normal, HEENT:Normal, NECK:Normal, LUNGS:Abnormal, CVS:Normal, ABDOMEN:Normal, MSK:Abnormal, SKIN:Normal, NEURO:Normal, :Normal laboratory and microbiology Laboratory Tests 02/07/25 13:48 Test 02/07/25 13:48 Range/Units Serum Glucose 180 H 74-106 mg/dL Microbiology Date/Time Source Procedure Growth Status 01/26/25 13:11 Voided Urine Urine Culture - Final Presumptive Catherine albicans Complete 01/26/25 11:30 Sputum Gram Stain - Final Resulted 01/26/25 11:30 Respiratory Culture - Preliminary Aspergillus fumigatus Resulted 01/26/25 08:12 Blood Blood Culture - Final NO GROWTH AFTER 5 DAYS OF INCUBATION. Complete 01/25/25 11:28 Lung - Final Resulted 01/25/25 11:28 Lung - Final Resulted 01/25/25 11:28 Lung - Preliminary Resulted 01/25/25 11:28 Lung - Preliminary Resulted 01/25/25 11:28 Lung - Final See Separate Report... 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 b.i.d., for least 6-12 more weeks Continue DuoNebs q.4 Solu-Medrol 40 mg IV qd Insulin a.c. hs moderate Lines Left internal jugular triple-lumen catheter 01/25/25 Intubated 01/25/25, extubated 01/30/25 vp client services consult for hospice at home Case discussed with code status: full code Plan discussed with: Patient Dietary Evaluation Review Comments: Recommend CCHO-60 with 2 GNa Low fat Low Cholesterol Cardiac diet. Expected Outcomes/Goals: Tight DM control, Wt management Date of Service: Feb 07, 2025 Billing Provider: RON SCHULTZ MD Common Visit Codes: [id number] INP/OBS CARE(HIGH) MARZENA STUBBS RESIDENT Feb 07, 2025 17:11 RON SCHULTZ MD Feb 08, 2025 08:13
[2025-02-08] VITALS (20 sets, daily range): BP systolic 114–127; BP diastolic 39–70; PULSE 61–101; RESP 14–22; TEMP 97.6–99.1; O2SAT 89–100
[2025-02-08] MEDS: ALBUTEROL SULF 2.5 MG/0.5ML(0.5%) NEB SOLN NEB SCH (06:06)
[2025-02-08 06:10] LABS: Basophils # (auto) 0 10 ^3/uL (0-0.2); Basophils % (auto) 0.1 % (0.0-2.0); Eosinophils # (auto) 0.1 10 ^3/uL (0-0.8); Eosinophils % (auto) 0.7 % (0.0-7.0); Hematocrit 40.8 % (36.0-46.0); Hemoglobin 13.7 g/dL (12.2-16.2); Lymphocytes # (auto) 1.1 10 ^3/uL (0.4-5.4); Lymphocytes % (auto) 9.3 % (10.0-50.0); Mean Corpuscular Hemoglobin 32.1 pg (28.0-32.0); Mean Corpuscular Hgb Conc. 33.7 g/dL (32.0-36.0); Mean Corpuscular Volume 95.3 fL (80.0-100.0); Monocytes # (auto) 0.5 10 ^3/uL (0-1.3); Monocytes % (auto) 4.3 % (0.0-12.0); Neutrophils # (auto) 10.1 10 ^3/uL (1.6-8.6); Neutrophils % (auto) 85.6 % (37.0-80.0); Platelet Count (auto) 110 10^3/uL (140-450); Red Blood Cells 4.28 10^6/uL (4.0-5.20); Red Cell Distribution Width 14.3 % (11.8-14.3); White Blood Cell 11.8 10^3/uL (4.4-10.8)
[2025-02-08 06:16] LABS: Chloride 100 mmol/L (98-107); Potassium 3.6 mmol/L (3.5-5.1); Sodium 137 mmol/L (136-145)
[2025-02-08 06:17] LABS: Anion Gap 6 (5-15)
[2025-02-08 06:18] LABS: Carbon Dioxide 31 mmol/L (20-31)
[2025-02-08 06:22] LABS: BUN/Creatinine Ratio 45.7 (10.0-20.0); Blood Urea Nitrogen 16 mg/dL (9-23); Glucose 101 mg/dL (74-106)
--- NOTE | 2025-02-08 07:35 | DVHPNRES ---
Progress Note Date Seen: Feb 08, 2025 Resident Creating Document: SHEA SCHMITZ RESIDENT Medical Necessity Reason Pt with a Central, PICC or Fol: Yes The following are medically ne: Hughes Catheter Reason for hughes catheter: Strict I&O Subjective Review of Systems On my assessment, patient was seen and examined at bedside. She currently states feeling well, denies any significant shortness of breath, chest pain, abdominal pain, dysuria, nausea, vomiting, diarrhea, constipation, dizziness, lightheadedness. She's currently tolerating diet. Simple mask at 5 L, saturation above 92%. Patient's son is still yet to obtain voriconazole from the pharmacy Objective vital signs Vital Sign Date Time Temp Pulse Resp B/P (MAP) Pulse Ox O2 Delivery O2 Flow Rate FiO2 02/08/25 06:14 75 14 100 02/08/25 06:08 Simple Mask* 6 50 02/08/25 05:00 98.1 120/39 (66) 98.1 Total Intake and Output 02/07/25 02/07/25 02/08/25 15:00 23:00 07:00 Intake Total 200 ml 500 ml Output Total 1252 ml Balance 200 ml -752 ml medications Current Medications Medications Dose Ordered Sig/Jake Route Start Time Stop Time Status Last Admin Dose Admin Ipratropium [place] 0.5 mg Q4HR NEB 01/13/25 18:00 02/08/25 06:06 0.5 MG Cefepime HCl 50 ml @ 12.5 mls/hr Q8HR IV 01/14/25 14:00 UNV Clopidogrel Bisulfate 75 mg DAILY PO 01/15/25 10:00 02/07/25 11:09 75 MG Acetaminophen 650 mg Q8HP PRN PO 01/19/25 15:15 02/07/25 19:50 650 MG Atorvastatin Calcium 40 mg HS PO 01/22/25 22:00 02/07/25 20:47 40 MG Pantoprazole Sodium 40 mg DAILY IV 01/26/25 10:00 02/07/25 11:09 40 MG Voriconazole / Dextrose 250 ml @ 125 mls/hr Q12H IV 01/27/25 13:30 01/28/25 03:29 UNV Artificial Tears 2 drop Q6HP PRN LEFTEYE 01/28/25 10:45 Hydralazine HCl 10 mg Q6HP PRN IV 01/28/25 10:45 02/01/25 10:13 10 MG Rivaroxaban 2.5 mg BID PO 01/30/25 22:00 02/07/25 21:26 2.5 MG Throat Lozenges 1 telma Q2HP PRN MT 02/01/25 11:45 02/01/25 14:02 1 TELMA Sodium Chloride 1 spr QIDP PRN EACHNOSTRI 02/01/25 11:45 02/01/25 21:57 1 SPR Amlodipine Besylate 10 mg DAILY PO 02/01/25 11:58 02/07/25 11:10 10 MG Phenol/Menthol 1 spr Q2HP PRN MT 02/01/25 14:15 02/04/25 22:15 1 SPR Magnesium Oxide 400 mg BID PO 02/01/25 22:00 02/07/25 20:47 400 MG Voriconazole 200 mg BIDAC PO 02/02/25 17:00 02/08/25 06:26 200 MG Diagnostic Test (Pha) 1 strip ACHS 02/03/25 17:00 02/08/25 06:07 1 STRIP Insulin Human Regular HS SC 02/03/25 22:00 02/07/25 20:49 4 UNITS Insulin Human Regular AC SC 02/03/25 17:00 02/07/25 17:00 6 UNITS Dextrose 50 ml UD PRN IV 02/03/25 15:00 Prednisone 40 mg DAILY PO 02/05/25 10:00 02/07/25 11:09 40 MG Polyethylene Glycol 17 gm DAILYPRN PRN PO 02/06/25 14:45 02/06/25 15:46 17 GM Docusate Sodium 100 mg BID PO 02/06/25 22:00 02/07/25 20:47 100 MG Sennosides 8.6 mg HS PO 02/06/25 22:00 02/07/25 20:48 8.6 MG Albuterol 2.5 mg Q4HR NEB 02/08/25 06:00 02/08/25 06:06 2.5 MG Examination Physical examination as below: General: Awake, alert, no distress HEENT: Head is normocephalic and atraumatic. Pupils are equal, round, and reactive to light. Extraocular muscles are intact. Nasal crusting, healing. Neck: Supple with no cervical lymphadenopathy No meningismus. No goiter. Heart: Regular rate without murmur, rub, or gallop. Lungs: Diminished breath sounds, scattered crackles, scattered wheezing Abdomen: No external sign of injury. Bowel sounds are present. Abdomen is soft, nontender. No rebound, no guarding, no rigidity. There are no palpable masses. There is no flank pain on exam. Extremities: Strong peripheral pulses. There is no clubbing, no cyanosis, and no edema. Skin: scaly skin, dry skin, poor feet hygiene Neurologic: Cranial nerves II-XII intact without motor, sensory, or cerebellar deficit, no asterixis. laboratory and microbiology Laboratory Tests 02/08/25 05:31 Test 02/08/25 05:31 Range/Units Serum Glucose 101 74-106 mg/dL Microbiology Date/Time Source Procedure Growth Status 01/26/25 13:11 Voided Urine Urine Culture - Final Presumptive Catherine albicans Complete 01/26/25 11:30 Sputum Gram Stain - Final Resulted 01/26/25 11:30 Respiratory Culture - Preliminary Aspergillus fumigatus Resulted 01/26/25 08:12 Blood Blood Culture - Final NO GROWTH AFTER 5 DAYS OF INCUBATION. Complete 01/25/25 11:28 Lung - Final Resulted 01/25/25 11:28 Lung - Final Resulted 01/25/25 11:28 Lung - Preliminary Resulted 01/25/25 11:28 Lung - Preliminary Resulted 01/25/25 11:28 Lung - Final See Separate Report... 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 b.i.d., for least 6-12 more weeks Continue DuoNebs q.4 Solu-Medrol 40 mg IV qd Insulin a.c. hs moderate Telemetry Lines Left internal jugular triple-lumen catheter 01/25/25 Intubated 01/25/25, extubated 01/30/25 Patient's son is still pending to obtain very consult from the pharmacy. [facility] for four weeks, she will continue home medications as prescribed in his spread sheet, she has to continue taking voriconazole 200 mg p.o. b.i.d. for the next 6-12 weeks. She will follow-up with PCP in 1-2 weeks. Patient and ux information architect (son,) verbalized understanding and agree with the DC plan, we spent over 30 minutes explaining the plan. Goals of care were discussed for over 30 mins, modified code, DNI, may do chest compressions and shock Case was discussed with Dr. Chavez Plan discussed with: Patient, Son, Other (RN) Dietary Evaluation Review Comments: Recommend CCHO-60 with 2 GNa Low fat Low Cholesterol Cardiac diet. Expected Outcomes/Goals: Tight DM control, Wt management Date of Service: Feb 08, 2025 Billing Provider: JUSTINE CHAVEZ MD Common Visit Codes: [id number] INP/OBS CARE(MOD) SHEA SCHMITZ RESIDENT Feb 08, 2025 07:35 JUSTINE CHAVEZ MD Feb 09, 2025 10:57
[2025-02-09] VITALS (21 sets, daily range): BP systolic 102–129; BP diastolic 44–80; PULSE 56–102; RESP 14–18; TEMP 97.6–99; O2SAT 90–99
[2025-02-09] MEDS: predniSONE 20 MG TAB PO SCH (09:45)
--- NOTE | 2025-02-09 16:55 | DVHPNRES ---
Progress Note Date Seen: Feb 09, 2025 Resident Creating Document: SHEA SCHMITZ RESIDENT Medical Necessity Reason Pt with a Central, PICC or Fol: Yes The following are medically ne: Hughes Catheter Reason for hughes catheter: Strict I&O Subjective Review of Systems On my assessment, patient was seen and examined at bedside. She currently states feeling well, denies any significant shortness of breath, chest pain, abdominal pain, dysuria, nausea, vomiting, diarrhea, constipation, dizziness, lightheadedness. She's currently tolerating diet. Simple mask at 6 L, saturation above 92%. Objective vital signs Vital Sign Date Time Temp Pulse Resp B/P (MAP) Pulse Ox O2 Delivery O2 Flow Rate FiO2 02/09/25 14:27 62 14 95 02/09/25 13:30 97.6 102/44 (63) 97.6 02/09/25 06:30 Simple Mask* 6 50 Total Intake and Output 02/08/25 02/08/25 02/09/25 15:00 23:00 07:00 Intake Total 840 ml 320 ml Output Total 600 ml 375 ml Balance 240 ml -55 ml medications Current Medications Medications Dose Ordered Sig/Jake Route Start Time Stop Time Status Last Admin Dose Admin Ipratropium [place] 0.5 mg Q4HR NEB 01/13/25 18:00 02/09/25 14:18 0.5 MG Cefepime HCl 50 ml @ 12.5 mls/hr Q8HR IV 01/14/25 14:00 UNV Clopidogrel Bisulfate 75 mg DAILY PO 01/15/25 10:00 02/09/25 09:44 75 MG Acetaminophen 650 mg Q8HP PRN PO 01/19/25 15:15 02/09/25 09:58 650 MG Atorvastatin Calcium 40 mg HS PO 01/22/25 22:00 02/08/25 21:53 40 MG Pantoprazole Sodium 40 mg DAILY IV 01/26/25 10:00 02/09/25 09:58 40 MG Voriconazole / Dextrose 250 ml @ 125 mls/hr Q12H IV 01/27/25 13:30 01/28/25 03:29 UNV Artificial Tears 2 drop Q6HP PRN LEFTEYE 01/28/25 10:45 Hydralazine HCl 10 mg Q6HP PRN IV 01/28/25 10:45 02/01/25 10:13 10 MG Rivaroxaban 2.5 mg BID PO 01/30/25 22:00 02/09/25 10:01 2.5 MG Throat Lozenges 1 telma Q2HP PRN MT 02/01/25 11:45 02/01/25 14:02 1 TELMA Sodium Chloride 1 spr QIDP PRN EACHNOSTRI 02/01/25 11:45 02/01/25 21:57 1 SPR Amlodipine Besylate 10 mg DAILY PO 02/01/25 11:58 02/09/25 09:45 10 MG Phenol/Menthol 1 spr Q2HP PRN MT 02/01/25 14:15 02/04/25 22:15 1 SPR Magnesium Oxide 400 mg BID PO 02/01/25 22:00 02/09/25 09:44 400 MG Voriconazole 200 mg BIDAC PO 02/02/25 17:00 02/09/25 16:47 200 MG Diagnostic Test (Pha) 1 strip ACHS 02/03/25 17:00 02/09/25 11:54 1 STRIP Insulin Human Regular HS SC 02/03/25 22:00 02/08/25 21:58 6 UNITS Insulin Human Regular AC SC 02/03/25 17:00 02/09/25 11:55 6 UNITS Dextrose 50 ml UD PRN IV 02/03/25 15:00 Polyethylene Glycol 17 gm DAILYPRN PRN PO 02/06/25 14:45 02/06/25 15:46 17 GM Docusate Sodium 100 mg BID PO 02/06/25 22:00 02/09/25 09:45 100 MG Sennosides 8.6 mg HS PO 02/06/25 22:00 02/08/25 21:53 8.6 MG Albuterol 2.5 mg Q4HR NEB 02/08/25 06:00 02/09/25 14:18 2.5 MG Prednisone 20 mg DAILY PO 02/09/25 10:00 02/09/25 09:45 20 MG Examination Physical examination as below: General: Awake, alert, no distress HEENT: Head is normocephalic and atraumatic. Pupils are equal, round, and reactive to light. Extraocular muscles are intact. Nasal crusting, healing. Neck: Supple with no cervical lymphadenopathy No meningismus. No goiter. Heart: Regular rate without murmur, rub, or gallop. Lungs: Diminished breath sounds, scattered crackles, scattered wheezing Abdomen: No external sign of injury. Bowel sounds are present. Abdomen is soft, nontender. No rebound, no guarding, no rigidity. There are no palpable masses. There is no flank pain on exam. Extremities: Strong peripheral pulses. There is no clubbing, no cyanosis, and no edema. Skin: scaly skin, dry skin, poor feet hygiene Neurologic: Cranial nerves II-XII intact without motor, sensory, or cerebellar deficit, no asterixis. laboratory and microbiology Laboratory Tests 02/08/25 05:31 Test 02/08/25 05:31 Range/Units Serum Glucose 101 74-106 mg/dL Microbiology Date/Time Source Procedure Growth Status 01/26/25 13:11 Voided Urine Urine Culture - Final Presumptive Catherine albicans Complete 01/26/25 11:30 Sputum Gram Stain - Final Resulted 01/26/25 11:30 Respiratory Culture - Preliminary Aspergillus fumigatus Resulted 01/26/25 08:12 Blood Blood Culture - Final NO GROWTH AFTER 5 DAYS OF INCUBATION. Complete 01/25/25 11:28 Lung - Final Complete 01/25/25 11:28 Lung - Final Complete 01/25/25 11:28 Lung - Final Complete 01/25/25 11:28 Lung - Final Complete 01/25/25 11:28 Lung - Final Complete 01/25/25 11:28 Lung - Final See Separate Report... 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 b.i.d., for least 6-12 more weeks Continue DuoNebs q.4 Prednisone 20 mg po qd Insulin a.c. hs moderate Wound consult for nares crusting DC telemetry Lines Left internal jugular triple-lumen catheter 01/25/25 Intubated 01/25/25, extubated 01/30/25 Patient will be discharge to senior living facility for physical therapy for four weeks, she will continue home medications as prescribed in his spread sheet, she has to continue taking voriconazole 200 mg p.o. b.i.d. for the next 6-12 weeks. She will follow-up with PCP in 1-2 weeks. Patient and driller multiple spindle (son,) verbalized understanding and agree with the DC plan, we spent over 30 minutes explaining the plan. Goals of care were discussed for over 30 mins, modified code, DNI, may do chest compressions and shock Case was discussed with Dr. Chavze Plan discussed with: Patient, Other (RN) My Orders My Orders Orders - SHEA SCHMITZ RESIDENT Procedure Category Date Status Time Prednisone Tablet PHA 02/09/25 In Process 10:00 Ok To Change Hughes ORDERS 02/09/25 Transmitted 12:57 * Wound Consult CONS 02/09/25 Transmitted Discontinue Tele VLADIMIR 02/09/25 In Process 15:26 Transfer Orders XFER 02/09/25 Transmitted 15:26 Basic Metabolic Panel LAB 02/10/25 Verified 04:00 Complete Blood Count LAB 02/10/25 Verified 04:00 Chest Portable XY 02/10/25 Logged 04:00 Up To Chair VLADIMIR 02/09/25 In Process 16:42 Dietary Evaluation Review Comments: Recommend CCHO-60 with 2 GNa Low fat Low Cholesterol Cardiac diet. Expected Outcomes/Goals: Tight DM control, Wt management Date of Service: Feb 09, 2025 Billing Provider: JUSTINE CHAVEZ MD Common Visit Codes: [id number] INP/OBS CARE(MOD) SHEA SCHMITZ RESIDENT Feb 09, 2025 16:55 JUSTINE CHAVEZ MD Feb 10, 2025 14:24
[2025-02-09] MEDS ORDERED: FUROSEMIDE 20 MG/2 ML VIAL IV ONE (18:45)
[2025-02-09] MEDS: FUROSEMIDE 20 MG/2 ML VIAL IV ONE (22:43)
[2025-02-10] VITALS (19 sets, daily range): BP systolic 105–119; BP diastolic 41–63; PULSE 67–92; RESP 14–20; TEMP 97.5–98.8; O2SAT 91–96
[2025-02-10 06:14] LABS: Hematocrit 35.6 % (36.0-46.0); Hemoglobin 12.6 g/dL (12.2-16.2); Mean Corpuscular Hemoglobin 33.3 pg (28.0-32.0); Mean Corpuscular Hgb Conc. 35.4 g/dL (32.0-36.0); Platelet Count (auto) 126 10^3/uL (140-450); Red Blood Cells 3.79 10^6/uL (4.0-5.20); Red Cell Distribution Width 13.8 % (11.8-14.3)
[2025-02-10 06:20] LABS: Anion Gap 7 (5-15); Carbon Dioxide 30 mmol/L (20-31)
[2025-02-10 06:22] LABS: Calcium 8.9 mg/dL (8.7-10.4)
[2025-02-10 06:25] LABS: Chloride 97 mmol/L (98-107); Potassium 3.2 mmol/L (3.5-5.1); Sodium 134 mmol/L (136-145)
[2025-02-10 06:26] LABS: Glucose 88 mg/dL (74-106)
[2025-02-10 06:27] LABS: BUN/Creatinine Ratio 45.2 (10.0-20.0); Blood Urea Nitrogen 14 mg/dL (9-23)
[2025-02-10 06:41] LABS: Basophils % (manual) 0 (0.0-2.0); Blast Cells 0; Eosinophils % (manual) 0 (0-7); Metamyelocytes % 0; Monocytes % (manual) 0 (0-12); Myelocytes % 0; Promyelocytes % 0; Reactive Lymphocytes 0
--- NOTE | 2025-02-10 07:09 | DVH ---
EXAM: XR Chest, 1 View CLINICAL INDICATION: sob TECHNIQUE: Frontal view of the chest. COMPARISON: XY CHEST PORTABLE on DOS: 02/04/25, XY CHEST PORTABLE on DOS: 02/01/25, XY CHEST PORTABLE on DOS: 01/30/25, XY CHEST PORTABLE on DOS: 01/29/25, XY CHEST PORTABLE on DOS: 01/28/25 FINDINGS: LUNGS AND PLEURAL SPACES: Right basilar atelectasis or pneumonia. Right pleural effusion. No pneu mothorax. HEART: Unremarkable. No cardiomegaly. MEDIASTINUM: Unremarkable. Normal mediastinal contour. BONES/JOINTS: Unremarkable. No acute fracture. TUBES, LINES AND DEVICES: Left internal jugular central venous catheter tip in the superior vena ca va. OTHER FINDINGS: .. IMPRESSION: 1. Right basilar atelectasis or pneumonia. 2. Right pleural effusion.
[2025-02-10 07:59] LABS: Band Neutrophils % (manual) 5; Lymphocytes % (manual) 16 (10.0-50.0); Platelet Estimate Decreased
[2025-02-10] MEDS: POTASSIUM CHL 20 Meq TABLET PO ONE (08:30)
--- NOTE | 2025-02-10 10:08 | DVH ---
Bilateral Chest Sonogram Date: 02/10/2025 09:24 AM Clinical history: right sided pleural effusion Technique: Limited sonographic evaluation of the bilateral chest was performed to evaluate for pleu ral effusion. Finding/Impression: There is a small right and trace left pleural effusion.
[2025-02-10] MEDS: FUROSEMIDE 20 MG/2 ML VIAL IV SCH (10:13)
[2025-02-10] MEDS: RIVAROXABAN 2.5 MG TAB PO SCH (10:16)
[2025-02-10] MEDS: SORE THROAT SPRAY 6OZ BOTTLE MT ONE (11:00)
[2025-02-10] MEDS ORDERED: SORE THROAT SPRAY 6OZ BOTTLE MT PRN (11:00)
[2025-02-10] MEDS: DexAMETHasone SOD PHOS 10MG/1ML VIAL INJ IV ONE (12:00)
--- NOTE | 2025-02-10 15:06 | DVH ---
HISTORY: sinusitis, r/o nasal polyp TECHNIQUE: Nonenhanced axial images through the facial bones with coronal and sagittal MPR. COMPARISON: None Radiation Dose Information: CT Dose: CTDI volume is 65.39 mGy. Dose-length product is 1266.28 mGy*cm FINDINGS: Mandible: Intact Maxilla: No fracture Pterygoid plates: No fracture Zygomatic processes: No fracture. Zygomatic arches: No fracture Orbits: Intact Sinuses: Within normal limits no fracture Facial swelling: None visualized IMPRESSION: 1. No acute facial fractures. Radiation optimization: All CT scans at this facility use at least one of these dose optimization danya hniques: automated exposure control mA and/or kV adjustment per patient size (includes targeted exam s where dose is matched to clinical indication) or iterative reconstruction.
--- NOTE | 2025-02-10 17:08 | DVHPNRES ---
Progress Note Date Seen: Feb 10, 2025 Resident Creating Document: SHEA SCHMITZ RESIDENT Medical Necessity Reason Pt with a Central, PICC or Fol: Yes The following are medically ne: Hughes Catheter Reason for hughes catheter: Strict I&O Subjective Review of Systems On my assessment, patient was seen and examined at bedside. She currently states feeling well, denies any significant shortness of breath, chest pain, abdominal pain, dysuria, nausea, vomiting, diarrhea, constipation, dizziness, lightheadedness. She's currently tolerating diet. Simple mask at 6 L, saturation above 92%. Objective vital signs Vital Sign Date Time Temp Pulse Resp B/P (MAP) Pulse Ox O2 Delivery O2 Flow Rate FiO2 02/10/25 14:47 89 16 94 02/10/25 14:41 Mask 6.0 02/10/25 14:41 50 02/10/25 12:49 98.0 105/41 (62) 98.0 Total Intake and Output 02/09/25 02/09/25 02/10/25 15:00 23:00 07:00 Intake Total 0 ml 400 ml Output Total 600 ml 1300 ml Balance -600 ml -900 ml medications Current Medications Medications Dose Ordered Sig/Jake Route Start Time Stop Time Status Last Admin Dose Admin Ipratropium [place] 0.5 mg Q4HR NEB 01/13/25 18:00 02/10/25 14:41 0.5 MG Cefepime HCl 50 ml @ 12.5 mls/hr Q8HR IV 01/14/25 14:00 UNV Clopidogrel Bisulfate 75 mg DAILY PO 01/15/25 10:00 02/10/25 10:14 75 MG Acetaminophen 650 mg Q8HP PRN PO 01/19/25 15:15 02/10/25 11:58 650 MG Atorvastatin Calcium 40 mg HS PO 01/22/25 22:00 02/09/25 21:53 40 MG Pantoprazole Sodium 40 mg DAILY IV 01/26/25 10:00 02/10/25 10:09 40 MG Voriconazole / Dextrose 250 ml @ 125 mls/hr Q12H IV 01/27/25 13:30 01/28/25 03:29 UNV Artificial Tears 2 drop Q6HP PRN LEFTEYE 01/28/25 10:45 Hydralazine HCl 10 mg Q6HP PRN IV 01/28/25 10:45 02/01/25 10:13 10 MG Throat Lozenges 1 telma Q2HP PRN MT 02/01/25 11:45 02/01/25 14:02 1 TELMA Sodium Chloride 1 spr QIDP PRN EACHNOSTRI 02/01/25 11:45 02/01/25 21:57 1 SPR Amlodipine Besylate 10 mg DAILY PO 02/01/25 11:58 02/10/25 10:16 10 MG Magnesium Oxide 400 mg BID PO 02/01/25 22:00 02/10/25 10:17 400 MG Voriconazole 200 mg BIDAC PO 02/02/25 17:00 02/10/25 06:28 200 MG Diagnostic Test (Pha) 1 strip ACHS 02/03/25 17:00 02/10/25 11:22 1 STRIP Insulin Human Regular HS SC 02/03/25 22:00 02/09/25 21:59 3 UNITS Insulin Human Regular AC SC 02/03/25 17:00 02/10/25 11:24 3 UNITS Dextrose 50 ml UD PRN IV 02/03/25 15:00 Polyethylene Glycol 17 gm DAILYPRN PRN PO 02/06/25 14:45 02/06/25 15:46 17 GM Docusate Sodium 100 mg BID PO 02/06/25 22:00 02/10/25 10:17 100 MG Sennosides 8.6 mg HS PO 02/06/25 22:00 02/09/25 21:54 8.6 MG Albuterol 2.5 mg Q4HR NEB 02/08/25 06:00 02/10/25 14:41 2.5 MG Prednisone 20 mg DAILY PO 02/09/25 10:00 02/10/25 10:13 20 MG Furosemide 20 mg DAILY IV 02/10/25 10:00 02/10/25 10:13 20 MG Rivaroxaban 2.5 mg BID PO 02/10/25 10:00 02/10/25 10:16 2.5 MG Phenol/Menthol 1 spr Q2HP PRN MT 02/10/25 11:00 Examination Physical examination as below: General: Awake, alert, no distress HEENT: Head is normocephalic and atraumatic. Pupils are equal, round, and reactive to light. Extraocular muscles are intact. Nasal crusting, healing. Neck: Supple with no cervical lymphadenopathy No meningismus. No goiter. Heart: Regular rate without murmur, rub, or gallop. Lungs: Diminished breath sounds, scattered crackles, scattered wheezing Abdomen: No external sign of injury. Bowel sounds are present. Abdomen is soft, nontender. No rebound, no guarding, no rigidity. There are no palpable masses. There is no flank pain on exam. Extremities: Strong peripheral pulses. There is no clubbing, no cyanosis, and no edema. Skin: scaly skin, dry skin, poor feet hygiene Neurologic: Cranial nerves II-XII intact without motor, sensory, or cerebellar deficit, no asterixis. laboratory and microbiology Laboratory Tests 02/10/25 05:20 Test 02/10/25 05:20 Range/Units Serum Glucose 88 74-106 mg/dL Microbiology Date/Time Source Procedure Growth Status 01/26/25 13:11 Voided Urine Urine Culture - Final Presumptive Catherine albicans Complete 01/26/25 11:30 Sputum Gram Stain - Final Resulted 01/26/25 11:30 Respiratory Culture - Preliminary Aspergillus fumigatus Resulted 01/26/25 08:12 Blood Blood Culture - Final NO GROWTH AFTER 5 DAYS OF INCUBATION. Complete 01/25/25 11:28 Lung - Final Complete 01/25/25 11:28 Lung - Final Complete 01/25/25 11:28 Lung - Final Complete 01/25/25 11:28 Lung - Final Complete 01/25/25 11:28 Lung - Final Complete 01/25/25 11:28 Lung - Final See Separate Report... 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 b.i.d., for least 6-12 more weeks Continue DuoNebs q.4 Prednisone 20 mg po qd Insulin a.c. hs moderate Wound consult for nares crusting Lines Left internal jugular triple-lumen catheter 01/25/25 Intubated 01/25/25, extubated 01/30/25 Goals of care were discussed for over 30 mins, modified code, DNI, may do chest compressions and shock Case was discussed with Dr. Chavez Plan discussed with: Patient, Other (RN) My Orders My Orders Orders - SHEA SCHMITZ RESIDENT Procedure Category Date Status Time Chest Ultrasound US 02/10/25 Resulted 08:[address] 02/10/25 Resulted 10:45 Sore Throat [place] PHA 02/10/25 In Process (Chloraseptic) 11:00 Cleanse Wound With Ns VLADIMIR 02/10/25 In Process 12:15 Dietary Evaluation Review Comments: Recommend CCHO-60 with 2 GNa Low fat Low Cholesterol Cardiac diet. Expected Outcomes/Goals: Tight DM control, Wt management Date of Service: Feb 10, 2025 Billing Provider: JUSTINE CHAVEZ MD Common Visit Codes: [id number] INP/OBS CARE(HIGH) SHEA SCHMITZ RESIDENT Feb 10, 2025 17:08 JUSTINE CHAVEZ MD Feb 16, 2025 12:12
[2025-02-11] VITALS (17 sets, daily range): BP systolic 105–118; BP diastolic 37–57; PULSE 82–104; RESP 16–20; TEMP 97.2–98.3; O2SAT 91–95
[2025-02-11 06:16] LABS: Potassium 4.1 mmol/L (3.5-5.1)
[2025-02-11 06:17] LABS: Anion Gap 7 (5-15); Calcium 9.2 mg/dL (8.7-10.4); Carbon Dioxide 28 mmol/L (20-31)
[2025-02-11 06:22] LABS: BUN/Creatinine Ratio 52.8 (10.0-20.0); Blood Urea Nitrogen 19 mg/dL (9-23)
[2025-02-11 06:28] LABS: Chloride 96 mmol/L (98-107); Glucose 181 mg/dL (74-106); Sodium 131 mmol/L (136-145)
--- NOTE | 2025-02-11 13:48 | DVHPNRES ---
Progress Note Date Seen: Feb 11, 2025 Resident Creating Document: SHEA SCHMITZ RESIDENT Medical Necessity Reason Pt with a Central, PICC or Fol: Yes The following are medically ne: Hughes Catheter Reason for hughes catheter: Strict I&O Subjective Review of Systems On my assessment, patient was seen and examined at bedside. She currently states feeling well, denies any significant shortness of breath, chest pain, abdominal pain, dysuria, nausea, vomiting, diarrhea, constipation, dizziness, lightheadedness. She's currently tolerating diet. Simple mask at 6 L, saturation above 92%. Objective vital signs Vital Sign Date Time Temp Pulse Resp B/P (MAP) Pulse Ox O2 Delivery O2 Flow Rate FiO2 02/11/25 10:09 87 18 95 02/11/25 10:01 Simple Mask* 6 50 02/11/25 09:00 97.4 118/49 (72) 97.4 Total Intake and Output 02/10/25 02/10/25 02/11/25 15:00 23:00 07:00 Intake Total 975 ml 1400 ml Output Total 900 ml 750 ml Balance 75 ml 650 ml medications Current Medications Medications Dose Ordered Sig/Jake Route Start Time Stop Time Status Last Admin Dose Admin Ipratropium [place] 0.5 mg Q4HR NEB 01/13/25 18:00 02/11/25 10:01 0.5 MG Cefepime HCl 50 ml @ 12.5 mls/hr Q8HR IV 01/14/25 14:00 UNV Clopidogrel Bisulfate 75 mg DAILY PO 01/15/25 10:00 02/11/25 08:50 75 MG Acetaminophen 650 mg Q8HP PRN PO 01/19/25 15:15 02/11/25 08:49 650 MG Atorvastatin Calcium 40 mg HS PO 01/22/25 22:00 02/10/25 21:55 40 MG Pantoprazole Sodium 40 mg DAILY IV 01/26/25 10:00 02/11/25 08:52 40 MG Voriconazole / Dextrose 250 ml @ 125 mls/hr Q12H IV 01/27/25 13:30 01/28/25 03:29 UNV Artificial Tears 2 drop Q6HP PRN LEFTEYE 01/28/25 10:45 Hydralazine HCl 10 mg Q6HP PRN IV 01/28/25 10:45 02/01/25 10:13 10 MG Throat Lozenges 1 telma Q2HP PRN MT 02/01/25 11:45 02/01/25 14:02 1 TELMA Sodium Chloride 1 spr QIDP PRN EACHNOSTRI 02/01/25 11:45 02/01/25 21:57 1 SPR Amlodipine Besylate 10 mg DAILY PO 02/01/25 11:58 02/11/25 08:51 10 MG Magnesium Oxide 400 mg BID PO 02/01/25 22:00 02/11/25 08:50 400 MG Voriconazole 200 mg BIDAC PO 02/02/25 17:00 02/11/25 06:17 200 MG Diagnostic Test (Pha) 1 strip ACHS 02/03/25 17:00 02/11/25 11:37 1 STRIP Insulin Human Regular HS SC 02/03/25 22:00 02/10/25 21:57 8 UNITS Insulin Human Regular AC SC 02/03/25 17:00 02/11/25 11:39 6 UNITS Dextrose 50 ml UD PRN IV 02/03/25 15:00 Polyethylene Glycol 17 gm DAILYPRN PRN PO 02/06/25 14:45 02/06/25 15:46 17 GM Docusate Sodium 100 mg BID PO 02/06/25 22:00 02/11/25 08:50 100 MG Sennosides 8.6 mg HS PO 02/06/25 22:00 02/10/25 21:56 8.6 MG Albuterol 2.5 mg Q4HR NEB 02/08/25 06:00 02/11/25 10:01 2.5 MG Prednisone 20 mg DAILY PO 02/09/25 10:00 02/11/25 08:51 20 MG Furosemide 20 mg DAILY IV 02/10/25 10:00 02/11/25 08:54 20 MG Rivaroxaban 2.5 mg BID PO 02/10/25 10:00 02/11/25 09:10 2.5 MG Phenol/Menthol 1 spr Q2HP PRN MT 02/10/25 11:00 Examination Physical examination as below: General: Awake, alert, no distress HEENT: Head is normocephalic and atraumatic. Pupils are equal, round, and reactive to light. Extraocular muscles are intact. Nasal crusting, healing. Neck: Supple with no cervical lymphadenopathy No meningismus. No goiter. Heart: Regular rate without murmur, rub, or gallop. Lungs: Diminished breath sounds, scattered crackles, scattered wheezing Abdomen: No external sign of injury. Bowel sounds are present. Abdomen is soft, nontender. No rebound, no guarding, no rigidity. There are no palpable masses. There is no flank pain on exam. Extremities: Strong peripheral pulses. There is no clubbing, no cyanosis, and no edema. Skin: scaly skin, dry skin, poor feet hygiene Neurologic: Cranial nerves II-XII intact without motor, sensory, or cerebellar deficit, no asterixis. laboratory and microbiology Laboratory Tests 02/11/25 05:21 02/10/25 05:20 Test 02/11/25 05:21 Range/Units Serum Glucose 181 H 74-106 mg/dL Microbiology Date/Time Source Procedure Growth Status 01/26/25 13:11 Voided Urine Urine Culture - Final Presumptive Catherine albicans Complete 01/26/25 11:30 Sputum Gram Stain - Final Resulted 01/26/25 11:30 Respiratory Culture - Preliminary Aspergillus fumigatus Resulted 01/26/25 08:12 Blood Blood Culture - Final NO GROWTH AFTER 5 DAYS OF INCUBATION. Complete 01/25/25 11:28 Lung - Final Complete 01/25/25 11:28 Lung - Final Complete 01/25/25 11:28 Lung - Final Complete 01/25/25 11:28 Lung - Final Complete 01/25/25 11:28 Lung - Final Complete 01/25/25 11:28 Lung - Final See Separate Report... 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 b.i.d., for least 6-12 more weeks Continue DuoNebs q.4 PRN Prednisone 10 mg po qd Insulin a.c. hs moderate Wound consult for nares crusting, continue wound care Lines Left internal jugular triple-lumen catheter 01/25/25 Intubated 01/25/25, extubated 01/30/25 Goals of care were discussed for over 30 mins, modified code, DNI, may do chest compressions and shock Case was discussed with Dr. Aguirre Plan discussed with: Patient, Son, Other (RN) My Orders My Orders Orders - SHEA SCHMITZ RESIDENT Procedure Category Date Status Time Cleanse Wound With Ns VLADIMIR 02/10/25 In Process 12:15 Dietary Evaluation Review Comments: Recommend CCHO-60 with 2 GNa Low fat Low Cholesterol Cardiac diet. Expected Outcomes/Goals: Tight DM control, Wt management Date of Service: Feb 11, 2025 Billing Provider: BENJAMIN AGUIRRE DO Common Visit Codes: [id number] INP/OBS CARE(HIGH) SHEA SCHMITZ RESIDENT Feb 11, 2025 13:48 BENJAMIN AGUIRRE DO Feb 12, 2025 12:04
[2025-02-11] MEDS: HYDROcodone-ACET 5/325MG TAB PO PRN (15:50)
[2025-02-11] MEDS: LACTULOSE 20Gm/30ML SOLN PO ONE (16:30)
[2025-02-12] VITALS (13 sets, daily range): BP systolic 115–136; BP diastolic 43–54; PULSE 82–97; RESP 16–20; TEMP 97.4–98.4; O2SAT 89–95
[2025-02-12 06:37] LABS: Anion Gap 5 (5-15); Carbon Dioxide 27 mmol/L (20-31)
[2025-02-12 06:39] LABS: Calcium 8.9 mg/dL (8.7-10.4); Chloride 94 mmol/L (98-107); Potassium 4.3 mmol/L (3.5-5.1); Sodium 126 mmol/L (136-145)
[2025-02-12 06:43] LABS: Glucose 93 mg/dL (74-106)
[2025-02-12 06:44] LABS: Blood Urea Nitrogen 14 mg/dL (9-23); Magnesium 2.1 mg/dL (1.6-2.6)
[2025-02-12] MEDS: PANTOPRAZOLE 40 MG TAB PO SCH (06:44)
[2025-02-12] MEDS: ALBUTEROL SULF 2.5 MG/0.5ML(0.5%) NEB SOLN NEB PRN (06:52)
[2025-02-12] MEDS: IPRATROPIUM BROM 0.5 MG/2.5ML INH SOL NEB PRN (06:52)
[2025-02-12] MEDS ORDERED: FUROSEMIDE 40 MG TAB PO SCH (10:00)
[2025-02-12] MEDS: predniSONE 5 MG TAB PO SCH (10:03)
--- NOTE | 2025-02-12 15:09 | DVHPNRES ---
Progress Note Date Seen: Feb 12, 2025 Resident Creating Document: SHEA SCHMITZ RESIDENT Medical Necessity Reason Pt with a Central, PICC or Fol: Yes The following are medically ne: Hughes Catheter Reason for hughes catheter: Strict I&O Subjective Review of Systems On my assessment, patient was seen and examined at bedside. She currently states feeling well, denies any significant shortness of breath, chest pain, abdominal pain, dysuria, nausea, vomiting, diarrhea, constipation, dizziness, lightheadedness. She's currently tolerating diet. Simple mask at 6 L, saturation above 92%. We will continue nares wound care 2 times per day, we will remove triple-lumen catheter today Objective vital signs Vital Sign Date Time Temp Pulse Resp B/P (MAP) Pulse Ox O2 Delivery O2 Flow Rate FiO2 02/12/25 13:00 98.4 92 17 119/54 (75) 93 98.4 02/12/25 08:00 Simple Mask* 6 50 Total Intake and Output 02/11/25 02/11/25 02/12/25 15:00 23:00 07:00 Intake Total 600 ml 240 ml Output Total 1500 ml 375 ml Balance -900 ml -135 ml medications Current Medications Medications Dose Ordered Sig/Jake Route Start Time Stop Time Status Last Admin Dose Admin Cefepime HCl 50 ml @ 12.5 mls/hr Q8HR IV 01/14/25 14:00 UNV Clopidogrel Bisulfate 75 mg DAILY PO 01/15/25 10:00 02/12/25 10:02 75 MG Acetaminophen 650 mg Q8HP PRN PO 01/19/25 15:15 02/12/25 06:44 650 MG Atorvastatin Calcium 40 mg HS PO 01/22/25 22:00 02/11/25 22:31 40 MG Voriconazole / Dextrose 250 ml @ 125 mls/hr Q12H IV 01/27/25 13:30 01/28/25 03:29 UNV Artificial Tears 2 drop Q6HP PRN LEFTEYE 01/28/25 10:45 Hydralazine HCl 10 mg Q6HP PRN IV 01/28/25 10:45 02/01/25 10:13 10 MG Throat Lozenges 1 telma Q2HP PRN MT 02/01/25 11:45 02/01/25 14:02 1 TELMA Sodium Chloride 1 spr QIDP PRN EACHNOSTRI 02/01/25 11:45 02/01/25 21:57 1 SPR Amlodipine Besylate 10 mg DAILY PO 02/01/25 11:58 02/12/25 10:03 10 MG Magnesium Oxide 400 mg BID PO 02/01/25 22:00 02/12/25 10:03 400 MG Voriconazole 200 mg BIDAC PO 02/02/25 17:00 02/12/25 06:44 200 MG Diagnostic Test (Pha) 1 strip ACHS 02/03/25 17:00 02/12/25 12:56 1 STRIP Insulin Human Regular HS SC 02/03/25 22:00 02/10/25 21:57 8 UNITS Insulin Human Regular AC SC 02/03/25 17:00 02/12/25 12:59 2 UNITS Dextrose 50 ml UD PRN IV 02/03/25 15:00 Polyethylene Glycol 17 gm DAILYPRN PRN PO 02/06/25 14:45 02/11/25 14:15 17 GM Docusate Sodium 100 mg BID PO 02/06/25 22:00 02/12/25 10:03 100 MG Sennosides 8.6 mg HS PO 02/06/25 22:00 02/11/25 22:31 8.6 MG Rivaroxaban 2.5 mg BID PO 02/10/25 10:00 02/12/25 10:03 2.5 MG Phenol/Menthol 1 spr Q2HP PRN MT 02/10/25 11:00 Acetaminophen/ Hydrocodone Bitart 1 tab Q6HPRN PRN PO 02/11/25 15:45 02/11/25 15:50 1 TAB Albuterol 2.5 mg Q4HPRN PRN NEB 02/11/25 18:00 02/12/25 06:52 2.5 MG Ipratropium [place] 0.5 mg Q4HPRN PRN NEB 02/11/25 18:00 02/12/25 06:52 0.5 MG Prednisone 10 mg DAILY PO 02/12/25 10:00 02/12/25 10:03 10 MG Pantoprazole Sodium 40 mg DAILY@0600 PO 02/12/25 06:00 02/12/25 06:44 40 MG Examination Physical examination as below: General: Awake, alert, no distress HEENT: Head is normocephalic and atraumatic. Pupils are equal, round, and reactive to light. Extraocular muscles are intact. Nasal crusting, healing. Neck: Supple with no cervical lymphadenopathy No meningismus. No goiter. Heart: Regular rate without murmur, rub, or gallop. Lungs: Diminished breath sounds, scattered crackles, scattered wheezing Abdomen: No external sign of injury. Bowel sounds are present. Abdomen is soft, nontender. No rebound, no guarding, no rigidity. There are no palpable masses. There is no flank pain on exam. Extremities: Strong peripheral pulses. There is no clubbing, no cyanosis, and no edema. Skin: scaly skin, dry skin, poor feet hygiene Neurologic: Cranial nerves II-XII intact without motor, sensory, or cerebellar deficit, no asterixis. laboratory and microbiology Laboratory Tests 02/12/25 05:31 02/10/25 05:20 Test 02/12/25 05:31 Range/Units Serum Glucose 93 74-106 mg/dL Microbiology Date/Time Source Procedure Growth Status 01/26/25 13:11 Voided Urine Urine Culture - Final Presumptive Catherine albicans Complete 01/26/25 11:30 Sputum Gram Stain - Final Resulted 01/26/25 11:30 Respiratory Culture - Preliminary Aspergillus fumigatus Resulted 01/26/25 08:12 Blood Blood Culture - Final NO GROWTH AFTER 5 DAYS OF INCUBATION. Complete 01/25/25 11:28 Lung - Final Complete 01/25/25 11:28 Lung - Final Complete 01/25/25 11:28 Lung - Final Complete 01/25/25 11:28 Lung - Final Complete 01/25/25 11:28 Lung - Final Complete 01/25/25 11:28 Lung - Final See Separate Report... 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 b.i.d., for least 6-12 more weeks Continue DuoNebs q.4 PRN Prednisone 10 mg po qd, tapering down Insulin a.c. hs moderate Wound consult for nares crusting, continue wound care bid to be able to replace simple mask to nasal cannula Lines Left internal jugular triple-lumen catheter 01/25/25 remove on 02/12/25 Intubated 01/25/25, extubated 01/30/25 Goals of care were discussed for over 30 mins, modified code, DNI, may do chest compressions and shock Case was discussed with Dr. Rodas Plan discussed with: Patient, Other (RN) My Orders My Orders Orders - SHEA SCHMITZ RESIDENT Procedure Category Date Status Time Albuterol Medneb PHA 02/11/25 In Process (Ventolin Medneb) 18:00 Ipratropium Medneb PHA 02/11/25 In Process (Atrovent Medneb) 18:00 Pantoprazole Tablet PHA 02/12/25 In Process (Protonix Tablet) 06:00 Prednisone Tablet PHA 02/12/25 In Process 10:00 D/C Triple Lumen ORDERS 02/12/25 Transmitted 13:07 Complete Blood Count LAB 02/13/25 Verified 04:00 Comprehensive LAB 02/13/25 Verified Metabolic Panel 04:00 Magnesium LAB 02/13/25 Verified 04:00 Chest Portable XY 02/13/25 Logged 04:00 Dietary Evaluation Review Comments: Recommend CCHO-60 with 2 GNa Low fat Low Cholesterol Cardiac diet. Expected Outcomes/Goals: Tight DM control, Wt management Date of Service: Feb 12, 2025 Billing Provider: TOMÁS RODAS MD Common Visit Codes: [id number] INP/OBS CARE(HIGH) SHEA SCHMITZ RESIDENT Feb 12, 2025 15:09 TOMÁS RODAS MD Feb 12, 2025 20:22
[2025-02-13] VITALS (7 sets, daily range): BP systolic 114–129; BP diastolic 48–76; PULSE 82–94; RESP 17–20; TEMP 97.2–98.2; O2SAT 91–95
[2025-02-13 05:53] LABS: Basophils # (auto) 0 10 ^3/uL (0-0.2); Basophils % (auto) 0.1 % (0.0-2.0); Eosinophils # (auto) 0.1 10 ^3/uL (0-0.8); Eosinophils % (auto) 1.2 % (0.0-7.0); Hematocrit 37.6 % (36.0-46.0); Hemoglobin 13.1 g/dL (12.2-16.2); Lymphocytes # (auto) 1.2 10 ^3/uL (0.4-5.4); Lymphocytes % (auto) 13.4 % (10.0-50.0); Mean Corpuscular Hemoglobin 33.2 pg (28.0-32.0); Mean Corpuscular Hgb Conc. 34.9 g/dL (32.0-36.0); Mean Corpuscular Volume 95.3 fL (80.0-100.0); Monocytes # (auto) 0.6 10 ^3/uL (0-1.3); Monocytes % (auto) 6.2 % (0.0-12.0); Neutrophils # (auto) 7.4 10 ^3/uL (1.6-8.6); Neutrophils % (auto) 79.1 % (37.0-80.0); Nucleated Red Blood Cells % 0.1 %; Platelet Count (auto) 188 10^3/uL (140-450); Red Blood Cells 3.95 10^6/uL (4.0-5.20); White Blood Cell 9.3 10^3/uL (4.4-10.8)
[2025-02-13 06:05] LABS: Albumin 3.4 g/dL (3.2-4.8); Alkaline Phosphatase 71 U/L (46-116); Anion Gap 6 (5-15); BUN/Creatinine Ratio 43.8 (10.0-20.0); Blood Urea Nitrogen 14 mg/dL (9-23); Calcium 8.7 mg/dL (8.7-10.4); Carbon Dioxide 30 mmol/L (20-31); Glucose 82 mg/dL (74-106); Magnesium 2.1 mg/dL (1.6-2.6); Potassium 3.8 mmol/L (3.5-5.1)
[2025-02-13 06:07] LABS: Bilirubin, Total 0.6 mg/dL (0.2-1.0)
[2025-02-13 06:11] LABS: Alanine Aminotransferase 71 U/L (7-40); Aspartate Aminotransferase 41 U/L (13-40); Chloride 94 mmol/L (98-107); Sodium 130 mmol/L (136-145); Total Protein 5.6 g/dL (5.7-8.2)
--- NOTE | 2025-02-13 11:10 | DVH ---
EXAM: XR Chest, 1 View CLINICAL INDICATION: sob TECHNIQUE: Frontal view of the chest. COMPARISON: XY CHEST PORTABLE on DOS: 02/10/25, XY CHEST PORTABLE on DOS: 02/04/25, XY CHEST PORTABLE on DOS: 02/01/25, XY CHEST PORTABLE on DOS: 01/30/25, XY CHEST PORTABLE on DOS: 01/29/25 FINDINGS: LUNGS AND PLEURAL SPACES: Right basilar atelectasis or pneumonia. No pneumothorax. HEART: Unremarkable. No cardiomegaly. MEDIASTINUM: Unremarkable. Normal mediastinal contour. BONES/JOINTS: Unremarkable. No acute fracture. OTHER FINDINGS: . IMPRESSION: Right basilar atelectasis or pneumonia.
[2025-02-13] MEDS ORDERED: guaiFENesin 200 MG/10 ML UD PO PRN (11:30)
--- NOTE | 2025-02-13 12:03 | DVHPNRES ---
Progress Note Date Seen: Feb 13, 2025 Resident Creating Document: SHEA SCHMITZ RESIDENT Medical Necessity Reason Pt with a Central, PICC or Fol: Yes The following are medically ne: Hughes Catheter Reason for hughes catheter: Strict I&O Subjective Review of Systems On my assessment, patient was seen and examined at bedside. She currently states feeling well, denies any significant shortness of breath, chest pain, abdominal pain, dysuria, nausea, vomiting, diarrhea, constipation, dizziness, lightheadedness. She's currently tolerating diet. Simple mask at 6 L, saturation above 92%. We will continue nares wound care 2 times per day Transfer summary: This is a 79-year-old female patient who was sent to the ER from [facility] with a chief complaint of shortness of breaths and generalized weakness for 1 day. Past Medical History: COPD not on home oxygen, solitary pulmonary nodules, left PAD status post PTCA of left superficial femoral artery and popliteal artery. placed by Dr. Martinez 2019, hypertension, diabetes mellitus type 2, internal and external hemorrhoids, colonic polyp, diverticulosis Past Surgical History: left PAD status post PTCA of left superficial femoral artery and popliteal artery SH: Smoke: <1 pack per day. ALCOHOL: none. Drugs: None. Lives: with Family Home medications: Aspirin 81 mg, atorvastatin 20 mg HS, albuterol inhaler,breztri inhaler, amlodipine She lives with her son who is the caregiver. Per son who is present at bedside, patient developed generalized weakness and shortness of breaths on waking up and she could not transfer herself from the bed to wheelchair. Patient uses albuterol and Breztri inhaler but did not increase the consumption recently, she has chronic cough but the cough did not worsened recently. She smokes half a pack a day for the past 50 years, quit 1 week back. No recent immobilization/hospitalization or surgery history. She denies chest pain, palpitations, nausea, vomiting, diaphoresis, back pain, constipation or diarrhea. Vitals on arrival were pulse 99, blood pressure 123/60 mmHg, saturating 89% on 9 L Oxymizer. Patient has had significant clinical improvement throughout her hospitalization. Patient was given broad-spectrum antibiotics, she was on breathing treatments, patient was also diuresed. Initially patient has had significant respiratory decline, she was on high flow oxygen for awhile. Patient initially was DNR/DNI, however later she was changed to full code. At that time we decided to intubate to do a bronchoscopy in which we found significant mucus plugs, a 2nd bronchoscopy was performed the very next day, again more mucus plugs were taken out. Patient also underwent a left heart catheterization in which a stent was placed on the circumflex artery. Patient did not have any significant elevated pressures so no right heart catheterization was performed. An arterial Doppler also revealed diminished pulses on the left side, it was noted that they stated that she had in that left leg it was thrombosed, a 2nd peripheral angiography was performed to open up the vessel. It was successful. 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 After this patient was weaned down from sedation and we were able to take her off mechanical ventilator. The next couple of days patient slowly improved, we took off the high-flow. Patient was transitioned to voriconazole oral. Patient continued to tolerate appropriately the simple mask on went from 10 L to 6 L. patient states having significant clinical improvement. Patient was also seen by Podiatry due to foot pain and inability to ambulate, they did perform nail trimming. We tried sending the patient to fdc facility however they will neck symptoms the patient has been in simple mask, we will have to downgraded patient to nasal cannula however patient is unable to wear the nasal cannula due to wound in the nares, we will consulted wound care nurse and they has been doing daily care of her nares. We are currently still on simple mask 6 L with humidifier. The plan is to let they nares crust to heal and then the patient to wear nasal cannula and to be sent either to a fdc facility, order home with physical therapy. We have brought the discussion of possible hospice to the patient and family members both of them decline the idea. Patient is to complete the treatment of 6-12 weeks of voriconazole. Objective vital signs Vital Sign Date Time Temp Pulse Resp B/P (MAP) Pulse Ox O2 Delivery O2 Flow Rate FiO2 02/13/25 09:05 97.6 90 17 121/76 (91) 94 97.6 02/13/25 08:00 Simple Mask* 6 50 medications Current Medications Medications Dose Ordered Sig/Jake Route Start Time Stop Time Status Last Admin Dose Admin Cefepime HCl 50 ml @ 12.5 mls/hr Q8HR IV 01/14/25 14:00 UNV Clopidogrel Bisulfate 75 mg DAILY PO 01/15/25 10:00 02/13/25 08:56 75 MG Acetaminophen 650 mg Q8HP PRN PO 01/19/25 15:15 02/12/25 22:22 650 MG Atorvastatin Calcium 40 mg HS PO 01/22/25 22:00 02/12/25 22:19 40 MG Voriconazole / Dextrose 250 ml @ 125 mls/hr Q12H IV 01/27/25 13:30 01/28/25 03:29 UNV Artificial Tears 2 drop Q6HP PRN LEFTEYE 01/28/25 10:45 Hydralazine HCl 10 mg Q6HP PRN IV 01/28/25 10:45 02/01/25 10:13 10 MG Throat Lozenges 1 telma Q2HP PRN MT 02/01/25 11:45 02/01/25 14:02 1 TELMA Sodium Chloride 1 spr QIDP PRN EACHNOSTRI 02/01/25 11:45 02/01/25 21:57 1 SPR Amlodipine Besylate 10 mg DAILY PO 02/01/25 11:58 02/13/25 08:55 10 MG Magnesium Oxide 400 mg BID PO 02/01/25 22:00 02/13/25 08:56 400 MG Voriconazole 200 mg BIDAC PO 02/02/25 17:00 02/13/25 06:56 200 MG Diagnostic Test (Pha) 1 strip ACHS 02/03/25 17:00 02/13/25 07:00 1 STRIP Insulin Human Regular HS SC 02/03/25 22:00 02/12/25 22:18 2 UNITS Insulin Human Regular AC SC 02/03/25 17:00 02/12/25 17:17 3 UNITS Dextrose 50 ml UD PRN IV 02/03/25 15:00 Polyethylene Glycol 17 gm DAILYPRN PRN PO 02/06/25 14:45 02/11/25 14:15 17 GM Docusate Sodium 100 mg BID PO 02/06/25 22:00 02/12/25 22:19 100 MG Sennosides 8.6 mg HS PO 02/06/25 22:00 02/12/25 22:19 8.6 MG Rivaroxaban 2.5 mg BID PO 02/10/25 10:00 02/13/25 08:56 2.5 MG Phenol/Menthol 1 spr Q2HP PRN MT 02/10/25 11:00 Acetaminophen/ Hydrocodone Bitart 1 tab Q6HPRN PRN PO 02/11/25 15:45 02/11/25 15:50 1 TAB Albuterol 2.5 mg Q4HPRN PRN NEB 02/11/25 18:00 02/12/25 06:52 2.5 MG Ipratropium [place] 0.5 mg Q4HPRN PRN NEB 02/11/25 18:00 02/12/25 06:52 0.5 MG Prednisone 10 mg DAILY PO 02/12/25 10:00 02/13/25 08:56 10 MG Pantoprazole Sodium 40 mg DAILY@0600 PO 02/12/25 06:00 02/13/25 06:56 40 MG Guaifenesin 200 mg Q4HP PRN PO 02/13/25 11:30 Examination Physical examination as below: General: Awake, alert, no distress HEENT: Head is normocephalic and atraumatic. Pupils are equal, round, and reactive to light. Extraocular muscles are intact. Nasal crusting, healing. Neck: Supple with no cervical lymphadenopathy No meningismus. No goiter. Heart: Regular rate without murmur, rub, or gallop. Lungs: Diminished breath sounds, scattered crackles, scattered wheezing Abdomen: No external sign of injury. Bowel sounds are present. Abdomen is soft, nontender. No rebound, no guarding, no rigidity. There are no palpable masses. There is no flank pain on exam. Extremities: Strong peripheral pulses. There is no clubbing, no cyanosis, and no edema. Skin: scaly skin, dry skin, poor feet hygiene Neurologic: Cranial nerves II-XII intact without motor, sensory, or cerebellar deficit, no asterixis. laboratory and microbiology Laboratory Tests 02/13/25 05:07 Test 02/13/25 05:07 Range/Units Serum Glucose 82 74-106 mg/dL Microbiology Date/Time Source Procedure Growth Status 01/26/25 13:11 Voided Urine Urine Culture - Final Presumptive Catherine albicans Complete 01/26/25 11:30 Sputum Gram Stain - Final Resulted 01/26/25 11:30 Respiratory Culture - Preliminary Aspergillus fumigatus Resulted 01/26/25 08:12 Blood Blood Culture - Final NO GROWTH AFTER 5 DAYS OF INCUBATION. Complete 01/25/25 11:28 Lung - Final Complete 01/25/25 11:28 Lung - Final Complete 01/25/25 11:28 Lung - Final Complete 01/25/25 11:28 Lung - Final Complete 01/25/25 11:28 Lung - Final Complete 01/25/25 11:28 Lung - Final See Separate Report... 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 b.i.d., for least 6-12 weeks Continue DuoNebs q.4 PRN Prednisone 10 mg po qd, tapering down Insulin a.c. hs moderate Wound consult for nares crusting, continue wound care bid to be able to replace simple mask to nasal cannula Lines Left internal jugular triple-lumen catheter 01/25/25 remove on 02/13/25 Intubated 01/25/25, extubated 01/30/25 Goals of care were discussed for over 30 mins, modified code, DNI, may do chest compressions and shock Case was discussed with Dr. Rodas Plan discussed with: Patient, Other (RN) My Orders My Orders Orders - SHEA SCHMITZ RESIDENT Procedure Category Date Status Time D/C Triple Lumen ORDERS 02/12/25 Transmitted 13:07 Chest Portable XY 02/13/25 Resulted 04:00 Guaifenesin Plain PHA 02/13/25 In Process Liquid (Robitussin Michelle 11:30 Dietary Evaluation Review Comments: Recommend CCHO-60 with 2 GNa Low fat Low Cholesterol Cardiac diet. Expected Outcomes/Goals: Tight DM control, Wt management Date of Service: Feb 13, 2025 Billing Provider: TOMÁS RODAS MD Common Visit Codes: [id number] INP/OBS CARE(HIGH) SHEA SCHMIZT RESIDENT Feb 13, 2025 12:03 TOMÁS RODAS MD Feb 13, 2025 23:23
[2025-02-14] VITALS (8 sets, daily range): BP systolic 128–139; BP diastolic 53–55; PULSE 72–87; RESP 17–20; TEMP 96.4–97.9; O2SAT 92–95
[2025-02-14 07:09] LABS: Potassium 3.6 mmol/L (3.5-5.1)
[2025-02-14 07:10] LABS: Anion Gap 8 (5-15); Carbon Dioxide 28 mmol/L (20-31)
[2025-02-14 07:11] LABS: Calcium 8.9 mg/dL (8.7-10.4)
[2025-02-14 07:13] LABS: Chloride 92 mmol/L (98-107); Sodium 128 mmol/L (136-145)
[2025-02-14 07:16] LABS: BUN/Creatinine Ratio 43.8 (10.0-20.0); Blood Urea Nitrogen 14 mg/dL (9-23); Glucose 91 mg/dL (74-106)
--- NOTE | 2025-02-14 16:06 | DVHPNRES ---
Progress Note Date Seen: Feb 14, 2025 Resident Creating Document: KANE KIM RESIDENT Has the PT tested + for MRSA If YES, has PT been informed?: No Medical Necessity Reason Pt with a Central, PICC or Fol: Yes The following are medically ne: Hughes Catheter Reason for hughes catheter: Strict I&O Subjective Review of Systems This is a 79-year-old female with past medical history of COPD (with no home oxygen), hypertension, type 2 diabetes mellitus, diverticulosis, solitary pulmonary nodules, left PID status post PTCA of left superficial femoral artery and popliteal artery in 2019, internal and external hemorrhoids, colonic polyps, who presented to the ED due to shortness of breath and generalized weakness for one day of duration before coming to the ED. Per son, patient developed generalized weakness and shortness of breaths on waking up and she could not transfer herself from the bed to wheelchair. Patient uses albuterol and Breztri inhaler but did not increase the consumption recently, she has chronic cough but the cough did not worsened recently. She smokes half a pack a day for the past 50 years, quit 1 week back. No recent immobilization/hospitalization or surgery history. She denies chest pain, palpitations, nausea, vomiting, diaphoresis, back pain, constipation or diarrhea. Vitals on arrival were pulse 99, blood pressure 123/60 mmHg, saturating 89% on 9 L Oxymizer. Patient has had significant clinical improvement throughout her hospitalization. Patient was given broad-spectrum antibiotics, she was on breathing treatments, patient was also diuresed. Initially patient has had significant respiratory decline, she was on high flow oxygen for awhile. Patient initially was DNR/DNI, however later she was changed to full code. At that time we decided to intubate to do a bronchoscopy in which we found significant mucus plugs, a 2nd bronchoscopy was performed the very next day, again more mucus plugs were taken out. Patient also underwent a left heart catheterization in which a stent was placed on the circumflex artery. Patient did not have any significant elevated pressures so no right heart catheterization was performed. An arterial Doppler also revealed diminished pulses on the left side, it was noted that they stated that she had in that left leg it was thrombosed, a 2nd peripheral angiography was performed to open up the vessel. It was successful. 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 After this patient was weaned down from sedation and we were able to take her off mechanical ventilator. The next couple of days patient slowly improved, we took off the high-flow. Patient was transitioned to voriconazole orally. Patient continued to tolerate appropriately the simple mask and went from 10 L to 6 L. Patient was also seen by Podiatry due to foot pain and inability to ambulate, they did perform nail trimming. We tried sending the patient to SNF, however we will have to downgraded patient to nasal cannula. The patient is unable to wear the nasal cannula at this time due to wound in the nares, we will consulted wound care nurse and they has been doing daily care of her nares. We are currently still on simple mask 8 L with humidifier. The plan is to let they nares crust to heal and then the patient to wear nasal cannula and to be sent either to a SNF, or home with physical therapy. We have brought the discussion of possible hospice to the patient and family members both of them decline the idea. Patient is to complete the treatment of 6-12 weeks of voriconazole. Patient seen and examined at bedside. Patient is currently on simple mask at 8 L with a humidifier and is currently having severe crusted ulcers on bilateral nares. Overall, the patient states that he is feeling better compared to admission. We will continue voriconazole 200 mg b.i.d., patient already completed antibiotic therapy at by this time. Patient is also on rivaroxaban 2.5 mg b.i.d., clopidogrel 75 mg daily, prednisone 10 mg daily, albuterol and ipratropium med nebs. We will continue current medical management at this time and wait for nares to heal to transitioned to nasal cannula. ROS Constitutional: Denies weight loss, fever and chills. HEENT: Denies changes in vision and hearing. Respiratory: Reports mild shortness of breath, reports pain in bilateral nares due to crusted ulcers. Cardiovascular: Denies chest discomfort or palpitations GI: Denies abdominal pain, nausea, vomiting and diarrhea. : Denies dysuria and urinary frequency. Musculoskeletal: Denies myalgias and joint pain Skin: Denies rash and pruritus. Neurological: Denies dizziness, headache, vision or hearing problems Objective vital signs Vital Sign Date Time Temp Pulse Resp B/P (MAP) Pulse Ox O2 Delivery O2 Flow Rate FiO2 02/14/25 13:36 97.7 87 20 131/53 (79) 93 97.7 02/14/25 08:10 Simple Mask* 6 50 medications Current Medications Medications Dose Ordered Sig/Jake Route Start Time Stop Time Status Last Admin Dose Admin Cefepime HCl 50 ml @ 12.5 mls/hr Q8HR IV 01/14/25 14:00 UNV Clopidogrel Bisulfate 75 mg DAILY PO 01/15/25 10:00 02/14/25 09:25 75 MG Acetaminophen 650 mg Q8HP PRN PO 01/19/25 15:15 02/12/25 22:22 650 MG Atorvastatin Calcium 40 mg HS PO 01/22/25 22:00 02/13/25 21:45 40 MG Voriconazole / Dextrose 250 ml @ 125 mls/hr Q12H IV 01/27/25 13:30 01/28/25 03:29 UNV Artificial Tears 2 drop Q6HP PRN LEFTEYE 01/28/25 10:45 Hydralazine HCl 10 mg Q6HP PRN IV 01/28/25 10:45 02/01/25 10:13 10 MG Throat Lozenges 1 telma Q2HP PRN MT 02/01/25 11:45 02/01/25 14:02 1 TELMA Sodium Chloride 1 spr QIDP PRN EACHNOSTRI 02/01/25 11:45 02/01/25 21:57 1 SPR Amlodipine Besylate 10 mg DAILY PO 02/01/25 11:58 02/14/25 09:24 10 MG Magnesium Oxide 400 mg BID PO 02/01/25 22:00 02/14/25 09:24 400 MG Voriconazole 200 mg BIDAC PO 02/02/25 17:00 02/14/25 05:29 200 MG Diagnostic Test (Pha) 1 strip ACHS 02/03/25 17:00 02/14/25 10:38 1 STRIP Insulin Human Regular HS SC 02/03/25 22:00 02/13/25 21:38 3 UNITS Insulin Human Regular AC SC 02/03/25 17:00 02/14/25 10:40 2 UNITS Dextrose 50 ml UD PRN IV 02/03/25 15:00 Polyethylene Glycol 17 gm DAILYPRN PRN PO 02/06/25 14:45 02/11/25 14:15 17 GM Docusate Sodium 100 mg BID PO 02/06/25 22:00 02/14/25 09:23 100 MG Sennosides 8.6 mg HS PO 02/06/25 22:00 02/13/25 21:44 8.6 MG Rivaroxaban 2.5 mg BID PO 02/10/25 10:00 02/14/25 09:25 2.5 MG Phenol/Menthol 1 spr Q2HP PRN MT 02/10/25 11:00 Acetaminophen/ Hydrocodone Bitart 1 tab Q6HPRN PRN PO 02/11/25 15:45 02/14/25 03:55 1 TAB Albuterol 2.5 mg Q4HPRN PRN NEB 02/11/25 18:00 02/12/25 06:52 2.5 MG Ipratropium [place] 0.5 mg Q4HPRN PRN NEB 02/11/25 18:00 02/12/25 06:52 0.5 MG Prednisone 10 mg DAILY PO 02/12/25 10:00 02/14/25 09:23 10 MG Pantoprazole Sodium 40 mg DAILY@0600 PO 02/12/25 06:00 02/14/25 05:28 40 MG Guaifenesin 200 mg Q4HP PRN PO 02/13/25 11:30 Fluoxetine HCl 10 mg DAILY PO 02/15/25 10:00 Examination Physical Examination General: Patient alert and oriented in person, place and time. Patient following commands. HEENT: Normocephalic, atraumatic, moist mucous membranes. Patient has severe crusted ulcerations on bilateral nares Respiratory/pulmonary: Mild crackles in the right lung base, left lung slightly clear compared to right. No wheezes or stridor at this time. Currently on simple mask at 8 L of oxygen. Cardiovascular: Normal heart sounds S1 and S2 with no associated murmurs Abdomen: Abdomen nondistended, there is no pain to palpation in any of the abdominal quadrants, no palpable masses. Extremities: There is no peripheral edema present at the lower extremities. Peripheral Pulses: 3+ Radial (R). 3+ Radial (L). 3+ Dorsalis pedis (R). 3+ Dorsalis pedis(L) Skin: No rashes or pruritus, there is no sacral edema present at this time. Neurological: Intact cranial nerves with no focal neurologic deficits laboratory and microbiology Laboratory Tests 02/14/25 06:18 02/13/25 05:07 Test 02/14/25 06:18 Range/Units Serum Glucose 91 74-106 mg/dL Microbiology Date/Time Source Procedure Growth Status 01/26/25 13:11 Voided Urine Urine Culture - Final Presumptive Catherine albicans Complete 01/26/25 11:30 Sputum Gram Stain - Final Resulted 01/26/25 11:30 Respiratory Culture - Preliminary Aspergillus fumigatus Resulted 01/26/25 08:12 Blood Blood Culture - Final NO GROWTH AFTER 5 DAYS OF INCUBATION. Complete 01/25/25 11:28 Lung - Final Complete 01/25/25 11:28 Lung - Final Complete 01/25/25 11:28 Lung - Final Complete 01/25/25 11:28 Lung - Final Complete 01/25/25 11:28 Lung - Final Complete 01/25/25 11:28 Lung - Final See Separate Report... Complete Problem List/Assessment/Plan Problem List/Assessment/Plan Assessmet/Plan Depression/new/start Prozac Acute hypoxic respiratory failure likely due to pulmonary aspergillosis Possible invasive pulmonary aspergillosis COPD exacerbation Possible Gram-positive/Gram-negative bacterial pneumonia Sepsis due to above -status post bronchoscopy x2, which removed severe mucus plugs -status post extubation, currently on simple mask at 8 L of oxygen with humidifier -patient completed IV antibiotic therapy -High-resolution CT chest shows emphysema, atelectases, no ILD -continue voriconazole 200 mg p.o. b.i.d. -continue prednisone 10 mg daily -continue respiratory therapy with albuterol and ipratropium -guaifenesin dextromethorphan 200 mg q.4 PRN Acute chest pain due to ACS Status post coronary angiogram with PCI x1 sent NSTEMI type 2 likely due to above -coronary angiogram was performed and stent was placed in the circumflex artery -continue rivaroxaban 2.5 mg b.i.d. -continue clopidogrel 75 mg daily -continue atorvastatin 40 mg daily -control blood pressure and monitor closely Acute crusted ulcerations on bilateral nares secondary to continuous high flow oxygen -currently wound consult for nares wound cleaning and healing -patient is currently on simple mask at 8 L of oxygen, once wounds heal we will switch or downgrade to nasal cannula once again. Peripheral artery disease Status post left lower extremity angiography, vessel was opened successfully -continue clopidogrel, rivaroxaban and atorvastatin as stated above Uncontrolled type 2 diabetes mellitus likely due to steroids -hemoglobin A1c was 6.3% which is in prediabetes range -continue moderate sliding scale insulin and monitor blood glucose closely Possible Pulmonary hypertension likely class III -follow-up with pulmonology as an outpatient -right heart catheterization was not performed, there was mild enlargement of right ventricle on echocardiogram Dyslipidemia -continue atorvastatin 40 mg daily Goals of care discussed with the patient at bedside for >30min, modified code, DNI but may do compressions and shock. Plan discussed with Dr. Rodas Plan discussed with: Patient, Son Dietary Evaluation Review Comments: Recommend CCHO-60 with 2 GNa Low fat Low Cholesterol Cardiac diet. Expected Outcomes/Goals: Tight DM control, Wt management Date of Service: Feb 14, 2025 Billing Provider: TOMÁS RODAS MD Common Visit Codes: [id number] INP/OBS CARE(HIGH) KANE KIM RESIDENT Feb 14, 2025 16:06 TOMÁS RDOAS MD Feb 14, 2025 22:38
[2025-02-14] MEDS: FLUoxetine HCL 10 MG CAP PO ONE (16:34)
[2025-02-15] VITALS (21 sets, daily range): BP systolic 116–143; BP diastolic 50–69; PULSE 61–99; RESP 16–28; TEMP 97.5–98.3; O2SAT 89–99
[2025-02-15 05:41] LABS: Base Excess 3.1 mmol/L (-2.0-3.0)
[2025-02-15] MEDS: FUROSEMIDE 20 MG/2 ML VIAL IV ONE (05:41)
[2025-02-15] MEDS ORDERED: methylPREDNISolone SOD SUCC 40 MG/ML VL IM ONE (05:45)
[2025-02-15] MEDS: methylPREDNISolone SOD SUCC 40 MG/ML VL ONE (05:56)
[2025-02-15] MEDS: FUROSEMIDE 20 MG/2 ML VIAL ONE (05:56)
[2025-02-15] MEDS: methylPREDNISolone SOD SUCC 40 MG/ML VL IV ONE (05:57)
[2025-02-15 06:04] LABS: Hematocrit 42.8 % (36.0-46.0); Hemoglobin 14.8 g/dL (12.2-16.2); Mean Corpuscular Hemoglobin 33.1 pg (28.0-32.0); Mean Corpuscular Hgb Conc. 34.6 g/dL (32.0-36.0); Mean Corpuscular Volume 95.5 fL (80.0-100.0); Platelet Count (auto) 212 10^3/uL (140-450); Red Blood Cells 4.48 10^6/uL (4.0-5.20); Red Cell Distribution Width 13.9 % (11.8-14.3); White Blood Cell 8.8 10^3/uL (4.4-10.8)
[2025-02-15 06:08] LABS: Basophils % (manual) 0 (0.0-2.0); Blast Cells 0; Eosinophils % (manual) 0 (0-7); Metamyelocytes % 0; Myelocytes % 0; Promyelocytes % 0; Reactive Lymphocytes 0
[2025-02-15 06:20] LABS: Albumin 3.7 g/dL (3.2-4.8); Alkaline Phosphatase 78 U/L (46-116); Anion Gap 8 (5-15); Aspartate Aminotransferase 40 U/L (13-40); BUN/Creatinine Ratio 37.5 (10.0-20.0); Blood Urea Nitrogen 12 mg/dL (9-23); Carbon Dioxide 25 mmol/L (20-31); Magnesium 2.2 mg/dL (1.6-2.6); Potassium 3.6 mmol/L (3.5-5.1); Total Protein 6.3 g/dL (5.7-8.2)
[2025-02-15 06:21] LABS: Bilirubin, Total 0.5 mg/dL (0.2-1.0)
[2025-02-15 06:30] LABS: Chloride 94 mmol/L (98-107); Glucose 107 mg/dL (74-106); Sodium 127 mmol/L (136-145)
[2025-02-15 06:31] LABS: Alanine Aminotransferase 60 U/L (7-40)
--- NOTE | 2025-02-15 06:35 | DVH ---
EXAM: XR Chest, 1 View CLINICAL INDICATION: SOB TECHNIQUE: Frontal view of the chest. COMPARISON: XY CHEST PORTABLE on DOS: 02/13/25, XY CHEST PORTABLE on DOS: 02/10/25, XY CHEST PORTABLE o n DOS: 02/04/25, XY CHEST PORTABLE on DOS: 02/01/25, XY CHEST PORTABLE on DOS: 01/30/25 FINDINGS: LUNGS AND PLEURAL SPACES: Right basilar atelectasis or pneumonia. Right pleural effusion. No pneu mothorax. HEART: Unremarkable. No cardiomegaly. MEDIASTINUM: Unremarkable. Normal mediastinal contour. BONES/JOINTS: Unremarkable. No acute fracture. OTHER FINDINGS: . IMPRESSION: Right basilar atelectasis or pneumonia.
[2025-02-15 07:35] LABS: Base Excess 4.9 mmol/L (-2.0-3.0)
[2025-02-15 07:46] LABS: Band Neutrophils % (manual) 8; Lymphocytes % (manual) 27 (10.0-50.0); Monocytes % (manual) 3 (0-12); Platelet Estimate Adequate
--- NOTE | 2025-02-15 08:03 | DVH ---
Bilateral lower extremity venous duplex Clinical History: R/O DVT, edema Comparison: US BILAT LOWER DVT on DOS: 01/13/25 Findings: Duplex Doppler evaluation of the deep venous systems of both lower extremities from the common femora l veins to the popliteal veins including color Doppler and spectral/pulsed waveform analysis was perf ormed. RIGHT SIDE: The common femoral vein demonstrates appropriate compressibility and waveform variability. There is compressibility/patency of the great saphenous vein at the proximal thigh. The femoral vein demonstrates appropriate compressibility and waveform variability. The deep femoral vein demonstrates appropriate compressibility and waveform variability. The popliteal vein demonstrates appropriate compressibility and waveform variability. There is normal compressibility at the tibioperoneal trunk. LEFT SIDE: The common femoral vein demonstrates appropriate compressibility and waveform variability. There is compressibility/patency of the great saphenous vein at the proximal thigh. The femoral vein demonstrates appropriate compressibility and waveform variability. The deep femoral vein demonstrates appropriate compressibility and waveform variability. The popliteal vein demonstrates appropriate compressibility and waveform variability. There is normal compressibility at the tibioperoneal trunk. IMPRESSION: No right or left femoropopliteal venous thrombosis. If clinical concern/symptoms persist or worsen, short-interval follow-up study is suggested. END IMPRESSION:
[2025-02-15] MEDS: FLUoxetine HCL 10 MG CAP PO SCH (10:00)
--- NOTE | 2025-02-15 13:12 | DVHPNRES ---
Progress Note Date Seen: Feb 15, 2025 Resident Creating Document: KANE KIM RESIDENT Has the PT tested + for MRSA If YES, has PT been informed?: No Medical Necessity Reason Pt with a Central, PICC or Fol: Yes The following are medically ne: Hughes Catheter Reason for hughes catheter: Strict I&O Subjective Review of Systems This is a 79-year-old female with past medical history of COPD (with no home oxygen), hypertension, type 2 diabetes mellitus, diverticulosis, solitary pulmonary nodules, left PID status post PTCA of left superficial femoral artery and popliteal artery in 2019, internal and external hemorrhoids, colonic polyps, who presented to the ED due to shortness of breath and generalized weakness for one day of duration before coming to the ED. Per son, patient developed generalized weakness and shortness of breaths on waking up and she could not transfer herself from the bed to wheelchair. Patient uses albuterol and Breztri inhaler but did not increase the consumption recently, she has chronic cough but the cough did not worsened recently. She smokes half a pack a day for the past 50 years, quit 1 week back. No recent immobilization/hospitalization or surgery history. She denies chest pain, palpitations, nausea, vomiting, diaphoresis, back pain, constipation or diarrhea. Vitals on arrival were pulse 99, blood pressure 123/60 mmHg, saturating 89% on 9 L Oxymizer. Patient has had significant clinical improvement throughout her hospitalization. Patient was given broad-spectrum antibiotics, she was on breathing treatments, patient was also diuresed. Initially patient has had significant respiratory decline, she was on high flow oxygen for awhile. Patient initially was DNR/DNI, however later she was changed to full code. At that time we decided to intubate to do a bronchoscopy in which we found significant mucus plugs, a 2nd bronchoscopy was performed the very next day, again more mucus plugs were taken out. Patient also underwent a left heart catheterization in which a stent was placed on the circumflex artery. Patient did not have any significant elevated pressures so no right heart catheterization was performed. An arterial Doppler also revealed diminished pulses on the left side, it was noted that they stated that she had in that left leg it was thrombosed, a 2nd peripheral angiography was performed to open up the vessel. It was successful. 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 After this patient was weaned down from sedation and we were able to take her off mechanical ventilator. The next couple of days patient slowly improved, we took off the high-flow. Patient was transitioned to voriconazole orally. Patient continued to tolerate appropriately the simple mask and went from 10 L to 6 L. Patient was also seen by Podiatry due to foot pain and inability to ambulate, they did perform nail trimming. We tried sending the patient to SNF, however we will have to downgraded patient to nasal cannula. The patient is unable to wear the nasal cannula at this time due to wound in the nares, we will consulted wound care nurse and they has been doing daily care of her nares. We are currently still on simple mask 8 L with humidifier. The plan is to let they nares crust to heal and then the patient to wear nasal cannula and to be sent either to a SNF, or home with physical therapy. We have brought the discussion of possible hospice to the patient and family members both of them decline the idea. Patient is to complete the treatment of 6-12 weeks of voriconazole. Patient seen and examined at bedside. Yesterday, the patient was on simple mask on 8 L of oxygen was stable overall. By the end of the night, patient started desaturating requiring non-rebreather mask at 15 L of oxygen, the patient persisted desaturating at this time and required BiPAP. ABG were ordered showing mild respiratory and metabolic alkalosis. Patient was placed back on simple mask at 10 L of oxygen at this time. Patient still has severe crusted ulcerations on bilateral nares. We have an extensive discussion with the son (Ian) at bedside and we explained critical condition since fungal infections in the lungs are very heart three and to heal. Patient is currently do not intubate, modified code (agree with compressions, shock or medications). We will resume mechanical soft diet and oral medications including voriconazole 200 mg b.i.d.. ROS Constitutional: Reports weakness and fatigue. Denies weight loss, fever and chills. HEENT: Denies changes in vision and hearing. Respiratory: Reports shortness of breaths Cardiovascular: Denies chest discomfort or palpitations GI: Denies abdominal pain, nausea, vomiting and diarrhea. : Denies dysuria and urinary frequency. Musculoskeletal: Denies myalgias and joint pain Skin: Denies rash and pruritus. Neurological: Denies dizziness, headache, vision or hearing problems Objective vital signs Vital Sign Date Time Temp Pulse Resp B/P (MAP) Pulse Ox O2 Delivery O2 Flow Rate FiO2 02/15/25 12:37 98.2 68 18 126/56 (79) 89 98.2 02/15/25 11:15 Mask 10.0 02/15/25 11:15 35 35 Total Intake and Output 02/14/25 02/14/25 02/15/25 15:00 23:00 07:00 Intake Total 325 ml Output Total 600 ml Balance -275 ml medications Current Medications Medications Dose Ordered Sig/Jake Route Start Time Stop Time Status Last Admin Dose Admin Cefepime HCl 50 ml @ 12.5 mls/hr Q8HR IV 01/14/25 14:00 UNV Clopidogrel Bisulfate 75 mg DAILY PO 01/15/25 10:00 02/14/25 09:25 75 MG Acetaminophen 650 mg Q8HP PRN PO 01/19/25 15:15 02/12/25 22:22 650 MG Atorvastatin Calcium 40 mg HS PO 01/22/25 22:00 02/14/25 21:34 40 MG Voriconazole / Dextrose 250 ml @ 125 mls/hr Q12H IV 01/27/25 13:30 01/28/25 03:29 UNV Artificial Tears 2 drop Q6HP PRN LEFTEYE 01/28/25 10:45 Hydralazine HCl 10 mg Q6HP PRN IV 01/28/25 10:45 02/01/25 10:13 10 MG Sodium Chloride 1 spr QIDP PRN EACHNOSTRI 02/01/25 11:45 02/01/25 21:57 1 SPR Amlodipine Besylate 10 mg DAILY PO 02/01/25 11:58 02/14/25 09:24 10 MG Magnesium Oxide 400 mg BID PO 02/01/25 22:00 02/14/25 21:34 400 MG Voriconazole 200 mg BIDAC PO 02/02/25 17:00 02/14/25 05:29 200 MG Diagnostic Test (Pha) 1 strip ACHS 02/03/25 17:00 02/15/25 10:54 1 STRIP Insulin Human Regular HS SC 02/03/25 22:00 02/14/25 21:42 3 UNITS Insulin Human Regular AC SC 02/03/25 17:00 02/15/25 06:24 2 UNITS Dextrose 50 ml UD PRN IV 02/03/25 15:00 Polyethylene Glycol 17 gm DAILYPRN PRN PO 02/06/25 14:45 02/11/25 14:15 17 GM Docusate Sodium 100 mg BID PO 02/06/25 22:00 02/14/25 21:33 100 MG Sennosides 8.6 mg HS PO 02/06/25 22:00 02/14/25 21:34 8.6 MG Rivaroxaban 2.5 mg BID PO 02/10/25 10:00 02/14/25 21:35 2.5 MG Phenol/Menthol 1 spr Q2HP PRN MT 02/10/25 11:00 Acetaminophen/ Hydrocodone Bitart 1 tab Q6HPRN PRN PO 02/11/25 15:45 02/14/25 21:37 1 TAB Prednisone 10 mg DAILY PO 02/12/25 10:00 02/14/25 09:23 10 MG Pantoprazole Sodium 40 mg DAILY@0600 PO 02/12/25 06:00 02/15/25 06:23 40 MG Guaifenesin 200 mg Q4HP PRN PO 02/13/25 11:30 Fluoxetine HCl 10 mg DAILY PO 02/15/25 10:00 Albuterol 2.5 mg Q4HR NEB 02/15/25 10:00 Ipratropium [place] 0.5 mg Q4HR NEB 02/15/25 10:00 Examination Physical Examination General: Patient alert and oriented in person, place and time. Patient following commands. HEENT: Normocephalic, atraumatic, moist mucous membranes. Patient has severe crusted ulcerations on bilateral nares Respiratory/pulmonary: Mild crackles in the right lung base, left lung slightly clear compared to right. No wheezes or stridor at this time. Currently on simple mask at 10 L of oxygen. Cardiovascular: Normal heart sounds S1 and S2 with no associated murmurs Abdomen: Abdomen nondistended, there is no pain to palpation in any of the abdominal quadrants, no palpable masses. Extremities: There is no peripheral edema present at the lower extremities. Peripheral Pulses: 3+ Radial (R). 3+ Radial (L). 3+ Dorsalis pedis (R). 3+ Dorsalis pedis(L) Skin: No rashes or pruritus, there is no sacral edema present at this time. Neurological: Intact cranial nerves with no focal neurologic deficits laboratory and microbiology Laboratory Tests 02/15/25 05:54 Test 02/15/25 05:54 Range/Units Serum Glucose 107 H 74-106 mg/dL Microbiology Date/Time Source Procedure Growth Status 01/26/25 13:11 Voided Urine Urine Culture - Final Presumptive Catherine albicans Complete 01/26/25 11:30 Sputum Gram Stain - Final Resulted 01/26/25 11:30 Respiratory Culture - Preliminary Aspergillus fumigatus Resulted 01/26/25 08:12 Blood Blood Culture - Final NO GROWTH AFTER 5 DAYS OF INCUBATION. Complete 01/25/25 11:28 Lung - Final Complete 01/25/25 11:28 Lung - Final Complete 01/25/25 11:28 Lung - Final Complete 01/25/25 11:28 Lung - Final Complete 01/25/25 11:28 Lung - Final Complete 01/25/25 11:28 Lung - Final See Separate Report... 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 b.i.d. -continue prednisone 10 mg daily -continue respiratory therapy with albuterol and ipratropium -guaifenesin dextromethorphan 200 mg q.4 PRN Acute chest pain due to ACS Status post coronary angiogram with PCI x1 sent NSTEMI type 2 likely due to above -coronary angiogram was performed and stent was placed in the circumflex artery -continue rivaroxaban 2.5 mg b.i.d. -continue clopidogrel 75 mg daily -continue atorvastatin 40 mg daily -control blood pressure and monitor closely Acute crusted ulcerations on bilateral nares secondary to continuous high flow oxygen -currently wound consult for nares wound cleaning and healing -patient is currently on simple mask at 8 L of oxygen, once wounds heal we will switch or downgrade to nasal cannula once again. Peripheral artery disease Status post left lower extremity angiography, vessel was opened successfully -continue clopidogrel, rivaroxaban and atorvastatin as stated above Uncontrolled type 2 diabetes mellitus likely due to steroids -hemoglobin A1c was 6.3% which is in prediabetes range -continue moderate sliding scale insulin and monitor blood glucose closely Possible Pulmonary hypertension likely class III -follow-up with pulmonology as an outpatient -right heart catheterization was not performed, there was mild enlargement of right ventricle on echocardiogram Dyslipidemia -continue atorvastatin 40 mg daily Goals of care discussed with the patient at bedside for >30min, modified code, DNI but may do compressions and shock. Plan discussed with Dr. Schultz Plan discussed with: Patient, Son My Orders My Orders Orders - KANE KIM Procedure Category Date Status Time Albuterol Medneb PHA 02/15/25 In Process (Ventolin Medneb) 10:00 Ipratropium Medneb PHA 02/15/25 In Process (Atrovent Medneb) 10:00 Dietary Evaluation Review Comments: Recommend CCHO-60 with 2 GNa Low fat Low Cholesterol Cardiac diet. Expected Outcomes/Goals: Tight DM control, Wt management Date of Service: Feb 15, 2025 Billing Provider: RON SCHULTZ MD Common Visit Codes: [id number] INP/OBS CARE(HIGH) KANE KIM Feb 15, 2025 13:12 RON SCHULTZ MD Feb 15, 2025 23:51
[2025-02-15] MEDS: IPRATROPIUM BROM 0.5 MG/2.5ML INH SOL NEB SCH (14:55)
[2025-02-15] MEDS: ALBUTEROL SULF 2.5 MG/0.5ML(0.5%) NEB SOLN NEB SCH (14:56)
[2025-02-16] VITALS (21 sets, daily range): BP systolic 115–134; BP diastolic 47–56; PULSE 81–97; RESP 16–24; TEMP 97.4–98.4; O2SAT 84–98
[2025-02-16 07:34] LABS: Hematocrit 39.8 % (36.0-46.0); Hemoglobin 13.9 g/dL (12.2-16.2); Mean Corpuscular Hemoglobin 33.1 pg (28.0-32.0); Mean Corpuscular Hgb Conc. 34.9 g/dL (32.0-36.0); Platelet Count (auto) 215 10^3/uL (140-450); Red Blood Cells 4.19 10^6/uL (4.0-5.20); Red Cell Distribution Width 14.3 % (11.8-14.3); White Blood Cell 9.3 10^3/uL (4.4-10.8)
[2025-02-16 07:51] LABS: Basophils % (manual) 0 (0.0-2.0); Blast Cells 0; Metamyelocytes % 0; Myelocytes % 0; Promyelocytes % 0; Reactive Lymphocytes 0
[2025-02-16 08:02] LABS: Alkaline Phosphatase 72 U/L (46-116); Anion Gap 8 (5-15); BUN/Creatinine Ratio 53.1 (10.0-20.0); Blood Urea Nitrogen 17 mg/dL (9-23); Carbon Dioxide 30 mmol/L (20-31); Glucose 102 mg/dL (74-106); Total Protein 5.8 g/dL (5.7-8.2)
[2025-02-16 08:03] LABS: Albumin 3.6 g/dL (3.2-4.8); Aspartate Aminotransferase 29 U/L (13-40)
[2025-02-16 08:04] LABS: Bilirubin, Total 0.5 mg/dL (0.2-1.0)
[2025-02-16 08:05] LABS: Alanine Aminotransferase 57 U/L (7-40); Chloride 96 mmol/L (98-107); Sodium 134 mmol/L (136-145)
[2025-02-16] MEDS ORDERED: POTASSIUM CHL 20MEQ/100ML 100 ML IV SCH (08:30)
[2025-02-16 08:37] LABS: Band Neutrophils % (manual) 5; Eosinophils % (manual) 1 (0-7); Lymphocytes % (manual) 16 (10.0-50.0); Monocytes % (manual) 12 (0-12); Platelet Estimate Adequate
[2025-02-16] MEDS: POTASSIUM CHL 20MEQ/50ML 50 ML IV SCH (08:59)
[2025-02-16] MEDS: POTASSIUM EFFERVESENT TAB 25 MEQ PO ONE (09:52)
--- NOTE | 2025-02-16 14:11 | DVHPNRES ---
Progress Note Date Seen: Feb 16, 2025 Resident Creating Document: KANE KIM RESIDENT Has the PT tested + for MRSA If YES, has PT been informed?: No Medical Necessity Reason Pt with a Central, PICC or Fol: Yes The following are medically ne: Hughes Catheter Reason for hughes catheter: Strict I&O Subjective Review of Systems This is a 79-year-old female with past medical history of COPD (with no home oxygen), hypertension, type 2 diabetes mellitus, diverticulosis, solitary pulmonary nodules, left PID status post PTCA of left superficial femoral artery and popliteal artery in 2019, internal and external hemorrhoids, colonic polyps, who presented to the ED due to shortness of breath and generalized weakness for one day of duration before coming to the ED. Per son, patient developed generalized weakness and shortness of breaths on waking up and she could not transfer herself from the bed to wheelchair. Patient uses albuterol and Breztri inhaler but did not increase the consumption recently, she has chronic cough but the cough did not worsened recently. She smokes half a pack a day for the past 50 years, quit 1 week back. No recent immobilization/hospitalization or surgery history. She denies chest pain, palpitations, nausea, vomiting, diaphoresis, back pain, constipation or diarrhea. Vitals on arrival were pulse 99, blood pressure 123/60 mmHg, saturating 89% on 9 L Oxymizer. Patient has had significant clinical improvement throughout her hospitalization. Patient was given broad-spectrum antibiotics, she was on breathing treatments, patient was also diuresed. Initially patient has had significant respiratory decline, she was on high flow oxygen for awhile. Patient initially was DNR/DNI, however later she was changed to full code. At that time we decided to intubate to do a bronchoscopy in which we found significant mucus plugs, a 2nd bronchoscopy was performed the very next day, again more mucus plugs were taken out. Patient also underwent a left heart catheterization in which a stent was placed on the circumflex artery. Patient did not have any significant elevated pressures so no right heart catheterization was performed. An arterial Doppler also revealed diminished pulses on the left side, it was noted that they stated that she had in that left leg it was thrombosed, a 2nd peripheral angiography was performed to open up the vessel. It was successful. 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 After this patient was weaned down from sedation and we were able to take her off mechanical ventilator. The next couple of days patient slowly improved, we took off the high-flow. Patient was transitioned to voriconazole orally. Patient continued to tolerate appropriately the simple mask and went from 10 L to 6 L. Patient was also seen by Podiatry due to foot pain and inability to ambulate, they did perform nail trimming. We tried sending the patient to SNF, however we will have to downgraded patient to nasal cannula. The patient is unable to wear the nasal cannula at this time due to wound in the nares, we will consulted wound care nurse and they has been doing daily care of her nares. We are currently still on simple mask 8 L with humidifier. The plan is to let they nares crust to heal and then the patient to wear nasal cannula and to be sent either to a SNF, or home with physical therapy. We have brought the discussion of possible hospice to the patient and family members both of them decline the idea. Patient is to complete the treatment of 6-12 weeks of voriconazole. Patient seen and examined at bedside. Patient is currently on simple mask at 10 Lof O2. Patient reports mild shortness of breath but has been stable overall. Patient still has severe ulcers on bilateral nares crusted and not healing at this time. We will continue on antifungal therapy with voriconazole 200 mg b.i.d., prednisone Spoke with son kallie at bedside regarding patient care. We will discuss with social sciences chair regarding buttermaker helper possibilities. Will increase prednisone from 10 to 20 mg daily. ROS Constitutional: Reports weakness and fatigue. Denies weight loss, fever and chills. HEENT: Denies changes in vision and hearing. Respiratory: Reports mild shortness of breaths Cardiovascular: Denies chest discomfort or palpitations GI: Denies abdominal pain, nausea, vomiting and diarrhea. : Denies dysuria and urinary frequency. Musculoskeletal: Denies myalgias and joint pain Skin: Denies rash and pruritus. Neurological: Denies dizziness, headache, vision or hearing problems Objective vital signs Vital Sign Date Time Temp Pulse Resp B/P (MAP) Pulse Ox O2 Delivery O2 Flow Rate FiO2 02/16/25 13:00 98.4 91 16 117/47 (70) 89 98.4 02/16/25 09:45 Mask 15.0 02/16/25 09:45 50 50 Total Intake and Output 02/15/25 02/15/25 02/16/25 15:00 23:00 07:00 Intake Total 480 ml 100 ml Output Total 700 ml 800 ml Balance -220 ml -700 ml medications Current Medications Medications Dose Ordered Sig/Jake Route Start Time Stop Time Status Last Admin Dose Admin Cefepime HCl 50 ml @ 12.5 mls/hr Q8HR IV 01/14/25 14:00 UNV Clopidogrel Bisulfate 75 mg DAILY PO 01/15/25 10:00 02/16/25 08:48 75 MG Acetaminophen 650 mg Q8HP PRN PO 01/19/25 15:15 02/15/25 16:42 650 MG Atorvastatin Calcium 40 mg HS PO 01/22/25 22:00 02/15/25 22:09 40 MG Voriconazole / Dextrose 250 ml @ 125 mls/hr Q12H IV 01/27/25 13:30 01/28/25 03:29 UNV Artificial Tears 2 drop Q6HP PRN LEFTEYE 01/28/25 10:45 Hydralazine HCl 10 mg Q6HP PRN IV 01/28/25 10:45 02/01/25 10:13 10 MG Sodium Chloride 1 spr QIDP PRN EACHNOSTRI 02/01/25 11:45 02/01/25 21:57 1 SPR Amlodipine Besylate 10 mg DAILY PO 02/01/25 11:58 02/16/25 08:48 10 MG Magnesium Oxide 400 mg BID PO 02/01/25 22:00 02/16/25 08:49 400 MG Voriconazole 200 mg BIDAC PO 02/02/25 17:00 02/16/25 06:32 200 MG Diagnostic Test (Pha) 1 strip ACHS 02/03/25 17:00 02/16/25 10:45 1 STRIP Insulin Human Regular HS SC 02/03/25 22:00 02/15/25 22:31 2 UNITS Insulin Human Regular AC SC 02/03/25 17:00 02/16/25 10:46 6 UNITS Dextrose 50 ml UD PRN IV 02/03/25 15:00 Polyethylene Glycol 17 gm DAILYPRN PRN PO 02/06/25 14:45 02/11/25 14:15 17 GM Docusate Sodium 100 mg BID PO 02/06/25 22:00 02/16/25 08:49 100 MG Sennosides 8.6 mg HS PO 02/06/25 22:00 02/15/25 22:09 8.6 MG Rivaroxaban 2.5 mg BID PO 02/10/25 10:00 02/16/25 08:49 2.5 MG Phenol/Menthol 1 spr Q2HP PRN MT 02/10/25 11:00 Acetaminophen/ Hydrocodone Bitart 1 tab Q6HPRN PRN PO 02/11/25 15:45 02/14/25 21:37 1 TAB Prednisone 10 mg DAILY PO 02/12/25 10:00 02/16/25 08:48 10 MG Pantoprazole Sodium 40 mg DAILY@0600 PO 02/12/25 06:00 02/16/25 06:32 40 MG Guaifenesin 200 mg Q4HP PRN PO 02/13/25 11:30 Fluoxetine HCl 10 mg DAILY PO 02/15/25 10:00 02/16/25 08:49 10 MG Albuterol 2.5 mg Q4HR NEB 02/15/25 10:00 02/16/25 09:45 2.5 MG Ipratropium [place] 0.5 mg Q4HR NEB 02/15/25 10:00 02/16/25 09:45 0.5 MG Potassium Chloride 100 ml @ 50 mls/hr Q2H IV 02/16/25 08:30 02/16/25 12:29 UNV Examination Physical Examination General: Patient alert and oriented in person, place and time. Patient following commands. HEENT: Normocephalic, atraumatic, moist mucous membranes. Patient has severe crusted ulcerations on bilateral nares Respiratory/pulmonary: Mild crackles in the right lung base, left lung slightly clear compared to right. No wheezes or stridor at this time. Currently on simple mask at 15 L of oxygen. Cardiovascular: Normal heart sounds S1 and S2 with no associated murmurs Abdomen: Abdomen nondistended, there is no pain to palpation in any of the abdominal quadrants, no palpable masses. Extremities: There is no peripheral edema present at the lower extremities. Peripheral Pulses: 3+ Radial (R). 3+ Radial (L). 3+ Dorsalis pedis (R). 3+ Dorsalis pedis(L) Skin: No rashes or pruritus, there is no sacral edema present at this time. Neurological: Intact cranial nerves with no focal neurologic deficits laboratory and microbiology Laboratory Tests 02/16/25 06:23 Test 02/16/25 06:23 Range/Units Serum Glucose 102 74-106 mg/dL Microbiology Date/Time Source Procedure Growth Status 01/26/25 13:11 Voided Urine Urine Culture - Final Presumptive Catherine albicans Complete 01/26/25 11:30 Sputum Gram Stain - Final Resulted 01/26/25 11:30 Respiratory Culture - Preliminary Aspergillus fumigatus Resulted 01/26/25 08:12 Blood Blood Culture - Final NO GROWTH AFTER 5 DAYS OF INCUBATION. Complete 01/25/25 11:28 Lung - Final Complete 01/25/25 11:28 Lung - Final Complete 01/25/25 11:28 Lung - Final Complete 01/25/25 11:28 Lung - Final Complete 01/25/25 11:28 Lung - Final Complete 01/25/25 11:28 Lung - Final See Separate Report... 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 b.i.d. -increase prednisone to 20 mg daily -continue respiratory therapy with albuterol and ipratropium -guaifenesin dextromethorphan 200 mg q.4 PRN Acute chest pain due to ACS Status post coronary angiogram with PCI x1 sent NSTEMI type 2 likely due to above -coronary angiogram was performed and stent was placed in the circumflex artery -continue rivaroxaban 2.5 mg b.i.d. -continue clopidogrel 75 mg daily -continue atorvastatin 40 mg daily -control blood pressure and monitor closely Acute crusted ulcerations on bilateral nares secondary to continuous high flow oxygen -currently wound consult for nares wound cleaning and healing -patient is currently on simple mask at 15 L of oxygen Peripheral artery disease Status post left lower extremity angiography, vessel was opened successfully -continue clopidogrel, rivaroxaban and atorvastatin as stated above Uncontrolled type 2 diabetes mellitus likely due to steroids -hemoglobin A1c was 6.3% which is in prediabetes range -continue moderate sliding scale insulin and monitor blood glucose closely Possible Pulmonary hypertension likely class III -follow-up with pulmonology as an outpatient -right heart catheterization was not performed, there was mild enlargement of right ventricle on echocardiogram Dyslipidemia -continue atorvastatin 40 mg daily Goals of care discussed with the patient at bedside for >30min, modified code, DNI but may do compressions and shock. Plan discussed with Dr. Chavez Plan discussed with: Patient My Orders My Orders Orders - KANE KIM Procedure Category Date Status Time Insert Midline ORDERS 02/16/25 Transmitted 09:29 Dietary Evaluation Review Comments: Recommend CCHO-60 with 2 GNa Low fat Low Cholesterol Cardiac diet. Expected Outcomes/Goals: Tight DM control, Wt management Date of Service: Feb 16, 2025 Billing Provider: JUSTINE CHAVEZ MD Common Visit Codes: [id number] INP/OBS CARE(HIGH) KANE KIM RESIDENT Feb 16, 2025 14:11 JUSTINE CHAVEZ MD Feb 16, 2025 18:35
[2025-02-17] VITALS (28 sets, daily range): BP systolic 113–127; BP diastolic 43–58; PULSE 77–96; RESP 16–20; TEMP 97–98.7; O2SAT 84–96
[2025-02-17 07:23] LABS: Anion Gap 7 (5-15); Carbon Dioxide 30 mmol/L (20-31); Potassium 3.5 mmol/L (3.5-5.1)
[2025-02-17 07:24] LABS: Calcium 8.9 mg/dL (8.7-10.4)
[2025-02-17 07:28] LABS: Hematocrit 39.3 % (36.0-46.0); Hemoglobin 13.8 g/dL (12.2-16.2); Mean Corpuscular Hemoglobin 32.8 pg (28.0-32.0); Mean Corpuscular Volume 93.7 fL (80.0-100.0); Platelet Count (auto) 206 10^3/uL (140-450); Red Cell Distribution Width 14.2 % (11.8-14.3); White Blood Cell 9.5 10^3/uL (4.4-10.8)
[2025-02-17 07:29] LABS: Blood Urea Nitrogen 12 mg/dL (9-23); Glucose 104 mg/dL (74-106); Magnesium 2.2 mg/dL (1.6-2.6)
[2025-02-17 07:38] LABS: Chloride 96 mmol/L (98-107); Sodium 133 mmol/L (136-145)
[2025-02-17 07:41] LABS: Basophils % (manual) 0 (0.0-2.0); Myelocytes % 0
[2025-02-17 07:42] LABS: Blast Cells 0; Promyelocytes % 0; Reactive Lymphocytes 0
[2025-02-17] MEDS: predniSONE 20 MG TAB PO SCH (08:23)
[2025-02-17 11:42] LABS: Band Neutrophils % (manual) 4; Eosinophils % (manual) 1 (0-7); Lymphocytes % (manual) 14 (10.0-50.0); Metamyelocytes % 4; Monocytes % (manual) 13 (0-12)
[2025-02-17 11:43] LABS: Platelet Estimate Adequate
--- NOTE | 2025-02-17 13:23 | DVHPNRES ---
Progress Note Date Seen: Feb 17, 2025 Resident Creating Document: KANE KIM RESIDENT Has the PT tested + for MRSA If YES, has PT been informed?: No Medical Necessity Reason Pt with a Central, PICC or Fol: Yes The following are medically ne: Hughes Catheter Reason for hughes catheter: Strict I&O Subjective Review of Systems This is a 79-year-old female with past medical history of COPD (with no home oxygen), hypertension, type 2 diabetes mellitus, diverticulosis, solitary pulmonary nodules, left PID status post PTCA of left superficial femoral artery and popliteal artery in 2019, internal and external hemorrhoids, colonic polyps, who presented to the ED due to shortness of breath and generalized weakness for one day of duration before coming to the ED. Per son, patient developed generalized weakness and shortness of breaths on waking up and she could not transfer herself from the bed to wheelchair. Patient uses albuterol and Breztri inhaler but did not increase the consumption recently, she has chronic cough but the cough did not worsened recently. She smokes half a pack a day for the past 50 years, quit 1 week back. No recent immobilization/hospitalization or surgery history. She denies chest pain, palpitations, nausea, vomiting, diaphoresis, back pain, constipation or diarrhea. Vitals on arrival were pulse 99, blood pressure 123/60 mmHg, saturating 89% on 9 L Oxymizer. Patient has had significant clinical improvement throughout her hospitalization. Patient was given broad-spectrum antibiotics, she was on breathing treatments, patient was also diuresed. Initially patient has had significant respiratory decline, she was on high flow oxygen for awhile. Patient initially was DNR/DNI, however later she was changed to full code. At that time we decided to intubate to do a bronchoscopy in which we found significant mucus plugs, a 2nd bronchoscopy was performed the very next day, again more mucus plugs were taken out. Patient also underwent a left heart catheterization in which a stent was placed on the circumflex artery. Patient did not have any significant elevated pressures so no right heart catheterization was performed. An arterial Doppler also revealed diminished pulses on the left side, it was noted that they stated that she had in that left leg it was thrombosed, a 2nd peripheral angiography was performed to open up the vessel. It was successful. 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 After this patient was weaned down from sedation and we were able to take her off mechanical ventilator. The next couple of days patient slowly improved, we took off the high-flow. Patient was transitioned to voriconazole orally. Patient continued to tolerate appropriately the simple mask and went from 10 L to 6 L. Patient was also seen by Podiatry due to foot pain and inability to ambulate, they did perform nail trimming. We tried sending the patient to SNF, however we will have to downgraded patient to nasal cannula. The patient is unable to wear the nasal cannula at this time due to wound in the nares, we will consulted wound care nurse and they has been doing daily care of her nares. We are currently still on simple mask 8 L with humidifier. The plan is to let they nares crust to heal and then the patient to wear nasal cannula and to be sent either to a SNF, or home with physical therapy. We have brought the discussion of possible hospice to the patient and family members both of them decline the idea. Patient is to complete the treatment of 6-12 weeks of voriconazole. Patient seen and examined at bedside. This morning patient was initially on simple mask at 10 L of oxygen, we titrated down to 6 L but patient desaturated to 86% so was placed back on 8 L of oxygen through simple mask. Patient still getting voriconazole 200 mg b.i.d., prednisone 20 mg daily, respiratory therapy with albuterol and ipratropium. We spoke with son Ian regarding the possibility of hospice but son is going to think about it and talk to the sister to get into a final decision. The patient denies chest pain, fever/chills or any other complaints at this time. ROS Constitutional: Denies weight loss, fever and chills. HEENT: Denies changes in vision and hearing. Respiratory: Reports mild shortness of breath no cough at this time. Cardiovascular: Denies chest discomfort or palpitations GI: Denies abdominal pain, nausea, vomiting and diarrhea. : Denies dysuria and urinary frequency. Musculoskeletal: Denies myalgias and joint pain Skin: Denies rash and pruritus. Neurological: Denies dizziness, headache, vision or hearing problems Objective vital signs Vital Sign Date Time Temp Pulse Resp B/P (MAP) Pulse Ox O2 Delivery O2 Flow Rate FiO2 02/17/25 13:00 98.7 92 17 113/44 (28) 91 98.7 02/17/25 11:33 Mask 8.0 02/17/25 10:14 40 40 Total Intake and Output 02/16/25 02/16/25 02/17/25 15:00 23:00 07:00 Intake Total 247.5 ml 240 ml 850 ml Output Total 650 ml 350 ml Balance 247.5 ml -410 ml 500 ml medications Current Medications Medications Dose Ordered Sig/Jake Route Start Time Stop Time Status Last Admin Dose Admin Cefepime HCl 50 ml @ 12.5 mls/hr Q8HR IV 01/14/25 14:00 UNV Clopidogrel Bisulfate 75 mg DAILY PO 01/15/25 10:00 02/17/25 08:21 75 MG Acetaminophen 650 mg Q8HP PRN PO 01/19/25 15:15 02/16/25 21:40 650 MG Atorvastatin Calcium 40 mg HS PO 01/22/25 22:00 02/16/25 21:40 40 MG Voriconazole / Dextrose 250 ml @ 125 mls/hr Q12H IV 01/27/25 13:30 01/28/25 03:29 UNV Artificial Tears 2 drop Q6HP PRN LEFTEYE 01/28/25 10:45 Hydralazine HCl 10 mg Q6HP PRN IV 01/28/25 10:45 02/01/25 10:13 10 MG Sodium Chloride 1 spr QIDP PRN EACHNOSTRI 02/01/25 11:45 02/01/25 21:57 1 SPR Amlodipine Besylate 10 mg DAILY PO 02/01/25 11:58 02/17/25 08:22 10 MG Magnesium Oxide 400 mg BID PO 02/01/25 22:00 02/17/25 08:23 400 MG Voriconazole 200 mg BIDAC PO 02/02/25 17:00 02/17/25 06:24 200 MG Diagnostic Test (Pha) 1 strip ACHS 02/03/25 17:00 02/17/25 11:18 1 STRIP Insulin Human Regular HS SC 02/03/25 22:00 02/15/25 22:31 2 UNITS Insulin Human Regular AC SC 02/03/25 17:00 02/17/25 11:18 2 UNITS Dextrose 50 ml UD PRN IV 02/03/25 15:00 Polyethylene Glycol 17 gm DAILYPRN PRN PO 02/06/25 14:45 02/11/25 14:15 17 GM Docusate Sodium 100 mg BID PO 02/06/25 22:00 02/17/25 08:23 100 MG Sennosides 8.6 mg HS PO 02/06/25 22:00 02/16/25 21:40 8.6 MG Rivaroxaban 2.5 mg BID PO 02/10/25 10:00 02/17/25 08:27 2.5 MG Phenol/Menthol 1 spr Q2HP PRN MT 02/10/25 11:00 Acetaminophen/ Hydrocodone Bitart 1 tab Q6HPRN PRN PO 02/11/25 15:45 02/14/25 21:37 1 TAB Pantoprazole Sodium 40 mg DAILY@0600 PO 02/12/25 06:00 02/17/25 06:24 40 MG Guaifenesin 200 mg Q4HP PRN PO 02/13/25 11:30 Fluoxetine HCl 10 mg DAILY PO 02/15/25 10:00 02/17/25 08:21 10 MG Albuterol 2.5 mg Q4HR NEB 02/15/25 10:00 02/17/25 10:14 2.5 MG Ipratropium [place] 0.5 mg Q4HR NEB 02/15/25 10:00 02/17/25 10:14 0.5 MG Potassium Chloride 100 ml @ 50 mls/hr Q2H IV 02/16/25 08:30 02/16/25 12:29 UNV Prednisone 20 mg DAILY PO 02/17/25 10:00 02/17/25 08:23 20 MG Examination Physical Examination General: Patient alert and oriented in person, place and time. Patient following commands. HEENT: Normocephalic, atraumatic, moist mucous membranes. Patient has severe crusted ulcerations on bilateral nares Respiratory/pulmonary: decrease breath sounds on bilat lung [place], minimal crackles on bases. No wheezes or stridor at this time. Currently on simple mask at 8 L of oxygen. Cardiovascular: Normal heart sounds S1 and S2 with no associated murmurs Abdomen: Abdomen nondistended, there is no pain to palpation in any of the abdominal quadrants, no palpable masses. Extremities: There is no peripheral edema present at the lower extremities. Peripheral Pulses: 3+ Radial (R). 3+ Radial (L). 3+ Dorsalis pedis (R). 3+ Dorsalis pedis(L) Skin: No rashes or pruritus, there is no sacral edema present at this time. Neurological: Intact cranial nerves with no focal neurologic deficits laboratory and microbiology Laboratory Tests 02/17/25 06:22 Test 02/17/25 06:22 Range/Units Serum Glucose 104 74-106 mg/dL Microbiology Date/Time Source Procedure Growth Status 01/26/25 13:11 Voided Urine Urine Culture - Final Presumptive Catherine albicans Complete 01/26/25 11:30 Sputum Gram Stain - Final Resulted 01/26/25 11:30 Respiratory Culture - Preliminary Aspergillus fumigatus Resulted 01/26/25 08:12 Blood Blood Culture - Final NO GROWTH AFTER 5 DAYS OF INCUBATION. Complete 01/25/25 11:28 Lung - Final Complete 01/25/25 11:28 Lung - Final Complete 01/25/25 11:28 Lung - Final Complete 01/25/25 11:28 Lung - Final Complete 01/25/25 11:28 Lung - Final Complete 01/25/25 11:28 Lung - Final See Separate Report... 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 b.i.d. -continue prednisone to 20 mg daily -continue respiratory therapy with albuterol and ipratropium -guaifenesin dextromethorphan 200 mg q.4 PRN Acute chest pain due to ACS Status post coronary angiogram with PCI x1 sent NSTEMI type 2 likely due to above -coronary angiogram was performed and stent was placed in the circumflex artery -continue rivaroxaban 2.5 mg b.i.d. -continue clopidogrel 75 mg daily -continue atorvastatin 40 mg daily -control blood pressure and monitor closely Acute crusted ulcerations on bilateral nares secondary to continuous high flow oxygen -currently wound consult for nares wound cleaning and healing -patient is currently on simple mask at 15 L of oxygen Peripheral artery disease Status post left lower extremity angiography, vessel was opened successfully -continue clopidogrel, rivaroxaban and atorvastatin as stated above Uncontrolled type 2 diabetes mellitus likely due to steroids -hemoglobin A1c was 6.3% which is in prediabetes range -continue moderate sliding scale insulin and monitor blood glucose closely Possible Pulmonary hypertension likely class III -follow-up with pulmonology as an outpatient -right heart catheterization was not performed, there was mild enlargement of right ventricle on echocardiogram Dyslipidemia -continue atorvastatin 40 mg daily Discussed with son ian regarding hospice. he will think about it and talk to his sister. Goals of care discussed with the patient at bedside for >30min, modified code, DNI but may do compressions and shock. Plan discussed with Dr. Chavez Plan discussed with: Patient, Son My Orders My Orders Orders - KANE KIM Procedure Category Date Status Time Prednisone Tablet PHA 02/17/25 In Process 10:00 * Wound Consult CONS 02/17/25 Transmitted Dietary Evaluation Review Comments: Recommend CCHO-60 with 2 GNa Low fat Low Cholesterol Cardiac diet. Expected Outcomes/Goals: Tight DM control, Wt management Date of Service: Feb 17, 2025 Billing Provider: JUSTINE CHAVEZ MD Common Visit Codes: [id number] INP/OBS CARE(HIGH) KANE KIM RESIDENT Feb 17, 2025 13:23 JUSTINE CHAVEZ MD Feb 17, 2025 17:21
[2025-02-18] VITALS (27 sets, daily range): BP systolic 109–128; BP diastolic 44–61; PULSE 72–98; RESP 16–20; TEMP 97.5–97.9; O2SAT 89–95
[2025-02-18 07:38] LABS: Hematocrit 41.6 % (36.0-46.0); Hemoglobin 14.1 g/dL (12.2-16.2); Mean Corpuscular Hemoglobin 31.8 pg (28.0-32.0); Mean Corpuscular Hgb Conc. 33.9 g/dL (32.0-36.0); Mean Corpuscular Volume 93.9 fL (80.0-100.0); Platelet Count (auto) 210 10^3/uL (140-450); Red Blood Cells 4.43 10^6/uL (4.0-5.20); Red Cell Distribution Width 14.3 % (11.8-14.3); White Blood Cell 8.7 10^3/uL (4.4-10.8)
[2025-02-18 07:42] LABS: Calcium 8.8 mg/dL (8.7-10.4)
[2025-02-18 07:43] LABS: Anion Gap 8 (5-15); Basophils % (manual) 0 (0.0-2.0); Blast Cells 0; Carbon Dioxide 28 mmol/L (20-31); Myelocytes % 0; Promyelocytes % 0; Reactive Lymphocytes 0
[2025-02-18 07:46] LABS: Chloride 94 mmol/L (98-107); Potassium 3.4 mmol/L (3.5-5.1); Sodium 130 mmol/L (136-145)
[2025-02-18 07:48] LABS: BUN/Creatinine Ratio 36.7 (10.0-20.0); Blood Urea Nitrogen 11 mg/dL (9-23); Glucose 84 mg/dL (74-106)
[2025-02-18 09:30] LABS: Band Neutrophils % (manual) 9; Eosinophils % (manual) 2 (0-7); Lymphocytes % (manual) 14 (10.0-50.0); Metamyelocytes % 4; Monocytes % (manual) 7 (0-12); Platelet Estimate Adequate
[2025-02-18] MEDS: LACTULOSE 20Gm/30ML SOLN PO SCH (13:10)
--- NOTE | 2025-02-18 14:32 | DVHPNRES ---
Progress Note Date Seen: Feb 18, 2025 Resident Creating Document: KANE KIM RESIDENT Has the PT tested + for MRSA If YES, has PT been informed?: No Medical Necessity Reason Pt with a Central, PICC or Fol: Yes The following are medically ne: Hughes Catheter Reason for hughes catheter: Strict I&O Subjective Review of Systems This is a 79-year-old female with past medical history of COPD (with no home oxygen), hypertension, type 2 diabetes mellitus, diverticulosis, solitary pulmonary nodules, left PID status post PTCA of left superficial femoral artery and popliteal artery in 2019, internal and external hemorrhoids, colonic polyps, who presented to the ED due to shortness of breath and generalized weakness for one day of duration before coming to the ED. Per son, patient developed generalized weakness and shortness of breaths on waking up and she could not transfer herself from the bed to wheelchair. Patient uses albuterol and Breztri inhaler but did not increase the consumption recently, she has chronic cough but the cough did not worsened recently. She smokes half a pack a day for the past 50 years, quit 1 week back. No recent immobilization/hospitalization or surgery history. She denies chest pain, palpitations, nausea, vomiting, diaphoresis, back pain, constipation or diarrhea. Vitals on arrival were pulse 99, blood pressure 123/60 mmHg, saturating 89% on 9 L Oxymizer. Patient has had significant clinical improvement throughout her hospitalization. Patient was given broad-spectrum antibiotics, she was on breathing treatments, patient was also diuresed. Initially patient has had significant respiratory decline, she was on high flow oxygen for awhile. Patient initially was DNR/DNI, however later she was changed to full code. At that time we decided to intubate to do a bronchoscopy in which we found significant mucus plugs, a 2nd bronchoscopy was performed the very next day, again more mucus plugs were taken out. Patient also underwent a left heart catheterization in which a stent was placed on the circumflex artery. Patient did not have any significant elevated pressures so no right heart catheterization was performed. An arterial Doppler also revealed diminished pulses on the left side, it was noted that they stated that she had in that left leg it was thrombosed, a 2nd peripheral angiography was performed to open up the vessel. It was successful. 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 After this patient was weaned down from sedation and we were able to take her off mechanical ventilator. The next couple of days patient slowly improved, we took off the high-flow. Patient was transitioned to voriconazole orally. Patient continued to tolerate appropriately the simple mask and went from 10 L to 6 L. Patient was also seen by Podiatry due to foot pain and inability to ambulate, they did perform nail trimming. We tried sending the patient to SNF, however we will have to downgraded patient to nasal cannula. The patient is unable to wear the nasal cannula at this time due to wound in the nares, we will consulted wound care nurse and they has been doing daily care of her nares. We are currently still on simple mask 8 L with humidifier. The plan is to let they nares crust to heal and then the patient to wear nasal cannula and to be sent either to a SNF, or home with physical therapy. We have brought the discussion of possible hospice to the patient and family members both of them decline the idea. Patient is to complete the treatment of 6-12 weeks of voriconazole. Patient seen and examined at bedside. Patient still reporting mild shortness of breath, the patient is currently at 10 L of oxygen through simple mask which has been pretty stable but not improving since the last several days. We have a big discussion at bedside with the patient regarding hospice which the patient stated that we will talk with her son and have a further discussion for a possible further agreement. Meanwhile we will continue current medical management. Patient has not had any recent fevers/chills or any other additional symptoms aside for shortness of breaths. ROS Constitutional: Denies weight loss, fever and chills. HEENT: Denies changes in vision and hearing. Respiratory: Reports shortness of breath. Cardiovascular: Denies chest discomfort or palpitations GI: Denies abdominal pain, nausea, vomiting and diarrhea. : Denies dysuria and urinary frequency. Musculoskeletal: Denies myalgias and joint pain Skin: Denies rash and pruritus. Neurological: Denies dizziness, headache, vision or hearing problems Objective vital signs Vital Sign Date Time Temp Pulse Resp B/P (MAP) Pulse Ox O2 Delivery O2 Flow Rate FiO2 02/18/25 11:18 91 Mask 10.0 02/18/25 10:22 86 16 02/18/25 10:12 35 35 4/10/25 09:00 97.8 128/53 (76) 97.8 medications Current Medications Medications Dose Ordered Sig/Jake Route Start Time Stop Time Status Last Admin Dose Admin Cefepime HCl 50 ml @ 12.5 mls/hr Q8HR IV 01/14/25 14:00 UNV Clopidogrel Bisulfate 75 mg DAILY PO 01/15/25 10:00 02/18/25 07:48 75 MG Acetaminophen 650 mg Q8HP PRN PO 01/19/25 15:15 02/17/25 21:16 650 MG Atorvastatin Calcium 40 mg HS PO 01/22/25 22:00 02/17/25 21:17 40 MG Voriconazole / Dextrose 250 ml @ 125 mls/hr Q12H IV 01/27/25 13:30 01/28/25 03:29 UNV Artificial Tears 2 drop Q6HP PRN LEFTEYE 01/28/25 10:45 Hydralazine HCl 10 mg Q6HP PRN IV 01/28/25 10:45 02/01/25 10:13 10 MG Sodium Chloride 1 spr QIDP PRN EACHNOSTRI 02/01/25 11:45 02/01/25 21:57 1 SPR Amlodipine Besylate 10 mg DAILY PO 02/01/25 11:58 02/18/25 07:48 10 MG Magnesium Oxide 400 mg BID PO 02/01/25 22:00 02/18/25 07:48 400 MG Voriconazole 200 mg BIDAC PO 02/02/25 17:00 02/18/25 06:07 200 MG Diagnostic Test (Pha) 1 strip ACHS 02/03/25 17:00 02/18/25 10:54 1 STRIP Insulin Human Regular HS SC 02/03/25 22:00 02/15/25 22:31 2 UNITS Insulin Human Regular AC SC 02/03/25 17:00 02/18/25 11:00 3 UNITS Dextrose 50 ml UD PRN IV 02/03/25 15:00 Polyethylene Glycol 17 gm DAILYPRN PRN PO 02/06/25 14:45 02/17/25 21:25 17 GM Docusate Sodium 100 mg BID PO 02/06/25 22:00 02/18/25 07:48 100 MG Sennosides 8.6 mg HS PO 02/06/25 22:00 02/17/25 21:15 8.6 MG Rivaroxaban 2.5 mg BID PO 02/10/25 10:00 02/18/25 07:49 2.5 MG Phenol/Menthol 1 spr Q2HP PRN MT 02/10/25 11:00 Acetaminophen/ Hydrocodone Bitart 1 tab Q6HPRN PRN PO 02/11/25 15:45 02/14/25 21:37 1 TAB Pantoprazole Sodium 40 mg DAILY@0600 PO 02/12/25 06:00 02/18/25 06:05 40 MG Guaifenesin 200 mg Q4HP PRN PO 02/13/25 11:30 Fluoxetine HCl 10 mg DAILY PO 02/15/25 10:00 02/18/25 07:49 10 MG Albuterol 2.5 mg Q4HR NEB 02/15/25 10:00 02/18/25 13:51 2.5 MG Ipratropium [place] 0.5 mg Q4HR NEB 02/15/25 10:00 02/18/25 13:51 0.5 MG Potassium Chloride 100 ml @ 50 mls/hr Q2H IV 02/16/25 08:30 02/16/25 12:29 UNV Prednisone 20 mg DAILY PO 02/17/25 10:00 02/18/25 07:49 20 MG Lactulose 30 ml DAILY PO 02/18/25 13:00 02/18/25 13:10 30 ML Examination Physical Examination General: Patient alert and oriented in person, place and time. Patient following commands. HEENT: Normocephalic, atraumatic, moist mucous membranes. Patient has severe crusted ulcerations on bilateral nares Respiratory/pulmonary: decrease breath sounds on bilat lung [place], minimal crackles on bases. No wheezes or stridor at this time. Currently on simple mask at 10 L of oxygen. Cardiovascular: Normal heart sounds S1 and S2 with no associated murmurs Abdomen: Abdomen nondistended, there is no pain to palpation in any of the abdominal quadrants, no palpable masses. Extremities: There is no peripheral edema present at the lower extremities. Peripheral Pulses: 3+ Radial (R). 3+ Radial (L). 3+ Dorsalis pedis (R). 3+ Dorsalis pedis(L) Skin: No rashes or pruritus, there is no sacral edema present at this time. Neurological: Intact cranial nerves with no focal neurologic deficits laboratory and microbiology Laboratory Tests 02/18/25 06:25 Test 02/18/25 06:25 Range/Units Serum Glucose 84 74-106 mg/dL Microbiology Date/Time Source Procedure Growth Status 01/26/25 13:11 Voided Urine Urine Culture - Final Presumptive Catherine albicans Complete 01/26/25 11:30 Sputum Gram Stain - Final Resulted 01/26/25 11:30 Respiratory Culture - Preliminary Aspergillus fumigatus Resulted 01/26/25 08:12 Blood Blood Culture - Final NO GROWTH AFTER 5 DAYS OF INCUBATION. Complete 01/25/25 11:28 Lung - Final Complete 01/25/25 11:28 Lung - Final Complete 01/25/25 11:28 Lung - Final Complete 01/25/25 11:28 Lung - Final Complete 01/25/25 11:28 Lung - Final Complete 01/25/25 11:28 Lung - Final See Separate Report... 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 b.i.d. -continue prednisone to 20 mg daily -continue respiratory therapy with albuterol and ipratropium -guaifenesin dextromethorphan 200 mg q.4 PRN Acute chest pain due to ACS Status post coronary angiogram with PCI x1 sent NSTEMI type 2 likely due to above -coronary angiogram was performed and stent was placed in the circumflex artery -continue rivaroxaban 2.5 mg b.i.d. -continue clopidogrel 75 mg daily -continue atorvastatin 40 mg daily -control blood pressure and monitor closely Acute crusted ulcerations on bilateral nares secondary to continuous high flow oxygen -currently wound consult for nares wound cleaning and healing -patient is currently on simple mask at 10 L of oxygen Peripheral artery disease Status post left lower extremity angiography, vessel was opened successfully -continue clopidogrel, rivaroxaban and atorvastatin as stated above Uncontrolled type 2 diabetes mellitus likely due to steroids -hemoglobin A1c was 6.3% which is in prediabetes range -continue moderate sliding scale insulin and monitor blood glucose closely Possible Pulmonary hypertension likely class III -follow-up with pulmonology as an outpatient -right heart catheterization was not performed, there was mild enlargement of right ventricle on echocardiogram Dyslipidemia -continue atorvastatin 40 mg daily Discussed with patient regarding hospice, patient stated that is going to talk with his son. Goals of care discussed with the patient at bedside for >30min, modified code, DNI but may do compressions and shock. Plan discussed with Dr. Chavez Plan discussed with: Patient My Orders My Orders Orders - KANE KIM Procedure Category Date Status Time Communication Order ORDERS 02/17/25 Transmitted 17:58 Lactulose Oral PHA 02/18/25 In Process 13:00 Dietary Evaluation Review Comments: Recommend CCHO-60 with 2 GNa Low fat Low Cholesterol Cardiac diet. Expected Outcomes/Goals: Tight DM control, Wt management Date of Service: Feb 18, 2025 Billing Provider: JUSTINE CHAVEZ MD Common Visit Codes: [id number] INP/OBS CARE(MOD) KANE KIM Feb 18, 2025 14:32 JUSTINE CHAVEZ MD Feb 18, 2025 18:16
[2025-02-19] VITALS (21 sets, daily range): BP systolic 111–121; BP diastolic 44–55; PULSE 72–109; RESP 16–20; TEMP 97.6–98.4; O2SAT 91–98
[2025-02-19 06:56] LABS: Anion Gap 7 (5-15); Carbon Dioxide 28 mmol/L (20-31)
[2025-02-19 06:57] LABS: Calcium 8.9 mg/dL (8.7-10.4)
[2025-02-19 07:02] LABS: BUN/Creatinine Ratio 37.1 (10.0-20.0); Blood Urea Nitrogen 13 mg/dL (9-23); Chloride 93 mmol/L (98-107); Glucose 121 mg/dL (74-106); Potassium 3.3 mmol/L (3.5-5.1); Sodium 128 mmol/L (136-145)
[2025-02-19 07:21] LABS: Hematocrit 38.7 % (36.0-46.0); Hemoglobin 13.6 g/dL (12.2-16.2); Mean Corpuscular Hgb Conc. 35.2 g/dL (32.0-36.0); Mean Corpuscular Volume 93.6 fL (80.0-100.0); Platelet Count (auto) 199 10^3/uL (140-450); Red Blood Cells 4.13 10^6/uL (4.0-5.20); Red Cell Distribution Width 13.9 % (11.8-14.3); White Blood Cell 10.3 10^3/uL (4.4-10.8)
[2025-02-19 07:24] LABS: Basophils % (manual) 0 (0.0-2.0); Blast Cells 0; Eosinophils % (manual) 0 (0-7); Myelocytes % 0; Promyelocytes % 0; Reactive Lymphocytes 0
[2025-02-19 08:00] LABS: Band Neutrophils % (manual) 3; Lymphocytes % (manual) 17 (10.0-50.0); Metamyelocytes % 2; Monocytes % (manual) 4 (0-12)
[2025-02-19 08:01] LABS: Platelet Estimate Adequate
[2025-02-19] MEDS: POTASSIUM EFFERVESENT TAB 25 MEQ PO ONE (17:08)
--- NOTE | 2025-02-19 18:06 | DVHPNRES ---
Progress Note Date Seen: Feb 19, 2025 Resident Creating Document: KANE KIM RESIDENT Has the PT tested + for MRSA If YES, has PT been informed?: No Medical Necessity Reason Pt with a Central, PICC or Fol: Yes The following are medically ne: Hughes Catheter Reason for hughes catheter: Strict I&O Subjective Review of Systems This is a 79-year-old female with past medical history of COPD (with no home oxygen), hypertension, type 2 diabetes mellitus, diverticulosis, solitary pulmonary nodules, left PID status post PTCA of left superficial femoral artery and popliteal artery in 2019, internal and external hemorrhoids, colonic polyps, who presented to the ED due to shortness of breath and generalized weakness for one day of duration before coming to the ED. Per son, patient developed generalized weakness and shortness of breaths on waking up and she could not transfer herself from the bed to wheelchair. Patient uses albuterol and Breztri inhaler but did not increase the consumption recently, she has chronic cough but the cough did not worsened recently. She smokes half a pack a day for the past 50 years, quit 1 week back. No recent immobilization/hospitalization or surgery history. She denies chest pain, palpitations, nausea, vomiting, diaphoresis, back pain, constipation or diarrhea. Vitals on arrival were pulse 99, blood pressure 123/60 mmHg, saturating 89% on 9 L Oxymizer. Patient has had significant clinical improvement throughout her hospitalization. Patient was given broad-spectrum antibiotics, she was on breathing treatments, patient was also diuresed. Initially patient has had significant respiratory decline, she was on high flow oxygen for awhile. Patient initially was DNR/DNI, however later she was changed to full code. At that time we decided to intubate to do a bronchoscopy in which we found significant mucus plugs, a 2nd bronchoscopy was performed the very next day, again more mucus plugs were taken out. Patient also underwent a left heart catheterization in which a stent was placed on the circumflex artery. Patient did not have any significant elevated pressures so no right heart catheterization was performed. An arterial Doppler also revealed diminished pulses on the left side, it was noted that they stated that she had in that left leg it was thrombosed, a 2nd peripheral angiography was performed to open up the vessel. It was successful. 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 After this patient was weaned down from sedation and we were able to take her off mechanical ventilator. The next couple of days patient slowly improved, we took off the high-flow. Patient was transitioned to voriconazole orally. Patient continued to tolerate appropriately the simple mask and went from 10 L to 6 L. Patient was also seen by Podiatry due to foot pain and inability to ambulate, they did perform nail trimming. We tried sending the patient to SNF, however we will have to downgraded patient to nasal cannula. The patient is unable to wear the nasal cannula at this time due to wound in the nares, we will consulted wound care nurse and they has been doing daily care of her nares. We are currently still on simple mask 8 L with humidifier. The plan is to let they nares crust to heal and then the patient to wear nasal cannula and to be sent either to a SNF, or home with physical therapy. We have brought the discussion of possible hospice to the patient and family members both of them decline the idea. Patient is to complete the treatment of 6-12 weeks of voriconazole. Patient seen and examined at bedside. Patient is currently hemodynamically stable, alert and oriented in person, place and time. The patient is currently on 4 L of oxygen through nasal cannula. We have been having a long conversation with the patient and son regarding hospice. 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 Patient is not able to walk or do any physical activity at this time and does not qualifies for SNF. Patient and son still reluctant regarding decision of hospice. Meanwhile we will continue current medical management at this time. Patient denies any additional symptoms aside from mild shortness of breath. ROS Constitutional: Denies weight loss, fever and chills. HEENT: Denies changes in vision and hearing. Respiratory: Reports Mild shortness of breath and cough Cardiovascular: Denies chest discomfort or palpitations GI: Denies abdominal pain, nausea, vomiting and diarrhea. : Denies dysuria and urinary frequency. Musculoskeletal: Denies myalgias and joint pain Skin: Denies rash and pruritus. Neurological: Denies dizziness, headache, vision or hearing problems Objective vital signs Vital Sign Date Time Temp Pulse Resp B/P (MAP) Pulse Ox O2 Delivery O2 Flow Rate FiO2 4/11/25 16:51 98.2 95 17 111/44 (66) 94 98.2 02/19/25 14:53 Nasal Cannula* 4 36 Total Intake and Output 02/18/25 02/18/25 02/19/25 15:00 23:00 07:00 Intake Total 1424 ml Output Total 450 ml Balance 974 ml medications Current Medications Medications Dose Ordered Sig/Jake Route Start Time Stop Time Status Last Admin Dose Admin Cefepime HCl 50 ml @ 12.5 mls/hr Q8HR IV 01/14/25 14:00 UNV Clopidogrel Bisulfate 75 mg DAILY PO 01/15/25 10:00 02/19/25 08:47 75 MG Atorvastatin Calcium 40 mg HS PO 01/22/25 22:00 02/18/25 21:23 40 MG Voriconazole / Dextrose 250 ml @ 125 mls/hr Q12H IV 01/27/25 13:30 01/28/25 03:29 UNV Artificial Tears 2 drop Q6HP PRN LEFTEYE 01/28/25 10:45 Hydralazine HCl 10 mg Q6HP PRN IV 01/28/25 10:45 02/01/25 10:13 10 MG Sodium Chloride 1 spr QIDP PRN EACHNOSTRI 02/01/25 11:45 02/01/25 21:57 1 SPR Amlodipine Besylate 10 mg DAILY PO 02/01/25 11:58 02/19/25 08:48 10 MG Magnesium Oxide 400 mg BID PO 02/01/25 22:00 02/19/25 08:47 400 MG Voriconazole 200 mg BIDAC PO 02/02/25 17:00 02/19/25 17:08 200 MG Diagnostic Test (Pha) 1 strip ACHS 02/03/25 17:00 02/19/25 17:08 1 STRIP Insulin Human Regular HS SC 02/03/25 22:00 02/18/25 21:38 3 UNITS Insulin Human Regular AC SC 02/03/25 17:00 02/19/25 17:15 12 UNITS Dextrose 50 ml UD PRN IV 02/03/25 15:00 Polyethylene Glycol 17 gm DAILYPRN PRN PO 02/06/25 14:45 02/19/25 08:47 17 GM Docusate Sodium 100 mg BID PO 02/06/25 22:00 02/19/25 08:47 100 MG Sennosides 8.6 mg HS PO 02/06/25 22:00 02/18/25 21:22 8.6 MG Rivaroxaban 2.5 mg BID PO 02/10/25 10:00 02/19/25 08:59 2.5 MG Phenol/Menthol 1 spr Q2HP PRN MT 02/10/25 11:00 Acetaminophen/ Hydrocodone Bitart 1 tab Q6HPRN PRN PO 02/11/25 15:45 02/18/25 21:23 1 TAB Pantoprazole Sodium 40 mg DAILY@0600 PO 02/12/25 06:00 02/19/25 05:59 40 MG Guaifenesin 200 mg Q4HP PRN PO 02/13/25 11:30 Fluoxetine HCl 10 mg DAILY PO 02/15/25 10:00 02/19/25 08:47 10 MG Albuterol 2.5 mg Q4HR NEB 02/15/25 10:00 02/19/25 14:53 2.5 MG Ipratropium [place] 0.5 mg Q4HR NEB 02/15/25 10:00 02/19/25 14:53 0.5 MG Potassium Chloride 100 ml @ 50 mls/hr Q2H IV 02/16/25 08:30 02/16/25 12:29 UNV Prednisone 20 mg DAILY PO 02/17/25 10:00 02/19/25 08:47 20 MG Lactulose 30 ml DAILY PO 02/18/25 13:00 02/19/25 08:47 30 ML Examination Physical Examination General: Patient alert and oriented in person, place and time. Patient following commands. HEENT: Normocephalic, atraumatic, moist mucous membranes. Patient has severe crusted ulcerations on bilateral nares Respiratory/pulmonary: decrease breath sounds on bilat lung [place], minimal crackles on bases. No wheezes or stridor at this time. Currently on nasal cannula at 4 L of oxygen Cardiovascular: Normal heart sounds S1 and S2 with no associated murmurs Abdomen: Abdomen nondistended, there is no pain to palpation in any of the abdominal quadrants, no palpable masses. Extremities: There is no peripheral edema present at the lower extremities. Peripheral Pulses: 3+ Radial (R). 3+ Radial (L). 3+ Dorsalis pedis (R). 3+ Dorsalis pedis(L) Skin: No rashes or pruritus, there is no sacral edema present at this time. Neurological: Intact cranial nerves with no focal neurologic deficits laboratory and microbiology Laboratory Tests 02/19/25 06:15 Test 02/19/25 06:15 Range/Units Serum Glucose 121 H 74-106 mg/dL Microbiology Date/Time Source Procedure Growth Status 01/26/25 13:11 Voided Urine Urine Culture - Final Presumptive Catherine albicans Complete 01/26/25 11:30 Sputum Gram Stain - Final Resulted 01/26/25 11:30 Respiratory Culture - Preliminary Aspergillus fumigatus Resulted 01/26/25 08:12 Blood Blood Culture - Final NO GROWTH AFTER 5 DAYS OF INCUBATION. Complete 01/25/25 11:28 Lung - Final Complete 01/25/25 11:28 Lung - Final Complete 01/25/25 11:28 Lung - Final Complete 01/25/25 11:28 Lung - Final Complete 01/25/25 11:28 Lung - Final Complete 01/25/25 11:28 Lung - Final See Separate Report... 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 b.i.d. -continue prednisone to 20 mg daily -continue respiratory therapy with albuterol and ipratropium -guaifenesin dextromethorphan 200 mg q.4 PRN Acute chest pain due to ACS Status post coronary angiogram with PCI x1 sent NSTEMI type 2 likely due to above -coronary angiogram was performed and stent was placed in the circumflex artery -continue rivaroxaban 2.5 mg b.i.d. -continue clopidogrel 75 mg daily -continue atorvastatin 40 mg daily -control blood pressure and monitor closely Acute crusted ulcerations on bilateral nares secondary to continuous high flow oxygen -currently wound consult for nares wound cleaning and healing -patient is currently on simple mask at 10 L of oxygen Peripheral artery disease Status post left lower extremity angiography, vessel was opened successfully -continue clopidogrel, rivaroxaban and atorvastatin as stated above Uncontrolled type 2 diabetes mellitus likely due to steroids -hemoglobin A1c was 6.3% which is in prediabetes range -continue moderate sliding scale insulin and monitor blood glucose closely Possible Pulmonary hypertension likely class III -follow-up with pulmonology as an outpatient -right heart catheterization was not performed, there was mild enlargement of right ventricle on echocardiogram Dyslipidemia -continue atorvastatin 40 mg daily Discussed with patient regarding hospice, both son and patient still reluctant regarding hospice decision. Goals of care discussed with the patient at bedside for >30min, modified code, DNI but may do compressions and shock. Plan discussed with Dr. Chavez Plan discussed with: Patient Dietary Evaluation Review Comments: Recommend CCHO-60 with 2 GNa Low fat Low Cholesterol Cardiac diet. Expected Outcomes/Goals: Tight DM control, Wt management Date of Service: Feb 19, 2025 Billing Provider: JUSTINE CHAVEZ MD Common Visit Codes: [id number] INP/OBS CARE(HIGH) KANE KIM RESIDENT Feb 19, 2025 18:06 JUSTINE CHAVEZ MD Feb 19, 2025 20:05
[2025-02-20] VITALS (22 sets, daily range): BP systolic 109–127; BP diastolic 42–71; PULSE 67–96; RESP 14–18; TEMP 97.6–98.2; O2SAT 91–98
[2025-02-20 09:22] LABS: Basophils # (auto) 0 10 ^3/uL (0-0.2); Basophils % (auto) 0.4 % (0.0-2.0); Eosinophils # (auto) 0 10 ^3/uL (0-0.8); Eosinophils % (auto) 0.4 % (0.0-7.0); Hemoglobin 12.7 g/dL (12.2-16.2); Lymphocytes # (auto) 1.8 10 ^3/uL (0.4-5.4); Lymphocytes % (auto) 21.1 % (10.0-50.0); Mean Corpuscular Hemoglobin 32.2 pg (28.0-32.0); Mean Corpuscular Hgb Conc. 34.2 g/dL (32.0-36.0); Mean Corpuscular Volume 94.2 fL (80.0-100.0); Monocytes # (auto) 0.8 10 ^3/uL (0-1.3); Monocytes % (auto) 9.7 % (0.0-12.0); Neutrophils # (auto) 5.8 10 ^3/uL (1.6-8.6); Neutrophils % (auto) 68.4 % (37.0-80.0); Platelet Count (auto) 195 10^3/uL (140-450); Red Blood Cells 3.93 10^6/uL (4.0-5.20); Red Cell Distribution Width 14.6 % (11.8-14.3); White Blood Cell 8.4 10^3/uL (4.4-10.8)
[2025-02-20 09:26] LABS: Potassium 3.6 mmol/L (3.5-5.1)
[2025-02-20 09:27] LABS: Anion Gap 7 (5-15); Carbon Dioxide 30 mmol/L (20-31)
[2025-02-20 09:33] LABS: BUN/Creatinine Ratio 28.2 (10.0-20.0); Blood Urea Nitrogen 11 mg/dL (9-23)
[2025-02-20 09:36] LABS: Calcium 8.6 mg/dL (8.7-10.4); Chloride 94 mmol/L (98-107); Glucose 141 mg/dL (74-106); Sodium 131 mmol/L (136-145)
--- NOTE | 2025-02-20 11:59 | DVHPN2 ---
Subjective Patient is seen and examined at bedside, patient is currently on 3-4L nasal cannula. Patient wishes to try rehab. Out of bed to chair today. Possible SNF DC Tomorrow Reviewed: Care Plan, H&P, Labs, Medications, Previous Orders, Radiology, Other (Consultants) Changes from previous H/P or p: No Changes General: Per HPI Respiratory: Shortness of breath Objective Vitals Vital Signs Date Time Temp Pulse Resp B/P (MAP) Pulse Ox O2 Delivery O2 Flow Rate FiO2 02/20/25 10:15 81 18 95 02/20/25 10:07 Nasal Cannula* 4 N/A Hi-Flow NC 02/20/25 09:42 113/47 02/20/25 09:00 97.9 97.9 Intake/Output Intake and Output 02/20/25 07:00 Intake Total 345 ml Output Total 1100 ml Balance -755 ml Intake Oral 345 ml Output Urine Total 1100 ml # Bowel Movements 3 General Appearance: Alert, Oriented X3, Cooperative, No acute distress (With some tachypnea) HEENT: Atraumatic Lungs: Normal air movement Cardiovascular: Regular rate (Borderline tachycardia) Abdomen: Normal bowel sounds, Soft, No tenderness Extremities: No edema Medications Current Medications Medications Dose Ordered Sig/Jake Route Start Time Stop Time Status Last Admin Dose Admin Cefepime HCl 50 ml @ 12.5 mls/hr Q8HR IV 01/14/25 14:00 UNV Clopidogrel Bisulfate 75 mg DAILY PO 01/15/25 10:00 02/20/25 09:40 75 MG Atorvastatin Calcium 40 mg HS PO 01/22/25 22:00 02/19/25 21:41 40 MG Voriconazole / Dextrose 250 ml @ 125 mls/hr Q12H IV 01/27/25 13:30 01/28/25 03:29 UNV Artificial Tears 2 drop Q6HP PRN LEFTEYE 01/28/25 10:45 Hydralazine HCl 10 mg Q6HP PRN IV 01/28/25 10:45 02/01/25 10:13 10 MG Sodium Chloride 1 spr QIDP PRN EACHNOSTRI 02/01/25 11:45 02/01/25 21:57 1 SPR Amlodipine Besylate 10 mg DAILY PO 02/01/25 11:58 02/20/25 09:42 10 MG Magnesium Oxide 400 mg BID PO 02/01/25 22:00 02/20/25 09:40 400 MG Voriconazole 200 mg BIDAC PO 02/02/25 17:00 02/20/25 06:22 200 MG Diagnostic Test (Pha) 1 strip ACHS 02/03/25 17:00 02/20/25 11:33 1 STRIP Insulin Human Regular HS SC 02/03/25 22:00 02/18/25 21:38 3 UNITS Insulin Human Regular AC SC 02/03/25 17:00 02/20/25 11:33 3 UNITS Dextrose 50 ml UD PRN IV 02/03/25 15:00 Polyethylene Glycol 17 gm DAILYPRN PRN PO 02/06/25 14:45 02/19/25 08:47 17 GM Docusate Sodium 100 mg BID PO 02/06/25 22:00 02/20/25 09:40 100 MG Sennosides 8.6 mg HS PO 02/06/25 22:00 02/19/25 21:41 8.6 MG Rivaroxaban 2.5 mg BID PO 02/10/25 10:00 02/20/25 09:40 2.5 MG Phenol/Menthol 1 spr Q2HP PRN MT 02/10/25 11:00 Acetaminophen/ Hydrocodone Bitart 1 tab Q6HPRN PRN PO 02/11/25 15:45 02/20/25 06:23 1 TAB Pantoprazole Sodium 40 mg DAILY@0600 PO 02/12/25 06:00 02/20/25 06:21 40 MG Guaifenesin 200 mg Q4HP PRN PO 02/13/25 11:30 Fluoxetine HCl 10 mg DAILY PO 02/15/25 10:00 02/20/25 09:40 10 MG Albuterol 2.5 mg Q4HR NEB 02/15/25 10:00 02/20/25 10:07 2.5 MG Ipratropium [place] 0.5 mg Q4HR NEB 02/15/25 10:00 02/20/25 10:07 0.5 MG Potassium Chloride 100 ml @ 50 mls/hr Q2H IV 02/16/25 08:30 02/16/25 12:29 UNV Prednisone 20 mg DAILY PO 02/17/25 10:00 02/20/25 09:41 20 MG Lactulose 30 ml DAILY PO 02/18/25 13:00 02/20/25 09:39 30 ML Laboratory Results Laboratory Tests 02/20/25 08:51 Chemistry Test 02/20/25 08:51 Calcium Level 8.6 mg/dL (8.7-10.4) L Urinalysis Test 01/13/25 18:45 01/26/25 13:11 Urine Mucus Few (None Seen) Urine Color Yellow (Yellow) Urine Clarity Clear (Clear) Urine pH 5.5 (5.0-9.0) Urine Specific [place] 1.035 (1.001-1.035) Urine Protein Trace (Negative) H Urine Ketones Negative (Negative) Urine Blood 2+ /uL (Negative) H Urine Nitrite Negative (Negative) Urine Bilirubin Negative (Negative) Urine Urobilinogen Normal mg/dL (Negative) Urine Leukocyte Esterase 1+ /uL (Negative) Urine RBC 176 /hpf (0 - 4) Urine Microscopic WBC 19 /HPF (0-5) H Urine Squamous Epithelial Cells Few /hpf (<5) Urine Bacteria Few /hpf (None Seen) H Urine Yeast (Budding) Many /hpf (None Seen) Urine Glucose Normal mg/dL (Normal) Microbiology Microbiology Date/Time Source Procedure Growth Status 01/26/25 13:11 Voided Urine Urine Culture - Final Presumptive Catherine albicans Complete 01/26/25 11:30 Sputum Gram Stain - Final Resulted 01/26/25 11:30 Respiratory Culture - Preliminary Aspergillus fumigatus Resulted 01/26/25 08:12 Blood Blood Culture - Final NO GROWTH AFTER 5 DAYS OF INCUBATION. Complete 01/25/25 11:28 Lung - Final Complete 01/25/25 11:28 Lung - Final Complete 01/25/25 11:28 Lung - Final Complete 01/25/25 11:28 Lung - Final Complete 01/25/25 11:28 Lung - Final Complete 01/25/25 11:28 Lung - Final See Separate Report... Complete Assessment/Plan Assessment/Plan Acute on chronic COPD exacerbation- Prednisone Aspergellosis PNA- On Voriconazole Acute hypoxic respiratory failure secondary to above- Titrate oxygen down Solitary pulmonary nodules- Outpatient followup NSTEMI-II- Cardio Cx Goals of care- DNI Plan discussed with: Patient My Orders Orders - JUSTINE MILES MD Procedure Category Date Status Time Oob To Chair [facility] 02/20/25 In Process 11:52 Discontinue Tele [facility] 02/20/25 In Process 11:52 * Various [employer] CONS 02/20/25 Transmitted Consult Hi-Resolution Chest Ct CT 02/20/25 Logged 11:56 Date of Service: Feb 20, 2025 Billing Provider: JUSTINE MILES MD Common Visit Codes: [id number] INP/OBS CARE(HIGH) JUSTINE MILES MD Feb 20, 2025 11:59
[2025-02-20] MEDS: BISACODYL 5 MG EC TAB PO ONE (14:47)
--- NOTE | 2025-02-20 16:39 | DVH ---
CT Chest without intravenous contrast INDICATION: Fibrosis TECHNIQUE: Multidetector spiral CT of the chest was performed from the lung apices to the upper abdom en. Axial, coronal and sagittal multiplanar reformats were performed. High-resolution CT protocol uti lized. Radiation Dose : 1. Chest: CTDI volume is 7.39 mGy. Dose-length product is 248.69 mGy*cm The dose indicators for CT are the volume Computed Tomography (CT) Dose Index (CTDIvol) and the Dose Length Product (DLP), and are measured in units of mGy and mGy-cm, respectively. These indicators are not patient dose, but values generated from the CT scanner acquisition factors. The report includes radiation exposure data for exposures received during this examination. Comparison: CT HI-RESOLUTION CHEST CT on DOS: 01/20/25 Findings: Lower neck: Normal thyroid. Lungs: Bilateral lower lobe airspace disease/ atelectasis. Moderate centrilobular emphysema. Heart/Vascular Structures: Cardiomegaly. Coronary artery calcifications. Vascular calcifications of t he aorta. Lymph Nodes: No adenopathy Pleura: Trace bilateral pleural effusions. Musculoskeletal: No acute osseous abnormality. Soft tissues: Normal. Upper abdomen: Limited portions of the upper abdomen are unremarkable. IMPRESSION: Bilateral lower lobe airspace disease/ atelectasis. Findings are unchanged since CT dated 01/20/2025. Radiation optimization: All CT scans at this facility use at least one of these dose optimization danya hniques: automated exposure control mA and/or kV adjustment per patient size (includes targeted exam s where dose is matched to clinical indication) or iterative reconstruction.
[2025-02-21] VITALS (19 sets, daily range): BP systolic 100–135; BP diastolic 39–52; PULSE 84–101; RESP 16–20; TEMP 98.1–98.5; O2SAT 1–95
[2025-02-21] MEDS: HYDROcodone-ACET 5/325MG TAB PO ONE (05:35)
--- NOTE | 2025-02-21 16:15 | DVHPNRES ---
Progress Note Date Seen: Feb 21, 2025 Resident Creating Document: KANE KIM RESIDENT Has the PT tested + for MRSA If YES, has PT been informed?: No Medical Necessity Reason Pt with a Central, PICC or Fol: Yes The following are medically ne: Hughes Catheter Reason for hughes catheter: Strict I&O Subjective Review of Systems This is a 79-year-old female with past medical history of COPD (with no home oxygen), hypertension, type 2 diabetes mellitus, diverticulosis, solitary pulmonary nodules, left PID status post PTCA of left superficial femoral artery and popliteal artery in 2019, internal and external hemorrhoids, colonic polyps, who presented to the ED due to shortness of breath and generalized weakness for one day of duration before coming to the ED. Per son, patient developed generalized weakness and shortness of breaths on waking up and she could not transfer herself from the bed to wheelchair. Patient uses albuterol and Breztri inhaler but did not increase the consumption recently, she has chronic cough but the cough did not worsened recently. She smokes half a pack a day for the past 50 years, quit 1 week back. No recent immobilization/hospitalization or surgery history. She denies chest pain, palpitations, nausea, vomiting, diaphoresis, back pain, constipation or diarrhea. Vitals on arrival were pulse 99, blood pressure 123/60 mmHg, saturating 89% on 9 L Oxymizer. Patient has had significant clinical improvement throughout her hospitalization. Patient was given broad-spectrum antibiotics, she was on breathing treatments, patient was also diuresed. Initially patient has had significant respiratory decline, she was on high flow oxygen for awhile. Patient initially was DNR/DNI, however later she was changed to full code. At that time we decided to intubate to do a bronchoscopy in which we found significant mucus plugs, a 2nd bronchoscopy was performed the very next day, again more mucus plugs were taken out. Patient also underwent a left heart catheterization in which a stent was placed on the circumflex artery. Patient did not have any significant elevated pressures so no right heart catheterization was performed. An arterial Doppler also revealed diminished pulses on the left side, it was noted that they stated that she had in that left leg it was thrombosed, a 2nd peripheral angiography was performed to open up the vessel. It was successful. 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 After this patient was weaned down from sedation and we were able to take her off mechanical ventilator. The next couple of days patient slowly improved, we took off the high-flow. Patient was transitioned to voriconazole orally. Patient continued to tolerate appropriately the simple mask and went from 10 L to 6 L. Patient was also seen by Podiatry due to foot pain and inability to ambulate, they did perform nail trimming. We tried sending the patient to SNF, however we will have to downgraded patient to nasal cannula. The patient is unable to wear the nasal cannula at this time due to wound in the nares, we will consulted wound care nurse and they has been doing daily care of her nares. We are currently still on simple mask 8 L with humidifier. The plan is to let they nares crust to heal and then the patient to wear nasal cannula and to be sent either to a SNF, or home with physical therapy. We have brought the discussion of possible hospice to the patient and family members both of them decline the idea. Patient is to complete the treatment of 6-12 weeks of voriconazole. Patient seen and examined at bedside. Patient is currently hemodynamically stable at 6 L of oxygen through nasal cannula. We will patient was placed on 4 L of oxygen she started desaturating in the 86%. Patient still complaining of constipation despite being on docusate, senna such, MiraLax and lactulose. We ordered a small bowel series with Gastrografin to rule out any small bowel obstruction and to help with constipation. We will continue current medical management with voriconazole 200 mg b.i.d. and rest of medical management. Patient does not have any additional complaints at this time. ROS Constitutional: Denies weight loss, fever and chills. HEENT: Denies changes in vision and hearing. Respiratory: Reports mild shortness of breath and cough Cardiovascular: Denies chest discomfort or palpitations GI: Denies abdominal pain, nausea, vomiting and diarrhea. : Denies dysuria and urinary frequency. Musculoskeletal: Denies myalgias and joint pain Skin: Denies rash and pruritus. Neurological: Denies dizziness, headache, vision or hearing problems Objective vital signs Vital Sign Date Time Temp Pulse Resp B/P (MAP) Pulse Ox O2 Delivery O2 Flow Rate FiO2 02/21/25 13:27 94 18 94 02/21/25 13:21 Nasal Cannula* 6 N/A Hi-Flow NC 02/21/25 13:00 98.1 135/45 (75) 98.1 Total Intake and Output 02/20/25 02/20/25 02/21/25 15:00 23:00 07:00 Intake Total 500 ml Output Total 1000 ml Balance -500 ml medications Current Medications Medications Dose Ordered Sig/Jake Route Start Time Stop Time Status Last Admin Dose Admin Cefepime HCl 50 ml @ 12.5 mls/hr Q8HR IV 01/14/25 14:00 UNV Clopidogrel Bisulfate 75 mg DAILY PO 01/15/25 10:00 02/21/25 10:09 75 MG Atorvastatin Calcium 40 mg HS PO 01/22/25 22:00 02/20/25 22:03 40 MG Voriconazole / Dextrose 250 ml @ 125 mls/hr Q12H IV 01/27/25 13:30 01/28/25 03:29 UNV Artificial Tears 2 drop Q6HP PRN LEFTEYE 01/28/25 10:45 Hydralazine HCl 10 mg Q6HP PRN IV 01/28/25 10:45 02/01/25 10:13 10 MG Sodium Chloride 1 spr QIDP PRN EACHNOSTRI 02/01/25 11:45 02/01/25 21:57 1 SPR Amlodipine Besylate 10 mg DAILY PO 02/01/25 11:58 02/21/25 10:09 10 MG Magnesium Oxide 400 mg BID PO 02/01/25 22:00 02/21/25 10:07 400 MG Voriconazole 200 mg BIDAC PO 02/02/25 17:00 02/21/25 06:11 200 MG Diagnostic Test (Pha) 1 strip ACHS 02/03/25 17:00 02/21/25 11:44 1 STRIP Insulin Human Regular HS SC 02/03/25 22:00 02/20/25 22:09 4 UNITS Insulin Human Regular AC SC 02/03/25 17:00 02/21/25 11:47 3 UNITS Dextrose 50 ml UD PRN IV 02/03/25 15:00 Polyethylene Glycol 17 gm DAILYPRN PRN PO 02/06/25 14:45 02/19/25 08:47 17 GM Docusate Sodium 100 mg BID PO 02/06/25 22:00 02/21/25 10:06 100 MG Sennosides 8.6 mg HS PO 02/06/25 22:00 02/20/25 22:03 8.6 MG Rivaroxaban 2.5 mg BID PO 02/10/25 10:00 02/21/25 10:14 2.5 MG Phenol/Menthol 1 spr Q2HP PRN MT 02/10/25 11:00 Pantoprazole Sodium 40 mg DAILY@0600 PO 02/12/25 06:00 02/21/25 06:11 40 MG Guaifenesin 200 mg Q4HP PRN PO 02/13/25 11:30 Fluoxetine HCl 10 mg DAILY PO 02/15/25 10:00 02/21/25 10:09 10 MG Albuterol 2.5 mg Q4HR NEB 02/15/25 10:00 02/21/25 13:21 2.5 MG Ipratropium Chapin 0.5 mg Q4HR NEB 02/15/25 10:00 02/21/25 13:21 0.5 MG Potassium Chloride 100 ml @ 50 mls/hr Q2H IV 02/16/25 08:30 02/16/25 12:29 UNV Prednisone 20 mg DAILY PO 02/17/25 10:00 02/21/25 10:07 20 MG Lactulose 30 ml DAILY PO 02/18/25 13:00 02/21/25 10:06 30 ML Examination Physical Examination General: Patient alert and oriented in person, place and time. Patient following commands. HEENT: Normocephalic, atraumatic, moist mucous membranes. Patient has severe crusted ulcerations on bilateral nares Respiratory/pulmonary: decrease breath sounds on bilat lung ohara, minimal crackles on bases. No wheezes or stridor at this time. Currently on nasal cannula at 6 L of oxygen Cardiovascular: Normal heart sounds S1 and S2 with no associated murmurs Abdomen: Abdomen nondistended, there is no pain to palpation in any of the abdominal quadrants, no palpable masses. Extremities: There is no peripheral edema present at the lower extremities. Peripheral Pulses: 3+ Radial (R). 3+ Radial (L). 3+ Dorsalis pedis (R). 3+ Dorsalis pedis(L) Skin: No rashes or pruritus, there is no sacral edema present at this time. Neurological: Intact cranial nerves with no focal neurologic deficits laboratory and microbiology Laboratory Tests 02/20/25 08:51 Test 02/20/25 08:51 Range/Units Serum Glucose 141 H 74-106 mg/dL Microbiology Date/Time Source Procedure Growth Status 01/26/25 13:11 Voided Urine Urine Culture - Final Presumptive Catherine albicans Complete 01/26/25 11:30 Sputum Gram Stain - Final Resulted 01/26/25 11:30 Respiratory Culture - Preliminary Aspergillus fumigatus Resulted 01/26/25 08:12 Blood Blood Culture - Final NO GROWTH AFTER 5 DAYS OF INCUBATION. Complete 01/25/25 11:28 Lung - Final Complete 01/25/25 11:28 Lung - Final Complete 01/25/25 11:28 Lung - Final Complete 01/25/25 11:28 Lung - Final Complete 01/25/25 11:28 Lung - Final Complete 01/25/25 11:28 Lung - Final See Separate Report... 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 b.i.d. -continue prednisone to 20 mg daily -continue respiratory therapy with albuterol and ipratropium -guaifenesin dextromethorphan 200 mg q.4 PRN Acute chest pain due to ACS Status post coronary angiogram with PCI x1 sent NSTEMI type 2 likely due to above -coronary angiogram was performed and stent was placed in the circumflex artery -continue rivaroxaban 2.5 mg b.i.d. -continue clopidogrel 75 mg daily -continue atorvastatin 40 mg daily -control blood pressure and monitor closely Acute crusted ulcerations on bilateral nares secondary to continuous high flow oxygen -currently wound consult for nares wound cleaning and healing -patient is currently on simple mask at 10 L of oxygen -Bilat nasal nares ulcers already healed. Acute constipation -patient currently incentive sweats, docusate, lactulose -ordered small bowel series with Gastrografin Peripheral artery disease Status post left lower extremity angiography, vessel was opened successfully -continue clopidogrel, rivaroxaban and atorvastatin as stated above Uncontrolled type 2 diabetes mellitus likely due to steroids -hemoglobin A1c was 6.3% which is in prediabetes range -continue moderate sliding scale insulin and monitor blood glucose closely Possible Pulmonary hypertension likely class III -follow-up with pulmonology as an outpatient -right heart catheterization was not performed, there was mild enlargement of right ventricle on echocardiogram Dyslipidemia -continue atorvastatin 40 mg daily Discussed with patient regarding SNF placement but patient still sat 6 L of 02. and patient is constipated so we will perform small bowell series with gastrographin. Goals of care discussed with the patient at bedside for >30min, modified code, DNI but may do compressions and shock. Plan discussed with Dr. Chavez Plan discussed with: Patient My Orders My Orders Orders - KANE KIM Procedure Category Date Status Time Small Bowel Series-W XY 02/21/25 Logged Gastrogra 13:49 Dietary Evaluation Review Comments: Recommend CCHO-60 with 2 GNa Low fat Low Cholesterol Cardiac diet. Expected Outcomes/Goals: Tight DM control, Wt management Date of Service: Feb 21, 2025 Billing Provider: JUSTINE CHAVEZ MD Common Visit Codes: [id number] INP/OBS CARE(MOD) KANE KIM RESIDENT Feb 21, 2025 16:15 JUSTINE CHAVEZ MD Feb 22, 2025 18:18
[2025-02-22] VITALS (15 sets, daily range): BP systolic 113–124; BP diastolic 42–58; PULSE 79–92; RESP 16–18; TEMP 97.6–98.5; O2SAT 90–97
[2025-02-22 07:22] LABS: Hematocrit 38.6 % (36.0-46.0); Hemoglobin 12.9 g/dL (12.2-16.2); Mean Corpuscular Hemoglobin 31.4 pg (28.0-32.0); Mean Corpuscular Hgb Conc. 33.4 g/dL (32.0-36.0); Mean Corpuscular Volume 93.8 fL (80.0-100.0); Platelet Count (auto) 196 10^3/uL (140-450); Red Blood Cells 4.11 10^6/uL (4.0-5.20); Red Cell Distribution Width 14.1 % (11.8-14.3); White Blood Cell 11.7 10^3/uL (4.4-10.8)
[2025-02-22 07:24] LABS: Basophils % (manual) 0 (0.0-2.0); Blast Cells 0; Eosinophils % (manual) 0 (0-7); Metamyelocytes % 0; Myelocytes % 0; Promyelocytes % 0; Reactive Lymphocytes 0
[2025-02-22 07:33] LABS: Anion Gap 7 (5-15); Carbon Dioxide 30 mmol/L (20-31); Potassium 3.5 mmol/L (3.5-5.1)
[2025-02-22 07:34] LABS: Calcium 8.7 mg/dL (8.7-10.4); Chloride 95 mmol/L (98-107); Sodium 132 mmol/L (136-145)
[2025-02-22 07:39] LABS: BUN/Creatinine Ratio 34.4 (10.0-20.0); Blood Urea Nitrogen 11 mg/dL (9-23); Glucose 85 mg/dL (74-106)
[2025-02-22] MEDS ORDERED: GASTROGRAFIN 120 ML SOL ONE (08:34)
[2025-02-22 09:03] LABS: Band Neutrophils % (manual) 6; Lymphocytes % (manual) 19 (10.0-50.0); Monocytes % (manual) 3 (0-12); Platelet Estimate Adequate
--- NOTE | 2025-02-22 09:19 | DVHDSRES ---
Discharge Summary Date of Admission Resident Creating Document: KANE KIM RESIDENT Jan 13, 2025 at 17:06 Date of Discharge: Feb 22, 2025 Admitting Diagnosis Acute hypoxic respiratory failure Wounds: Mild sacral wound but no additional wounds Labs/Diagnostic Data: Laboratory Results Test 02/22/25 06:35 02/22/25 06:15 02/20/25 08:51 02/17/25 06:22 White Blood Count 11.7 10^3/uL (4.4-10.8) Red Blood Count 4.11 10^6/uL (4.0-5.20) Hemoglobin 12.9 g/dL (12.2-16.2) Hematocrit 38.6 % (36.0-46.0) Mean Corpuscular Volume 93.8 fL (80.0-100.0) Mean Corpuscular Hemoglobin 31.4 pg (28.0-32.0) Mean Corpuscular Hemoglobin Concent 33.4 g/dL (32.0-36.0) Red Cell Distribution Width 14.1 % (11.8-14.3) Platelet Count 196 10^3/uL (140-450) Mean Platelet Volume 7.6 fL (6.9-10.8) Neutrophils (%) (Auto) % (37.0-80.0) Lymphocytes (%) (Auto) % (10.0-50.0) Monocytes (%) (Auto) % (0.0-12.0) Basophils (%) (Auto) % (0.0-2.0) Neutrophils # (Auto) 10 ^3/uL (1.6-8.6) Lymphocytes # (Auto) 10 ^3/uL (0.4-5.4) Monocytes # (Auto) 10 ^3/uL (0-1.3) Sodium Level 132 mmol/L (136-145) Potassium Level 3.5 mmol/L (3.5-5.1) Chloride Level 95 mmol/L (98-107) Carbon Dioxide Level 30 mmol/L (20-31) Anion Gap 7 (5-15) Blood Urea Nitrogen 11 mg/dL (9-23) Creatinine 0.32 mg/dL (0.550-1.02) Glomerular Filtration Rate Calc 107 mL/min (>90) BUN/Creatinine Ratio 34.4 (10.0-20.0) Serum Glucose 85 mg/dL (74-106) Calcium Level 8.7 mg/dL (8.7-10.4) POC Glucose 96 mg/dl (70-106) Eosinophils (%) (Auto) 0.4 % (0.0-7.0) Eosinophils # (Auto) 0 10 ^3/uL (0-0.8) Basophils # (Auto) 0 10 ^3/uL (0-0.2) Nucleated Red Blood Cells 0.0 % Magnesium Level 2.2 mg/dL (1.6-2.6) Test 02/16/25 06:23 02/15/25 07:28 02/15/25 05:28 02/04/25 04:44 Total Bilirubin 0.5 mg/dL (0.2-1.0) Aspartate Amino Transferase (AST) 29 U/L (13-40) Alanine Aminotransferase (ALT) 57 U/L (7-40) Alkaline Phosphatase 72 U/L (46-116) Total Protein 5.8 g/dL (5.7-8.2) Albumin 3.6 g/dL (3.2-4.8) Blood Gas Specimen Type Arterial Blood Gas Sample Site Right brachial Blood Gas Patient Temperature 37.0 Arterial Blood Date Drawn [id number] Arterial Blood pH 7.521 (7.350-7.450) Arterial Blood Partial Pressure CO2 34.3 mmHg (32.0-45.0) Arterial Blood Partial Pressure O2 140.2 mmHg (83.0-108.0) Arterial Blood HCO3 27.4 mmol/L (21.0-28.0) Arterial Blood Oxygen Saturation 98.8 % (94.0-98.0) Arterial Blood Base Excess 4.9 mmol/L (-2.0-3.0) Arterial Blood Oxyhemoglobin 98.0 % (94.0-98.0) Arterial Blood Carboxyhemoglobin 0.5 % (0.5-1.5) Arterial Blood Methemoglobin 0.3 % (0.0-1.5) Timothy Test N/a Blood Gas Total Hemoglobin 15.40 g/dL (12.0-16.0) Blood Gas Set Respiration Rate 12.0 Blood Gas Modality Mask - bipap FiO2 % 100.0 Blood Gas EPAP 5 Blood Gas IPAP 12 Blood Gas Liter Flow 15.00 Specimen Drawn By P.zerr maths tutor Blood Gas Critical Value Read Back Yes Blood Gas Notified Whom Edwin ceaj md Blood Gas Notified Time [id number] Blood Gas Notified By B-Type Natriuretic Peptide 129.73 pg/mL (0-100) Test 02/01/25 09:18 01/30/25 09:07 01/30/25 06:26 01/27/25 14:30 Anisocytosis (manual) Slight Blood Gas Pressure Support 8 Blood Gas PEEP or CPAP 5.0 Blood Gas Tidal Volume 450.0 Miscellaneous Referred Test (Rm Tmp Sent to [facility] Test 01/27/25 04:31 01/26/25 13:11 01/26/25 08:12 01/25/25 05:51 Prothrombin Time 10.9 sec (9.3-11.8) Prothrombin Time INR 1.03 (0.9-1.15) Activated Partial Thromboplast Time 29.6 SEC (24.5-34.5) Urine Color Yellow (Yellow) Urine Clarity Clear (Clear) Urine pH 5.5 (5.0-9.0) Urine Specific Halfway 1.035 (1.001-1.035) Urine Protein Trace (Negative) Urine Ketones Negative (Negative) Urine Blood 2+ /uL (Negative) Urine Nitrite Negative (Negative) Urine Bilirubin Negative (Negative) Urine Urobilinogen Normal mg/dL (Negative) Urine Leukocyte Esterase 1+ /uL (Negative) Urine RBC 176 /hpf (0 - 4) Urine Microscopic WBC 19 /HPF (0-5) Urine Squamous Epithelial Cells Few /hpf (<5) Urine Bacteria Few /hpf (None Seen) Urine Yeast (Budding) Many /hpf (None Seen) Urine Glucose Normal mg/dL (Normal) Lactic Acid Level 1.2 mmol/L (0.4-2.0) Blood Gas Spontaneous Rate 20 Blood Gas Spontaneous Tidal Volume 532 Test 01/20/25 04:55 01/15/25 04:45 01/14/25 15:55 01/14/25 05:11 Smudge Cells /100 WBC Clumped Platelets None Iron Level 203 ug/dL (50-170) Total Iron Binding Capacity 262 ug/dL (250-425) Percent Iron Saturation 77.5 % (15-50) Ferritin 198.9 ng/mL (10-291) Thyroid Stimulating Hormone (TSH) 0.47 uIU/mL (0.55-4.78) Influenza Type A Antigen Negative (Negative) Influenza Type B Antigen Negative (Negative) SARS-CoV-2 Antigen (Rapid) Negative (NEGATIVE) Hemoglobin A1c 6.3 % A1C (<5.7) Free Thyroxine (T4) Calculated 1.02 ng/dL (0.89-1.76) Total Triiodothyronine (TT3) 0.64 ng/mL (0.60-1.81) Test 01/13/25 21:55 01/13/25 18:45 01/13/25 17:56 Troponin I High Sensitivity 350 ng/L (</=34) Urine Mucus Few (None Seen) Urine Opiates Screen Neg (NEGATIVE) Urine Fentanyl Screen Neg (NEGATIVE) Urine Barbiturates Screen Neg (NEGATIVE) Urine Phencyclidine Screen Neg (NEGATIVE) Urine Amphetamines Screen Neg (NEGATIVE) Urine Benzodiazepines Screen Neg (NEGATIVE) Urine Cocaine Screen Neg (NEGATIVE) Urine Cannabinoids Screen Neg (NEGATIVE) D-Dimer, Quantitative 0.71 mg/L FEU (0.0-0.49) Other Laboratory Tests 02/22/25 06:35 Brief Hx & Hospital Course: This is a 79-year-old female with past medical history of COPD (with no home oxygen), hypertension, type 2 diabetes mellitus, diverticulosis, solitary pulmonary nodules, left PID status post PTCA of left superficial femoral artery and popliteal artery in 2019, internal and external hemorrhoids, colonic polyps, who presented to the ED due to shortness of breath and generalized weakness for one day of duration before coming to the ED. Per son, patient developed generalized weakness and shortness of breaths on waking up and she could not transfer herself from the bed to wheelchair. Patient uses albuterol and Breztri inhaler but did not increase the consumption recently, she has chronic cough but the cough did not worsened recently. She smokes half a pack a day for the past 50 years, quit 1 week back. No recent immobilization/hospitalization or surgery history. She denies chest pain, palpitations, nausea, vomiting, diaphoresis, back pain, constipation or diarrhea. Vitals on arrival were pulse 99, blood pressure 123/60 mmHg, saturating 89% on 9 L Oxymizer. Patient has had significant clinical improvement throughout her hospitalization. Patient was given broad-spectrum antibiotics, she was on breathing treatments, patient was also diuresed. Initially patient has had significant respiratory decline, she was on high flow oxygen for awhile. Patient initially was DNR/DNI, however later she was changed to full code. At that time we decided to intubate to do a bronchoscopy in which we found significant mucus plugs, a 2nd bronchoscopy was performed the very next day, again more mucus plugs were taken out. Patient also underwent a left heart catheterization in which a stent was placed on the circumflex artery. Patient did not have any significant elevated pressures so no right heart catheterization was performed. An arterial Doppler also revealed diminished pulses on the left side, it was noted that they stated that she had in that left leg it was thrombosed, a 2nd peripheral angiography was performed to open up the vessel. It was successful. 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 After this patient was weaned down from sedation and we were able to take her off mechanical ventilator. The next couple of days patient slowly improved, we took off the high-flow. Patient was transitioned to voriconazole orally. Patient continued to tolerate appropriately the simple mask and went from 10 L to 6 L. Patient was also seen by Podiatry due to foot pain and inability to ambulate, they did perform nail trimming. During hospital stay patient required high-flow oxygen for long periods of time which causes bilateral nares ulcers and crusted lesions on both nares of the nose. Patient at that time was placed on simple mask and was always oscillating between 8-10 L of oxygen. One day, patient desaturated requiring 16 L of non-rebreather mask and even BiPAP overnight. After that episode, patient has been stable on simple mask and recently in the last couple of days has been on nasal cannula between four to 8 L of oxygen. Patient has been stable on 4 L of oxygen in the past two days and recently was complaining of constipation despite being in three different laxative medications. We ordered small series with Gastrografin for both diagnostic and therapeutic to out SBO and to try to help with constipation. Patient was seen and examined at bedside today, patient states that has no shortness of breath, chest pain, fever/chills or any other associated symptoms at this time. Since the patient is stable on 4 L of oxygen through nasal cannula, we will discharge the patient to SNF for two weeks of rehab and to continue current treatment antifungal with voriconazole 200 mg b.i.d.. Patient will continue rest of current management and medications at the SNF. Patient and son agrees with the plan. ROS Constitutional: Reports feeling weak and fatigued. Denies weight loss, fever and chills. HEENT: Denies changes in vision and hearing. Respiratory: Denies shortness of breath and cough Cardiovascular: Denies chest discomfort or palpitations GI: Denies abdominal pain, nausea, vomiting and diarrhea. : Denies dysuria and urinary frequency. Musculoskeletal: Denies myalgias and joint pain Skin: Denies rash and pruritus. Neurological: Denies dizziness, headache, vision or hearing problems Physical Examination General: Patient alert and oriented in person, place and time. Patient following commands. HEENT: Normocephalic, atraumatic, moist mucous membranes. Patient has severe crusted ulcerations on bilateral nares Respiratory/pulmonary: decrease breath sounds on bilat lung ohara, minimal crackles on bases. No wheezes or stridor at this time. Currently on nasal cannula at 4 L of oxygen Cardiovascular: Normal heart sounds S1 and S2 with no associated murmurs Abdomen: Abdomen nondistended, there is no pain to palpation in any of the abdominal quadrants, no palpable masses. Extremities: There is no peripheral edema present at the lower extremities. Peripheral Pulses: 3+ Radial (R). 3+ Radial (L). 3+ Dorsalis pedis (R). 3+ Dorsalis pedis(L) Skin: No rashes or pruritus, there is no sacral edema present at this time. Neurological: Intact cranial nerves with no focal neurologic deficits Consults/Reason for consult Pulmonology Infectious disease Operations or Procedures Bilateral lower extremity venous duplex Clinical History: DVT Comparison: None Technique: Duplex Doppler evaluation of the deep venous systems of both lower extremities from the common femoral veins to the popliteal veins including color Doppler and spectral/pulsed waveform analysis was performed. Findings: RIGHT SIDE: The common femoral vein demonstrates appropriate compressibility and waveform variability. There is compressibility/patency of the great saphenous vein at the proximal thigh. The femoral vein demonstrates appropriate compressibility and waveform variability. The deep femoral vein demonstrates appropriate compressibility and waveform variability. The popliteal vein demonstrates appropriate compressibility and waveform variability. There is normal compressibility at the tibioperoneal trunk. LEFT SIDE: The common femoral vein demonstrates appropriate compressibility and waveform variability. There is compressibility/patency of the great saphenous vein at the proximal thigh. The femoral vein demonstrates appropriate compressibility and waveform variability. The deep femoral vein demonstrates appropriate compressibility and waveform variability. The popliteal vein demonstrates appropriate compressibility and waveform variability. There is normal compressibility at the tibioperoneal trunk. Impression: No right or left femoropopliteal venous thrombosis. CT CT ANGIO CHEST CONTRAST INDICATION: R/O PE EXAM DATE: 01/14/2025 08:19 AM COMPARISON: None RADIATION DOSE: CTDIvol: 20.7 mGy, DLP: 728.08 mGy*cm PROCEDURE: Helical CT angiographic images were obtained of the chest with intravenous contrast. Sagittal and coronal reconstructions as well as MIPS are provided. Maximum intensity projections performed (MIPs) were performed for CTA. ADDITIONAL IMAGES / REFORMATS: None All CT scans at this medical facility are performed using dose modulation techniques as appropriate to a performed exam including the following: Automated exposure control was utilized; adjustment of the MA and/or KV according to patient size; and use of iterative reconstruction technique. FINDINGS: Bones: Scattered degenerative changes are noted in the visualized osseous structures. Visualized Abdomen: Normal. Chest Wall: Normal. Soft tissues: Normal. Mediastinum: Normal. Heart: Normal. Vessels: No filling defects in the visualized pulmonary arteries including the segmental and subsegmental pulmonary arteries. Lymph Nodes: Prominent mediastinal and right perihilar lymph nodes. Pleura: Normal. Airways: Normal. Lung: Multifocal and bibasilar consolidation is most likely atelectasis. Other: None IMPRESSION: No pulmonary embolism in the visualized pulmonary arteries including the segmental and subsegmental pulmonary arteries. Multifocal and bibasilar consolidation is most likely atelectasis. EXAM: CT HI-RESOLUTION CHEST CT History: sob, r/o ILD Comparison Study: None available TECHNIQUE: Multidetector CT of the chest was performed. Imaging was performed without IV contrast during full inhalation and exhalation. Axial, coronal, and sagittal multiplanar reformats were obtained from the axial data set by the technologist. Radiation Dose : CTDI vol 7.45 mGy, DLP 466.33 mGy*cm. Findings: Lungs: Mild upper lobe predominant centrilobular emphysema. No evidence of fibrotic changes. Dependent atelectasis. Pleura: Unremarkable Heart/Great vessels: No cardiomegaly or pericardial effusion. Severe coronary atherosclerosis versus stents. Mediastinum: Unremarkable Soft tissues/Bones: Mild multilevel degenerative changes of the thoracic spine. The partially visualized upper abdomen is within normal limits. Impression: 1. Mild upper lobe predominant centrilobular emphysema with dependent atelectasis. 2. No fibrotic changes. Exam: US US GUIDED VASCULAR ACCESS Date: 01/25/2025 10:53 AM Clinical History: central line placement Comparison: None Findings: Targeted sonographic evaluation of the RIGHT IJ was obtained utilizing grayscale and color Doppler imaging. IMPRESSION: Sonographic assistance for central line placement. Please refer to procedural report for detailed findings. Bilateral Lower Extremity Arterial Duplex Clinical History: no pedal pulses, h/o pad Comparison: Lower extremity arterial ultrasound 09/29/2020 Technique: Duplex Doppler evaluation including color Doppler and spectral/pulsed waveform analysis of the lower extremity arteries was performed. Findings: RIGHT: Peak systolic velocities are as follows: [employer] 125 cm/s Deep femoral 28 cm/s SFA proximal 52 cm/s SFA mid-portion 81 cm/s SFA distal 54 cm/s Popliteal 56 cm/s Posterior tibial 16 cm/s Dorsalis pedis 32 cm/s The waveforms are biphasic with diastolic flow. LEFT: Peak systolic velocities are as follows: [employer] 131 cm/s Deep femoral 59 cm/s SFA proximal 39 cm/s SFA mid-portion 0 cm/s SFA distal 0 cm/s Popliteal 5 cm/s Posterior tibial 7 cm/s Dorsalis pedis 5 cm/s The waveforms are biphasic in the [employer], deep femoral artery, and proximal SFA. Waveforms are monophasic in the popliteal artery, posterior tibial artery, and dorsalis pedis artery. Indeterminate structure anterior to the popliteal vessels with posterior shadowing. IMPRESSION: No appreciable flow within the stent in the mid/distal left superficial femoral artery. There is very minimal flow in the arteries distal to the stent with monophasic waveforms. No evidence of hemodynamically significant stenosis in the right lower extremity. Indeterminate density anterior to the left popliteal vessels, possibly related to previous intervention. REFERENCE VALUES, [facility] ([facility]) vascular Imaging Lab Criteria: Peak systolic velocity ranges (in cm/sec) are as follows: <150 cm/s - <20 % stenosis 150-200 cm/s - 20-49% stenosis 200-300 cm/s - 50-75% stenosis >300 cm/s -> 75% stenosis EXAM: XR Chest, 1 View CLINICAL INDICATION: SOB TECHNIQUE: Frontal view of the chest. COMPARISON: XY CHEST PORTABLE on DOS: 01/26/25, XY CHEST PORTABLE on DOS: 01/25/25, XY CHEST PORTABLE on DOS: 01/25/25, XY CHEST PORTABLE on DOS: 01/24/25, XY CHEST PORTABLE on DOS: 01/22/25 FINDINGS: LUNGS AND PLEURAL SPACES: Right basilar atelectasis or pneumonia, increased since the prior exam. No pneumothorax. HEART: Unremarkable. No cardiomegaly. MEDIASTINUM: Unremarkable. Normal mediastinal contour. BONES/JOINTS: Unremarkable. No acute fracture. TUBES, LINES AND DEVICES: Stable tubes and lines.. OTHER FINDINGS: . IMPRESSION: Increasing right basilar atelectasis or pneumonia. Date: 02/06/2025 06:16 PM Examination: XY KUB ABDOMEN SINGLE VIEW History: abdominal discomfort, no BM x 4 days Comparison: None TECHNIQUE: Frontal views of the abdomen was obtained. FINDINGS: Gas distended stomach. Stool throughout the colon no findings of obstruction The lung bases are unremarkable. No acute osseous abnormality identified. IMPRESSION: 1. Nonobstructive bowel gas pattern. 2. Stool throughout the colon 3. Gas distended stomach Bilateral Chest Sonogram Date: 02/10/2025 09:24 AM Clinical history: right sided pleural effusion Technique: Limited sonographic evaluation of the bilateral chest was performed to evaluate for pleural effusion. Finding/Impression: There is a small right and trace left pleural effusion. HISTORY: sinusitis, r/o nasal polyp TECHNIQUE: Nonenhanced axial images through the facial bones with coronal and sagittal MPR. COMPARISON: None Radiation Dose Information: CT Dose: CTDI volume is 65.39 mGy. Dose-length product is 1266.28 mGy*cm FINDINGS: Mandible: Intact Maxilla: No fracture Pterygoid plates: No fracture Zygomatic processes: No fracture. Zygomatic arches: No fracture Orbits: Intact Sinuses: Within normal limits no fracture Facial swelling: None visualized IMPRESSION: 1. No acute facial fractures. CT Chest without intravenous contrast INDICATION: Fibrosis TECHNIQUE: Multidetector spiral CT of the chest was performed from the lung apices to the upper abdomen. Axial, coronal and sagittal multiplanar reformats were performed. High-resolution CT protocol utilized. Radiation Dose : 1. Chest: CTDI volume is 7.39 mGy. Dose-length product is 248.69 mGy*cm The dose indicators for CT are the volume Computed Tomography (CT) Dose Index (CTDIvol) and the Dose Length Product (DLP), and are measured in units of mGy and mGy-cm, respectively. These indicators are not patient dose, but values generated from the CT scanner acquisition factors. The report includes radiation exposure data for exposures received during this examination. Comparison: CT HI-RESOLUTION CHEST CT on DOS: 01/20/25 Findings: Lower neck: Normal thyroid. Lungs: Bilateral lower lobe airspace disease/ atelectasis. Moderate centrilobular emphysema. Heart/Vascular Structures: Cardiomegaly. Coronary artery calcifications. Vascular calcifications of the aorta. Lymph Nodes: No adenopathy Pleura: Trace bilateral pleural effusions. Musculoskeletal: No acute osseous abnormality. Soft tissues: Normal. Upper abdomen: Limited portions of the upper abdomen are unremarkable. IMPRESSION: Bilateral lower lobe airspace disease/ atelectasis. Findings are unchanged since CT dated 01/20/2025. 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 COPD exacerbation Possible Gram-positive/Gram-negative bacterial pneumonia Sepsis due to above Acute chest pain due to ACS Status post coronary angiogram with PCI x1 sent NSTEMI type 2 likely due to above Acute crusted ulcerations on bilateral nares secondary to continuous high flow oxygen Acute constipation Peripheral artery disease Status post left lower extremity angiography, vessel was opened successfully Uncontrolled type 2 diabetes mellitus likely due to steroids Possible Pulmonary hypertension likely class III Dyslipidemia Discharge Disposition: Halfway Facility Discharge Instruct/Medications Diet: Cardiac 2g Na,low cholest Activity: No Restrictions, As Tolerated Follow Up/Referral: fu with pcp in 1-2 weeks Medications: continue meds as prescribed in spreadsheet voriconazole 200mg po bid for 6-12 weeks Discharge Statement: "Patient was advised to return to the ER or call 911 if any headaches, dizziness, shortness of breath, chest pain, abdominal pain, bleeding, fevers, or worsening of medical condition. Patient was counseled about treatment plan, medications, possible side effects, patientverbalized understanding. All questions were answered to the best of my ability. 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 COPD exacerbation Possible Gram-positive/Gram-negative bacterial pneumonia Sepsis due to above Acute chest pain due to ACS Status post coronary angiogram with PCI x1 sent NSTEMI type 2 likely due to above Acute crusted ulcerations on bilateral nares secondary to continuous high flow oxygen Acute constipation Peripheral artery disease Status post left lower extremity angiography, vessel was opened successfully Uncontrolled type 2 diabetes mellitus likely due to steroids Possible Pulmonary hypertension likely class III Dyslipidemia Date of Service: Feb 22, 2025 Billing Provider: JUSTINE MILES MD Common Visit Codes: 50368-VMS/OBS DISCH DAY >30min KANE KIM RESIDENT Feb 22, 2025 09:18 JUSTINE MILES MD Feb 22, 2025 18:28
--- NOTE | 2025-02-22 11:51 | DVH ---
Procedure: XY SMALL BOWEL SERIES-W GASTROGRA Exam Date: 02/22/2025 08:42 AM Reason for study/Clinical History: R/O SBO Comparison Study: None available at time of dictation. Technique: Single contrast small bowel series performed. Findings: Initial geriatric care manager view of the abdomen and pelvis appears demonstrates no acute process. Contrast is identified within the colon by 1 hr. This represents a normal small bowel transit time. Small bowel loops are normal in size. Normal mucosal pattern. No evidence of small bowel obstructi on, stricture, or mucosal abnormality. The terminal ileum is well visualized and is unremarkable. IMPRESSION: Normal small bowel series. END IMPRESSION:
[2025-02-22] MEDS ORDERED: CLOP75TA70 PO (15:11)
[2025-02-22] MEDS ORDERED: FLEET ENEMA(ADULT) 135 ML PR ONE (17:15)
== END 2025-02-22 17:33 | DRG 853 ==
LOC: CENTRAL 17:06 → TELE-CENTR 20:30 → DOU IN ICU 01-14 19:11 → ICU CENTRL 01-25 18:19 → TELE-WESTW 02-05 02:15 → WEST WING 02-09 17:20 → TELE-WESTW 02-15 06:11
PROVIDERS: ADMIT Internal Medicine; ATTEND Internal Medicine
PROC: 5A0935A Assistance with Respiratory Ventilation, Less than 24 Consecutive Hours, High Flow/Velocity Cannula (ICD-10-PCS; 2025-01-14)
PROC: 5A0935A Assistance with Respiratory Ventilation, Less than 24 Consecutive Hours, High Flow/Velocity Cannula (ICD-10-PCS; 2025-01-15)
PROC: 5A0935A Assistance with Respiratory Ventilation, Less than 24 Consecutive Hours, High Flow/Velocity Cannula (ICD-10-PCS; 2025-01-16)
PROC: 5A0935A Assistance with Respiratory Ventilation, Less than 24 Consecutive Hours, High Flow/Velocity Cannula (ICD-10-PCS; 2025-01-17)
PROC: 5A0935A Assistance with Respiratory Ventilation, Less than 24 Consecutive Hours, High Flow/Velocity Cannula (ICD-10-PCS; 2025-01-18)
PROC: 059Y3ZZ Drainage of Upper Vein, Percutaneous Approach (ICD-10-PCS; 2025-01-20)
PROC: 5A0935A Assistance with Respiratory Ventilation, Less than 24 Consecutive Hours, High Flow/Velocity Cannula (ICD-10-PCS; 2025-01-21)
PROC: 5A0935A Assistance with Respiratory Ventilation, Less than 24 Consecutive Hours, High Flow/Velocity Cannula (ICD-10-PCS; 2025-01-22)
PROC: 5A0935A Assistance with Respiratory Ventilation, Less than 24 Consecutive Hours, High Flow/Velocity Cannula (ICD-10-PCS; 2025-01-23)
PROC: 5A0935A Assistance with Respiratory Ventilation, Less than 24 Consecutive Hours, High Flow/Velocity Cannula (ICD-10-PCS; 2025-01-24)
PROC: 5A09357 Assistance with Respiratory Ventilation, Less than 24 Consecutive Hours, Continuous Positive Airway Pressure (ICD-10-PCS; 2025-01-24)
PROC: 0BH17EZ Insertion of Endotracheal Airway into Trachea, Via Natural or Artificial Opening (ICD-10-PCS; 2025-01-25)
PROC: 5A1955Z Respiratory Ventilation, Greater than 96 Consecutive Hours (ICD-10-PCS; 2025-01-25)
PROC: 0B9H8ZX Drainage of Lung Lingula, Via Natural or Artificial Opening Endoscopic, Diagnostic (ICD-10-PCS; 2025-01-25)
PROC: 0BC78ZZ Extirpation of Matter from Left Main Bronchus, Via Natural or Artificial Opening Endoscopic (ICD-10-PCS; 2025-01-25)
PROC: 02HV33Z Insertion of Infusion Device into Superior Vena Cava, Percutaneous Approach (ICD-10-PCS; 2025-01-25)
PROC: 03HY32Z Insertion of Monitoring Device into Upper Artery, Percutaneous Approach (ICD-10-PCS; 2025-01-25)
PROC: 5A09357 Assistance with Respiratory Ventilation, Less than 24 Consecutive Hours, Continuous Positive Airway Pressure (ICD-10-PCS; 2025-01-25)
PROC: 027035Z Dilation of Coronary Artery, One Artery with Two Drug-eluting Intraluminal Devices, Percutaneous Approach (ICD-10-PCS; principal; 2025-01-27)
PROC: B211YZZ Fluoroscopy of Multiple Coronary Arteries using Other Contrast (ICD-10-PCS; 2025-01-27)
PROC: B215YZZ Fluoroscopy of Left Heart using Other Contrast (ICD-10-PCS; 2025-01-27)
PROC: 4A023N7 Measurement of Cardiac Sampling and Pressure, Left Heart, Percutaneous Approach (ICD-10-PCS; 2025-01-27)
PROC: 4A033BC Measurement of Arterial Pressure, Coronary, Percutaneous Approach (ICD-10-PCS; 2025-01-27)
PROC: 047L341 Dilation of Left Femoral Artery with Drug-eluting Intraluminal Device, using Drug-Coated Balloon, Percutaneous Approach (ICD-10-PCS; 2025-01-29)
PROC: 047N3Z1 Dilation of Left Popliteal Artery using Drug-Coated Balloon, Percutaneous Approach (ICD-10-PCS; 2025-01-29)
PROC: X2CT3T7 Extirpation of Matter from Left Lower Extremity Artery using Computer-aided Mechanical Aspiration, Percutaneous Approach, New Technology Group 7 (ICD-10-PCS; 2025-01-29)
PROC: B41GYZZ Fluoroscopy of Left Lower Extremity Arteries using Other Contrast (ICD-10-PCS; 2025-01-29)
PROC: 5A0935A Assistance with Respiratory Ventilation, Less than 24 Consecutive Hours, High Flow/Velocity Cannula (ICD-10-PCS; 2025-01-30)
PROC: 0B9D8ZX Drainage of Right Middle Lung Lobe, Via Natural or Artificial Opening Endoscopic, Diagnostic (ICD-10-PCS; 2025-01-31)
PROC: 0BC98ZZ Extirpation of Matter from Lingula Bronchus, Via Natural or Artificial Opening Endoscopic (ICD-10-PCS; 2025-01-31)
PROC: 0BC38ZZ Extirpation of Matter from Right Main Bronchus, Via Natural or Artificial Opening Endoscopic (ICD-10-PCS; 2025-01-31)
PROC: 0BC78ZZ Extirpation of Matter from Left Main Bronchus, Via Natural or Artificial Opening Endoscopic (ICD-10-PCS; 2025-01-31)
PROC: 5A0935A Assistance with Respiratory Ventilation, Less than 24 Consecutive Hours, High Flow/Velocity Cannula (ICD-10-PCS; 2025-01-31)
PROC: 5A0935A Assistance with Respiratory Ventilation, Less than 24 Consecutive Hours, High Flow/Velocity Cannula (ICD-10-PCS; 2025-02-01)
PROC: 5A0935A Assistance with Respiratory Ventilation, Less than 24 Consecutive Hours, High Flow/Velocity Cannula (ICD-10-PCS; 2025-02-02)
PROC: 5A0935A Assistance with Respiratory Ventilation, Less than 24 Consecutive Hours, High Flow/Velocity Cannula (ICD-10-PCS; 2025-02-03)
PROC: 5A09357 Assistance with Respiratory Ventilation, Less than 24 Consecutive Hours, Continuous Positive Airway Pressure (ICD-10-PCS; 2025-02-15)
PROC: 05HB33Z Insertion of Infusion Device into Right Basilic Vein, Percutaneous Approach (ICD-10-PCS; 2025-02-16)
PROC: B54MZZA Ultrasonography of Right Upper Extremity Veins, Guidance (ICD-10-PCS; 2025-02-16)
PROC: 5A0935A Assistance with Respiratory Ventilation, Less than 24 Consecutive Hours, High Flow/Velocity Cannula (ICD-10-PCS; 2025-02-18)
PROC: 5A0935A Assistance with Respiratory Ventilation, Less than 24 Consecutive Hours, High Flow/Velocity Cannula (ICD-10-PCS; 2025-02-20)
PROC: 5A0935A Assistance with Respiratory Ventilation, Less than 24 Consecutive Hours, High Flow/Velocity Cannula (ICD-10-PCS; 2025-02-21)
DX: A41.50 Gram-negative sepsis, unspecified (principal); B44.0 Invasive pulmonary aspergillosis; I21.A1 Myocardial infarction type 2; J15.69 Pneumonia due to other Gram-negative bacteria; J15.9 Unspecified bacterial pneumonia; J96.01 Acute respiratory failure with hypoxia; J96.02 Acute respiratory failure with hypercapnia; J44.1 Chronic obstructive pulmonary disease with (acute) exacerbation; E87.1 Hypo-osmolality and hyponatremia; D68.69 Other thrombophilia; J44.0 Chronic obstructive pulmonary disease with (acute) lower respiratory infection; I74.3 Embolism and thrombosis of arteries of the lower extremities; I70.92 Chronic total occlusion of artery of the extremities; D69.6 Thrombocytopenia, unspecified; E87.6 Hypokalemia; Z66 Do not resuscitate; E11.51 Type 2 diabetes mellitus with diabetic peripheral angiopathy without gangrene; E11.65 Type 2 diabetes mellitus with hyperglycemia; E78.5 Hyperlipidemia, unspecified; I11.0 Hypertensive heart disease with heart failure; I50.9 Heart failure, unspecified; I27.20 Pulmonary hypertension, unspecified; I70.202 Unspecified atherosclerosis of native arteries of extremities, left leg; R74.01 Elevation of levels of liver transaminase levels; K59.00 Constipation, unspecified; D75.1 Secondary polycythemia; I25.10 Atherosclerotic heart disease of native coronary artery without angina pectoris; Z20.822 Contact with and (suspected) exposure to COVID-19; T38.0X5A Adverse effect of glucocorticoids and synthetic analogues, initial encounter; I72.8 Aneurysm of other specified arteries; K57.30 Diverticulosis of large intestine without perforation or abscess without bleeding; Z98.61 Coronary angioplasty status; Z82.5 Family history of asthma and other chronic lower respiratory diseases; Z99.81 Dependence on supplemental oxygen; Z86.0100 Personal history of colon polyps, unspecified; Z82.49 Family history of ischemic heart disease and other diseases of the circulatory system; Z83.3 Family history of diabetes mellitus; Z82.0 Family history of epilepsy and other diseases of the nervous system; Z82.3 Family history of stroke; Z79.82 Long term (current) use of aspirin; Z79.899 Other long term (current) drug therapy; Z83.6 Family history of other diseases of the respiratory system; Y92.89 Other specified places as the place of occurrence of the external cause
CPT/HCPCS: 36415; 36556; 36600; 36620; 37227; 70486; 71045; 71250; 71275; 74018; 74250; 75710; 76604; 76937; 80048; 80053; 80307; 81001; 82728; 82805; 82962; 83036; 83540; 83550; 83605; 83735; 83880; 84439; 84443; 84480; 84484; 85007; 85025; 85027; 85379; 85610; 85730; 87040; 87070; 87077; 87081; 87086; 87088; 87186; 87205; 87426; 87804; 92610; 92941; 93005; 93306; 93458; 93571; 93925; 93970; 94002; 94003; 94640; 94660; 97110; 97116; 97163; 97530; 99152; 99153; C1724; C1725; C1769; G0378; J0692; J1100; J1815; J2003; J2185; J2248; J2250; J2470; J2543; J2704; J3465; J3480; J3490; J7060; Q9967

== ENCOUNTER 2025-03-09 20:39 | Inpatient (IN) | payer OTHER ==
[~2025-03-09] VITALS: Ht 167.6 cm; Wt 57.2 kg
[~2025-03-09 20:39] MED LIST changes: +ALBU108A5 IN; -ASPI-543 PO; +BUDE1AER6 IN; -CLOP75TA28 PO; +CLOP75TA70 PO; +HYDR12.59 PO; -LISI20TA56 PO; -ROSU20TA14 PO; +VORI50TA PO
[2025-03-09] MEDS: ALBUTEROL SULF 2.5 MG/0.5ML(0.5%) NEB SOLN NEB ONE (21:13)
[2025-03-09] MEDS: IPRATROPIUM BROM 0.5 MG/2.5ML INH SOL NEB ONE (21:13)
[2025-03-09 21:38] LABS: Hematocrit 40.7 % (36.0-46.0); Hemoglobin 13.8 g/dL (12.2-16.2); Mean Corpuscular Hemoglobin 31.8 pg (28.0-32.0); Mean Corpuscular Hgb Conc. 33.9 g/dL (32.0-36.0); Mean Corpuscular Volume 93.8 fL (80.0-100.0); Platelet Count (auto) 211 10^3/uL (140-450); Red Blood Cells 4.34 10^6/uL (4.0-5.20); White Blood Cell 8.6 10^3/uL (4.4-10.8)
--- NOTE | 2025-03-09 21:43 | ED.PDOC ---
SOB-HPI HPI Comments 79 y/o F, BIBA, with PMHx of COPD presents to the ED for CC of shortness of breath. EMS reports, patient is coming from [facility] where she complained of increasing shortness of breath [id number]. Upon arrival to scene, patient was found to be hypoxic stating at 80% on 4L which patient uses Q.D. In route to the ED, patient was placed on 8L via a non-breather mask; stating at 91%. EMS relays, facility comments that patient contracted a fungal lung infection x1year ago and is currently taking antifungals. No other symptoms or modifying factors presents at this time. 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 Family History Family History: Unknown Social History Smoker: Non-Smoker Alcohol: Denies ETOH Use Drugs: Denies Drug Use Lives In: Assisted Care Constitutional: denies: chills, diaphoresis, fatigue, fever, malaise, sweats, weakness, others EENTM: denies: blurred vision, double vision, ear bleeding, ear discharge, ear drainage, ear pain, ear ringing, eye pain, eye redness, hearing loss, mouth pain, mouth swelling, nasal discharge, nose bleeding, nose congestion, nose pain, photophobia, tearing, throat pain, throat swelling, voice changes, others Respiratory: reports: shortness of breath; denies: cough, hemoptysis, orthopnea, SOB at rest, SOB with excertion, stridor, wheezing, others Cardiovascular: denies: chest pain, dizzy spells, diaphoresis, Dyspnea on exertion, edema, irregular heart beat, left arm pain, lightheadedness, palpitations, PND, syncope, others Gastrointestinal: denies: abdomen distended, abdominal pain, blood streaked bowels, constipated, diarrhea, dysphagia, difficulty swallowing, hematemesis, melena, nausea, poor appetite, poor fluid intake, rectal bleeding, rectal pain, vomiting, others Genitourinary: denies: abnormal vagina bleeding, burning, dyspareunia, dysuria, flank pain, frequency, hematuria, incontinence, pain, , vagina disc harge, urgency, others Neurological: denies: dizziness, fainting, headache, left sided numbness, left sided weakness, numbness, paresthesia, pre-existing deficit, right sided numbness, right sided weakness, seizure, speech problems, tingling, tremors, weakness, others Musculoskeletal: denies: back pain, gout, joint pain, joint swelling, muscle pain, muscle stiffness, neck pain, others Integumetry: denies: bruises, change in color, change in hair/nails, dryness, laceration, lesions, lumps, rash, wounds, others Allergic/Immunocompromised: denies: Difficulty Healing, Frequent Infections, Hives, Itching, others Hematologic/Lymphatic: denies: anemia, blood clots, easy bleeding, easy bruising, swollen glands, others Endocrine: denies: excessive hunger, excessive sweating, excessive thirst, excessive urination, flushing, intolerance to cold, intolerance to heat, unexplained weight gain, unexplained weight loss, others Psychiatric: denies: anxiety, bipolar disorder, depression, hopeless, panic disorder, schizophrenia, sleepless, suicidal, others All Other Systems: Reviewed and Negative Physical Exam General Appearance: No Apparent Distress, Other (fraile appearance) HEENT: Normal ENT Inspection, Pharynx Normal, TMs Normal Neck: Full Range of Motion, Non-Tender, Normal, Normal Inspection Respiratory: Chest Non-Tender, Lungs Clear, No Accessory Muscle Use, No Respiratory Distress, Normal Breath Sounds, Other (tachy) Cardiovascular: No Edema, No Murmur, No Gallop, Normal Peripheral Pulses, Tachycardia, Other (tachypneic) Breast Exam: Deferred Gastrointestinal: No Organomegaly, Non Tender, No Pulsatile Mass, Normal Bowel Sounds, Soft Genitalia: Deferred Pelvic: Deferred Rectal: Deferred Extremities: No calf tenderness, Normal capillary refill, Normal inspection, Normal range of motion, Non-tender, No pedal edema Musculoskeletal : Apperance: Normal Neurologic: Alert, director microbiology II-XII nml as Tested, No Motor Deficits, Normal Affect, Normal Mood, No Sensory Deficits Cerebellar Function: Normal Reflexes: Normal Skin: Dry, Normal Color, Warm Lymphatic: No Adenopathy Was a procedure done? Was a procedure done?: No Differential Dx Differential Diagnosis: Bronchitis, COPD, Pneumonia, Sinusitis, Pharyngitis, URI X-Ray, Labs, Meds, VS Vital Signs Date Time Temp Pulse Resp B/P (MAP) Pulse Ox O2 Delivery O2 Flow Rate FiO2 03/09/25 21:31 30 97 Simple Mask* 6 50 03/09/25 21:31 97 Simple Mask* 6 50 03/09/25 20:54 97.9 108 18 138/52 (80) 91 97.9 03/09/25 20:40 108 Lab Test 03/09/25 21:10 Range/Units White Blood Count 8.6 4.4-10.8 10^3/uL Red Blood Count 4.34 4.0-5.20 10^6/uL Hemoglobin 13.8 12.2-16.2 g/dL Hematocrit 40.7 36.0-46.0 % Mean Corpuscular Volume 93.8 80.0-100.0 fL Mean Corpuscular Hemoglobin 31.8 28.0-32.0 pg Mean Corpuscular Hemoglobin Concent 33.9 32.0-36.0 g/dL Red Cell Distribution Width 15.0 H 11.8-14.3 % Platelet Count 211 140-450 10^3/uL Mean Platelet Volume 8.5 6.9-10.8 fL Neutrophils (%) (Auto) 37.0-80.0 % Lymphocytes (%) (Auto) 10.0-50.0 % Monocytes (%) (Auto) 0.0-12.0 % Basophils (%) (Auto) 0.0-2.0 % Neutrophils # (Auto) 1.6-8.6 10 ^3/uL Lymphocytes # (Auto) 0.4-5.4 10 ^3/uL Monocytes # (Auto) 0-1.3 10 ^3/uL Differential Total Cells Counted 100.0 100 Neutrophils % (Manual) 77 37.0-80.0 Band Neutrophils % (Manual) 1 Lymphocytes % (Manual) 13 10.0-50.0 Monocytes % (Manual) 9 0-12 Eosinophils % (Manual) 0 0-7 Basophils % (Manual) 0 0.0-2.0 Metamyelocytes % (manual) 0 Myelocytes % (Manual) 0 Promyelocytes % (Manual) 0 Blast Cells % (Manual) 0 Reactive Lymphocytes 0 Platelet Estimate Adequate Anisocytosis (manual) Slight Tear Drop Cells Few Sodium Level 133 L 136-145 mmol/L Potassium Level 3.3 L 3.5-5.1 mmol/L Chloride Level 95 L 98-107 mmol/L Carbon Dioxide Level 31 20-31 mmol/L Anion Gap 7 5-15 Blood Urea Nitrogen 21 9-23 mg/dL Creatinine 0.44 L 0.550-1.02 mg/dL Glomerular Filtration Rate Calc 99 >90 mL/min BUN/Creatinine Ratio 47.7 H 10.0-20.0 Serum Glucose 236 H 74-106 mg/dL Lactic Acid Level 1.2 0.4-2.0 mmol/L Calcium Level 9.1 8.7-10.4 mg/dL Total Bilirubin 0.4 0.2-1.0 mg/dL Aspartate Amino Transferase (AST) 27 13-40 U/L Alanine Aminotransferase (ALT) 35 7-40 U/L Alkaline Phosphatase 82 46-116 U/L Total Protein 6.0 5.7-8.2 g/dL Albumin 3.9 3.2-4.8 g/dL Current Medications Medications (Trade) Dose Ordered Sig/Jake Route Start Time Stop Time Status Last Admin Albuterol (Ventolin Medneb) 2.5 mg ONCE ONCE NEB 03/09/25 21:00 03/09/25 21:01 DC 03/09/25 21:13 Ipratropium [place] (Atrovent Medneb) 0.5 mg ONCE ONCE NEB 03/09/25 21:00 03/09/25 21:01 DC 03/09/25 21:13 Methylprednisolone Sodium Succinate (Solu Medrol) 125 mg ONCE ONCE IM 03/09/25 21:00 03/09/25 21:01 DC 03/09/25 22:00 X-Ray, Labs, Meds, VS Comment Patient will be admitted for acute respiratory distress, bronchial spasms, acute hypoxia Patient spotting good two DuoNeb breathing treatments He has been pulmonology consult in the morning Time of 1ST Reevaluation: 21:40 Reevaluation 1ST: Unchanged Patient Education/Counseling: Diagnosis, Treatment Family Education/Counseling: No Family Present Departure 1 Departure Time of Disposition: 00:19 Impression: Primary Impression: Hypoxia Additional Impressions: Acute respiratory distress COPD exacerbation Pulmonary fungal infection Disposition: ADMITTED INPATIENT Condition: Stable Critical Care Note Critical Care Time?: No Stability Stability form required: No Heart Score Heart Score: Heart Score Response (Comments) Value History N/A 0 EKG N/A 0 Age N/A 0 Risk Factors N/A 0 Troponin N/A 0 Total 0 I personally scribed for JEFFREY CHEW ([email or web address]) on 03/09/25 at 21:42. Electronically submitted by Rylie Bajwa ([email or web address]). JEFFREY CHEW Mar 09, 2025 21:42
[2025-03-09 21:53] LABS: Basophils % (manual) 0 (0.0-2.0); Blast Cells 0; Eosinophils % (manual) 0 (0-7); Metamyelocytes % 0; Myelocytes % 0; Promyelocytes % 0; Reactive Lymphocytes 0
[2025-03-09 21:56] LABS: Alanine Aminotransferase 35 U/L (7-40); Alkaline Phosphatase 82 U/L (46-116); Calcium 9.1 mg/dL (8.7-10.4); Carbon Dioxide 31 mmol/L (20-31)
[2025-03-09 21:57] LABS: Albumin 3.9 g/dL (3.2-4.8); Anion Gap 7 (5-15); Aspartate Aminotransferase 27 U/L (13-40); BUN/Creatinine Ratio 47.7 (10.0-20.0); Bilirubin, Total 0.4 mg/dL (0.2-1.0); Blood Urea Nitrogen 21 mg/dL (9-23)
[2025-03-09 22:00] LABS: Chloride 95 mmol/L (98-107); Glucose 236 mg/dL (74-106); Potassium 3.3 mmol/L (3.5-5.1); Sodium 133 mmol/L (136-145)
[2025-03-09] MEDS: methylPREDNISolone SOD SUCC 125 MG/2 ML VL IM ONE (22:00)
[2025-03-09 22:10] VITALS: PULSE 68; RESP 18; O2SAT 97
[2025-03-09 22:14] LABS: Anisocytosis Slight; Band Neutrophils % (manual) 1; Lymphocytes % (manual) 13 (10.0-50.0); Monocytes % (manual) 9 (0-12); Platelet Estimate Adequate; Tear Drop Cells FEW
--- NOTE | 2025-03-09 22:30 | DVH ---
CHEST RADIOGRAPH Indication: sob Technique: Single frontal view of the chest was obtained Comparison: None FINDINGS: Lines and Tubes: None Lungs: Bibasilar airspace disease Pleura: No effusion. No pneumothorax. Cardiomediastinal contours: Unremarkable Bones: No acute osseous abnormality. IMPRESSION: 1. Bibasilar airspace disease. 2. No prior studies for comparison.
[2025-03-10] VITALS (12 sets, daily range): BP systolic 117–138; BP diastolic 42–56; PULSE 84–106; RESP 17–26; TEMP 97.7–97.9; O2SAT 90–98
[2025-03-10] MEDS ORDERED: ACETAMINOPHEN 325 MG TAB PO PRN (00:45)
[2025-03-10] MEDS ORDERED: MORPHINE SULFATE INJ 2 MG/ml SYRG IV PRN (00:45)
[2025-03-10] MEDS ORDERED: ONDANSETRON HCL 4 MG/2 ML VIAL IV PRN (00:45)
[2025-03-10] MEDS ORDERED: ALBUTEROL SULF 2.5 MG/0.5ML(0.5%) NEB SOLN NEB PRN (00:45)
[2025-03-10] MEDS ORDERED: NITROGLYCERIN 0.4 MG SL TAB SL PRN (00:45)
[2025-03-10] MEDS ORDERED: DEXTROSE (50%) 50ML SYRG IV PRN (00:45)
--- NOTE | 2025-03-10 02:04 | ECG ---
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
[2025-03-10] MEDS: AZITHROMYCIN 500MG/ 250ML 250 ML IV ONE (02:09)
--- NOTE | 2025-03-10 05:03 | DVHHP2 ---
History of Present Illness Reason for Visit: Shortness of breaths History of Present Illness 79-year-old female presents for evaluation of shortness for breath. Patient is a resident at [facility]. Patient has been complaining of worsening shortness for breath for the past one day. Patient uses 4 L of nasal cannula oxygen and was saturating in the mid 80s. Denies chest pain or palpitations. No cough or fever. No other acute complaints reported. Past Medical History Hypertension, diabetes mellitus, COPD Past Surgical History None Family History Noncontributory Smoke: No ALCOHOL: none Drugs: None Lives: Other Review of Systems Review of Systems Review of systems are currently negative otherwise addressed in HPI. Allergies: Coded Allergies: NO KNOWN ALLERGIES (Unverified , 03/09/25) Medications Current Medications Medications Dose Ordered Sig/Jake Route Start Time Stop Time Status Last Admin Dose Admin Patient Own Medication 200 mg BID PO 03/10/25 10:00 UNV Ceftriaxone Sodium 50 ml @ 100 mls/hr DAILY@09 IV 03/10/25 09:00 Azithromycin 250 ml @ 125 mls/hr DAILY IV 03/10/25 10:00 UNV Albuterol 2.5 mg Q6HPRN PRN NEB 03/10/25 00:45 Clopidogrel Bisulfate 75 mg DAILY PO 03/10/25 10:00 Atorvastatin Calcium 40 mg HS PO 03/10/25 22:00 Amlodipine Besylate 10 mg DAILY PO 03/10/25 10:00 Ipratropium [place] 0.5 mg Q6HPRN PRN NEB 03/10/25 00:45 Methylprednisolone Sodium Succinate 40 mg BID IV 03/10/25 10:00 Diagnostic Test (Pha) 1 strip ACHS 03/10/25 07:00 Insulin Human Regular ACHS SC 03/10/25 07:00 Dextrose 50 ml UD PRN IV 03/10/25 00:45 Ondansetron HCl 4 mg Q4HP PRN IV 03/10/25 00:45 Acetaminophen 650 mg Q6HP PRN PO 03/10/25 00:45 Nitroglycerin 0.4 mg Q5MINP PRN SL 03/10/25 00:45 Morphine Sulfate 2 mg Q30M PRN IV 03/10/25 00:45 Rivaroxaban 2.5 mg DAILY PO 03/10/25 10:00 Exam Vital Signs Vital Signs Date Time Temp Pulse Resp B/P (MAP) Pulse Ox O2 Delivery O2 Flow Rate FiO2 03/10/25 04:00 98.6 68 18 112/84 (93) 95 98.6 03/10/25 01:00 4.0 36 03/10/25 00:58 Nasal Cannula* Exam Gen: 79-year-old female in moderate distress Skin: Warm, dry, normal color and texture, no rash. HEENT: Normocephalic atraumatic, mucous membranes moist and pink. Neck: Cervical and supraclavicular nodes normal without enlargement, trachea is midline, thyroid gland is normal without masses. Pulmonary: diminishedbreath sounds bilaterally Cardiac: Regular rate and rhythm. No murmur Abdomen: Soft, nontender, nondistended, bowel sounds present all 4 quadrants, no guarding, no rigidity, no organomegaly. Extremities: No cyanosis, clubbing, no edema Neuro: Cranial nerves II through XII grossly intact, normal affect and speech, no focal motor deficits. Labs/Xrays ORDERING PHYSICIAN: JEFFREY CHEW PROCEDURE(s): CXR1 - CHEST XRAY 1 VIEW REASON: sob ORDER NUMBER(s): [id number], ACCESSION NUMBER(s): [id number] CHEST RADIOGRAPH Indication: sob Technique: Single frontal view of the chest was obtained Comparison: None FINDINGS: Lines and Tubes: None Lungs: Bibasilar airspace disease Pleura: No effusion. No pneumothorax. Cardiomediastinal contours: Unremarkable Bones: No acute osseous abnormality. IMPRESSION: 1. Bibasilar airspace disease. 2. No prior studies for comparison. Labs Test 03/10/25 01:04 03/09/25 21:10 Range/Units D-Dimer, Quantitative 0.90 H 0.0-0.49 mg/L FEU White Blood Count 8.6 4.4-10.8 10^3/uL Red Blood Count 4.34 4.0-5.20 10^6/uL Hemoglobin 13.8 12.2-16.2 g/dL Hematocrit 40.7 36.0-46.0 % Mean Corpuscular Volume 93.8 80.0-100.0 fL Mean Corpuscular Hemoglobin 31.8 28.0-32.0 pg Mean Corpuscular Hemoglobin Concent 33.9 32.0-36.0 g/dL Red Cell Distribution Width 15.0 H 11.8-14.3 % Platelet Count 211 140-450 10^3/uL Mean Platelet Volume 8.5 6.9-10.8 fL Neutrophils (%) (Auto) 37.0-80.0 % Lymphocytes (%) (Auto) 10.0-50.0 % Monocytes (%) (Auto) 0.0-12.0 % Basophils (%) (Auto) 0.0-2.0 % Neutrophils # (Auto) 1.6-8.6 10 ^3/uL Lymphocytes # (Auto) 0.4-5.4 10 ^3/uL Monocytes # (Auto) 0-1.3 10 ^3/uL Differential Total Cells Counted 100.0 100 Neutrophils % (Manual) 77 37.0-80.0 Band Neutrophils % (Manual) 1 Lymphocytes % (Manual) 13 10.0-50.0 Monocytes % (Manual) 9 0-12 Eosinophils % (Manual) 0 0-7 Basophils % (Manual) 0 0.0-2.0 Metamyelocytes % (manual) 0 Myelocytes % (Manual) 0 Promyelocytes % (Manual) 0 Blast Cells % (Manual) 0 Reactive Lymphocytes 0 Platelet Estimate Adequate Anisocytosis (manual) Slight Tear Drop Cells Few Sodium Level 133 L 136-145 mmol/L Potassium Level 3.3 L 3.5-5.1 mmol/L Chloride Level 95 L 98-107 mmol/L Carbon Dioxide Level 31 20-31 mmol/L Anion Gap 7 5-15 Blood Urea Nitrogen 21 9-23 mg/dL Creatinine 0.44 L 0.550-1.02 mg/dL Glomerular Filtration Rate Calc 99 >90 mL/min BUN/Creatinine Ratio 47.7 H 10.0-20.0 Serum Glucose 236 H 74-106 mg/dL Lactic Acid Level 1.2 0.4-2.0 mmol/L Calcium Level 9.1 8.7-10.4 mg/dL Total Bilirubin 0.4 0.2-1.0 mg/dL Aspartate Amino Transferase (AST) 27 13-40 U/L Alanine Aminotransferase (ALT) 35 7-40 U/L Alkaline Phosphatase 82 46-116 U/L Total Protein 6.0 5.7-8.2 g/dL Albumin 3.9 3.2-4.8 g/dL Assessment/Plan Assessment/Plan Assessment Acute hypoxic respiratory failure Possible community-acquired pneumonia COPD exacerbation Electrolyte imbalance Diabetes mellitus Plan Admit the patient to telemetry to the hospitalist Rocephin / azithromycin Med nebs Resume home medications Continue treatment per orders Plan discussed with: Patient My Orders Orders - GAUTAM THOMPSON AGACNP Procedure Category Date Status Time Respiratory Culture PAM 03/10/25 Logged W/ Gs 00:35 Blood Culture PAM 03/10/25 In Process 00:35 (Nf) Voriconazole PHA 03/10/25 Pending 10:00 Ceftriaxone 1gm/50ml PHA 03/10/25 In Process D5w (Rocephin) 09:00 Azithromycin 500mg/ PHA 03/10/25 Pending 250ml (Zithromax 50 10:00 Albuterol Medneb PHA 03/10/25 In Process (Ventolin Medneb) 00:45 Clopidogrel Bisulfate PHA 03/10/25 In Process (Plavix) 10:00 Atorvastatin (Lipitor) PHA 03/10/25 In Process 22:00 Amlodipine Tablet PHA 03/10/25 In Process (Norvasc Tablet) 10:00 Ipratropium Medneb PHA 03/10/25 In Process (Atrovent Medneb) 00:45 Methylprednisolone PHA 03/10/25 In Process Sod Succ (Solu Medrol 10:00 Basic Metabolic Panel LAB 03/11/25 Verified 04:00 Glucose Blood PHA 03/10/25 In Process (Accu-Chek Comfort 07:00 Insulin R (Human) PHA 03/10/25 In Process (Insulin R) 07:00 Dextrose 50% Syringe PHA 03/10/25 In Process 00:45 Admit ADMIT 03/10/25 Transmitted 00:35 Ondansetron Hcl PHA 03/10/25 In Process (Zofran) 00:45 Complete Blood Count LAB 03/11/25 Verified 04:00 Cardiac DIET 03/10/25 Transmitted Diet-2gna,Lofat,Lochol Breakfast Condition: Fair VLADIMIR 03/10/25 In Process 00:35 Acetaminophen Tablet PHA 03/10/25 In Process (Tylenol Tablet) 00:45 Bedrest With Bathroom VLADIMIR 03/10/25 In Process Privileg 00:35 Nitroglycerin PHA 03/10/25 In Process Sublingual (Ntrostat 00:45 Morphine Sulfate PHA 03/10/25 In Process Injection 00:45 Stat Ekg For Chest VLADIMIR 03/10/25 In Process Pain 00:35 Notify Md Of Changes 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 03/10/25 In Process 24 Hours 00:[address] [facility] 03/10/25 In Process Protocol 00:35 Rhythm Strips Once [facility] 03/10/25 In Process Every Shift 00:35 Oxygen By Nasal RT 03/10/25 Transmitted Cannula 00:35 Rivaroxaban Tablet [facility] 03/10/25 In Process (Xarelto) 10:00 Date of Service: Mar 09, 2025 Billing Provider: GAUTAM THOMPSON Common Visit Codes: [id number] INP/OBS CARE (HIGH) GAUTAM THOMPSON Mar 10, 2025 05:03
--- NOTE | 2025-03-10 06:26 | DVH ---
EXAM: CT Angiography Chest With Intravenous Contrast CLINICAL INDICATION: r/o pe TECHNIQUE: Axial computed tomographic angiography images of the chest with intravenous contrast. Th is CT exam was performed using one or more of the following dose reduction techniques: automated exp osure control, adjustment of the mA and/or kV according to patient size, and/or use of iterative melissa nstruction technique. MIP reconstructed images were created and reviewed. CONTRAST: RADIATION DOSE: CTDIvol = 9.94 mGy, DLP = 403.2 mGy-cm COMPARISON: No prior study was available for comparison at the time of this interpretation FINDINGS: LIMITATIONS: Suboptimal opacification of the pulmonary arteries. PULMONARY ARTERIES: No pulmonary embolism is identified. Some of the distal pulmonary arteries can not be evaluated due to suboptimal opacification. AORTA: Scattered calcified atherosclerotic disease of aorta. No thoracic aortic aneurysm. LUNGS AND PLEURAL SPACES: Lung emphysema/ COPD with spicular probably nodule the posterior right lo wer lobe measuring up to 1.0 cm. Findings may be accentuated by motion artifacts. This could be furth er evaluated with PET-CT or tissue biopsy. No consolidation. No significant effusion. No pneumotho rax. HEART: Unremarkable. No cardiomegaly. No significant pericardial effusion. No evidence of RV dys function. BONES/JOINTS: No acute fracture. No dislocation. SOFT TISSUES: Unremarkable. LYMPH NODES: Unremarkable. No enlarged lymph nodes. OTHER FINDINGS: . . . IMPRESSION: 1. No pulmonary embolism is identified. Some of the distal pulmonary arteries cannot be evaluated d ue to suboptimal opacification. 2. Lung emphysema/ COPD with spicular probably nodule the posterior right lower lobe measuring up to 1.0 cm. Findings may be accentuated by motion artifacts. This could be further evaluated with PET-CT or tissue biopsy. .
[2025-03-10] MEDS: ACCU-CHEK COMFORT CURVE STRIP VI SCH (08:04)
[2025-03-10] MEDS: InsuLIN REG 1unit/0.01ml Soln (100units/ml) SC SCH (08:06)
[2025-03-10] MEDS: cefTRIAXone 1GM/50ML D5W 50 ML IV SCH (09:21)
[2025-03-10 10:57] LABS: Urine Bacteria MOD /hpf (None Seen); Urine Blood Negative /uL (Negative); Urine Clarity Clear (Clear); Urine Color Yellow (Yellow); Urine Mucus MANY (None Seen); Urine Protein, UAD 1+ (Negative); Urine Specific Gravity 1.046 (1.001-1.035); Urine Squamous Epithelial Cell None Seen /hpf (<5); Urine Urobilinogen Normal (Negative); Urine WBC 8 /HPF (0-5)
[2025-03-10] MEDS: methylPREDNISolone SOD SUCC 40 MG/ML VL IV SCH (11:33)
[2025-03-10] MEDS: amLODIPine BESYLATE 5 MG TAB PO SCH (11:33)
[2025-03-10] MEDS: CLOPIDOGREL BISULFATE 75 MG TAB PO SCH (11:33)
[2025-03-10] MEDS: RIVAROXABAN 2.5 MG TAB PO SCH (11:34)
[2025-03-10] MEDS: VORICONAZOLE 50 MG TAB PO SCH (11:34)
[2025-03-10] MEDS: ALBUTEROL SULF 2.5 MG/0.5ML(0.5%) NEB SOLN NEB SCH (12:01)
[2025-03-10] MEDS: PANTOPRAZOLE 40 MG TAB PO ONE (12:32)
[2025-03-10] MEDS: POTASSIUM EFFERVESENT TAB 25 MEQ PO ONE (12:33)
--- NOTE | 2025-03-10 14:18 | DVHPNRES ---
Progress Note Date Seen: Mar 10, 2025 Resident Creating Document: ARIE CAMACHO RESIDENT Medical Necessity Reason Pt with a Central, PICC or Fol: No Subjective Review of Systems Patient is 79-year-old female with past medical history of Chronic obstructive pulmonary disease on oxygen via nasal cannula, hypertension, diabetes mellitus type 2, diverticulosis, solitary pulmonary nodules,left PID status post PTCA of left superficial femoral artery and popliteal artery in 2019, internal and external hemorrhoids, colonic polyps, Coronary artery disease with status post PCI one stent, peripheral artery disease, 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 At the time of evaluation patient was on oxygen via oxygen mass around 7-8 L, CT scan showed lower extremity atelectasis on right lower lobe, patient is being frail, weak, not able to stand by herself. However alert oriented time place and person. ROS Patient seen and examined at bedside. Complaining of shortness of breath, feeling of not receiving enough oxygen, cough however patient denied fever, sputum production, chest pain, lower extremity abdominal pain. Constitutional: Denies weight loss, fever and chills. HEENT: Denies changes in vision and hearing. Respiratory: Reports mild shortness of breath and cough Cardiovascular: Denies chest discomfort or palpitations GI: Denies abdominal pain, nausea, vomiting and diarrhea. : Denies dysuria and urinary frequency. Musculoskeletal: Denies myalgias and joint pain Skin: Denies rash and pruritus. Neurological: Denies dizziness, headache, vision or hearing problem Objective vital signs Vital Sign Date Time Temp Pulse Resp B/P (MAP) Pulse Ox O2 Delivery O2 Flow Rate FiO2 03/10/25 12:07 92 20 95 03/10/25 12:01 98.3 117/54 (75) 98.3 03/10/25 12:01 Nasal Cannula 4.5 03/10/25 12:01 36 medications Current Medications Medications Dose Ordered Sig/Jake Route Start Time Stop Time Status Last Admin Dose Admin Voriconazole 200 mg BID PO 03/10/25 10:00 03/10/25 11:34 200 MG Ceftriaxone Sodium 50 ml @ 100 mls/hr DAILY@09 IV 03/10/25 09:00 03/10/25 09:21 100 MLS/HR Azithromycin 250 ml @ 125 mls/hr DAILY IV 03/11/25 10:00 Clopidogrel Bisulfate 75 mg DAILY PO 03/10/25 10:00 03/10/25 11:33 75 MG Atorvastatin Calcium 40 mg HS PO 03/10/25 22:00 Amlodipine Besylate 10 mg DAILY PO 03/10/25 10:00 03/10/25 11:33 10 MG Ipratropium [place] 0.5 mg Q6HPRN PRN NEB 03/10/25 00:45 Diagnostic Test (Pha) 1 strip ACHS 03/10/25 07:00 03/10/25 12:30 1 STRIP Insulin Human Regular ACHS SC 03/10/25 07:00 03/10/25 12:45 3 UNITS Dextrose 50 ml UD PRN IV 03/10/25 00:45 Ondansetron HCl 4 mg Q4HP PRN IV 03/10/25 00:45 Acetaminophen 650 mg Q6HP PRN PO 03/10/25 00:45 Nitroglycerin 0.4 mg Q5MINP PRN SL 03/10/25 00:45 Morphine Sulfate 2 mg Q30M PRN IV 03/10/25 00:45 Rivaroxaban 2.5 mg DAILY PO 03/10/25 10:00 03/10/25 11:34 2.5 MG Albuterol 2.5 mg Q6HR NEB 03/10/25 12:00 03/10/25 12:01 2.5 MG Pantoprazole Sodium 40 mg DAILY@0600 PO 03/11/25 06:00 Examination General: Patient alert and oriented in person, place and time. Patient following commands. HEENT: Normocephalic, atraumatic, moist mucous membranes. Patient has severe crusted ulcerations on bilateral nares Respiratory/pulmonary: decrease breath sounds on bilat lung [place], minimal crackles on bases. No wheezes or stridor at this time. Currently on oxygen mask at 7 L/min of oxygen Cardiovascular: Normal heart sounds S1 and S2 with no associated murmurs Abdomen: Abdomen nondistended, there is no pain to palpation in any of the abdominal quadrants, no palpable masses. Extremities: There is no peripheral edema present at the lower extremities. Peripheral Pulses: 3+ Radial (R). 3+ Radial (L). 3+ Dorsalis pedis (R). 3+ Dorsalis pedis(L) Skin: No rashes or pruritus, there is no sacral edema present at this time. Neurological: Intact cranial nerves with no focal neurologic deficits laboratory and microbiology Laboratory Tests 03/09/25 21:10 Test 03/09/25 21:10 Range/Units Serum Glucose 236 H 74-106 mg/dL Labs and/or images reviewed: Labs reviewed by me, Image(s) reviewed by me Problem List/Assessment/Plan Problem List/Assessment/Plan Acute hypoxic respiratory failure likely due to pulmonary aspergillosis Possible invasive pulmonary aspergillosis COPD exacerbation Possible Gram-positive/Gram-negative bacterial pneumonia Sepsis due to above -Ct angiogram chest: 1. No pulmonary embolism is identified. Some of the distal pulmonary arteries cannot be evaluated due to suboptimal opacification.2. Lung emphysema/ COPD with spicular probably nodule the posterior right lower lobe measuring up to 1.0 cm. Findings may be accentuated by motion artifacts. This could be further evaluated with PET-CT or tissue biopsy. -patient completed IV antibiotic therapy -High-resolution CT chest shows emphysema, atelectases, no ILD -continue voriconazole 200 mg p.o. b.i.d. -continue respiratory therapy with albuterol and ipratropium -previous hospitalization before four weeks, underwent intubation, bronchoscopy, PCI intervention, peripheral artery intervention Coronary artery disease status post PCI one stent -coronary angiogram was performed and stent was placed in the circumflex artery -continue rivaroxaban 2.5 mg b.i.d. -continue clopidogrel 75 mg daily -continue atorvastatin 40 mg daily -control blood pressure and monitor closely Peripheral artery disease Status post left lower extremity angiography, vessel was opened successfully -continue clopidogrel, rivaroxaban and atorvastatin as stated above Uncontrolled type 2 diabetes mellitus likely due to steroids -hemoglobin A1c was 6.3% which is in prediabetes range -insulin sliding scale -continue moderate sliding scale insulin and monitor blood glucose closely Dyslipidemia -continue atorvastatin 40 mg daily Severe Protein malnutrition -BMI 20.8 kg/m2 -patient being cachectic and significant weight loss due to worsening Chronic obstructive pulmonary disease -nutrition consultation PUD prophylaxis with Protonix DVT prophylaxis with enoxaparin Goals of care discussed with patient and son for 20 minutes, patient is DNI, patient would like to get resuscitated in case of cardiac arrest. Plan discussed with Dr. Muñoz Plan discussed with: Patient, Other (RN) My Orders My Orders Orders - ARIE CAMACHO RESIDENT Procedure Category Date Status Time [place] Catheters ED NURSING 03/10/25 Transmitted * Wound Consult CONS 03/10/25 Transmitted Albuterol Medneb PHA 03/10/25 In Process (Ventolin Medneb) 12:00 Pantoprazole Tablet PHA 03/11/25 In Process (Protonix Tablet) 06:00 Pt Request For Service PT 03/10/25 Logged 11:39 * [employer] CONS 03/10/25 Transmitted Consult Addendum Addendum Addendum I was physically present for the angela portions of the service provided to patient by THE RESIDENT. I have reviewed the documentation, discussed the case with resident and agree with the resident's documentation except as noted. Also the patient's clinical case was discussed with the patient's nurse. This medical document was created using an electronic medical record system with computerized dictation system. Although this document has been carefully reviewed, there might still be some phonetic and typographical errors. These areas are purely typographical due to imperfections of the software programs, and do not reflect any compromise in the patient's medical care. Late signature. Date of Service: Mar 10, 2025 Billing Provider: JIGAR MUÑOZ MD Common Visit Codes: [id number] INP/OBS CARE(HIGH) Secondary Visit Codes: [id number] CARE PLAN 30 MINUTES (20 minutes) ARIE CAMACHO RESIDENT Mar 10, 2025 14:18 JIGAR MUÑOZ MD March 11, 2025 07:17
[2025-03-10] MEDS: IPRATROPIUM BROM 0.5 MG/2.5ML INH SOL NEB PRN (18:54)
[2025-03-10] MEDS: ATORVASTATIN 20 MG TAB PO SCH (21:37)
[2025-03-11] VITALS (16 sets, daily range): BP systolic 106–123; BP diastolic 41–47; PULSE 86–99; RESP 16–19; TEMP 97.2–97.8; O2SAT 89–98
[2025-03-11 06:11] LABS: Chloride 98 mmol/L (98-107); Potassium 3.8 mmol/L (3.5-5.1)
[2025-03-11 06:12] LABS: Anion Gap 5 (5-15); Calcium 9.4 mg/dL (8.7-10.4)
[2025-03-11 06:13] LABS: Carbon Dioxide 33 mmol/L (20-31); Sodium 136 mmol/L (136-145)
[2025-03-11 06:14] LABS: Hematocrit 39.1 % (36.0-46.0); Hemoglobin 13.3 g/dL (12.2-16.2); Mean Corpuscular Hemoglobin 31.6 pg (28.0-32.0); Mean Corpuscular Hgb Conc. 34.1 g/dL (32.0-36.0); Mean Corpuscular Volume 92.6 fL (80.0-100.0); Platelet Count (auto) 199 10^3/uL (140-450); Red Blood Cells 4.23 10^6/uL (4.0-5.20); Red Cell Distribution Width 15.3 % (11.8-14.3); White Blood Cell 8.7 10^3/uL (4.4-10.8)
[2025-03-11 06:17] LABS: BUN/Creatinine Ratio 41.9 (10.0-20.0); Blood Urea Nitrogen 13 mg/dL (9-23)
[2025-03-11 06:18] LABS: Glucose 117 mg/dL (74-106)
[2025-03-11 06:38] LABS: Band Neutrophils % (manual) 0; Basophils % (manual) 0 (0.0-2.0); Blast Cells 0; Eosinophils % (manual) 0 (0-7); Metamyelocytes % 0; Myelocytes % 0; Promyelocytes % 0
[2025-03-11] MEDS: PANTOPRAZOLE 40 MG TAB PO SCH (07:03)
[2025-03-11 07:09] LABS: Lymphocytes % (manual) 8 (10.0-50.0); Monocytes % (manual) 10 (0-12); Reactive Lymphocytes 2
[2025-03-11 07:10] LABS: Platelet Estimate Adequate
[2025-03-11] MEDS: AZITHROMYCIN 500MG/ 250ML 250 ML IV SCH (10:02)
[2025-03-11 11:10] LABS: Base Excess 9.9 mmol/L (-2.0-3.0)
--- NOTE | 2025-03-11 17:33 | DVHPNRES ---
Progress Note Date Seen: March 11, 2025 Resident Creating Document: ARIE CAMACHO RESIDENT Medical Necessity Reason Pt with a Central, PICC or Fol: No Subjective Review of Systems Patient is 79-year-old female with past medical history of Chronic obstructive pulmonary disease on oxygen via nasal cannula, hypertension, diabetes mellitus type 2, diverticulosis, solitary pulmonary nodules,left PID status post PTCA of left superficial femoral artery and popliteal artery in 2019, internal and external hemorrhoids, colonic polyps, Coronary artery disease with status post PCI one stent, peripheral artery disease, 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 At the time of evaluation patient was on oxygen via oxygen mass around 7-8 L, CT scan showed lower extremity atelectasis on right lower lobe, patient is being frail, weak, not able to stand by herself. However alert oriented time place and person. Patient seen and examined at bedside. Feeling better compare to yesterday; hospice evaluation going on. Objective vital signs Vital Sign Date Time Temp Pulse Resp B/P (MAP) Pulse Ox O2 Delivery O2 Flow Rate FiO2 03/11/25 13:00 97.7 90 18 123/46 (71) 94 97.7 03/11/25 06:10 Nasal Cannula* 5 40 Total Intake and Output 03/10/25 03/10/25 03/11/25 15:00 23:00 07:00 Intake Total 50 ml 100 ml 250 ml Output Total 200 ml 650 ml Balance 50 ml -100 ml -400 ml medications Current Medications Medications Dose Ordered Sig/Jake Route Start Time Stop Time Status Last Admin Dose Admin Voriconazole 200 mg BID PO 03/10/25 10:00 03/11/25 10:02 200 MG Ceftriaxone Sodium 50 ml @ 100 mls/hr DAILY@09 IV 03/10/25 09:00 03/11/25 10:01 100 MLS/HR Azithromycin 250 ml @ 125 mls/hr DAILY IV 03/11/25 10:00 03/11/25 10:02 125 MLS/HR Clopidogrel Bisulfate 75 mg DAILY PO 03/10/25 10:00 03/11/25 10:02 75 MG Atorvastatin Calcium 40 mg HS PO 03/10/25 22:00 03/10/25 21:37 40 MG Amlodipine Besylate 10 mg DAILY PO 03/10/25 10:00 03/11/25 10:02 10 MG Ipratropium [place] 0.5 mg Q6HPRN PRN NEB 03/10/25 00:45 03/11/25 12:34 0.5 MG Diagnostic Test (Pha) 1 strip ACHS 03/10/25 07:00 03/11/25 12:35 1 STRIP Insulin Human Regular ACHS SC 03/10/25 07:00 03/11/25 07:03 2 UNITS Dextrose 50 ml UD PRN IV 03/10/25 00:45 Ondansetron HCl 4 mg Q4HP PRN IV 03/10/25 00:45 Acetaminophen 650 mg Q6HP PRN PO 03/10/25 00:45 Nitroglycerin 0.4 mg Q5MINP PRN SL 03/10/25 00:45 Morphine Sulfate 2 mg Q30M PRN IV 03/10/25 00:45 Rivaroxaban 2.5 mg DAILY PO 03/10/25 10:00 03/11/25 10:02 2.5 MG Albuterol 2.5 mg Q6HR NEB 03/10/25 12:00 03/11/25 12:34 2.5 MG Pantoprazole Sodium 40 mg DAILY@0600 PO 03/11/25 06:00 03/11/25 07:03 40 MG Examination General: Patient alert and oriented in person, place and time. Patient following commands. HEENT: Normocephalic, atraumatic, moist mucous membranes. Patient has severe crusted ulcerations on bilateral nares Respiratory/pulmonary: decrease breath sounds on bilat lung [place], minimal crackles on bases. No wheezes or stridor at this time. Currently on oxygen mask at 6 L/min of oxygen Cardiovascular: Normal heart sounds S1 and S2 with no associated murmurs Abdomen: Abdomen nondistended, there is no pain to palpation in any of the abdominal quadrants, no palpable masses. Extremities: There is no peripheral edema present at the lower extremities. Peripheral Pulses: 3+ Radial (R). 3+ Radial (L). 3+ Dorsalis pedis (R). 3+ Dorsalis pedis(L) Skin: No rashes or pruritus, there is no sacral edema present at this time. Neurological: Intact cranial nerves with no focal neurologic deficits laboratory and microbiology Laboratory Tests 03/11/25 05:04 Test 03/11/25 05:04 Range/Units Serum Glucose 117 H 74-106 mg/dL Microbiology Date/Time Source Procedure Growth Status 03/10/25 18:15 Nose MRSA Screen - Final Complete 03/10/25 01:04 Blood Blood Culture - Preliminary NO GROWTH AFTER 24 HOURS OF INCUBATION. Resulted Labs and/or images reviewed: Labs reviewed by me, Image(s) reviewed by me Problem List/Assessment/Plan Problem List/Assessment/Plan Acute hypoxic respiratory failure likely due to pulmonary aspergillosis Possible invasive pulmonary aspergillosis COPD exacerbation Possible Gram-positive/Gram-negative bacterial pneumonia Sepsis due to above -Ct angiogram chest: 1. No pulmonary embolism is identified. Some of the distal pulmonary arteries cannot be evaluated due to suboptimal opacification.2. Lung emphysema/ COPD with spicular probably nodule the posterior right lower lobe measuring up to 1.0 cm. Findings may be accentuated by motion artifacts. This could be further evaluated with PET-CT or tissue biopsy. -patient completed IV antibiotic therapy -High-resolution CT chest shows emphysema, atelectases, no ILD -continue voriconazole 200 mg p.o. b.i.d. -continue respiratory therapy with albuterol and ipratropium -previous hospitalization before four weeks, underwent intubation, bronchoscopy, PCI intervention, peripheral artery intervention Coronary artery disease status post PCI one stent -coronary angiogram was performed and stent was placed in the circumflex artery -continue rivaroxaban 2.5 mg b.i.d. -continue clopidogrel 75 mg daily -continue atorvastatin 40 mg daily -control blood pressure and monitor closely Peripheral artery disease Status post left lower extremity angiography, vessel was opened successfully -continue clopidogrel, rivaroxaban and atorvastatin as stated above Uncontrolled type 2 diabetes mellitus likely due to steroids -hemoglobin A1c was 6.3% which is in prediabetes range -insulin sliding scale -continue moderate sliding scale insulin and monitor blood glucose closely Dyslipidemia -continue atorvastatin 40 mg daily Severe Protein malnutrition -BMI 20.8 kg/m2 -patient being cachectic and significant weight loss due to worsening Chronic obstructive pulmonary disease -nutrition consultation PUD prophylaxis with Protonix DVT prophylaxis with enoxaparin Goals of care discussed with patient and son for 20 minutes, patient is DNI, patient would like to get resuscitated in case of cardiac arrest. Plan: Hospice evaluation, once arranged , patient will be discharged home with hospice Plan discussed with Dr. Muñoz Plan discussed with: Patient, Other (RN) My Orders My Orders Orders - ARIE CAMACHO RESIDENT Procedure Category Date Status Time * Roll Plugger CONS 03/10/25 Transmitted Consult Abg W/ Co-Ox RT 03/11/25 Logged 10:21 Addendum Addendum Addendum I was physically present for the angela portions of the service provided to patient by THE RESIDENT. I have reviewed the documentation, discussed the case with resident and agree with the resident's documentation except as noted. Also the patient's clinical case was discussed with the patient's nurse. This medical document was created using an electronic medical record system with computerized dictation system. Although this document has been carefully reviewed, there might still be some phonetic and typographical errors. These areas are purely typographical due to imperfections of the software programs, and do not reflect any compromise in the patient's medical care. Late signature. Date of Service: March 11, 2025 Billing Provider: JIGAR MUÑOZ MD Common Visit Codes: [id number] INP/OBS CARE(HIGH) ARIE CAMACHO RESIDENT March 11, 2025 17:33 JIGAR MUÑOZ MD March 12, 2025 04:47
[2025-03-12] VITALS (16 sets, daily range): BP systolic 113–128; BP diastolic 39–78; PULSE 82–109; RESP 17–24; TEMP 94.1–98.4; O2SAT 88–94
[2025-03-12 06:49] LABS: Basophils # (auto) 0 10 ^3/uL (0-0.2); Basophils % (auto) 0.1 % (0.0-2.0); Eosinophils # (auto) 0 10 ^3/uL (0-0.8); Hematocrit 40.1 % (36.0-46.0); Lymphocytes # (auto) 1.7 10 ^3/uL (0.4-5.4); Lymphocytes % (auto) 15.8 % (10.0-50.0); Mean Corpuscular Hemoglobin 32.3 pg (28.0-32.0); Mean Corpuscular Hgb Conc. 34.9 g/dL (32.0-36.0); Mean Corpuscular Volume 92.6 fL (80.0-100.0); Monocytes # (auto) 0.9 10 ^3/uL (0-1.3); Monocytes % (auto) 8.6 % (0.0-12.0); Neutrophils # (auto) 8.2 10 ^3/uL (1.6-8.6); Neutrophils % (auto) 75.5 % (37.0-80.0); Nucleated Red Blood Cells % 0.2 %; Platelet Count (auto) 209 10^3/uL (140-450); Red Blood Cells 4.33 10^6/uL (4.0-5.20); Red Cell Distribution Width 15.6 % (11.8-14.3); White Blood Cell 10.9 10^3/uL (4.4-10.8)
[2025-03-12 07:09] LABS: Chloride 98 mmol/L (98-107); Sodium 136 mmol/L (136-145)
[2025-03-12 07:10] LABS: Anion Gap 7 (5-15); Carbon Dioxide 31 mmol/L (20-31)
[2025-03-12 07:11] LABS: Calcium 9.2 mg/dL (8.7-10.4)
[2025-03-12 07:15] LABS: BUN/Creatinine Ratio 33.3 (10.0-20.0); Blood Urea Nitrogen 11 mg/dL (9-23); Glucose 103 mg/dL (74-106)
[2025-03-12 07:16] LABS: Potassium 3.3 mmol/L (3.5-5.1)
--- NOTE | 2025-03-12 10:42 | DVHPNRES ---
Progress Note Date Seen: March 12, 2025 Resident Creating Document: ARIE CAMACHO RESIDENT Medical Necessity Reason Pt with a Central, PICC or Fol: No Subjective Review of Systems Patient is 79-year-old female with past medical history of Chronic obstructive pulmonary disease on oxygen via nasal cannula, hypertension, diabetes mellitus type 2, diverticulosis, solitary pulmonary nodules,left PID status post PTCA of left superficial femoral artery and popliteal artery in 2019, internal and external hemorrhoids, colonic polyps, Coronary artery disease with status post PCI one stent, peripheral artery disease, 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 At the time of evaluation patient was on oxygen via oxygen mass around 7-8 L, CT scan showed lower extremity atelectasis on right lower lobe, patient is being frail, weak, not able to stand by herself. However alert oriented time place and person. Patient seen and examined at bedside. patient continue to feel needing more oxygen on oxygen mask no fever pending sputum culture Objective vital signs Vital Sign Date Time Temp Pulse Resp B/P (MAP) Pulse Ox O2 Delivery O2 Flow Rate FiO2 03/12/25 09:55 123/78 03/12/25 08:30 97.5 96 20 94 97.5 03/12/25 07:04 Mask 8.0 03/12/25 07:04 60 Total Intake and Output 03/11/25 03/11/25 03/12/25 15:00 23:00 07:00 Intake Total 300 ml 740 ml 600 ml Output Total 900 ml 700 ml Balance 300 ml -160 ml -100 ml medications Current Medications Medications Dose Ordered Sig/Jake Route Start Time Stop Time Status Last Admin Dose Admin Voriconazole 200 mg BID PO 03/10/25 10:00 03/12/25 09:57 200 MG Azithromycin 250 ml @ 125 mls/hr DAILY IV 03/11/25 10:00 03/11/25 10:02 125 MLS/HR Clopidogrel Bisulfate 75 mg DAILY PO 03/10/25 10:00 03/12/25 09:55 75 MG Atorvastatin Calcium 40 mg HS PO 03/10/25 22:00 03/11/25 21:36 40 MG Amlodipine Besylate 10 mg DAILY PO 03/10/25 10:00 03/12/25 09:55 10 MG Ipratropium [place] 0.5 mg Q6HPRN PRN NEB 03/10/25 00:45 03/12/25 00:05 0.5 MG Diagnostic Test (Pha) 1 strip ACHS 03/10/25 07:00 03/12/25 06:14 1 STRIP Insulin Human Regular ACHS SC 03/10/25 07:00 03/11/25 17:50 3 UNITS Dextrose 50 ml UD PRN IV 03/10/25 00:45 Ondansetron HCl 4 mg Q4HP PRN IV 03/10/25 00:45 Acetaminophen 650 mg Q6HP PRN PO 03/10/25 00:45 Nitroglycerin 0.4 mg Q5MINP PRN SL 03/10/25 00:45 Morphine Sulfate 2 mg Q30M PRN IV 03/10/25 00:45 Rivaroxaban 2.5 mg DAILY PO 03/10/25 10:00 03/12/25 09:56 2.5 MG Albuterol 2.5 mg Q6HR NEB 03/10/25 12:00 03/12/25 06:58 2.5 MG Pantoprazole Sodium 40 mg DAILY@0600 PO 03/11/25 06:00 03/12/25 06:13 40 MG Piperacillin Sod/ Tazobactam Sod 100 ml @ 25 mls/hr Q8HR IV 03/12/25 14:00 UNV Examination General: Patient alert and oriented in person, place and time. Patient following commands. HEENT: Normocephalic, atraumatic, moist mucous membranes. Patient has severe crusted ulcerations on bilateral nares Respiratory/pulmonary: minimal crackles on bases. No wheezes or stridor at this time. Currently on Oxymizer at 8 L/min of oxygen Cardiovascular: Normal heart sounds S1 and S2 with no associated murmurs Abdomen: Abdomen nondistended, there is no pain to palpation in any of the abdominal quadrants, no palpable masses. Extremities: There is no peripheral edema present at the lower extremities. Peripheral Pulses: 3+ Radial (R). 3+ Radial (L). 3+ Dorsalis pedis (R). 3+ Dorsalis pedis(L) Skin: No rashes or pruritus, there is no sacral edema present at this time. Neurological: Intact cranial nerves with no focal neurologic deficits laboratory and microbiology Laboratory Tests 03/12/25 05:48 Test 03/12/25 05:48 Range/Units Serum Glucose 103 74-106 mg/dL Microbiology Date/Time Source Procedure Growth Status 03/11/25 06:00 Sputum Gram Stain Pending Resulted 03/11/25 06:00 Sputum Respiratory Culture - Preliminary Resulted 03/10/25 18:15 Nose MRSA Screen - Final Complete 03/10/25 01:04 Blood Blood Culture - Preliminary NO GROWTH AFTER 48 HOURS OF INCUBATION. 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 No pulmonary embolism is identified. Some of the distal pulmonary arteries cannot be evaluated due to suboptimal opacification.2. Lung emphysema/ COPD with spicular probably nodule the posterior right lower lobe measuring up to 1.0 cm. Findings may be accentuated by motion artifacts. This could be further evaluated with PET-CT or tissue biopsy. -Continue IV antibiotic therapy :Zosyn -High-resolution CT chest shows emphysema, atelectases, no ILD -continue voriconazole 200 mg p.o. b.i.d. -continue respiratory therapy with albuterol and ipratropium -previous hospitalization before four weeks, underwent intubation, bronchoscopy, PCI intervention, peripheral artery intervention Coronary artery disease status post PCI one stent -coronary angiogram was performed and stent was placed in the circumflex artery -continue rivaroxaban 2.5 mg b.i.d. 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 Plan: Discussed with son Ian or phone. Son does not want to go with hospice at this point, we will like to get stabilized before considering hospice at this point. We will continue with current management. Plan discussed with Dr. Muñoz Plan discussed with: Patient, Other (RN) My Orders My Orders Orders - ARIE CAMACHO RESIDENT Procedure Category Date Status Time Piperacillin-Tazob PHA 03/12/25 Logged 3.375gm (Zosyn 3.375g 14:00 Addendum Addendum Addendum I was physically present for the angela portions of the service provided to patient by THE RESIDENT. I have reviewed the documentation, discussed the case with resident and agree with the resident's documentation except as noted. Also the patient's clinical case was discussed with the patient's nurse. This medical document was created using an electronic medical record system with computerized dictation system. Although this document has been carefully reviewed, there might still be some phonetic and typographical errors. These areas are purely typographical due to imperfections of the software programs, and do not reflect any compromise in the patient's medical care. Late signature. Date of Service: March 12, 2025 Billing Provider: JIGAR MUÑOZ MD Common Visit Codes: [id number] INP/OBS CARE(HIGH) ARIE CAMACHO RESIDENT March 12, 2025 10:42 JIGAR MUÑOZ MD March 13, 2025 04:31
[2025-03-12] MEDS: PIPERACILLIN-TAZOB 3.375GM 100 ML IV SCH (14:27)
[2025-03-12] MEDS: POTASSIUM EFFERVESENT TAB 25 MEQ PO ONE (15:54)
[2025-03-13] VITALS (17 sets, daily range): BP systolic 120–130; BP diastolic 44–64; PULSE 97–117; RESP 17–22; TEMP 98–98.4; O2SAT 89–95
[2025-03-13 07:16] LABS: Basophils # (auto) 0 10 ^3/uL (0-0.2); Basophils % (auto) 0.2 % (0.0-2.0); Eosinophils # (auto) 0 10 ^3/uL (0-0.8); Hematocrit 40.7 % (36.0-46.0); Hemoglobin 13.9 g/dL (12.2-16.2); Lymphocytes # (auto) 1.6 10 ^3/uL (0.4-5.4); Lymphocytes % (auto) 15.4 % (10.0-50.0); Mean Corpuscular Hemoglobin 31.7 pg (28.0-32.0); Mean Corpuscular Hgb Conc. 34.1 g/dL (32.0-36.0); Mean Corpuscular Volume 93.1 fL (80.0-100.0); Monocytes # (auto) 0.9 10 ^3/uL (0-1.3); Monocytes % (auto) 8.6 % (0.0-12.0); Neutrophils # (auto) 8.1 10 ^3/uL (1.6-8.6); Neutrophils % (auto) 75.8 % (37.0-80.0); Platelet Count (auto) 193 10^3/uL (140-450); Red Blood Cells 4.37 10^6/uL (4.0-5.20); Red Cell Distribution Width 15.5 % (11.8-14.3); White Blood Cell 10.7 10^3/uL (4.4-10.8)
[2025-03-13 07:26] LABS: Potassium 4.1 mmol/L (3.5-5.1)
[2025-03-13 07:27] LABS: Anion Gap 8 (5-15); Carbon Dioxide 30 mmol/L (20-31)
[2025-03-13 07:28] LABS: Calcium 9.3 mg/dL (8.7-10.4)
[2025-03-13 07:32] LABS: BUN/Creatinine Ratio 24.3 (10.0-20.0); Glucose 88 mg/dL (74-106)
[2025-03-13 07:33] LABS: Blood Urea Nitrogen 9 mg/dL (9-23); Chloride 95 mmol/L (98-107); Sodium 133 mmol/L (136-145)
--- NOTE | 2025-03-13 18:38 | DVHPN2 ---
Subjective in bed resting Changes from previous H/P or p: No Changes Objective Vitals Vital Signs Date Time Temp Pulse Resp B/P (MAP) Pulse Ox O2 Delivery O2 Flow Rate FiO2 03/13/25 18:15 105 20 93 03/13/25 18:09 Nasal Cannula 8.0 03/13/25 18:09 N/A 03/13/25 16:37 98.1 130/49 (76) 98.1 Intake/Output Intake and Output 03/13/25 07:00 Intake Total 1350 ml Output Total 1050 ml Balance 300 ml Intake Oral 1200 ml IV Total 150 ml Output Urine Total 1050 ml # Bowel Movements 1 General Appearance: Alert Lungs: Clear to auscultation Cardiovascular: Regular rate, Normal S1, Normal S2 Medications Current Medications Medications Dose Ordered Sig/Jake Route Start Time Stop Time Status Last Admin Dose Admin Voriconazole 200 mg BID PO 03/10/25 10:00 03/13/25 10:37 200 MG Azithromycin 250 ml @ 125 mls/hr DAILY IV 03/11/25 10:00 03/13/25 10:37 125 MLS/HR Clopidogrel Bisulfate 75 mg DAILY PO 03/10/25 10:00 03/13/25 10:37 75 MG Atorvastatin Calcium 40 mg HS PO 03/10/25 22:00 03/12/25 22:24 40 MG Amlodipine Besylate 10 mg DAILY PO 03/10/25 10:00 03/13/25 10:38 10 MG Ipratropium [place] 0.5 mg Q6HPRN PRN NEB 03/10/25 00:45 03/13/25 18:12 0.5 MG Diagnostic Test (Pha) 1 strip ACHS 03/10/25 07:00 03/13/25 17:00 1 STRIP Insulin Human Regular ACHS SC 03/10/25 07:00 03/13/25 11:30 3 UNITS Dextrose 50 ml UD PRN IV 03/10/25 00:45 Ondansetron HCl 4 mg Q4HP PRN IV 03/10/25 00:45 Acetaminophen 650 mg Q6HP PRN PO 03/10/25 00:45 Nitroglycerin 0.4 mg Q5MINP PRN SL 03/10/25 00:45 Morphine Sulfate 2 mg Q30M PRN IV 03/10/25 00:45 Rivaroxaban 2.5 mg DAILY PO 03/10/25 10:00 03/13/25 10:37 2.5 MG Albuterol 2.5 mg Q6HR NEB 03/10/25 12:00 03/13/25 18:12 2.5 MG Pantoprazole Sodium 40 mg DAILY@0600 PO 03/11/25 06:00 03/13/25 05:42 40 MG Piperacillin Sod/ Tazobactam Sod 100 ml @ 25 mls/hr Q8HR IV 03/12/25 14:00 03/13/25 14:52 25 MLS/HR Laboratory Results Laboratory Tests 03/13/25 04:59 Chemistry Test 03/13/25 04:59 Calcium Level 9.3 mg/dL (8.7-10.4) Urinalysis Test 03/09/25 10:26 Urine Color Yellow (Yellow) Urine Clarity Clear (Clear) Urine pH 6.0 (5.0-9.0) Urine Specific [place] 1.046 (1.001-1.035) Urine Protein 1+ (Negative) H Urine Ketones Negative (Negative) Urine Blood Negative /uL (Negative) Urine Nitrite 1+ (Negative) H Urine Bilirubin Negative (Negative) Urine Urobilinogen Normal mg/dL (Negative) Urine Leukocyte Esterase Negative /uL (Negative) Urine RBC 1 /hpf (0 - 4) Urine Microscopic WBC 8 /HPF (0-5) H Urine Squamous Epithelial Cells None seen /hpf (<5) Urine Bacteria Mod /hpf (None Seen) H Urine Mucus Many (None Seen) Urine Glucose Normal mg/dL (Normal) Microbiology Microbiology Date/Time Source Procedure Growth Status 03/11/25 06:00 Sputum Gram Stain - Final Complete 03/11/25 06:00 Respiratory Culture - Final Pseudomonas aeruginosa Complete 03/10/25 18:15 Nose MRSA Screen - Final Complete 03/10/25 01:04 Blood Blood Culture - Preliminary NO GROWTH AFTER 72 HOURS OF INCUBATION. 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 No pulmonary embolism is identified. Some of the distal pulmonary arteries cannot be evaluated due to suboptimal opacification.2. Lung emphysema/ COPD with spicular probably nodule the posterior right lower lobe measuring up to 1.0 cm. Findings may be accentuated by motion artifacts. This could be further evaluated with PET-CT or tissue biopsy. -Continue IV antibiotic therapy :Zosyn -High-resolution CT chest shows emphysema, atelectases, no ILD -continue voriconazole 200 mg p.o. b.i.d. -continue respiratory therapy with albuterol and ipratropium -previous hospitalization before four weeks, underwent intubation, bronchoscopy, PCI intervention, peripheral artery intervention Coronary artery disease status post PCI one stent -coronary angiogram was performed and stent was placed in the circumflex artery -continue rivaroxaban 2.5 mg b.i.d. 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 Plan: Discussed with son Ian or phone. Son does not want to go with hospice at this point, we will like to get stabilized before considering hospice at this point. We will continue with current management. Plan discussed with: Patient Date of Service: March 13, 2025 Billing Provider: VICKY BLACK MD Common Visit Codes: [id number] INP/OBS CARE(HIGH) VICKY BLACK MD March 13, 2025 18:38
[2025-03-14] VITALS (18 sets, daily range): BP systolic 112–119; BP diastolic 43–55; PULSE 76–104; RESP 17–21; TEMP 97.7–98; O2SAT 90–100
--- NOTE | 2025-03-14 15:05 | DVHPN2 ---
Subjective in bed resting Changes from previous H/P or p: No Changes Objective Vitals Vital Signs Date Time Temp Pulse Resp B/P (MAP) Pulse Ox O2 Delivery O2 Flow Rate FiO2 03/14/25 12:11 97.7 98 20 116/55 (75) 91 97.7 03/14/25 08:00 Simple Mask* 10 99 Intake/Output Intake and Output 03/14/25 07:00 Intake Total 1480 ml Output Total 1100 ml Balance 380 ml Intake Oral 1180 ml IV Total 300 ml Output Urine Total 1100 ml General Appearance: Alert Lungs: Clear to auscultation Cardiovascular: Regular rate, Normal S1, Normal S2 Medications Current Medications Medications Dose Ordered Sig/Jake Route Start Time Stop Time Status Last Admin Dose Admin Voriconazole 200 mg BID PO 03/10/25 10:00 03/14/25 09:46 200 MG Azithromycin 250 ml @ 125 mls/hr DAILY IV 03/11/25 10:00 03/14/25 09:46 125 MLS/HR Clopidogrel Bisulfate 75 mg DAILY PO 03/10/25 10:00 03/14/25 09:44 75 MG Atorvastatin Calcium 40 mg HS PO 03/10/25 22:00 03/13/25 21:48 40 MG Amlodipine Besylate 10 mg DAILY PO 03/10/25 10:00 03/14/25 09:46 10 MG Ipratropium [place] 0.5 mg Q6HPRN PRN NEB 03/10/25 00:45 03/14/25 11:25 0.5 MG Diagnostic Test (Pha) 1 strip ACHS 03/10/25 07:00 03/14/25 11:55 1 STRIP Insulin Human Regular ACHS SC 03/10/25 07:00 03/14/25 12:02 3 UNITS Dextrose 50 ml UD PRN IV 03/10/25 00:45 Ondansetron HCl 4 mg Q4HP PRN IV 03/10/25 00:45 Acetaminophen 650 mg Q6HP PRN PO 03/10/25 00:45 Nitroglycerin 0.4 mg Q5MINP PRN SL 03/10/25 00:45 Morphine Sulfate 2 mg Q30M PRN IV 03/10/25 00:45 Rivaroxaban 2.5 mg DAILY PO 03/10/25 10:00 03/14/25 09:46 2.5 MG Albuterol 2.5 mg Q6HR NEB 03/10/25 12:00 03/14/25 11:25 2.5 MG Pantoprazole Sodium 40 mg DAILY@0600 PO 03/11/25 06:00 03/14/25 05:26 40 MG Piperacillin Sod/ Tazobactam Sod 100 ml @ 25 mls/hr Q8HR IV 03/12/25 14:00 03/14/25 14:03 25 MLS/HR Laboratory Results Laboratory Tests 03/13/25 04:59 Urinalysis Test 03/09/25 10:26 Urine Color Yellow (Yellow) Urine Clarity Clear (Clear) Urine pH 6.0 (5.0-9.0) Urine Specific [place] 1.046 (1.001-1.035) Urine Protein 1+ (Negative) H Urine Ketones Negative (Negative) Urine Blood Negative /uL (Negative) Urine Nitrite 1+ (Negative) H Urine Bilirubin Negative (Negative) Urine Urobilinogen Normal mg/dL (Negative) Urine Leukocyte Esterase Negative /uL (Negative) Urine RBC 1 /hpf (0 - 4) Urine Microscopic WBC 8 /HPF (0-5) H Urine Squamous Epithelial Cells None seen /hpf (<5) Urine Bacteria Mod /hpf (None Seen) H Urine Mucus Many (None Seen) Urine Glucose Normal mg/dL (Normal) Microbiology Microbiology Date/Time Source Procedure Growth Status 03/11/25 06:00 Sputum Gram Stain - Final Complete 03/11/25 06:00 Respiratory Culture - Final Pseudomonas aeruginosa Complete 03/10/25 18:15 Nose MRSA Screen - Final Complete 03/10/25 01:04 Blood Blood Culture - Preliminary NO GROWTH AFTER 72 HOURS OF INCUBATION. 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 No pulmonary embolism is identified. Some of the distal pulmonary arteries cannot be evaluated due to suboptimal opacification.2. Lung emphysema/ COPD with spicular probably nodule the posterior right lower lobe measuring up to 1.0 cm. Findings may be accentuated by motion artifacts. This could be further evaluated with PET-CT or tissue biopsy. -Continue IV antibiotic therapy :Zosyn -High-resolution CT chest shows emphysema, atelectases, no ILD -continue voriconazole 200 mg p.o. b.i.d. -continue respiratory therapy with albuterol and ipratropium -previous hospitalization before four weeks, underwent intubation, bronchoscopy, PCI intervention, peripheral artery intervention Coronary artery disease status post PCI one stent -coronary angiogram was performed and stent was placed in the circumflex artery -continue rivaroxaban 2.5 mg b.i.d. 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 Plan: Discussed with son Ian or phone. Son does not want to go with hospice at this point, we will like to get stabilized before considering hospice at this point. We will continue with current management. Plan discussed with: Patient Date of Service: March 14, 2025 Billing Provider: VICKY BLACK MD Common Visit Codes: [id number] INP/OBS CARE(HIGH) VICKY BLACK MD March 14, 2025 15:05
[2025-03-15] VITALS (14 sets, daily range): BP systolic 106–120; BP diastolic 34–54; PULSE 80–107; RESP 16–22; TEMP 97.5–100.3; O2SAT 89–96
--- NOTE | 2025-03-15 12:07 | DVH ---
CHEST: 1 VIEW HISTORY: hypoxia COMPARISON: XY CHEST PORTABLE on DOS: 02/15/25, XY CHEST PORTABLE on DOS: 02/13/25, XY CHEST PORTABLE on DOS: 02/10/25, XY CHEST PORTABLE on DOS: 02/04/25, XY CHEST PORTABLE on DOS: 02/01/25 TECHNIQUE: FINDINGS: The lungs patchy airspace consolidation in the right lower lung which is unchanged from prior study. Suspicious inflow at right-sided pleural effusion.. The heart size is normal. There is uncoiling athe rosclerotic change thoracic aorta. The mediastinal contours are normal. The bony thorax is intact. IMPRESSION: 1. Unchanged from prior radiograph with patchy airspace consolidation in the right lower lung field 2. Suspicion for [id number] right-sided pleural effusion.
[2025-03-15 15:21] LABS: Hematocrit 40.5 % (36.0-46.0); Hemoglobin 13.6 g/dL (12.2-16.2); Mean Corpuscular Hemoglobin 31.3 pg (28.0-32.0); Mean Corpuscular Hgb Conc. 33.5 g/dL (32.0-36.0); Mean Corpuscular Volume 93.4 fL (80.0-100.0); Platelet Count (auto) 205 10^3/uL (140-450); Red Blood Cells 4.34 10^6/uL (4.0-5.20); Red Cell Distribution Width 15.1 % (11.8-14.3); White Blood Cell 8.1 10^3/uL (4.4-10.8)
[2025-03-15 15:27] LABS: Basophils % (manual) 0 (0.0-2.0); Blast Cells 0; Metamyelocytes % 0; Myelocytes % 0; Promyelocytes % 0; Reactive Lymphocytes 0
[2025-03-15 15:31] LABS: Anion Gap 7 (5-15)
[2025-03-15 15:32] LABS: Calcium 9.2 mg/dL (8.7-10.4)
--- NOTE | 2025-03-15 15:32 | DVHPNRES ---
Progress Note Date Seen: March 15, 2025 Resident Creating Document: ARIE CAMACHO RESIDENT Medical Necessity Reason Pt with a Central, PICC or Fol: No Subjective Review of Systems Patient is 79-year-old female with past medical history of Chronic obstructive pulmonary disease on oxygen via nasal cannula, hypertension, diabetes mellitus type 2, diverticulosis, solitary pulmonary nodules,left PID status post PTCA of left superficial femoral artery and popliteal artery in 2019, internal and external hemorrhoids, colonic polyps, Coronary artery disease with status post PCI one stent, peripheral artery disease, 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 At the time of evaluation patient was on oxygen via oxygen mass around 7-8 L, CT scan showed lower extremity atelectasis on right lower lobe, patient is being frail, weak, not able to stand by herself. However alert oriented time place and person. Patient seen and examined at bedside. patient continue to feel needing more oxygen on oxygen mask 6l no fever sputum culture: pseudomonas Objective vital signs Vital Sign Date Time Temp Pulse Resp B/P (MAP) Pulse Ox O2 Delivery O2 Flow Rate FiO2 03/15/25 11:40 98 20 93 03/15/25 11:34 Mask 10.0 03/15/25 11:34 99 03/15/25 09:08 111/38 03/15/25 09:00 97.9 97.9 Total Intake and Output 03/14/25 03/14/25 03/15/25 15:00 23:00 07:00 Intake Total 350 ml 620 ml 500 ml Output Total 800 ml 650 ml Balance 350 ml -180 ml -150 ml medications Current Medications Medications Dose Ordered Sig/Jake Route Start Time Stop Time Status Last Admin Dose Admin Voriconazole 200 mg BID PO 03/10/25 10:00 03/15/25 09:06 200 MG Azithromycin 250 ml @ 125 mls/hr DAILY IV 03/11/25 10:00 03/14/25 09:46 125 MLS/HR Clopidogrel Bisulfate 75 mg DAILY PO 03/10/25 10:00 03/15/25 09:06 75 MG Atorvastatin Calcium 40 mg HS PO 03/10/25 22:00 03/14/25 21:41 40 MG Amlodipine Besylate 10 mg DAILY PO 03/10/25 10:00 03/15/25 09:08 10 MG Ipratropium [place] 0.5 mg Q6HPRN PRN NEB 03/10/25 00:45 03/15/25 06:25 0.5 MG Diagnostic Test (Pha) 1 strip ACHS 03/10/25 07:00 03/15/25 12:45 1 STRIP Insulin Human Regular ACHS SC 03/10/25 07:00 03/15/25 13:06 3 UNITS Dextrose 50 ml UD PRN IV 03/10/25 00:45 Ondansetron HCl 4 mg Q4HP PRN IV 03/10/25 00:45 Acetaminophen 650 mg Q6HP PRN PO 03/10/25 00:45 Nitroglycerin 0.4 mg Q5MINP PRN SL 03/10/25 00:45 Morphine Sulfate 2 mg Q30M PRN IV 03/10/25 00:45 Rivaroxaban 2.5 mg DAILY PO 03/10/25 10:00 03/15/25 09:05 2.5 MG Albuterol 2.5 mg Q6HR NEB 03/10/25 12:00 03/15/25 11:34 2.5 MG Pantoprazole Sodium 40 mg DAILY@0600 PO 03/11/25 06:00 03/15/25 06:17 40 MG Piperacillin Sod/ Tazobactam Sod 100 ml @ 25 mls/hr Q8HR IV 03/12/25 14:00 03/15/25 06:24 25 MLS/HR Examination General: Patient alert and oriented in person, place and time. Patient following commands. HEENT: Normocephalic, atraumatic, moist mucous membranes. Patient has severe crusted ulcerations on bilateral nares Respiratory/pulmonary: minimal crackles on bases. No wheezes or stridor at this time. Currently on Oxymizer at 8 L/min of oxygen Cardiovascular: Normal heart sounds S1 and S2 with no associated murmurs Abdomen: Abdomen nondistended, there is no pain to palpation in any of the abdominal quadrants, no palpable masses. Extremities: There is no peripheral edema present at the lower extremities. Peripheral Pulses: 3+ Radial (R). 3+ Radial (L). 3+ Dorsalis pedis (R). 3+ Dorsalis pedis(L) Skin: No rashes or pruritus, there is no sacral edema present at this time. Neurological: Intact cranial nerves with no focal neurologic deficits laboratory and microbiology Laboratory Tests 03/15/25 15:00 Test 03/15/25 15:00 Range/Units Serum Glucose Pending Microbiology Date/Time Source Procedure Growth Status 03/11/25 06:00 Sputum Gram Stain - Final Complete 03/11/25 06:00 Respiratory Culture - Final Pseudomonas aeruginosa Complete 03/10/25 18:15 Nose MRSA Screen - Final Complete 03/10/25 01:04 Blood Blood Culture - Final NO GROWTH AFTER 5 DAYS OF INCUBATION. 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 No pulmonary embolism is identified. Some of the distal pulmonary arteries cannot be evaluated due to suboptimal opacification.2. Lung emphysema/ COPD with spicular probably nodule the posterior right lower lobe measuring up to 1.0 cm. Findings may be accentuated by motion artifacts. This could be further evaluated with PET-CT or tissue biopsy. -Continue IV antibiotic therapy :Zosyn -High-resolution CT chest shows emphysema, atelectases, no ILD -continue voriconazole 200 mg p.o. b.i.d. -continue respiratory therapy with albuterol and ipratropium -previous hospitalization before four weeks, underwent intubation, bronchoscopy, PCI intervention, peripheral artery intervention Coronary artery disease status post PCI one stent -coronary angiogram was performed and stent was placed in the circumflex artery -continue rivaroxaban 2.5 mg b.i.d. 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 Plan discussed with Dr Aguirre Plan discussed with: Patient, Other My Orders My Orders Orders - ARIE CAMACHO RESIDENT Procedure Category Date Status Time Complete Blood Count LAB 03/15/25 In Process 07:43 Basic Metabolic Panel LAB 03/15/25 In Process 07:43 Chest Xray 1 View XY 03/15/25 Resulted 09:26 Manual Differential LAB 03/15/25 In Process 15:00 Dietary Evaluation Review Recommendations by RD: Increase Calorie Intake Comments: 1) Initiate Glucerna bid; Encourage optimal PO intake 2) Initiate multivitamin @ 1 tb qd 3) Refer to outpatient RD for weight management 4) Follow-up with pulmonology 5) Continue to monitor I&O, labs, and skin integrity Expected Outcomes/Goals: 1) appetite and labs to improve 2) wounds to improve 3) f/u in 3-5 daus Date of Service: March 15, 2025 Billing Provider: BENJAMIN AGUIRRE DO Common Visit Codes: [id number] INP/OBS CARE(HIGH) ARIE CAMACHO RESIDENT March 15, 2025 15:32 BENJAMIN AGUIRRE DO March 15, 2025 20:11
[2025-03-15 15:35] LABS: Band Neutrophils % (manual) 1; Eosinophils % (manual) 1 (0-7); Lymphocytes % (manual) 9 (10.0-50.0); Monocytes % (manual) 8 (0-12)
[2025-03-15 15:36] LABS: Platelet Estimate Adequate
[2025-03-15 15:37] LABS: BUN/Creatinine Ratio 25.6 (10.0-20.0); Blood Urea Nitrogen 11 mg/dL (9-23)
[2025-03-15 15:41] LABS: Carbon Dioxide 32 mmol/L (20-31); Chloride 95 mmol/L (98-107); Glucose 120 mg/dL (74-106); Potassium 3.1 mmol/L (3.5-5.1); Sodium 134 mmol/L (136-145)
[2025-03-15] MEDS: POTASSIUM CHL 20 Meq TABLET PO ONE (18:03)
[2025-03-16] VITALS (15 sets, daily range): BP systolic 83–131; BP diastolic 38–57; PULSE 87–100; RESP 16–22; TEMP 36.9; O2SAT 64–100
[2025-03-16] MEDS: SODIUM CHLORIDE 0.9% 250 ML IV ONE (08:55)
[2025-03-16] MEDS: levoFLOXacin 250 MG TAB PO ONE (14:08)
[2025-03-16] MEDS ORDERED: LEVO750T40 PO (14:35)
--- NOTE | 2025-03-16 14:45 | DVHDSRES ---
Discharge Summary Date of Admission Resident Creating Document: ARIE CAMACHO RESIDENT Mar 10, 2025 at 00:35 Date of Discharge: March 16, 2025 Admitting Diagnosis pneumonia Labs/Diagnostic Data: Laboratory Results Test 03/15/25 15:00 03/14/25 21:44 03/13/25 04:59 03/11/25 10:58 White Blood Count 8.1 10^3/uL (4.4-10.8) Red Blood Count 4.34 10^6/uL (4.0-5.20) Hemoglobin 13.6 g/dL (12.2-16.2) Hematocrit 40.5 % (36.0-46.0) Mean Corpuscular Volume 93.4 fL (80.0-100.0) Mean Corpuscular Hemoglobin 31.3 pg (28.0-32.0) Mean Corpuscular Hemoglobin Concent 33.5 g/dL (32.0-36.0) Red Cell Distribution Width 15.1 % (11.8-14.3) Platelet Count 205 10^3/uL (140-450) Mean Platelet Volume 8.1 fL (6.9-10.8) Neutrophils (%) (Auto) % (37.0-80.0) Lymphocytes (%) (Auto) % (10.0-50.0) Monocytes (%) (Auto) % (0.0-12.0) Basophils (%) (Auto) % (0.0-2.0) Neutrophils # (Auto) 10 ^3/uL (1.6-8.6) Lymphocytes # (Auto) 10 ^3/uL (0.4-5.4) Monocytes # (Auto) 10 ^3/uL (0-1.3) Differential Total Cells Counted 100.0 (100) Neutrophils % (Manual) 81 (37.0-80.0) Band Neutrophils % (Manual) 1 Lymphocytes % (Manual) 9 (10.0-50.0) Monocytes % (Manual) 8 (0-12) Eosinophils % (Manual) 1 (0-7) Basophils % (Manual) 0 (0.0-2.0) Metamyelocytes % (manual) 0 Myelocytes % (Manual) 0 Promyelocytes % (Manual) 0 Blast Cells % (Manual) 0 Reactive Lymphocytes 0 Platelet Estimate Adequate Sodium Level 134 mmol/L (136-145) Potassium Level 3.1 mmol/L (3.5-5.1) Chloride Level 95 mmol/L (98-107) Carbon Dioxide Level 32 mmol/L (20-31) Anion Gap 7 (5-15) Blood Urea Nitrogen 11 mg/dL (9-23) Creatinine 0.43 mg/dL (0.550-1.02) Glomerular Filtration Rate Calc 99 mL/min (>90) BUN/Creatinine Ratio 25.6 (10.0-20.0) Serum Glucose 120 mg/dL (74-106) Calcium Level 9.2 mg/dL (8.7-10.4) POC Glucose 176 mg/dl (70-106) Eosinophils (%) (Auto) 0.0 % (0.0-7.0) Eosinophils # (Auto) 0 10 ^3/uL (0-0.8) Basophils # (Auto) 0 10 ^3/uL (0-0.2) Nucleated Red Blood Cells 0.0 % Blood Gas Specimen Type Arterial Blood Gas Sample Site Right brachial Blood Gas Patient Temperature 37.0 Arterial Blood Date Drawn [id number] Arterial Blood pH 7.479 (7.350-7.450) Arterial Blood Partial Pressure CO2 48.0 mmHg (32.0-45.0) Arterial Blood Partial Pressure O2 55.2 mmHg (83.0-108.0) Arterial Blood HCO3 34.9 mmol/L (21.0-28.0) Arterial Blood Oxygen Saturation 88.8 % (94.0-98.0) Arterial Blood Base Excess 9.9 mmol/L (-2.0-3.0) Arterial Blood Oxyhemoglobin 87.7 % (94.0-98.0) Arterial Blood Carboxyhemoglobin 0.9 % (0.5-1.5) Arterial Blood Methemoglobin 0.3 % (0.0-1.5) Timothy Test N/a Blood Gas Total Hemoglobin 13.90 g/dL (12.0-16.0) Blood Gas Liter Flow 9.00 Blood Gas Modality Oxymizer FiO2 % 67.0 Blood Gas Comments Test 03/10/25 01:04 03/09/25 21:10 03/09/25 10:26 D-Dimer, Quantitative 0.90 mg/L FEU (0.0-0.49) Anisocytosis (manual) Slight Tear Drop Cells Few Lactic Acid Level 1.2 mmol/L (0.4-2.0) Total Bilirubin 0.4 mg/dL (0.2-1.0) Aspartate Amino Transferase (AST) 27 U/L (13-40) Alanine Aminotransferase (ALT) 35 U/L (7-40) Alkaline Phosphatase 82 U/L (46-116) Total Protein 6.0 g/dL (5.7-8.2) Albumin 3.9 g/dL (3.2-4.8) Urine Color Yellow (Yellow) Urine Clarity Clear (Clear) Urine pH 6.0 (5.0-9.0) Urine Specific [place] 1.046 (1.001-1.035) Urine Protein 1+ (Negative) Urine Ketones Negative (Negative) Urine Blood Negative /uL (Negative) Urine Nitrite 1+ (Negative) Urine Bilirubin Negative (Negative) Urine Urobilinogen Normal mg/dL (Negative) Urine Leukocyte Esterase Negative /uL (Negative) Urine RBC 1 /hpf (0 - 4) Urine Microscopic WBC 8 /HPF (0-5) Urine Squamous Epithelial Cells None seen /hpf (<5) Urine Bacteria Mod /hpf (None Seen) Urine Mucus Many (None Seen) Urine Glucose Normal mg/dL (Normal) Other Laboratory Tests 03/15/25 15:00 Brief Hx & Hospital Course: H&P:Patient is 79-year-old female with past medical history of Chronic obstructive pulmonary disease on oxygen via nasal cannula, hypertension, diabetes mellitus type 2, diverticulosis, solitary pulmonary nodules,left PID status post PTCA of left superficial femoral artery and popliteal artery in 2018, internal and external hemorrhoids, colonic polyps, Coronary artery disease with status post PCI one stent, peripheral artery disease, 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 Hospital course: With initial patient evaluation, patient initiated on oxygen via nasal cannula, oxygen requirement around 5-10 L, continued on home medication for voriconazole 200 mg p.o. b.i.d., respiratory therapy with albuterol and ipratropium bromide. Continued with IV antibiotics Zosyn and azithromycin for pneumonia. Patient oxygen saturation over the course of hospitalization went back to 4-5 L via nasal cannula which is her baseline, sputum culture came back positive for Pseudomonas, IV antibiotics Zosyn changed to oral levofloxacin. Meanwhile continue the patient's home medication Xarelto, clopidogrel and atorvastatin. Extensive plantar of care discussed with family including patient, patient was alert enough to make decision for herself, deciding for going home with hospice. All plan discussed with patient given her Chronic obstructive pulmonary disease/emphysema, patient agreeing with being in hospice at home. 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 COPD exacerbation Gram-negative bacterial pneumonia Sepsis due to above Coronary artery disease status post PCI one stent Peripheral artery disease Uncontrolled type 2 diabetes mellitus likely due to steroids Dyslipidemia Severe Protein malnutrition Discharge Disposition: Hospice - Home Discharge Instruct/Medications Diet: Cardiac 2g Na,low cholest Activity: No Restrictions, As Tolerated Follow Up/Referral: -Follow up with Hospice MD and PCP in 1 weeks Medications: -See prescription Discharge Statement: "Patient was advised to return to the ER or call 911 if any headaches, dizziness, shortness of breath, chest pain, abdominal pain, bleeding, fevers, or worsening of medical condition. Patient was counseled about treatment plan, medications, possible side effects, patientverbalized understanding. All questions were answered to the best of my ability. 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 COPD exacerbation Possible Gram-negative bacterial pneumonia Sepsis due to above Date of Service: March 16, 2025 Billing Provider: SIMON MIRELES MD Common Visit Codes: 42532-XPH/OBS DISCH DAY >30min ARIE CAMACHO March 16, 2025 14:45 SIMON MIRELES MD March 17, 2025 08:34
[2025-03-17] MEDS ORDERED: levoFLOXacin 250 MG TAB PO SCH (10:00)
== END 2025-03-16 22:22 | disposition hospice, home (50) | DRG 871 ==
LOC: ER 20:39 → EDBD 20:39 → OVERFLOW 03-10 00:35 → EDUNIT# 03-10 00:35 → CENTRAL 03-10 16:27 → CATH ICU 03-11 09:53 → CENTRAL 03-11 09:55
PROVIDERS: ADMIT Student in an Organized Health Care Education/Training Program; ATTEND Student in an Organized Health Care Education/Training Program
PROC: 5A0935A Assistance with Respiratory Ventilation, Less than 24 Consecutive Hours, High Flow/Velocity Cannula (ICD-10-PCS; principal; 2025-03-13)
DX: A41.50 Gram-negative sepsis, unspecified (principal); B44.0 Invasive pulmonary aspergillosis; E43 Unspecified severe protein-calorie malnutrition; J96.01 Acute respiratory failure with hypoxia; J15.69 Pneumonia due to other Gram-negative bacteria; J15.9 Unspecified bacterial pneumonia; J44.1 Chronic obstructive pulmonary disease with (acute) exacerbation; J44.0 Chronic obstructive pulmonary disease with (acute) lower respiratory infection; E78.5 Hyperlipidemia, unspecified; I73.9 Peripheral vascular disease, unspecified; I25.10 Atherosclerotic heart disease of native coronary artery without angina pectoris; T38.0X5A Adverse effect of glucocorticoids and synthetic analogues, initial encounter; E11.51 Type 2 diabetes mellitus with diabetic peripheral angiopathy without gangrene; E11.65 Type 2 diabetes mellitus with hyperglycemia; I10 Essential (primary) hypertension; Z79.899 Other long term (current) drug therapy; Z98.61 Coronary angioplasty status; Z79.02 Long term (current) use of antithrombotics/antiplatelets; Z68.20 Body mass index [BMI] 20.0-20.9, adult
CPT/HCPCS: 36415; 36600; 71045; 71275; 80048; 80053; 81001; 82805; 82962; 83605; 85007; 85025; 85027; 85379; 87040; 87070; 87077; 87081; 87186; 87205; 93005; 94640; 96365; 96367; 96372; 96375; 97110; 97163; 97530; G0378; J1815; J2543